=== PATIENT | female | born 1940 | race Caucasian/White ===

== ENCOUNTER 2021-12-14 07:53 | Outpatient (CLI) | payer MEDICARE, BC, SELFPAY ==
--- NOTE | 2021-12-14 08:00 | CRLHL7_ITS ---
For Patients: As a result of the Century Cures Act, medical imaging exams and procedure reports are released immediately into your electronic medical record. You may view this report before your referring provider. If you have questions, please contact your health care provider. HISTORY: 81-year-old female. Right knee pain. Status post right knee replacement in 2001 with revision in 2016. Left knee replacement in 2002. Right knee pain. TECHNIQUE: 36.1 millicuries of [id number] was injected intravenously. Three phase images of the knees were obtained. FINDINGS: The blood flow and blood pool images demonstrate mild hyperemia surrounding the right knee. There is slight hyperemia surrounding the left knee. The delayed images demonstrate bilateral knee replacements. There is abnormally increased uptake adjacent to the right knee prosthetic components. These findings are consistent with loosening, or less likely infection. There is lesser uptake adjacent to the left knee prosthetic components. These findings could also be due to loosening but should be correlated clinically. IMPRESSION: 1. There are findings consistent with loosening, or less likely infection of the right knee prosthesis. 2. There are also findings suspicious for loosening of the left knee prosthesis. If the patient is not clinically symptomatic in the left knee however, then these findings are of questionable significance. Dictated by Mars Collier MD @ 12/14/2021 12:09:23 PM (Electronically Signed)
== END 2021-12-14 07:54 | disposition home or self-care (01) ==
LOC: NM 07:54
PROVIDERS: PCP Family Medicine; Visit Provider Orthopaedic Surgery Sports Medicine
DX: M25.561 Pain in right knee (principal); T84.032A Mechanical loosening of internal right knee prosthetic joint, initial encounter; Z96.659 Presence of unspecified artificial knee joint
CPT/HCPCS: 78315; A9503

== ENCOUNTER 2022-06-28 17:31 | Emergency (ER) | payer MEDICARE, BC, SELFPAY ==
[2022-06-28] VITALS (20 sets, daily range): BP systolic 118–167; BP diastolic 57–91; PULSE 85–112; RESP 18; TEMP 37.3; O2SAT 94–98; BMI 38.6
--- NOTE | 2022-06-28 18:30 | ED_ITS ---
HPI - General Adult General Date Seen: 06/28/22 Chief complaint: Weakness Stated complaint: Weakness starting Saturday Time Seen by Provider: 06/28/22 18:04 Source: patient Mode of arrival: ambulatory Limitations: no limitations History of Present Illness HPI narrative: Patient is an 82-year-old woman here with her [id number] for evaluation of generalized weakness. She says for the past 4 days she has just felt generally not herself. She says that she feels kind of shaky and weak. She does not have any pain. She denies fevers, headache, sore throat, cough, shortness of breath, chest pain, abdominal pain, nausea, vomiting, diarrhea, black or bloody stools, urinary symptoms, body aches, focal weakness, rashes, or other specific complaints. She says her appetite been decreased, and her daughter notes that she probably has not been keeping up with fluid intake either. She has not had any lightheadedness or fainting, she is able to be ambulatory but says she just feels kind of shaky when she is up. Even lying down she does not feel quite right. She notes that about a week and half ago she was seen in clinic and was told that her ferritin level was elevated. She was not anemic at that time. She also notes that she does not sleep well in general, she falls asleep but wakes up a couple of hours later and is up for the rest of the night. For the past couple of days, her sleeping has been even worse than usual. She has no further complaints. Related Data Home Medications Medication Instructions Recorded Confirmed fluticasone propionate 50 1 spray intranasal BID 12/04/21 02/03/22 mcg/actuation nasal spray,suspension losartan 100 mg tablet 100 mg PO DAILY 12/04/21 02/03/22 acetaminophen 500 mg tablet 500 mg PO Q6H PRN 12/05/21 02/03/22 (Tylenol Extra Strength) amlodipine 10 mg tablet 10 mg PO QDAY 12/05/21 02/03/22 bupropion HCl 150 mg 24 hr tablet, mg PO 12/05/21 02/03/22 extended release ferrous gluconate 324 mg (38 mg 324 mg PO QDAY 12/05/21 02/03/22 iron) tablet meclizine 25 mg tablet 25 mg PO QDAY PRN 12/05/21 02/03/22 pregabalin 150 mg capsule 150 mg PO QDAY 12/05/21 02/03/22 ropinirole 2 mg tablet 2 mg PO BID 12/05/21 02/03/22 triamcinolone acetonide 0.1 % applic topical 12/05/21 02/03/22 topical cream Previous Rx's Medication Instructions Recorded prednisone 20 mg tablet 20 mg PO BID #10 tabs 02/03/22 Allergies Allergy/AdvReac Type Severity Reaction Status Date / Time atenolol Allergy Intermediate shortness Verified 12/05/21 09:54 of breath lisinopril Allergy Mild Cough Verified 12/05/21 09:54 morphine Allergy Mild nausea/vomi Verified 12/05/21 09:54 ting adhesive AdvReac Verified 12/05/21 09:54 iodine AdvReac Verified 12/05/21 09:54 Review of Systems Status of ROS: Reports: 10 or more systems reviewed and unremarkable except as noted in History and below [facility] Medical History Arthritis Asthma Contact dermatitis Fracture of rib Hypertension Neuropathy Sleep apnea Surgical History Avulsion of toenail H/O: hysterectomy (~1994) 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 In general, an alert, well-appearing patient. Head: Normocephalic, atraumatic. Eyes: Pupils are equal reactive. Extraocular movements are full. Conjunctivae are normal. ENT: Mucous membranes are moist. Throat is normal. Neck: Supple without lymphadenopathy. Heart: Regular rate and rhythm. No murmur or rub. Lungs: Clear bilaterally. No increased work of breathing, crackles or wheezes. Abdomen: Soft and nontender. No organomegaly. Extremities: Well perfused. No edema. No calf tenderness. Pulses intact. Neurologic: Patient is alert and oriented to person and place. Speech is fluent. Face is symmetric. Moves all extremities equally. Affect: Normal. Skin: Warm and dry. Well perfused. Const: Vital Signs, click to edit/add: Vital Signs - 24 hr 06/28/22 17:38 06/28/22 17:43 06/28/22 17:44 Temperature 99.1 F Pulse Rate 111 H 112 H Pulse Rate [Pulse Oximeter] 112 H Respiratory Rate 18 Blood Pressure 167/91 H Blood Pressure [Ri ght Upper Arm] 167/91 H Pulse Oximetry 97 97 [facility] 06/28/22 17:53 06/28/22 18:00 06/28/22 18:02 Temperature Pulse Rate 103 H 97 101 H Pulse Rate [Pulse Oximeter] Respiratory Rate Blood Pressure 147/76 H 124/64 Blood Pressure [Ri ght Upper Arm] Pulse Oximetry 98 96 97 [facility] 06/28/22 18:30 06/28/22 18:32 06/28/22 19:00 Temperature Pulse Rate 94 92 87 Pulse Rate [Pulse Oximeter] Respiratory Rate Blood Pressure 133/72 Blood Pressure [Ri ght Upper Arm] Pulse Oximetry 94 94 95 [facility] 06/28/22 19:02 06/28/22 19:03 06/28/22 19:30 Temperature Pulse Rate 90 90 85 Pulse Rate [Pulse Oximeter] Respiratory Rate Blood Pressure 124/57 L Blood Pressure [Ri ght Upper Arm] Pulse Oximetry 94 94 95 [facility] 06/28/22 19:32 06/28/22 20:00 06/28/22 20:02 Temperature Pulse Rate 89 93 92 Pulse Rate [Pulse Oximeter] Respiratory Rate Blood Pressure 122/76 138/78 Blood Pressure [Ri ght Upper Arm] Pulse Oximetry 95 98 98 [facility] 06/28/22 20:30 06/28/22 20:32 06/28/22 20:33 Temperature Pulse Rate 88 93 89 Pulse Rate [Pulse Oximeter] Respiratory Rate Blood Pressure 118/81 Blood Pressure [Ri ght Upper Arm] Pulse Oximetry 96 98 95 [facility] 06/28/22 21:00 06/28/22 21:01 Temperature Pulse Rate 85 87 Pulse Rate [Pulse Oximeter] Respiratory Rate Blood Pressure 129/64 Blood Pressure [Ri ght Upper Arm] Pulse Oximetry 95 96 Oxygen Delivery Me thod Course Course Hospital Course: Plan at this time is to check some labs, placed an IV and give some fluids. Labs are really very reassuring, white count is normal, hemoglobin is 15. Platelets are normal. Potassium was 3.3 I did give her 50 mEq here but I do not think that is contributing to her symptoms. Sodium was normal. BUN was 18 creatinine 0.8. Blood sugar was 96, lactate normal. I did check a ferritin level here which is significantly elevated at 433, total iron 54, transferrin is apparently a send out so that is pending. LFTs are entirely normal, CRP is normal. Lipase is 112 and TSH is normal. She had a L of normal saline, really did not feel the need to urinate the entire time she was here but was able to finally give a urine sample at the end of her stay. This showed 2+ ketones even after L of saline, positive nitrites, 2-5 red cells 25-50 white cells and many bacteria. She does not have significant urinary symptoms, but she is feeling poorly this week, has an abnormal UA, and I do think in this case it is reasonable to treat her and see if this improves how she feels. In terms of her elevated ferritin, it is unclear whether this is directly related to how she is feeling this week. We discussed the possible causes for the elevated ferritin, and at this time I do not know whether this is related to iron overload or not as the transferrin level is still pending. She does not have any signs of end- organ damage. Other inflammatory markers are normal. She is worried about a possible cancer diagnosis, and I have discussed with her that at this time I do not have any specific reason to suspect cancer, but also cannot really rule out other causes for the elevated ferritin such as cancer here in the emergency department. I have stressed that she will need outpatient follow-up to further evaluate for causes of the elevated ferritin. In the meantime, if she is feeling worse, develops new symptoms such as fever, chills, vomiting, chest pain, shortness of breath etcetera she should return to the emergency department. She did have a troponin here which was negative. An EKG showed a sinus rhythm, first-degree AV block, and absence of acute ST segment changes. She has Q-waves in V1 and V2. With symptoms ongoing now for 4 days my suspicion for cardiac etiology for her symptoms is low given the negative troponin. She is comfortable going home at this time. Would encourage her to continue with hydration, return at any time for worsening, stressed importance of primary care follow-up. Vital Signs Vital signs: Initial Vital Signs Temperature 99.1 F 06/28/22 17:38 Temperature Source Temporal Artery Scan 06/28/22 17:38 Pulse Rate 112 H 06/28/22 17:38 Pulse Rhythm 06/28/22 17:38 Pulse Strength 3+ Normal 06/28/22 17:38 Respiratory Rate 18 06/28/22 17:38 Blood Pressure 167/91 H 06/28/22 17:38 Blood Pressure Mean 116 06/28/22 17:38 Blood Pressure Position Semi-Fowlers 06/28/22 17:38 Pulse Oximetry 97 06/28/22 17:38 Oxygen Delivery Method 06/28/22 17:38 Vital Signs Temperature 99.1 F 06/28/22 17:38 Pulse Rate 112 H 06/28/22 17:38 Respiratory Rate 18 06/28/22 17:38 Blood Pressure 167/91 H 06/28/22 17:38 Pulse Oximetry 97 06/28/22 17:38 Oxygen Delivery Method 06/28/22 17:38 Temperature 99.1 F 06/28/22 17:38 Pulse Rate 87 06/28/22 21:01 Respiratory Rate 18 06/28/22 17:38 Blood Pressure 129/64 06/28/22 21:01 Pulse Oximetry 96 06/28/22 21:01 Oxygen Delivery Method 06/28/22 17:38 Medical Decision Making Lab Data Labs: Lab Results 06/28/22 06/28/22 06/28/22 Range/Units 18:20 18:36 18:36 WBC 6.95 (4.50-11.00) K/uL RBC 5.17 (4.00-5.20) m/uL Hgb 15.1 (12.0-16.0) gm/dL Hct 44.9 (33.0-51.0) % MCV 87 (80-100) fL MCH 29 (26-34) pg MCHC 34 (32-36) gm/dL RDW Coeff of [place] 13.4 (11.5-15.5) % Plt Count 217 (140-440) K/uL Neut % (Auto) 71.3 (42.0-72.0) % Lymph % (Auto) 16.3 L (20-44) % Richardson % (Auto) 9.1 (0.0-11.0) % Eos % (Auto) 2.9 (0.0-7.0) % Baso % (Auto) 0.3 (0.0-3.0) % Neut # (Auto) 4.96 (1.7-7.0) K/uL Lymph # (Auto) 1.10 (0.90-2.90) K/uL Richardson # (Auto) 0.60 (0.00-0.90) K/UL Eos # (Auto) 0.20 (0.00-0.50) K/uL Baso # (Auto) 0.02 (0.00-0.30) K/uL Sodium 141 (135-149) mmol/L Potassium 3.3 L (3.6-5.1) mmol/L Chloride 106 (96-114) mmol/L Carbon Dioxide 26 (20-32) mmol/L BUN 18 (7-30) mg/dL Creatinine 0.8 (0.5-1.5) mg/dL Estimated Creat Clear 34.90 Estimated GFR 74 ml/min Glucose 96 (60-115) mg/dL Lactate (0.5-1.9) mmol/L Calcium 9.6 (8.4-10.6) mg/dL Iron (37-170) ug/dL Ferritin (11.1-264.0) ng/mL Total Bilirubin 0.6 (0.1-1.5) mg/dL Direct Bilirubin 0.1 (0.0-0.5) mg/dL AST 32 (12-35) U/L ALT 32 (4-35) U/L Alkaline Phosphatase 90 (40-150) U/L Troponin I (0.01-0.04) ng/mL C-Reactive Protein < 0.5 L (0.5-1.0) mg/dL Total Protein 7.5 (6.0-8.3) g/dL Albumin 4.3 (3.3-5.0) g/dL Lipase 112 (23-300) U/L TSH (0.270-4.200) uIU/mL Urine Color Yellow (Yellow) Urine Appearance Cloudy A (Clear) Urine pH 5.5 (5.0-8.5) Ur Specific [place] 1.020 (1.000-1.030) Urine Protein Negative (Negative) Urine Glucose (UA) Negative (Negative) Urine Ketones 2+ A (Negative) Urine Blood Negative (Negative) Urine Nitrite Positive A (Negative) Urine Bilirubin Negative (Negative) Urine Urobilinogen 0.2 (0.2-1.0) Ur Leukocyte Esterase 1+ A (Negative) Urine RBC 2-5 A (0-2) Urine WBC 25-50 A (0-5) Urine WBC Clumps Few A (None) Ur Squamous Epith Cells Few (None-Few) Urine Bacteria Many A (None) SARS-CoV-2 (PCR) (Negative) 06/28/22 06/28/22 06/28/22 Range/Units 18:36 18:36 18:36 WBC (4.50-11.00) K/uL RBC (4.00-5.20) m/uL Hgb (12.0-16.0) gm/dL Hct (33.0-51.0) % MCV (80-100) fL MCH (26-34) pg MCHC (32-36) gm/dL RDW Coeff of [place] (11.5-15.5) % Plt Count (140-440) K/uL Neut % (Auto) (42.0-72.0) % Lymph % (Auto) (20-44) % Richardson % (Auto) (0.0-11.0) % Eos % (Auto) (0.0-7.0) % Baso % (Auto) (0.0-3.0) % Neut # (Auto) (1.7-7.0) K/uL Lymph # (Auto) (0.90-2.90) K/uL Richardson # (Auto) (0.00-0.90) K/UL Eos # (Auto) (0.00-0.50) K/uL Baso # (Auto) (0.00-0.30) K/uL Sodium (135-149) mmol/L Potassium (3.6-5.1) mmol/L Chloride (96-114) mmol/L Carbon Dioxide (20-32) mmol/L BUN (7-30) mg/dL Creatinine (0.5-1.5) mg/dL Estimated Creat Clear Estimated GFR ml/min Glucose (60-115) mg/dL Lactate 1.0 (0.5-1.9) mmol/L Calcium (8.4-10.6) mg/dL Iron (37-170) ug/dL Ferritin (11.1-264.0) ng/mL Total Bilirubin (0.1-1.5) mg/dL Direct Bilirubin (0.0-0.5) mg/dL AST (12-35) U/L ALT (4-35) U/L Alkaline Phosphatase (40-150) U/L Troponin I < 0.01 L (0.01-0.04) ng/mL C-Reactive Protein (0.5-1.0) mg/dL Total Protein (6.0-8.3) g/dL Albumin (3.3-5.0) g/dL Lipase (23-300) U/L TSH (0.270-4.200) uIU/mL Urine Color (Yellow) Urine Appearance (Clear) Urine pH (5.0-8.5) Ur Specific [place] (1.000-1.030) Urine Protein (Negative) Urine Glucose (UA) (Negative) Urine Ketones (Negative) Urine Blood (Negative) Urine Nitrite (Negative) Urine Bilirubin (Negative) Urine Urobilinogen (0.2-1.0) Ur Leukocyte Esterase (Negative) Urine RBC (0-2) Urine WBC (0-5) Urine WBC Clumps (None) Ur Squamous Epith Cells (None-Few) Urine Bacteria (None) SARS-CoV-2 (PCR) Negative SARS-CoV-2 (Negative) 06/28/22 06/28/22 Range/Units 18:36 18:36 WBC (4.50-11.00) K/uL RBC (4.00-5.20) m/uL Hgb (12.0-16.0) gm/dL Hct (33.0-51.0) % MCV (80-100) fL MCH (26-34) pg MCHC (32-36) gm/dL RDW Coeff of [place] (11.5-15.5) % Plt Count (140-440) K/uL Neut % (Auto) (42.0-72.0) % Lymph % (Auto) (20-44) % Richardson % (Auto) (0.0-11.0) % Eos % (Auto) (0.0-7.0) % Baso % (Auto) (0.0-3.0) % Neut # (Auto) (1.7-7.0) K/uL Lymph # (Auto) (0.90-2.90) K/uL Richardson # (Auto) (0.00-0.90) K/UL Eos # (Auto) (0.00-0.50) K/uL Baso # (Auto) (0.00-0.30) K/uL Sodium (135-149) mmol/L Potassium (3.6-5.1) mmol/L Chloride (96-114) mmol/L Carbon Dioxide (20-32) mmol/L BUN (7-30) mg/dL Creatinine (0.5-1.5) mg/dL Estimated Creat Clear Estimated GFR ml/min Glucose (60-115) mg/dL Lactate (0.5-1.9) mmol/L Calcium (8.4-10.6) mg/dL Iron 54 (37-170) ug/dL Ferritin 433.0 H (11.1-264.0) ng/mL Total Bilirubin (0.1-1.5) mg/dL Direct Bilirubin (0.0-0.5) mg/dL AST (12-35) U/L ALT (4-35) U/L Alkaline Phosphatase (40-150) U/L Troponin I (0.01-0.04) ng/mL C-Reactive Protein (0.5-1.0) mg/dL Total Protein (6.0-8.3) g/dL Albumin (3.3-5.0) g/dL Lipase (23-300) U/L TSH 0.696 (0.270-4.200) uIU/mL Urine Color (Yellow) Urine Appearance (Clear) Urine pH (5.0-8.5) Ur Specific [place] (1.000-1.030) Urine Protein (Negative) Urine Glucose (UA) (Negative) Urine Ketones (Negative) Urine Blood (Negative) Urine Nitrite (Negative) Urine Bilirubin (Negative) Urine Urobilinogen (0.2-1.0) Ur Leukocyte Esterase (Negative) Urine RBC (0-2) Urine WBC (0-5) Urine WBC Clumps (None) Ur Squamous Epith Cells (None-Few) Urine Bacteria (None) SARS-CoV-2 (PCR) (Negative) Discharge Plan Discharge Clinical Impression: UTI (urinary tract infection), Weakness Patient Disposition: Home, Self-Care Condition: Improved Instructions: Urinary Tract Infection in Older Adults (ED) Additional Instructions: Antibiotic as prescribed (you only need to take it for 5 days, not 7). Return for new symptoms such as fever, chills, vomiting, or other worsening. Primary care followup for persistent symptoms of weakness. Ferritin level 433 tonight, iron level 54. Transferrin pending. Make sure to follow-up on the elevated ferritin with your clinic. Prescriptions: No Action losartan 100 mg tablet 100 mg PO DAILY fluticasone propionate 50 mcg/actuation spray,suspension 1 spray intranasal BID Rx Instructions: administer into each nostril pregabalin 150 mg capsule 150 mg PO QDAY ferrous gluconate 324 mg (38 mg iron) tablet 324 mg PO QDAY amlodipine 10 mg tablet 10 mg PO QDAY ropinirole 2 mg tablet 2 mg PO BID bupropion HCl 150 mg tablet extended release 24 hr PO triamcinolone acetonide 0.1 % cream topical meclizine 25 mg tablet 25 mg PO QDAY PRN acetaminophen [Tylenol Extra Strength] 500 mg tablet 500 mg PO Q6H PRN prednisone 20 mg tablet 20 mg PO BID Qty: 10 0RF Follow Up/Referrals: Bety Macedo MD [Primary Care Provider] - Stand Alone Forms: [employer] Info Instructions
[2022-06-28] MEDS: 0.9 % SODIUM CHLORIDE 1000 ml 1,000 ML IV (18:40)
[2022-06-28 18:51] LABS: Basophils Absolute Auto 0.02 K/uL (0.00-0.30); Basophils Percent Auto 0.3 % (0.0-3.0); Eosinophils Percent Auto 2.9 % (0.0-7.0); Hematocrit 44.9 % (33.0-51.0); Hemoglobin* 15.1 gm/dL (12.0-16.0); Immature Granulocytes Abs Auto 0.01 K/uL (0.00-0.30); Immature Granulocytes Pct Auto 0.1 %; Lymphocytes Percent Auto 16.3 % (20-44); Mean Corpuscular HGB Conc 34 gm/dL (32-36); Mean Corpuscular Hemoglobin 29 pg (26-34); Mean Corpuscular Volume 87 fL (80-100); Monocytes Percent Auto 9.1 % (0.0-11.0); Neutrophils Absolute Auto 4.96 K/uL (1.7-7.0); Neutrophils Percent Auto 71.3 % (42.0-72.0); Platelet Count* 217 K/uL (140-440); RDW Coefficient of Variation % 13.4 % (11.5-15.5); Red Blood Count 5.17 m/uL (4.00-5.20); White Blood Count* 6.95 K/uL (4.50-11.00)
[2022-06-28 18:58] LABS: Slide Review Reflex No
[2022-06-28 19:08] LABS: Albumin* 4.3 g/dL (3.3-5.0); Chloride* 106 mmol/L (96-114); Sodium* 141 mmol/L (135-149)
[2022-06-28 19:09] LABS: Potassium* 3.3 mmol/L (3.6-5.1)
[2022-06-28 19:11] LABS: Creatinine* 0.8 mg/dL (0.5-1.5); Estimated Glomerular Filt Rate 74 ml/min
[2022-06-28 19:12] LABS: Alanine Aminotransferase* 32 U/L (4-35); Alkaline Phosphatase* 90 U/L (40-150); Aspartate Amino Transferase* 32 U/L (12-35); Bilirubin Direct* 0.1 mg/dL (0.0-0.5); Bilirubin Total* 0.6 mg/dL (0.1-1.5); Blood Urea Nitrogen* 18 mg/dL (7-30); Calcium* 9.6 mg/dL (8.4-10.6); Carbon Dioxide* 26 mmol/L (20-32); Glucose* 96 mg/dL (60-115); Lipase* 112 U/L (23-300); Total Protein* 7.5 g/dL (6.0-8.3)
[2022-06-28 19:15] LABS: C Reactive Protein* < 0.5 mg/dL (0.5-1.0)
[2022-06-28 19:24] LABS: Troponin I* < 0.01 ng/mL (0.01-0.04)
[2022-06-28 19:32] LABS: SARS PCR* Negative SARS-CoV-2 (Negative)
[2022-06-28] MEDS: POTASSIUM BICARB 25 MEQ EFFERVESCENT TAB 50 MEQ PO (19:34)
[2022-06-28 19:52] LABS: TSH With Reflex to FT4* 0.696 uIU/mL (0.270-4.200)
[2022-06-28 20:10] LABS: Iron* 54 ug/dL (37-170)
[2022-06-28 21:46] LABS: Appearance Urine Cloudy (Clear); Bilirubin Urine Negative (Negative); Blood Urine Negative (Negative); Color Urine Yellow (Yellow); Glucose Urine Negative (Negative); Ketones Urine 2+ (Negative); Leukocyte Esterase Urine 1+ (Negative); Nitrite Urine Positive (Negative); Protein Urine Negative (Negative); Urobilinogen Urine 0.2 (0.2-1.0); pH Urine 5.5 (5.0-8.5)
[2022-06-28 21:56] LABS: Bacteria Urine Many; Squamous Epithelial Cell Urine Few (None-Few); WBC Clumps Urine Few; WBC Urine 25-50 (0-5)
[2022-06-30 21:13] LABS: Transferrin 198 mg/dL (200-360)
== END 2022-06-28 22:18 | disposition home or self-care (01) ==
PROVIDERS: Emergency Provider Emergency Medicine; PCP Family Medicine
DX: N39.0 Urinary tract infection, site not specified (principal)
CPT/HCPCS: 36415; 80048; 80076; 81001; 82728; 83540; 83605; 83690; 84443; 84466; 84484; 85025; 86140; 87086; 87186; 87635; 93005; 99284; A9270; J7030

== ENCOUNTER 2023-01-20 16:12 | Emergency (ER) | payer MEDICARE, BC, SELFPAY ==
[2023-01-20] VITALS (17 sets, daily range): BP systolic 117–179; BP diastolic 62–89; PULSE 77–93; RESP 16–20; TEMP 36.2; O2SAT 90–97; BMI 36.9
--- NOTE | 2023-01-20 16:38 | ED.GENADULT ---
HPI - General Adult General Chief complaint: Dizziness/Vertigo Stated complaint: dizzy since noon Time Seen by Provider: 01/20/23 16:30 History of Present Illness HPI narrative: since noon pt has felt like room is spinning, slight nausea 82-year-old woman presenting to the emergency department complain of dizziness. She was in usual state of health other than feeling more tired today after waking this morning in getting some things done went to sleep, take a nap waking than around noon went to move and noted herself to be quite dizzy the room was spinning around her. This continues. Resolved at rest. No chest pain shortness of breath or sensation of palpitations. No recent fever. She does recall having some dizziness in the past for which who is apparently evaluated in this department but was not as bad as this. No visual disturbances otherwise. No headache. No trauma. Mildly nauseated. Denies a history of CVA or TIA. Had laid herself down around 7 hours ago now, waking between 4 and 5 hours ago. Has had hang onto things to ambulate, namely her walker. Related Data Home Medications Medication Instructions Recorded Confirmed fluticasone propionate 50 1 spray intranasal BID 12/04/21 02/03/22 mcg/actuation nasal spray,suspension losartan 100 mg tablet 100 mg PO DAILY 12/04/21 01/20/23 acetaminophen 500 mg tablet 500 mg PO Q6H PRN 12/05/21 02/03/22 (Tylenol Extra Strength) amlodipine 10 mg tablet 10 mg PO QDAY 12/05/21 01/20/23 bupropion HCl 150 mg 24 hr tablet, mg PO 12/05/21 02/03/22 extended release ferrous gluconate 324 mg (38 mg 324 mg PO QDAY 12/05/21 01/20/23 iron) tablet meclizine 25 mg tablet 25 mg PO QDAY PRN 12/05/21 02/03/22 pregabalin 150 mg capsule 150 mg PO QDAY 12/05/21 01/20/23 ropinirole 2 mg tablet 2 mg PO BID 12/05/21 01/20/23 triamcinolone acetonide 0.1 % applic topical 12/05/21 02/03/22 topical cream Previous Rx's Medication Instructions Recorded prednisone 20 mg tablet 20 mg PO BID #10 tabs 02/03/22 diazepam 5 mg tablet (Valium) 2.5 - 5 mg (0.5 - 1 x 5 mg) PO BID 01/20/23 PRN dizziness #5 tabs meclizine 25 mg tablet 25 mg PO TID #15 tabs 01/20/23 Allergies Allergy/AdvReac Type Severity Reaction Status Date / Time atenolol Allergy Intermediate shortness Verified 12/05/21 09:54 of breath lisinopril Allergy Mild Cough Verified 12/05/21 09:54 morphine Allergy Mild nausea/vomi Verified 12/05/21 09:54 ting adhesive AdvReac Verified 12/05/21 09:54 iodine AdvReac Verified 12/05/21 09:54 Review of Systems Status of ROS: Reports: 6 or more systems reviewed and unremarkable except as noted in History and below PFSH PFS Medical History Contact dermatitis ?L25.9 - Unspecified contact dermatitis, unspecified cause (ICD-10) Neuropathy ?G62.9 - Polyneuropathy, unspecified (ICD-10) Arthritis ?M19.90 - Unspecified osteoarthritis, unspecified site (ICD-10) Sleep apnea ?G47.30 - Sleep apnea, unspecified (ICD-10) Asthma ?J45.909 - Unspecified asthma, uncomplicated (ICD-10) Hypertension ?I10 - Essential (primary) hypertension (ICD-10) Fracture of rib ?S22.39XA - Fracture of one rib, unspecified side, initial encounter for closed fracture (ICD-10) Surgical History History of revision of total knee arthroplasty ?Z96.659 - Presence of unspecified artificial knee joint (ICD-10) H/O: hysterectomy (~1994) ?Z90.710 - Acquired absence of both cervix and uterus (ICD-10) History of total right knee replacement (~11/2001) ?Z96.651 - Presence of right artificial knee joint (ICD-10) History of total left knee replacement (~01/2003) ?Z96.652 - Presence of left artificial knee joint (ICD-10) Avulsion of toenail ?S91.209A - Unspecified open wound of unspecified toe(s) with damage to nail, initial encounter (ICD-10) Social History Smoking Status: Never smoker Do you use any of these nicotine containing products: None Second hand tobacco smoke exposure: No How often do you have a drink containing alcohol: never How often do you have six or more drinks on one occasion: Never AUDIT-C Alcohol total score: 0 Non-prescribed substance use: denies use service: No Exam Narrative: Exam Narrative: Pleasant. Speaking easily, fluidly. Cranial nerves 2-12 intact. Pupils are equal and briskly reactive to light and accommodation. Extraocular movements are full. She demonstrates nystagmus beating left. No facial swelling erythema or tenderness. Any movement of her head does causes dizziness as to sitting up. At rest subjectively resolves. Head looks to be atraumatic. Neck is supple. Nontender. Heart is distant occasional irregular beat but generally mildly elevated regular rhythm. Moving all extremities fluidly with good strength throughout. Well-perfused. I did reassess attempting to accomplish HINTS -- this really was just difficult to accomplish and inconclusive. Const: Vital Signs, click to edit/add: Vital Signs - 24 hr 01/20/23 16:16 01/20/23 17:35 01/20/23 17:36 Temperature 97.1 F L Pulse Rate 77 78 Pulse Rate [Pulse Oximeter] 92 Respiratory Rate 20 16 Blood Pressure 120/62 Blood Pressure [Ri ght Upper Arm] 156/82 H Pulse Oximetry 94 90 95 Oxygen Delivery Me thod Room Air Room Air Documenting provider has reviewed patient's vital signs: yes Course Vital Signs Vital signs: Initial Vital Signs Temperature 97.1 F L 01/20/23 16:16 Temperature Source Temporal Artery Scan 01/20/23 16:16 Pulse Rate 92 01/20/23 16:16 Respiratory Rate 20 01/20/23 16:16 Blood Pressure 156/82 H 01/20/23 16:16 Blood Pressure Mean 106 H 01/20/23 16:16 Blood Pressure Position Sitting 01/20/23 16:16 Pulse Oximetry 94 01/20/23 16:16 Oxygen Delivery Method Room Air 01/20/23 16:16 Vital Signs Temperature 97.1 F L 01/20/23 16:16 Pulse Rate 92 01/20/23 16:16 Respiratory Rate 20 01/20/23 16:16 Blood Pressure 156/82 H 01/20/23 16:16 Pulse Oximetry 94 01/20/23 16:16 Oxygen Delivery Method Room Air 01/20/23 16:16 Temperature 97.1 F L 01/20/23 16:16 Pulse Rate 81 01/20/23 20:31 Respiratory Rate 16 01/20/23 17:35 Blood Pressure 150/89 H 01/20/23 20:31 Pulse Oximetry 95 01/20/23 20:31 Oxygen Delivery Method Room Air 01/20/23 17:35 Medical Decision Making MDM Narrative Medical decision making narrative: With history of similar think this is more of a peripheral vertigo of issue a furthermore that improves at rest. Will test dose fluids and Valium and re-evaluate. Monitoring on monitoring tech. Vitals stable After extended period of time and reassessment does not appear to be improving. Or symptoms seem to have recurred somewhat. At this point will delve deeper into other possible etiology including TIA/CVA, endocrine, cerebrovascular, ischemic cardiovascular event. Also giving meclizine and repeat dosing diazepam. Labs are reassuring. CTA head and neck was reassuring with some mild atherosclerotic disease noted in the left internal carotid but no flow limiting lesions noted. No aneurysms. While imaging is not absolutely conclusive, on reassessment Ms. Guillen has finally improved. I am more confident on re-examination that symptoms seem to be more persistent she reproducible indicating left inner ear involvement perhaps. She notes she is feeling well enough that she feels she can depart to home See patient discharge plan Medical Records Medical records reviewed: Yes I reviewed the patient's medical records Lab Data Lab results reviewed: Yes I reviewed the patient's lab results Labs: Lab Results 01/20/23 01/20/23 Range/Units 18:42 18:55 WBC 6.77 (4.50-11.00) K/uL RBC 4.94 (4.00-5.20) m/uL Hgb 14.1 (12.0-16.0) gm/dL Hct 44.0 (33.0-51.0) % MCV 89 (80-100) fL MCH 29 (26-34) pg MCHC 32 (32-36) gm/dL RDW Coeff of [place] 14.3 (11.5-15.5) % Plt Count 202 (140-440) K/uL Neut % (Auto) 67.2 (42.0-72.0) % Lymph % (Auto) 22.3 (20-44) % [place] % (Auto) 7.4 (0.0-11.0) % Eos % (Auto) 2.8 (0.0-7.0) % Baso % (Auto) 0.3 (0.0-3.0) % Neut # (Auto) 4.55 (1.7-7.0) K/uL Lymph # (Auto) 1.51 (0.90-2.90) K/uL [place] # (Auto) 0.50 (0.00-0.90) K/UL Eos # (Auto) 0.19 (0.00-0.50) K/uL Baso # (Auto) 0.02 (0.00-0.30) K/uL Abs Immat Gran (auto) 0.00 (0.00-0.30) K/uL Imm/Tot Granulo (auto) 0.0 % Sodium 142 (135-149) mmol/L Potassium 3.9 (3.6-5.1) mmol/L Chloride 112 (96-114) mmol/L Carbon Dioxide 24 (20-32) mmol/L Anion Gap 6 L (7-15) mEq/L BUN 28 (7-30) mg/dL Creatinine 0.6 (0.5-1.5) mg/dL Estimated Creat Clear 34.90 Estimated GFR 90 ml/min Glucose 84 (60-115) mg/dL Calcium 9.4 (8.4-10.6) mg/dL Troponin I < 0.01 L (0.01-0.04) ng/mL C-Reactive Protein 1.2 H (0.5-1.0) mg/dL Urine Color Light yellow (Yellow) Urine Appearance Clear (Clear) Urine pH 6.0 (5.0-8.5) Ur Specific [place] 1.010 (1.000-1.030) Urine Protein Negative (Negative) Urine Glucose (UA) Negative (Negative) Urine Ketones Negative (Negative) Urine Blood Negative (Negative) Urine Nitrite Negative (Negative) Urine Bilirubin Negative (Negative) Urine Urobilinogen 0.2 (0.2-1.0) Ur Leukocyte Esterase Trace A (Negative) Urine RBC 0-2 (0-2) Urine WBC 0-2 (0-5) Ur Squamous Epith Cells None (None-Few) Urine Bacteria None (None) POC Troponin I 0.00 L (0.01-0.04) ng/ml Discharge Plan Discharge Clinical Impression: Dizziness, Peripheral positional vertigo Patient Disposition: Home w/ Parent or Adult Condition: Improved Additional Instructions: I think we have done a pretty extensive evaluation here today. Your scans thankfully look to be without evidence of ischemia. You seem to be improved. Important to stay well hydrated. Take care in transitions and keep your walker at hand. I would ask you to take the meclizine dosed regularly if it does not make you to tired, over the next 3 days. The Valium then is for dizziness that seems worse in between. This medicine in particular can make you tired. See handout for exercises that you can do to focus on the left side/ear at this point. I would follow up to discuss this case further with primary care. It may be that further imaging is warranted. We are giving you some pills from our pharmacy here because it might be hard to get medications tomorrow. Prescriptions: New meclizine 25 mg tablet 25 mg PO TID Qty: 15 0RF diazepam [Valium] 5 mg tablet 2.5 - 5 mg PO BID PRN (Reason: dizziness) Qty: 5 0RF No Action losartan 100 mg tablet 100 mg PO DAILY fluticasone propionate 50 mcg/actuation spray,suspension 1 spray intranasal BID Rx Instructions: administer into each nostril pregabalin 150 mg capsule 150 mg PO QDAY ferrous gluconate 324 mg (38 mg iron) tablet 324 mg PO QDAY amlodipine 10 mg tablet 10 mg PO QDAY ropinirole 2 mg tablet 2 mg PO BID bupropion HCl 150 mg tablet extended release 24 hr PO triamcinolone acetonide 0.1 % cream topical meclizine 25 mg tablet 25 mg PO QDAY PRN acetaminophen [Tylenol Extra Strength] 500 mg tablet 500 mg PO Q6H PRN prednisone 20 mg tablet 20 mg PO BID Qty: 10 0RF Follow Up/Referrals: Bety Macedo MD [Referring] - Stand Alone Forms: [facility] Info Instructions
[2023-01-20] MEDS: 0.9 % SODIUM CHLORIDE 1000 ml 1,000 ML 2000 ML IV (17:17)
[2023-01-20] MEDS: diazePAM 5 MG/ML inj IV (17:17)
--- NOTE | 2023-01-20 18:25 | CRLHL7_ITS ---
For Patients: As a result of the Century Cures Act, medical imaging exams and procedure reports are released immediately into your electronic medical record. You may view this report before your referring provider. If you have questions, please contact your health care provider. CLINICAL HISTORY: Dizziness. TECHNIQUE: CTA neck with contrast bolus tracking. 3D angiographic rendering using maximum intensity projection (MIP) and images permanently archived. COMPARISON: None available. FINDINGS: The great vessels are patent. The common carotid arteries are patent. The proximal ICAs are patent without signficant stenoses by NASCET criteria. The more distal cervical ICAs are patent. The origins of the vertebral arteries are patent. The cervical segments of the vertebral arteries are patent. IMPRESSION: Patent cervical arterial vasculature without hemodynamically significant luminal stenosis. Please note that all CT scans at this facility use dose modulation, iterative reconstruction, and/or weight-based dosing when appropriate to reduce radiation dose to as low as reasonably achievable. Dictated by Victorino Mckinley MD @ 01/20/2023 8:55:05 PM (Electronically Signed)
--- NOTE | 2023-01-20 18:25 | CRLHL7_ITS ---
For Patients: As a result of the Century Cures Act, medical imaging exams and procedure reports are released immediately into your electronic medical record. You may view this report before your referring provider. If you have questions, please contact your health care provider. CLINICAL HISTORY: Dizziness. TECHNIQUE: Standard helical CT image acquisition of the brain was performed. COMPARISON: None available. FINDINGS: There is no intracranial hemorrhage, extra-axial collection, mass effect, or midline shift. Mckenzie-white matter differentiation is preserved. The ventricles are normal in size and morphology for patient age. Mild patchy hypoattenuation in the white matter of both hemispheres likely reflects sequela chronic small vessel ischemia. Intracranial atherosclerotic calcification. The calvarium is unremarkable. The orbits are unremarkable. Mucous retention cyst in the left maxillary sinus. Small volume secretions layering in the right sphenoid sinus. The mastoid air cells are unremarkable. IMPRESSION: 1. No CT evidence of acute intracranial abnormality. 2. Findings most likely reflecting sequela of chronic small vessel ischemia. Please note that all CT scans at this facility use dose modulation, iterative reconstruction, and/or weight-based dosing when appropriate to reduce radiation dose to as low as reasonably achievable. Dictated by Victorino Mckinley MD @ 01/20/2023 8:52:30 PM (Electronically Signed)
--- NOTE | 2023-01-20 18:25 | CRLHL7_ITS ---
For Patients: As a result of the Century Cures Act, medical imaging exams and procedure reports are released immediately into your electronic medical record. You may view this report before your referring provider. If you have questions, please contact your health care provider. CLINICAL HISTORY: Dizziness. TECHNIQUE: CTA head with contrast bolus tracking. 3D angiographic rendering using maximum intensity projection (MIP) and images permanently archived. COMPARISON: None available. FINDINGS: The petrous, cavernous, and supraclinoid segments of the internal carotid arteries are patent. The anterior and middle cerebral arteries are patent. The anterior communicating artery is visualized and is within normal limits. The intracranial vertebral arteries, basilar trunk, and posterior cerebral arteries are patent. No intracranial proximal large vessel occlusion. Mild atherosclerotic stenosis of the clinoid segment of the left ICA. No evidence of cerebral aneurysm. No findings to suggest an arterial-venous shunting lesion. IMPRESSION: No intracranial proximal large vessel occlusion, flow-limiting luminal stenosis, or cerebral aneurysm. Please note that all CT scans at this facility use dose modulation, iterative reconstruction, and/or weight-based dosing when appropriate to reduce radiation dose to as low as reasonably achievable. Dictated by Victorino Mckinley MD @ 01/20/2023 8:58:26 PM (Electronically Signed)
[2023-01-20 18:48] LABS: Appearance Urine Clear (Clear); Bilirubin Urine Negative (Negative); Blood Urine Negative (Negative); Color Urine Light yellow (Yellow); Glucose Urine Negative (Negative); Ketones Urine Negative (Negative); Leukocyte Esterase Urine Trace (Negative); Nitrite Urine Negative (Negative); Protein Urine Negative (Negative); Urobilinogen Urine 0.2 (0.2-1.0)
[2023-01-20 18:58] LABS: RBC Urine 0-2 (0-2); WBC Urine 0-2 (0-5)
[2023-01-20 19:06] LABS: Basophils Absolute Auto 0.02 K/uL (0.00-0.30); Basophils Percent Auto 0.3 % (0.0-3.0); Eosinophils Absolute Auto 0.19 K/uL (0.00-0.50); Eosinophils Percent Auto 2.8 % (0.0-7.0); Hemoglobin* 14.1 gm/dL (12.0-16.0); Lymphocytes Absolute Auto 1.51 K/uL (0.90-2.90); Lymphocytes Percent Auto 22.3 % (20-44); Mean Corpuscular HGB Conc 32 gm/dL (32-36); Mean Corpuscular Hemoglobin 29 pg (26-34); Mean Corpuscular Volume 89 fL (80-100); Monocytes Percent Auto 7.4 % (0.0-11.0); Neutrophils Absolute Auto 4.55 K/uL (1.7-7.0); Neutrophils Percent Auto 67.2 % (42.0-72.0); Platelet Count* 202 K/uL (140-440); RDW Coefficient of Variation % 14.3 % (11.5-15.5); Red Blood Count 4.94 m/uL (4.00-5.20); White Blood Count* 6.77 K/uL (4.50-11.00)
[2023-01-20 19:11] LABS: Slide Review Reflex No
[2023-01-20] MEDS: MECLIZINE HCL 25 MG TABLET PO ×2 (19:17→21:39)
[2023-01-20 19:18] LABS: Chloride* 112 mmol/L (96-114); Potassium* 3.9 mmol/L (3.6-5.1); Sodium* 142 mmol/L (135-149)
[2023-01-20 19:21] LABS: Creatinine* 0.6 mg/dL (0.5-1.5); Estimated Glomerular Filt Rate 90 ml/min
[2023-01-20 19:22] LABS: Anion Gap 6 mEq/L (7-15); Blood Urea Nitrogen* 28 mg/dL (7-30); Calcium* 9.4 mg/dL (8.4-10.6); Carbon Dioxide* 24 mmol/L (20-32); Glucose* 84 mg/dL (60-115)
[2023-01-20 19:25] LABS: C Reactive Protein* 1.2 mg/dL (0.5-1.0)
[2023-01-20 19:36] LABS: Troponin I* < 0.01 ng/mL (0.01-0.04)
[2023-01-20] MEDS: diazePAM 5 MG TABLET PO (21:38)
== END 2023-01-20 21:50 | disposition home or self-care (01) ==
PROVIDERS: Emergency Provider Family Medicine; PCP Family Medicine
DX: H81.11 Benign paroxysmal vertigo, right ear (principal)
CPT/HCPCS: 36415; 70450; 70496; 70498; 80048; 81001; 84484; 85025; 86140; 96374; 99284; 99285; A9270; J3360; J7030; Q9967

== ENCOUNTER 2023-04-08 15:25 | Outpatient (CLI) | payer MEDICARE, BC, SELFPAY | END 2023-04-08 15:26 | disposition home or self-care (01) | LOC: AMB 04-09 10:31 | PROVIDERS: PCP Family Medicine; Visit Provider Emergency Medicine Emergency Medical Services | DX: R41.82 Altered mental status, unspecified (principal); R53.1 Weakness | CPT/HCPCS: A0998 ==

== ENCOUNTER 2023-04-08 16:06 | Emergency (ER) | payer MEDICARE, BC, SELFPAY ==
[2023-04-08 16:14] VITALS: BP 138/76; PULSE 97; RESP 18; TEMP 36.4; O2SAT 95; BMI 40.2
--- NOTE | 2023-04-08 17:24 | CRLHL7_ITS ---
For Patients: As a result of the Cures Act, medical imaging exams and procedure reports are released immediately into your electronic medical record. You may view this report before your referring provider. If you have questions, please contact your health care provider. INDICATION: Confusion. Mental status change TECHNIQUE: Noncontrast axial CT of the head is submitted. Compared to prior study from January 21, 2020. FINDINGS: The ventricles, sulci and gyri are of normal size, shape and contour for age. Midline structures are centrally located. No convincing evidence of suspicious intra- or extra-axial fluid collections. Stable mild patchy regions of decreased attenuation within the periventricular and subcortical white matter of both cerebral hemispheres. IMPRESSION: 1. No radiographic evidence of acute intracranial abnormalities. 2. Stable mild supratentorial white matter changes that are non-specific, but statistically most likely related to chronic small vessel ischemic disease. Dictated by Bruce Arreola MD @ 04/08/2023 6:14:26 PM Please note that all CT scans at this facility use dose modulation, iterative reconstruction, and/or weight-based dosing when appropriate to reduce radiation dose to as low as reasonably achievable. Dictated by: Bruce Arreola MD @ 04/08/2023 18:14:37 (Electronically Signed)
--- NOTE | 2023-04-08 17:25 | ED.GENADULT ---
HPI - General Adult General Chief complaint: Neuro Symptoms/Altered Deficit Stated complaint: Confusion Time Seen by Provider: 04/08/23 17:04 History of Present Illness HPI narrative: This 82-year-old female comes in with her family member and she reports an episode this morning where she had confusion. She was standing in her kitchen in trying to figure out how to use a recipe for cooking something. She states that this lasted about an hour and now has resolved. She did not have any unilateral weakness or altered sensation. There was no speech change. She does not complain of any pain or headache. She does have poor ability to sleep at night and uses a CPAP machine. She states that many time she does not sleep at all at night but then during the day if she sits down in a chair she may fall asleep very quickly. Her son states that he has seen her in this state and noted that there was significant sleep apnea when she was sleeping in the chair during the day. Related Data Home Medications Medication Instructions Recorded Confirmed fluticasone propionate 50 1 spray intranasal BID 12/04/21 02/03/22 mcg/actuation nasal spray,suspension losartan 100 mg tablet 100 mg PO DAILY 12/04/21 01/20/23 acetaminophen 500 mg tablet 500 mg PO Q6H PRN 12/05/21 02/03/22 (Tylenol Extra Strength) amlodipine 10 mg tablet 10 mg PO QDAY 12/05/21 01/20/23 bupropion HCl 150 mg 24 hr tablet, mg PO 12/05/21 02/03/22 extended release ferrous gluconate 324 mg (38 mg 324 mg PO QDAY 12/05/21 01/20/23 iron) tablet meclizine 25 mg tablet 25 mg PO QDAY PRN 12/05/21 02/03/22 pregabalin 150 mg capsule 150 mg PO QDAY 12/05/21 01/20/23 ropinirole 2 mg tablet 2 mg PO BID 12/05/21 01/20/23 triamcinolone acetonide 0.1 % applic topical 12/05/21 02/03/22 topical cream Previous Rx's Medication Instructions Recorded prednisone 20 mg tablet 20 mg PO BID #10 tabs 02/03/22 diazepam 5 mg tablet (Valium) 2.5 - 5 mg (0.5 - 1 x 5 mg) PO BID 09/03/23 PRN dizziness #5 tabs meclizine 25 mg tablet 25 mg PO TID #15 tabs 01/20/23 cephalexin 500 mg capsule 500 mg PO TID 7 days #21 caps 04/08/23 Allergies Allergy/AdvReac Type Severity Reaction Status Date / Time atenolol Allergy Intermediate shortness Verified 12/05/21 09:54 of breath lisinopril Allergy Mild Cough Verified 12/05/21 09:54 morphine Allergy Mild nausea/vomi Verified 12/05/21 09:54 ting adhesive AdvReac Verified 12/05/21 09:54 iodine AdvReac Verified 12/05/21 09:54 Review of Systems Status of ROS: Reports: 10 or more systems reviewed and unremarkable except as noted in History and below Narrative: Constitutional: No fevers, no weight gain or loss. Eyes: No discharge. No vision changes. HENT: No congestion, no sore throat, no ear pain. Cardiovascular: No chest pain, no palpitations. Respiratory: No shortness of breath, no wheezes, no cough. Gastrointestinal: No abdominal pain, no vomiting, no diarrhea. Genitourinary: No dysuria, no hematuria. Musculoskeletal: Normal range of motion. Skin: No rashes, no pruritis. Neurological: No dizziness, weakness, sensory change, speech change. Endo/Heme/Allergies: No bruising or bleeding. No polydipsia. Pysch: no suicidality, no anxiety. She had a episode of confusion this morning that has resolved. She reports insomnia and has sleep apnea. All other systems reviewed and are negative. [facility] Medical History Contact dermatitis ?L25.9 - Unspecified contact dermatitis, unspecified cause (ICD-10) Neuropathy ?G62.9 - Polyneuropathy, unspecified (ICD-10) Arthritis ?M19.90 - Unspecified osteoarthritis, unspecified site (ICD-10) Sleep apnea ?G47.30 - Sleep apnea, unspecified (ICD-10) Asthma ?J45.909 - Unspecified asthma, uncomplicated (ICD-10) Hypertension ?I10 - Essential (primary) hypertension (ICD-10) Fracture of rib ?S22.39XA - Fracture of one rib, unspecified side, initial encounter for closed fracture (ICD-10) Surgical History History of revision of total knee arthroplasty ?Z96.659 - Presence of unspecified artificial knee joint (ICD-10) H/O: hysterectomy (~1994) ?Z90.710 - Acquired absence of both cervix and uterus (ICD-10) History of total right knee replacement (~11/2001) ?Z96.651 - Presence of right artificial knee joint (ICD-10) History of total left knee replacement (~01/2003) ?Z96.652 - Presence of left artificial knee joint (ICD-10) Avulsion of toenail ?S91.209A - Unspecified open wound of unspecified toe(s) with damage to nail, initial encounter (ICD-10) Social History Smoking Status: Never smoker Do you use any of these nicotine containing products: None Second hand tobacco smoke exposure: No How often do you have a drink containing alcohol: never How often do you have six or more drinks on one occasion: Never AUDIT-C Alcohol total score: 0 Non-prescribed substance use: denies use service: No Exam Narrative: Exam Narrative: Constitutional: Well-developed, well-nourished, no acute distress. HEENT: Normocephalic, atraumatic. Neck: Normal range of motion. Nontender. Supple. Heart: Regular. No murmurs. Normal rate. Intact distal pulses. Lungs: Clear to auscultation. No chest discomfort. No wheezes, rhonchi, or rales. Abdomen: Normal bowel sounds. Nontender. No rebound tenderness. Genitalia: Deferred. Back: No midline tenderness. Normal range of motion. Extremities: Normal range of motion. No injury. Skin: Intact. No rash. Warm. No erythema or pallor. Neurologic: No altered sensation. No weakness. Alert and oriented. No facial asymmetry. Tongue is midline. [id number] is normal. No pronator drift. [employer] strength is equal bilaterally. She is able to raise each leg from the bed to my hand. Psychiatric: No suicidality. No anxiety or depression. No insomnia. Nursing notes and vitals signs are reviewed. Const: Vital Signs, click to edit/add: Vital Signs - 24 hr 04/08/23 16:14 Temperature 97.6 F Pulse Rate [Pulse Oximeter] 97 Respiratory Rate 18 Blood Pressure [Ri ght Upper Arm] 138/76 Pulse Oximetry 95 Oxygen Delivery Me thod Room Air Course Vital Signs Vital signs: Initial Vital Signs Temperature 97.6 F 04/08/23 16:14 Temperature Source Temporal Artery Scan 04/08/23 16:14 Pulse Rate 97 04/08/23 16:14 Respiratory Rate 18 04/08/23 16:14 Blood Pressure 138/76 04/08/23 16:14 Blood Pressure Mean 96 04/08/23 16:14 Pulse Oximetry 95 04/08/23 16:14 Oxygen Delivery Method Room Air 04/08/23 16:14 Vital Signs Temperature 97.6 F 04/08/23 16:14 Pulse Rate 97 04/08/23 16:14 Respiratory Rate 18 04/08/23 16:14 Blood Pressure 138/76 04/08/23 16:14 Pulse Oximetry 95 04/08/23 16:14 Oxygen Delivery Method Room Air 04/08/23 16:14 Temperature 97.6 F 04/08/23 16:14 Pulse Rate 97 04/08/23 16:14 Respiratory Rate 18 04/08/23 16:14 Blood Pressure 138/76 04/08/23 16:14 Pulse Oximetry 95 04/08/23 16:14 Oxygen Delivery Method Room Air 04/08/23 16:14 Medical Decision Making MDM Narrative Medical decision making narrative: This patient comes in reporting an episode of confusion earlier today but states that she feels rather normal at this time. She arrives with normal vital signs in her exam is reassuring. She does not show any neurologic deficits. CT imaging of her head by my review shows no acute findings. Lab results show normal findings also except her urinalysis does show evidence of urinary tract infection. This can explain episodes of delirium or confusion. The patient did receive a prescription for Keflex. Lab Data Labs: Lab Results 04/08/23 Range/Units 17:35 WBC 6.66 (4.50-11.00) K/uL RBC 5.08 (4.00-5.20) m/uL Hgb 14.8 (12.0-16.0) gm/dL Hct 45.5 (33.0-51.0) % MCV 90 (80-100) fL MCH 29 (26-34) pg MCHC 33 (32-36) gm/dL RDW Coeff of [place] 14.1 (11.5-15.5) % Plt Count 222 (140-440) K/uL Neut % (Auto) 66.3 (42.0-72.0) % Lymph % (Auto) 21.0 (20-44) % [place] % (Auto) 8.0 (0.0-11.0) % Eos % (Auto) 4.2 (0.0-7.0) % Baso % (Auto) 0.3 (0.0-3.0) % Neut # (Auto) 4.42 (1.7-7.0) K/uL Lymph # (Auto) 1.40 (0.90-2.90) K/uL [place] # (Auto) 0.50 (0.00-0.90) K/UL Eos # (Auto) 0.28 (0.00-0.50) K/uL Baso # (Auto) 0.02 (0.00-0.30) K/uL Abs Immat Gran (auto) 0.01 (0.00-0.30) K/uL Imm/Tot Granulo (auto) 0.2 % Sodium 143 (135-149) mmol/L Potassium 4.2 (3.6-5.1) mmol/L Chloride 106 (96-114) mmol/L Carbon Dioxide 28 (20-32) mmol/L Anion Gap 9 (7-15) mEq/L BUN 25 (7-30) mg/dL Creatinine 0.8 (0.5-1.5) mg/dL Estimated Creat Clear 34.90 Estimated GFR 74 ml/min Glucose 104 (60-115) mg/dL Calcium 9.8 (8.4-10.6) mg/dL Urine Color Yellow (Yellow) Urine Appearance Clear (Clear) Urine pH 5.5 (5.0-8.5) Ur Specific [place] 1.020 (1.000-1.030) Urine Protein Negative (Negative) Urine Glucose (UA) Negative (Negative) Urine Ketones Negative (Negative) Urine Blood Negative (Negative) Urine Nitrite Positive A (Negative) Urine Bilirubin Negative (Negative) Urine Urobilinogen 0.2 (0.2-1.0) Ur Leukocyte Esterase 3+ A (Negative) Urine RBC 10-25 A (0-2) Urine WBC 10-25 A (0-5) Urine WBC Clumps Few A (None) Ur Squamous Epith Cells Few (None-Few) Urine Bacteria Moderate A (None) Imaging Data CT scan - head: Radiologist's impression: 1. No radiographic evidence of acute intracranial abnormalities. 2. Stable mild supratentorial white matter changes that are non-specific, but statistically most likely related to chronic small vessel ischemic disease. Discharge Plan Discharge Clinical Impression: Urinary tract infection Patient Disposition: Home, Self-Care Condition: Unchanged Additional Instructions: Take medication as prescribed. Follow up with MD return if worsening. Prescriptions: New cephalexin 500 mg capsule 500 mg PO TID 7 Days Qty: 21 0RF No Action losartan 100 mg tablet 100 mg PO DAILY fluticasone propionate 50 mcg/actuation spray,suspension 1 spray intranasal BID Rx Instructions: administer into each nostril pregabalin 150 mg capsule 150 mg PO QDAY ferrous gluconate 324 mg (38 mg iron) tablet 324 mg PO QDAY amlodipine 10 mg tablet 10 mg PO QDAY ropinirole 2 mg tablet 2 mg PO BID bupropion HCl 150 mg tablet extended release 24 hr PO triamcinolone acetonide 0.1 % cream topical meclizine 25 mg tablet 25 mg PO QDAY PRN acetaminophen [Tylenol Extra Strength] 500 mg tablet 500 mg PO Q6H PRN prednisone 20 mg tablet 20 mg PO BID Qty: 10 0RF meclizine 25 mg tablet 25 mg PO TID Qty: 15 0RF diazepam [Valium] 5 mg tablet 2.5 - 5 mg PO BID PRN (Reason: dizziness) Qty: 5 0RF Follow Up/Referrals: Lakeshia Gee MD [Primary Care Provider] - Stand Alone Forms: [employer] Info Instructions
[2023-04-08 17:46] LABS: Hematocrit 45.5 % (33.0-51.0); Hemoglobin* 14.8 gm/dL (12.0-16.0); Mean Corpuscular HGB Conc 33 gm/dL (32-36); Mean Corpuscular Hemoglobin 29 pg (26-34); Mean Corpuscular Volume 90 fL (80-100); Neutrophils Percent Auto 66.3 % (42.0-72.0); Platelet Count* 222 K/uL (140-440); RDW Coefficient of Variation % 14.1 % (11.5-15.5); Red Blood Count 5.08 m/uL (4.00-5.20); White Blood Count* 6.66 K/uL (4.50-11.00)
[2023-04-08 17:47] LABS: Basophils Absolute Auto 0.02 K/uL (0.00-0.30); Basophils Percent Auto 0.3 % (0.0-3.0); Eosinophils Absolute Auto 0.28 K/uL (0.00-0.50); Eosinophils Percent Auto 4.2 % (0.0-7.0); Immature Granulocytes Abs Auto 0.01 K/uL (0.00-0.30); Immature Granulocytes Pct Auto 0.2 %; Neutrophils Absolute Auto 4.42 K/uL (1.7-7.0)
[2023-04-08 17:50] LABS: Appearance Urine Clear (Clear); Bilirubin Urine Negative (Negative); Blood Urine Negative (Negative); Color Urine Yellow (Yellow); Glucose Urine Negative (Negative); Ketones Urine Negative (Negative); Leukocyte Esterase Urine 3+ (Negative); Nitrite Urine Positive (Negative); Protein Urine Negative (Negative); Urobilinogen Urine 0.2 (0.2-1.0); pH Urine 5.5 (5.0-8.5)
[2023-04-08 17:51] LABS: Slide Review Reflex No
[2023-04-08 17:59] LABS: Bacteria Urine Moderate; Squamous Epithelial Cell Urine Few (None-Few); WBC Clumps Urine Few
[2023-04-08 18:09] LABS: Chloride* 106 mmol/L (96-114)
[2023-04-08 18:10] LABS: Potassium* 4.2 mmol/L (3.6-5.1); Sodium* 143 mmol/L (135-149)
[2023-04-08 18:12] LABS: Creatinine* 0.8 mg/dL (0.5-1.5); Estimated Glomerular Filt Rate 74 ml/min
[2023-04-08 18:13] LABS: Anion Gap 9 mEq/L (7-15); Blood Urea Nitrogen* 25 mg/dL (7-30); Calcium* 9.8 mg/dL (8.4-10.6); Carbon Dioxide* 28 mmol/L (20-32); Glucose* 104 mg/dL (60-115)
[2023-04-08 18:20] VITALS: PULSE 73; O2SAT 97
[2023-04-08 18:30] VITALS: PULSE 74; O2SAT 93
[2023-04-08 18:32] VITALS: BP 135/72; PULSE 76; O2SAT 92
[2023-04-08 18:33] VITALS: PULSE 73; O2SAT 92
[2023-04-08 18:44] LABS: Thyroid Stimulating Hormone* 0.421 uIU/mL (0.270-4.20)
== END 2023-04-08 18:44 | disposition home or self-care (01) ==
PROVIDERS: Emergency Provider Emergency Medicine Emergency Medical Services; PCP Family Medicine
DX: N39.0 Urinary tract infection, site not specified (principal)
CPT/HCPCS: 36415; 70450; 80048; 81001; 84443; 85025; 87086; 87186; 99284

== ENCOUNTER 2023-05-14 17:14 | Emergency (ER) | payer MEDICARE, BC, SELFPAY ==
[2023-05-14 17:23] VITALS: BP 131/71; PULSE 78; RESP 16; TEMP 35.7; O2SAT 97; BMI 37.2
[2023-05-14 18:00] LABS: Appearance Urine Clear (Clear); Bilirubin Urine Negative (Negative); Blood Urine Negative (Negative); Color Urine Yellow (Yellow); Glucose Urine Negative (Negative); Ketones Urine Negative (Negative); Leukocyte Esterase Urine Trace (Negative); Nitrite Urine Negative (Negative); Protein Urine Negative (Negative); Specific Gravity Urine <= 1.005 (1.000-1.030); Urobilinogen Urine 0.2 (0.2-1.0)
[2023-05-14 18:22] LABS: RBC Urine 0-2 (0-2); WBC Urine 0-2 (0-5)
[2023-05-14] MEDS: 0.9 % SODIUM CHLORIDE 1000 ml 1,000 ML IV (19:10)
[2023-05-14 19:15] LABS: Lactate Sepsis w/Reflex* 0.9 mmol/L (0.5-1.9)
[2023-05-14 19:20] LABS: Basophils Absolute Auto 0.03 K/uL (0.00-0.30); Basophils Percent Auto 0.4 % (0.0-3.0); Eosinophils Absolute Auto 0.32 K/uL (0.00-0.50); Eosinophils Percent Auto 4.7 % (0.0-7.0); Hematocrit 41.9 % (33.0-51.0); Hemoglobin* 13.9 gm/dL (12.0-16.0); Immature Granulocytes Abs Auto 0.02 K/uL (0.00-0.30); Immature Granulocytes Pct Auto 0.3 %; Lymphocytes Absolute Auto 1.41 K/uL (0.90-2.90); Lymphocytes Percent Auto 20.7 % (20-44); Mean Corpuscular HGB Conc 33 gm/dL (32-36); Mean Corpuscular Hemoglobin 29 pg (26-34); Mean Corpuscular Volume 88 fL (80-100); Monocytes Percent Auto 6.6 % (0.0-11.0); Neutrophils Absolute Auto 4.58 K/uL (1.7-7.0); Neutrophils Percent Auto 67.3 % (42.0-72.0); Platelet Count* 223 K/uL (140-440); RDW Coefficient of Variation % 13.9 % (11.5-15.5); Red Blood Count 4.75 m/uL (4.00-5.20); White Blood Count* 6.81 K/uL (4.50-11.00)
[2023-05-14 19:21] LABS: Troponin, Point-of-Care* 0.02 ng/ml (0.01-0.04)
[2023-05-14 19:36] LABS: Slide Review Reflex No
[2023-05-14 19:38] LABS: Albumin* 4.5 g/dL (3.3-5.0); Chloride* 105 mmol/L (96-114)
[2023-05-14 19:39] LABS: Potassium* 3.7 mmol/L (3.6-5.1); Sodium* 141 mmol/L (135-149)
[2023-05-14 19:41] LABS: Creatinine* 0.8 mg/dL (0.5-1.5); Estimated Glomerular Filt Rate 74 ml/min
[2023-05-14 19:42] LABS: Alanine Aminotransferase* 35 U/L (4-35); Alkaline Phosphatase* 97 U/L (40-150); Anion Gap 10 mEq/L (7-15); Aspartate Amino Transferase* 36 U/L (12-35); Bilirubin Total* 0.3 mg/dL (0.1-1.5); Blood Urea Nitrogen* 22 mg/dL (7-30); Calcium* 9.8 mg/dL (8.4-10.6); Carbon Dioxide* 26 mmol/L (20-32); Glucose* 89 mg/dL (60-115); Total Protein* 7.4 g/dL (6.0-8.3)
--- NOTE | 2023-05-14 19:42 | ED_ITS ---
HPI - General Adult General Date Seen: 05/14/23 Chief complaint: Urogenital Problems, Female Stated complaint: UTI for a month, dehydrated, meds not working Time Seen by Provider: 05/14/23 18:30 Source: patient and family Mode of arrival: ambulatory Limitations: no limitations History of Present Illness HPI narrative: Patient is an 82-year-old woman brought in by her 2 sons for evaluation of shakiness today. She has complained of nausea intermittently, she says she has not had much of an appetite. No vomiting. No abdominal pain. No fevers or chills. No diarrhea. They were concerned because she had had a urinary tract infection diagnosed in March, was seen recently at [facility] and told it was not cleared so she was treated with Bactrim which she just started today. She denie s urinary symptoms. Lives independently, no focal neurologic signs. Related Data Home Medications Medication Instructions Recorded Confirmed fluticasone propionate 50 1 spray intranasal BID PRN 12/04/21 05/14/23 mcg/actuation nasal spray,suspension losartan 100 mg tablet 100 mg PO DAILY 12/04/21 05/14/23 acetaminophen 500 mg tablet 500 mg PO Q6H PRN 12/05/21 05/14/23 (Tylenol Extra Strength) amlodipine 10 mg tablet 10 mg PO QDAY 12/05/21 05/14/23 bupropion HCl 150 mg 24 hr tablet, mg PO 12/05/21 02/03/22 extended release meclizine 25 mg tablet 25 mg PO QDAY PRN 12/05/21 05/14/23 pregabalin 150 mg capsule 150 mg PO QDAY 12/05/21 05/14/23 ropinirole 2 mg tablet 2 mg PO BID 12/05/21 05/14/23 triamcinolone acetonide 0.1 % applic topical PRN 12/05/21 02/03/22 topical cream sulfamethoxazole 800 1 tab PO BID 05/14/23 05/14/23 mg-trimethoprim 160 mg tablet Previous Rx's Medication Instructions Recorded prednisone 20 mg tablet 20 mg PO BID #10 tabs 02/03/22 diazepam 5 mg tablet (Valium) 2.5 - 5 mg (0.5 - 1 x 5 mg) PO BID 01/20/23 PRN dizziness #5 tabs meclizine 25 mg tablet 25 mg PO TID #15 tabs 01/20/23 Allergies Allergy/AdvReac Type Severity Reaction Status Date / Time atenolol Allergy Intermediate shortness Verified 05/14/23 17:35 of breath lisinopril Allergy Mild Cough Verified 05/14/23 17:35 morphine Allergy Mild nausea/vomi Verified 05/14/23 17:35 ting Review of Systems Status of ROS: Reports: 10 or more systems reviewed and unremarkable except as noted in History and below PFSH PFS Medical History Contact dermatitis ?L25.9 - Unspecified contact dermatitis, unspecified cause (ICD-10) Neuropathy ?G62.9 - Polyneuropathy, unspecified (ICD-10) Arthritis ?M19.90 - Unspecified osteoarthritis, unspecified site (ICD-10) Sleep apnea ?G47.30 - Sleep apnea, unspecified (ICD-10) Asthma ?J45.909 - Unspecified asthma, uncomplicated (ICD-10) Hypertension ?I10 - Essential (primary) hypertension (ICD-10) Fracture of rib ?S22.39XA - Fracture of one rib, unspecified side, initial encounter for closed fracture (ICD-10) Surgical History History of revision of total knee arthroplasty ?Z96.659 - Presence of unspecified artificial knee joint (ICD-10) H/O: hysterectomy (~1994) ?Z90.710 - Acquired absence of both cervix and uterus (ICD-10) History of total right knee replacement (~11/2001) ?Z96.651 - Presence of right artificial knee joint (ICD-10) History of total left knee replacement (~01/2003) ?Z96.652 - Presence of left artificial knee joint (ICD-10) Avulsion of toenail ?S91.209A - Unspecified open wound of unspecified toe(s) with damage to nail, initial encounter (ICD-10) Social History Smoking Status: Never smoker Do you use any of these nicotine containing products: None Second hand tobacco smoke exposure: No How often do you have a drink containing alcohol: never How often do you have six or more drinks on one occasion: Never AUDIT-C Alcohol total score: 0 Non-prescribed substance use: denies use service: No Exam Narrative: Exam Narrative: Vital signs as noted above. In general, an alert, well-appearing patient. Head: Normocephalic, atraumatic. Eyes: Pupils are equal reactive. Extraocular movements are full. Conjunctivae are normal. ENT: Mucous membranes are moist. Throat is normal. Neck: Supple without lymphadenopathy. Heart: Regular rate and rhythm. No murmur or rub. Lungs: Clear bilaterally. No increased work of breathing, crackles or wheezes. Abdomen: Soft and nontender. No organomegaly. Extremities: Well perfused. No edema. No calf tenderness. Pulses intact. Neurologic: Patient is alert and oriented to person and place. Speech is fluent. Face is symmetric. Moves all extremities equally. Affect: Normal. Skin: Warm and dry. Well perfused. Const: Vital Signs, click to edit/add: Vital Signs - 24 hr 05/14/23 17:23 Temperature 96.3 F L Pulse Rate [Pulse Oximeter] 78 Respiratory Rate 16 Blood Pressure [Ri ght Upper Arm] 131/71 Pulse Oximetry 97 Oxygen Delivery Me thod Room Air Documenting provider has reviewed patient's vital signs: yes Course Course ED Course: Urinalysis obtained today is normal, no nitrates, 0-2 red cells, 0-2 white cells. I did recommend that we do a little additional evaluation to make sure that there was not something else going on. Her lactate is normal at 0.9, other labs pending at this time. Diagnostic considerations include an infectious process, though I do not see evidence of urinary tract infection today, metabolic derangement, acute coronary syndrome, viral process such as COVID. Initial EKG showed somewhat elevated ST segment appearance in V2 only, ST depression in lead 2 only. Sinus rhythm, first-degree AV block. No significant change compared to an EKG from June aside from the appearance of V2. Her in itial troponin was 0.02 and she has had symptoms all day I think making it less likely that this is an acute coronary syndrome. I did repeat her EKG and this looks commensurate with her EKG from June, she has mm of ST elevation in V2 which she had at that time as well, no other ST changes in the anterior leads. Other labs are reassuring, white blood cell count of 6.8, normal diff. Hemoglobin is normal. Metabolic panel is entirely within normal limits, CRP is 0.8. LFTs unremarkable. She is eager to go home. At this time I do not see any evidence of sepsis or other acute process. I looked back through her records and I saw our last June with almost an identical presentation. We treated her for UTI at that point. Her UA in clinic last week apparently showed 14-25 white blood cells, had a lengthy conversation with her son's about urinalysis results and their possible meanings, but given that she is not feeling quite herself and did have an abnormal UA last week I would recommend continuing the Bactrim despite the normal UA today. If she is feeling worse, has new symptoms such as fevers, vomiting, chills, etcetera return to the emergency department. If not starting to feel improved over the next 24 hours, check in with primary care. Vital Signs Vital signs: Initial Vital Signs Temperature 96.3 F L 05/14/23 17:23 Temperature Source Temporal Artery Scan 05/14/23 17:23 Pulse Rate 78 05/14/23 17:23 Respiratory Rate 16 05/14/23 17:23 Blood Pressure 131/71 05/14/23 17:23 Blood Pressure Mean 91 05/14/23 17:23 Blood Pressure Position Sitting 05/14/23 17:23 Pulse Oximetry 97 05/14/23 17:23 Oxygen Delivery Method Room Air 05/14/23 17:23 Vital Signs Temperature 96.3 F L 05/14/23 17:23 Pulse Rate 78 05/14/23 17:23 Respiratory Rate 16 05/14/23 17:23 Blood Pressure 131/71 05/14/23 17:23 Pulse Oximetry 97 05/14/23 17:23 Oxygen Delivery Method Room Air 05/14/23 17:23 Temperature 96.3 F L 05/14/23 17:23 Pulse Rate 78 05/14/23 17:23 Respiratory Rate 16 05/14/23 17:23 Blood Pressure 131/71 05/14/23 17:23 Pulse Oximetry 97 05/14/23 17:23 Oxygen Delivery Method Room Air 05/14/23 17:23 Medications Administered Medications: Discontinued Medications Generic Name Dose Route Start Last Admin Trade Name Freq PRN Reason Stop Dose Admin Sodium Chloride 1,000 mls @ 1,000 mls/hr 05/14/23 18:45 05/14/23 20:10 0.9 % Sodium Chloride 1000 Ml IV 05/14/23 19:44 Infused .Q1H EVER Infusion Medical Decision Making Lab Data Labs: Lab Results 05/14/23 05/14/23 05/14/23 Range/Units 17:40 18:40 19:08 WBC 6.81 (4.50-11.00) K/uL RBC 4.75 (4.00-5.20) m/uL Hgb 13.9 (12.0-16.0) gm/dL Hct 41.9 (33.0-51.0) % MCV 88 (80-100) fL MCH 29 (26-34) pg MCHC 33 (32-36) gm/dL RDW Coeff of [place] 13.9 (11.5-15.5) % Plt Count 223 (140-440) K/uL Neut % (Auto) 67.3 (42.0-72.0) % Lymph % (Auto) 20.7 (20-44) % [place] % (Auto) 6.6 (0.0-11.0) % Eos % (Auto) 4.7 (0.0-7.0) % Baso % (Auto) 0.4 (0.0-3.0) % Neut # (Auto) 4.58 (1.7-7.0) K/uL Lymph # (Auto) 1.41 (0.90-2.90) K/uL [place] # (Auto) 0.40 (0.00-0.90) K/UL Eos # (Auto) 0.32 (0.00-0.50) K/uL Baso # (Auto) 0.03 (0.00-0.30) K/uL Abs Immat Gran (auto) 0.02 (0.00-0.30) K/uL Imm/Tot Granulo (auto) 0.3 % Sodium 141 (135-149) mmol/L Potassium 3.7 (3.6-5.1) mmol/L Chloride 105 (96-114) mmol/L Carbon Dioxide 26 (20-32) mmol/L Anion Gap 10 (7-15) mEq/L BUN 22 (7-30) mg/dL Creatinine 0.8 (0.5-1.5) mg/dL Estimated Creat Clear 36.50 Estimated GFR 74 ml/min Glucose 89 (60-115) mg/dL Lactate 0.9 (0.5-1.9) mmol/L Calcium 9.8 (8.4-10.6) mg/dL Total Bilirubin 0.3 (0.1-1.5) mg/dL Direct Bilirubin 0.0 (0.0-0.5) mg/dL AST 36 H (12-35) U/L ALT 35 (4-35) U/L Alkaline Phosphatase 97 (40-150) U/L C-Reactive Protein 0.8 (0.5-1.0) mg/dL Total Protein 7.4 (6.0-8.3) g/dL Albumin 4.5 (3.3-5.0) g/dL Urine Color Yellow (Yellow) Urine Appearance Clear (Clear) Urine pH 6.0 (5.0-8.5) Ur Specific [place] <= 1.005 (1.000-1.030) Urine Protein Negative (Negative) Urine Glucose (UA) Negative (Negative) Urine Ketones Negative (Negative) Urine Blood Negative (Negative) Urine Nitrite Negative (Negative) Urine Bilirubin Negative (Negative) Urine Urobilinogen 0.2 (0.2-1.0) Ur Leukocyte Esterase Trace A (Negative) Urine RBC 0-2 (0-2) Urine WBC 0-2 (0-5) Ur Squamous Epith Cells None (None-Few) Urine Bacteria None (None) SARS-CoV-2 (PCR) Negative SARS-CoV-2 (Negative) Influenza Type A (PCR) Negative PCR FLU A (Negative) Influenza Type B (PCR) Negative PCR FLU B (Negative) RSV (PCR) Negative PCR RSV (Negative) POC Troponin I 0.02 (0.01-0.04) ng/ml Discharge Plan Discharge Clinical Impression: Weakness Patient Disposition: Home, Self-Care Condition: Stable Instructions: Weakness (ED) Additional Instructions: I would recommend continuing on the Bactrim as prescribed. If you are not starting to feel better over the next 24 hours, check in with primary care. For worsening symptoms such as fevers, chills, vomiting, etcetera, return any time for re-evaluation in the ER. Prescriptions: No Action losartan 100 mg tablet 100 mg PO DAILY fluticasone propionate 50 mcg/actuation spray,suspension 1 spray intranasal BID PRN Rx Instructions: administer into each nostril pregabalin 150 mg capsule 150 mg PO QDAY amlodipine 10 mg tablet 10 mg PO QDAY ropinirole 2 mg tablet 2 mg PO BID bupropion HCl 150 mg tablet extended release 24 hr PO triamcinolone acetonide 0.1 % cream topical PRN meclizine 25 mg tablet 25 mg PO QDAY PRN acetaminophen [Tylenol Extra Strength] 500 mg tablet 500 mg PO Q6H PRN prednisone 20 mg tablet 20 mg PO BID Qty: 10 0RF meclizine 25 mg tablet 25 mg PO TID Qty: 15 0RF diazepam [Valium] 5 mg tablet 2.5 - 5 mg PO BID PRN (Reason: dizziness) Qty: 5 0RF sulfamethoxazole-trimethoprim 800-160 mg tablet 1 tab PO BID Follow Up/Referrals: Lakeshia Gee MD [Primary Care Provider] - Stand Alone Forms: [facility] Info Instructions
[2023-05-14 19:44] LABS: C Reactive Protein* 0.8 mg/dL (0.5-1.0)
[2023-05-14 19:57] LABS: PCR FLU A Negative PCR FLU A (Negative); PCR FLU B Negative PCR FLU B (Negative); PCR RSV Negative PCR RSV (Negative)
[2023-05-14 20:10] LABS: SARS PCR* Negative SARS-CoV-2 (Negative)
== END 2023-05-14 20:43 | disposition home or self-care (01) ==
PROVIDERS: Emergency Provider Emergency Medicine; PCP Family Medicine
DX: R53.1 Weakness (principal)
CPT/HCPCS: 36415; 80048; 80076; 81001; 83605; 84484; 85025; 86140; 87631; 96360; 99284; J7030

== ENCOUNTER 2023-06-12 13:00 | Outpatient (RCR) | payer MEDICARE, BC, SELFPAY ==
--- NOTE | 2023-06-03 14:20 | URNOTE ---
Pt has medicare/[employer]. Prior authorization is not required as services are based on medical necessity and follow medicare guidelines.
[2023-06-06 13:03] VITALS: BP 134/73; PULSE 75; RESP 18; TEMP 36.1; O2SAT 94
[2023-06-06] MEDS: FERRIC CARBOXYMALTOSE 750 MG in 0.9 % SODIUM CHLORIDE 250 ml 250 ML 1060 MG IVPB (13:40)
[2023-06-06] MEDS: 0.9 % SODIUM CHLORIDE 250 ml IV (16:42)
[2023-06-06] MEDS: SODIUM CHLORIDE 0.9 % (FLUSH) 10 ML SYRINGE IVF (16:42)
[2023-06-12 13:19] VITALS: BP 139/73; PULSE 81; RESP 18; TEMP 36.2; O2SAT 96
[2023-06-12] MEDS: 0.9 % SODIUM CHLORIDE 250 ml IV (13:28)
[2023-06-12] MEDS: FERRIC CARBOXYMALTOSE 750 MG in 0.9 % SODIUM CHLORIDE 250 ml 250 ML 1060 MG IVPB (13:28)
[2023-06-12 13:48] VITALS: BP 115/71; PULSE 69; RESP 18; TEMP 37; O2SAT 94
[2023-06-12 14:15] VITALS: BP 124/73; PULSE 74; RESP 18; O2SAT 94
== END 2023-12-03 23:59 | disposition home or self-care (01) ==
LOC: CCIC 13:00
PROVIDERS: PCP Family Medicine; Referring Provider Family Medicine; Visit Provider Physician Assistant
DX: G25.81 Restless legs syndrome (principal); R79.0 Abnormal level of blood mineral
CPT/HCPCS: 96365; J1439; J7050

== ENCOUNTER 2023-08-15 18:49 | Emergency (ER) | payer MEDICARE, BC, SELFPAY ==
[2023-08-15 18:56] VITALS: BP 164/75; PULSE 84; RESP 16; TEMP 35.7; O2SAT 96; BMI 42.5
--- NOTE | 2023-08-15 19:32 | ED_ITS ---
HPI - Skin/Abscess/Foreign Bdy General Chief complaint: Skin/Abscess/Foreign Body Stated complaint: rash Time Seen by Provider: 08/15/23 19:01 History of Present Illness HPI narrative: This 83-year-old female comes in reporting some erythema and discomfort in her left inguinal region which now extends into the upper anterior thigh and into her abdomen. She states that she is putting an antibiotic ointment on this without any relief. She states that it is pruritic also. She does not report any other new symptoms. Related Data Home Medications Medication Instructions Recorded Confirmed fluticasone propionate 50 1 spray intranasal BID PRN 12/04/21 06/12/23 mcg/actuation nasal spray,suspension losartan 100 mg tablet 100 mg PO DAILY 12/04/21 06/12/23 acetaminophen 500 mg tablet 500 mg PO Q6H PRN 12/05/21 06/12/23 (Tylenol Extra Strength) amlodipine 10 mg tablet 10 mg PO QDAY 12/05/21 06/12/23 bupropion HCl 150 mg 24 hr tablet, 150 mg PO 12/05/21 02/03/22 extended release meclizine 25 mg tablet 25 mg PO QDAY PRN 12/05/21 06/12/23 pregabalin 150 mg capsule 150 mg PO QDAY 12/05/21 06/12/23 ropinirole 2 mg tablet 2 mg PO BID 12/05/21 06/12/23 triamcinolone acetonide 0.1 % applic topical PRN 12/05/21 02/03/22 topical cream sulfamethoxazole 800 1 tab PO BID 05/14/23 06/12/23 mg-trimethoprim 160 mg tablet hydrochlorothiazide 25 mg tablet 25 mg PO DAILY 08/15/23 08/15/23 Previous Rx's Medication Instructions Recorded prednisone 20 mg tablet 20 mg PO BID #10 tabs 02/03/22 diazepam 5 mg tablet (Valium) 2.5 - 5 mg (0.5 - 1 x 5 mg) PO BID 01/20/23 PRN dizziness #5 tabs meclizine 25 mg tablet 25 mg PO TID #15 tabs 01/20/23 Allergies Allergy/AdvReac Type Severity Reaction Status Date / Time atenolol Allergy Intermediate shortness Verified 06/12/23 13:12 of breath lisinopril Allergy Mild Cough Verified 06/12/23 13:12 morphine Allergy Mild nausea/vomi Verified 06/12/23 13:12 ting Review of Systems Status of ROS: Reports: 10 or more systems reviewed and unremarkable except as noted in History and below Narrative: Constitutional: No fevers, no weight gain or loss. Eyes: No discharge. No vision changes. HENT: No congestion, no sore throat, no ear pain. Cardiovascular: No chest pain, no palpitations. Respiratory: No shortness of breath, no wheezes, no cough. Gastrointestinal: No abdominal pain, no vomiting, no diarrhea. Genitourinary: No dysuria, no hematuria. Musculoskeletal: Normal range of motion. Skin: Rash on the left inguinal region extending into the upper anterior left thigh and into the left abdomen. Neurological: No dizziness, weakness, sensory change, speech change. Endo/Heme/Allergies: No bruising or bleeding. No polydipsia. Pysch: no suicidality, no anxiety, no insomnia. All other systems reviewed and are negative. [facility] Medical History Contact dermatitis ?L25.9 - Unspecified contact dermatitis, unspecified cause (ICD-10) Neuropathy ?G62.9 - Polyneuropathy, unspecified (ICD-10) Arthritis ?M19.90 - Unspecified osteoarthritis, unspecified site (ICD-10) Sleep apnea ?G47.30 - Sleep apnea, unspecified (ICD-10) Asthma ?J45.909 - Unspecified asthma, uncomplicated (ICD-10) Hypertension ?I10 - Essential (primary) hypertension (ICD-10) Fracture of rib ?S22.39XA - Fracture of one rib, unspecified side, initial encounter for closed fracture (ICD-10) Surgical History History of revision of total knee arthroplasty ?Z96.659 - Presence of unspecified artificial knee joint (ICD-10) H/O: hysterectomy (~1994) ?Z90.710 - Acquired absence of both cervix and uterus (ICD-10) History of total right knee replacement (~11/2001) ?Z96.651 - Presence of right artificial knee joint (ICD-10) History of total left knee replacement (~01/2003) ?Z96.652 - Presence of left artificial knee joint (ICD-10) Avulsion of toenail ?S91.209A - Unspecified open wound of unspecified toe(s) with damage to nail, initial encounter (ICD-10) Social History Smoking Status: Never smoker Do you use any of these nicotine containing products: None Second hand tobacco smoke exposure: No How often do you have a drink containing alcohol: never How often do you have six or more drinks on one occasion: Never AUDIT-C Alcohol total score: 0 Non-prescribed substance use: denies use service: No Exam Narrative: Exam Narrative: Constitutional: Well-developed, well-nourished, no acute distress. HEENT: Normocephalic, atraumatic. Neck: Normal range of motion. Nontender. Supple. Heart: Intact distal pulses. Lungs: No chest discomfort. No wheezes, rhonchi, or rales. Abdomen: Nontender. Back: Normal range of motion. Extremities: Normal range of motion. No injury. Skin: Intact. Erythema with increased warmth typical of cellulitis in the left inguinal fold and extending into the abdomen and left upper thigh. Neurologic: No altered sensation. No weakness. Alert and oriented. Psychiatric: No suicidality. No anxiety or depression. No insomnia. Nursing notes and vitals signs are reviewed. Const: Vital Signs, click to edit/add: Vital Signs - 24 hr 08/15/23 18:56 Temperature 96.2 F L Pulse Rate [Pulse Oximeter] 84 Respiratory Rate 16 Blood Pressure [Ri ght Upper Arm] 164/75 H Pulse Oximetry 96 Oxygen Delivery Me thod Room Air Course Vital Signs Vital signs: Initial Vital Signs Temperature 96.2 F L 08/15/23 18:56 Temperature Source Temporal Artery Scan 08/15/23 18:56 Pulse Rate 84 08/15/23 18:56 Respiratory Rate 16 08/15/23 18:56 Blood Pressure 164/75 H 08/15/23 18:56 Blood Pressure Mean 104 08/15/23 18:56 Blood Pressure Position Sitting 08/15/23 18:56 Pulse Oximetry 96 08/15/23 18:56 Oxygen Delivery Method Room Air 08/15/23 18:56 Vital Signs Temperature 96.2 F L 08/15/23 18:56 Pulse Rate 84 08/15/23 18:56 Respiratory Rate 16 08/15/23 18:56 Blood Pressure 164/75 H 08/15/23 18:56 Pulse Oximetry 96 08/15/23 18:56 Oxygen Delivery Method Room Air 08/15/23 18:56 Temperature 96.2 F L 08/15/23 18:56 Pulse Rate 84 08/15/23 18:56 Respiratory Rate 16 08/15/23 18:56 Blood Pressure 164/75 H 08/15/23 18:56 Pulse Oximetry 96 08/15/23 18:56 Oxygen Delivery Method Room Air 08/15/23 18:56 MDM - Skin/Abscess/Foreign Bdy MDM Narrative Medical decision making narrative: This patient has symptoms suspicious for a cellulitis. I did provide a prescription for Keflex. The patient does have a steroid cream that can be used for itch if needed. She is not showing any sign of abscess or other complication. She has normal vital signs. Discharge Plan Discharge Clinical Impression: Cellulitis Patient Disposition: Home, Self-Care Condition: Unchanged Additional Instructions: Take medication as prescribed. Follow up with MD or return if not improving or worsening symptoms happen. Prescriptions: No Action losartan 100 mg tablet 100 mg PO DAILY fluticasone propionate 50 mcg/actuation spray,suspension 1 spray intranasal BID PRN Rx Instructions: administer into each nostril pregabalin 150 mg capsule 150 mg PO QDAY amlodipine 10 mg tablet 10 mg PO QDAY ropinirole 2 mg tablet 2 mg PO BID bupropion HCl 150 mg tablet extended release 24 hr 150 mg PO triamcinolone acetonide 0.1 % cream topical PRN meclizine 25 mg tablet 25 mg PO QDAY PRN acetaminophen [Tylenol Extra Strength] 500 mg tablet 500 mg PO Q6H PRN prednisone 20 mg tablet 20 mg PO BID Qty: 10 0RF meclizine 25 mg tablet 25 mg PO TID Qty: 15 0RF diazepam [Valium] 5 mg tablet 2.5 - 5 mg PO BID PRN (Reason: dizziness) Qty: 5 0RF hydrochlorothiazide 25 mg tablet 25 mg PO DAILY sulfamethoxazole-trimethoprim 800-160 mg tablet 1 tab PO BID Follow Up/Referrals: Lakeshia Gee MD [Primary Care Provider] - Stand Alone Forms: [facility] Info Instructions
== END 2023-08-15 19:45 | disposition home or self-care (01) ==
LOC: ED 19:42
PROVIDERS: Emergency Provider Emergency Medicine Emergency Medical Services; PCP Family Medicine
DX: L03.319 Cellulitis of trunk, unspecified (principal); L03.311 Cellulitis of abdominal wall; L03.116 Cellulitis of left lower limb
CPT/HCPCS: 99283; 99284

== ENCOUNTER 2023-09-17 16:52 | Outpatient (CLI) | payer MEDICARE, BC, SELFPAY ==
--- OUTSIDE RECORDS SUMMARY | 2023-09-18 06:25 | XMS_ITS | Encounter Summary ---
Author Name Unknown Organization [facility] Address [address] [place] [address] Care Team Providers Care Ict Systems Test Engineer Name Role Phone Unavailable Primary Care Provider Unavailabl e Reason for Visit * Reason Comments Peripheral Neuropathy * Outpatient (Routine) - Closed Specialty Diagnoses / Procedures Referred By Ethan albright Referred To Contact Neurology Diagnoses Neuropathy Peripheral Lakeshia Gee M.D. [facility] [place] [address] [facility] Region Referral ID Status Reason Start Date Expiration Date V isits Requested Visits Authorized [id number] Closed Specialty Services Required 03/18/2023 03/17/2024 1 1 Encounter Details Date Type Department Care Team (Latest Contact Info) Description 08/28/2023 11:00 AM CDT Comprehensive Visit Department of Neurology in [place], [place] [address] [address] Ramírez Dia M.D. [address] [address] Neuropathy Peripheral Social History Tobacco Use Types Packs/Day Years Used Date Smoking Tobacco: Never Smokeless Tobacco: Never Tobacco Cessation:Counseling Given: Not Answered Nutrition Answer Date Recorded Nutrition: EVOO Fat Source Unknown 02/21 Nutrition: Servings of Fruits/Vegetables per Day Not on file 02/21/2023 Dental Answer Date Recorded Dental: Regular Dentist Unknown 02/22/20 Sex and Gender Information Value Date Recorded Sex Assigned at Not on file Gender Identity Not on file Sexual Orientation Not on file documented as of this encounter Last Filed Vital Signs Vital Sign Reading Time Taken Comments Blood Pressure 119/72 08/28/2023 11:03 AM CDT Pulse 67 08/28/2023 11:03 AM CDT Temperature - - Respiratory Rate - - Oxygen Saturation - - Inhaled Oxygen Concentration - - Weight 100 kg (220 lb 7.4 oz) 08/28/2023 11:03 A M CDT Height - - Body Mass Index - - documented in this encounter Patient Instructions * Attachments The following attachments cannot be sent through Care Everywhere. * [facility] [employer] [facility] Directives (Yi) documented in this encounter Consult Notes * Ramírez Dia M.D. - 08/28/2023 11:00 AM CDT SUBJECTIVE CHIEF COMPLAINT / REASON FOR VISIT Dorys Guillen is a 83 y.o. female who presents for evaluation of Peripheral Neuropathy. Referring provider Lakeshia Gee M.D. HISTORY OF PRESENT ILLNESS Ms. Guillen is an 83-year-old female referred to [facility] for evaluation ofperipheral neuropathy. She notes that for several years now she has had symptoms of initially burning paresthesias in her feet, now replaced largely by numbness. This past summer she had to stop driving as she had difficulty feeling the pedals beneath her right foot and could not manipulate them accurately. She does use a walker which she has used for a year and a half or so. She describes largely numbness of the feet and balance issues with intermittent neuropathic pain that is largely markedly improved compared to prior. Per my review of the outside records that I have available, she did have some sort of quantitative sensory testing of the lower leg but has not had a formal EMG or other testing of neuropathy. Outside serology studies revealed normal B12, electrolytes, and thyroid levels. No monoclonal protein study appears to have been completed. In terms of family, she does note a brother as well as parents who had neuropathy. REVIEW OF SYSTEMS: REVIEW OF SYSTEMS OBJECTIVE PHYSICAL EXAM General: Female in her 80s, alert, attentive, no acute distress Vitals: BP 119/72, HR 67 Neuro: Alert and oriented. Cranial nerves activates symmetrically. Extraocular movements are intact. She has antigravity strength in the upper extremities with intact [id number] testing without dysmetria. In the lower extremities she has some pain limited activation of the bilateral hip flexors but with preserved strength. Distally she has preserved strength. There is a length- dependent loss of sensation to pinprick, vibration, temperature in the distal lower extremities normalizing by the mid to proximal ruff. Reflexes are absent in the lower extremities toes are mute. Reflexes are preserved and normal in the upper extremities. Casual gait with a walker reveals a mildly broad-basedgait. For details of the neurologic examination, please see the neurologic examination form. ASSESSMENT / PLAN #1 Neuropathy Peripheral Discussed my thoughts with Ms. Guillen. 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 I discussed that there is some additional blood work we could obtain to look for monoclonal protein or other metabolic abnormality but, given her outside testing as well if this was all normal, then I suspect she would have either idiopathic or perhaps a hereditary neuropathy. Discussed that we do not have any medications that prevent progression or would improve her numbness. I did discuss that in terms of neuropathic symptoms her pregabalin is generally fairly effective and would encourage her to continue this for those symptoms. She could also try a topical regimen such as lidocaine 4% base pain cream to the feet at night if her symptoms of neuropathic pain bother more so at night. Pending the results of blood work, additional testing may be needed. Otherwise, we would hold on additional testing at that time. Advance Care Planning Educational materials provided documented in this encounter Plan of Treatment Not on file documented as of this encounter Results * Quantitative M-protein Study (08/28/2023 11:56 AM CDT) Pathologist [facility] Immunoglobulin A (IgA), S 137 61 - 356 mg/dL 08/29/2023 7:36 AM CDT [facility] Immunoglobulin M (IgM), S 49 37 - 286 mg/dL 08/29/2023 7:37 AM CDT [facility] Immunoglobulin G (IgG), S 914 767 - 1590 mg/dL 08/29/2023 7:36 AM CDT [facility] Therapeutic Antibody Administered? Unspecified 08/29/2023 6:40 AM CDT [facility] Flag, M-protein Isotype Negative Negative 08/29/2023 2:58 PM CDT [facility] QMPTS Interpretation No monoclonal protein detected. 08/29/2023 2:58 PM CDT [facility] Comment: ----ADDITIONAL INFORMATION---- The submitted sample was assayed by five separate immunopurifications for IgG, IgA, IgM, kappa and lambda. ??The result reflects the findings of either no monoclonal protein detected or those monoclonal immunoglobulins that were detected. This test was developed and its performance characteristics determined by [facility] in a manner consistent with CLIA requirements. This test has not been cleared or approved by the U.S. Food and Drug Administration. Blood (Blood, Venous) 08/28/2023 11:56 AM CDT 08/29/2023 6:19 AM CDT Narrative [facility] - 08/29/2023 2:58 PM CDT Specimen Information: Specimen ID: [id number] Specimen Type: Blood Specimen Collection Start Date: 08/28/2023 11:56 AM Specimen Received Date: 08/29/2023 ??6:19 AM Specimen ID: [id number] Specimen Type: Blood Specimen Collection Start Date: 08/28/2023 11:56 AM Specimen Received Date: 08/29/2023 ??6:40 AM Ramírez iDa M.D. LAB BLOOD ADD-ON [facility] [address] [place] [address] [facility] [address] [place] [address] [facility] [place] [address] documented in this encounter Visit Diagnoses Diagnosis Neuropathy Peripheral Neuropathy Peripheral documented in this encounter
--- OUTSIDE RECORDS SUMMARY | 2023-09-18 06:25 | XMS_ITS | Clinical Summary ---
Author Name Unknown Organization [facility] Address [place], [place] [address] Care Team Providers Care Bench Grinder Name Role Phone Margarito Isidro MD Unavailable GerardLakeshia vincent MD Primary Care Provider Allergies Active Allergy Reactions Criticality Noted Date Comments Atenolol Shortness Of Breath 12/30/2006 Lisinopril Cough 12/30/2006 Morphine Nausea And Vomiting 10/06/2012 Medications Medication Sig Dispensed Refills Start Date End Date Status meclizine (ANTIVERT) 25 mg tabletIndications:D izziness Take 1 tablet by mouth 3 times daily if needed. 30 tablet 3 7 Active acetaminophen (TYLENOL EXTRA STRGTH) 500 mg tabletIndications:R estless legs syndrome (RLS) Take 2 tablets by mouth every 8 hours. Max acetaminophen dose: 4000mg in 24 hrs. 0 9 Active nystatin (MYCOSTATIN) ointmentIndications :Intertrigo Apply topically to affected area(s) 2 times daily. 15 g 1 1 Active magnesium 250 mg tab Take 1 Tablet (250 mg) by mouth once daily. 0 1 Active cholecalciferol (VITAMIN D3) 1,000 unit capsule Take 1 Capsule (1,000 units) by mouth once daily. 0 1 Active zinc 50 mg tablet Take 1 Tablet (50 mg) by mouth once daily. 0 1 Active ascorbic acid, vitamin C, (Vitamin C) 500 mg tablet Take 1 Tablet (500 mg) by mouth once daily. 0 1 Active medication order composer Apply topically to affected area(s). Vet Liniment Gel and Outback pain relief roll on 0 2 Active rOPINIRole (REQUIP) 2 mg tabletIndications:R estless legs syndrome (RLS) Take 2 mg orally at supper time and 1 hour before bedtime 180 Tablet 3 3 Active pregabalin (LYRICA) 150 mg capsuleIndications: Peripheral sensory-motor axonal polyneuropathy Take 1 Capsule (150 mg) by mouth two times daily. 180 Capsule 3 3 Active CPAPIndications:Obs tructive sleep apnea CPAP machine for home use at pressure: 4-15 cm/H2O , Water chamber x 1 q 6 mo, chin strap x 1 q 6 mo, nasal interface mask x 1 q 3 mo, with nasal cushion x 2 q mo, Standard pap tubing x 1 q 3 mo, headgear x 1 q 6 mo, non disposable filter 1 q 6 mo, disposable filter x 2 q mo Length of Need: 99 months, Frequency of use: Daily 1 Each 11 3 Active amLODIPine (NORVASC) 10 mg tabletIndications:E ssential hypertension Take 1 Tablet (10 mg) by mouth once daily. 90 Tablet 3 4 Active buPROPion (WELLBUTRIN XL) 150 mg Extended-Release tabletIndications:D epression, recurrent (HC) Take 1 Tablet (150 mg) by mouth once daily. 90 Tablet 4 Active losartan (COZAAR) 100 mg tabletIndications:E ssential hypertension Take 1 Tablet (100 mg) by mouth once daily. 90 Tablet 3 4 Active hydroCHLOROthiazide (HCTZ) 25 mg tabletIndications:E ssential hypertension,Edema of both legs Take 1 Tablet (25 mg) by mouth once daily. 90 Tablet 3 4 Active cephalexin (KEFLEX) 500 mg capsule 4 Active triamcinolone (ARISTOCORT; KENALOG) 0.1 % creamIndications:In tertrigo,Itching Apply topically to affected area(s) three times daily. Use for only up to 2 weeks. 45 g 4 Active triamcinolone (ARISTOCORT; KENALOG) 0.1 % creamIndications:In tertrigo,Itching Apply topically to affected area(s) 3 times daily. 80 g 1 08/23/19 24 Discontinu ed(Reorder (E-cancel not sent)) diazePAM (VALIUM) 5 mg tablet Take by mouth two times daily. 3 08/23/19 24 Discontinu ed(*Patien t states no longer taking) oxyCODONE (ROXICODONE) 5 mg immediate release tabletIndications:R estless legs syndrome (RLS) Take 1 Tablet (5 mg) by mouth at bedtime. 30 Tablet 4 08/23/19 24 Discontinu ed(*Med complete/R egimen complete/L evel of care change) Active Problems Problem Noted Date Diagnosed Date Depression, recurrent 07/19/2021 RHETT 03/10/2007 AHI/RDI:34, supine 98 nasal 01/27 Morbid obesity with BMI of 40.0-44.9, adult 07/18 Weakness generalized 03/21/2017 Skin lesion of face 03/21/2017 Hiatal hernia with gastroeso phageal reflux disease without esophagitis 09/23/2015 Status post total right knee replacement 016 History of artificial joint 07/12/2015 Depression 04/07/2015 Vaginal prolapse 06/23/2014 Peripheral neuropathy 04/01/2014 Overview: Neurology consult 05/2013 Dr Navarro Started Gabapentin Benign neoplasm of colon 03/04/2009 Overview: Colonoscopy 02/2009 polyp repeat in 5 years Colonoscopy 04/2014 normal repeat in 5 years Allergic rhinitis, cause unspecified 06/03/2008 HYPERTENSION 12/30/2006 Restless legs syndrome (RLS) 12/30/2006 Mild intermittent asthma without complication healthcare Maintenance 12/30/2006 Overview: Colonoscopy 1999 - recommended follow up in 5 years Resolved Problems Problem Noted Date Diagnosed Date Resolved Date Anticoagulation monitoring, special range (2.0 - 2.5) 07/26/2015 08/01/2015 SLEEP APNEA 03/10/2007 AHI- 34 98-supine 05/08/2007 01/27/2021 Unspecified sleep apnea 02/10/200704/20 Encounters Date Type Department Care Team Description 09/17/2023 Nurse Triage [facility] [address] [facility] [place] [address] Lakeshia Gee MD ACC Order Request (urine test) 09/09/[address] [place] [address] Lakeshia Gee MD Referral for acupuncture 08/23/2023 10:30 AM CDT Office Visit [facility] [place] [facility] [place] [address] Lakeshia Gee MD ER Follow up (Cystitis 08/15/23 ) 08/23/[address] [address] Ramírez Simons MD Questions (Coolief post knee replacement? ) 08/23/2023 Travel 08/15/2023 Nurse T[address] [place] [address] Lakeshia Gee MD Rash 07/08/2023 2:15 PM CANDLE MAKING SUPERVISOR Office Visit [address] [place] [address] Lakeshia Gee MD Blood Pressure (Bp at home has been ok) 07/08/2023 2:00 PM CANDLE MAKING SUPERVISOR Orders Only [address] [place] [address] Lab, [place] [facility] 07/08/2023 Travel 07/03/2023 10:30 AM CANDLE MAKING SUPERVISOR Office Visit [address] [address] Margarito Isidro MD Sleep Follow-up 07/03/2023 Orders Only [facility] Scanner 1 scan: (1-Ord) ICODE CONNECT, COMPLIANCE REPORT, 07/03/2023 07/03/2023 Travel 07/01/[address] [place] [address] Lakeshia Gee MD Lab 06/24/2023 12:10 PM CANDLE MAKING SUPERVISOR Office Visit [facility] [address] [place] [address] Lakeshia Gee MD Medicare ANNUAL (subsequent) Visit (83 yr/Brought in home BP readings/Right foot is very swollen and kept her awake due to it feeling so tight like the skin was going to pop open./Urine is darker again, memory seems foggy and she seems off balance. This happened last time she had an urinary tract infection) 06/24/2023 Travel from Last 3 Months Immunizations Name Administration Dates Next Due Amb Influenza, Inact (High-d ose) (Flu Clinic Only) 02/23/2014 COVID-19 vaccine ([employer] [facility] 30mcg/0.3mL) RICHELLE VELAZQUEZ 09/26/2021,08/18/2020,07/28/2020 Influenza RIV4 (Age 18+ Year s) PRESERV FREE 02/20/2019 Influenza, High-dose Inactivated 017,02/08/2016,02/01/2015,2013 Influenza, High-dose Quadriv alent Inactivated 03/09/2023,02/19/2021,01/28/2020 Influenza, IIV3 (Age 6-35 mos) 02/05/2011,2009 Influenza, IIV3 (Age >=3 years) 02/12/20 12,02/05/2011,01/31/2010,2003 Influenza, Inactivated AIIV4 (Age 65+ Years) Preserv Free 01/29/2022,01/28/2020 Influenza, Inactivated IIV3 (Age 65+ Years) Preserv Free 02/10/2018 Pneumococcal Poly,23-Valent (Pneumovax) 01/27/2009 Pneumococcal conj 13-Valent (Prevnar 13) 04/01/2014 Td (Age >=7 Years) 01/27/2009,05/20/1999 Td, Preservative Free (age > = 7 Years) 01/27/2009 Tdap 04/04/2015 Zoster (Shingrix-RZV, recombinant) 06/30/2018, Zoster (Zostavax-ZVL, live) 06/16/2010 Family History Medical History Relation Name Comments Heart Disease Father Diabetes Mother Heart Disease Mother Cancer-breast No Family History Cancer-ovarian No Family History Relation Name Status Comments Father Mother Social History Tobacco Use Types Packs/Day Years Used Date Smoking Tobacco: Never Smokeless Tobacco: Never Tobacco Cessation:Counseling Given: Yes Comments:exposure to passive smoke Alcohol Use Standard Drinks/Week Comments Yes 0 (1 standard drink = 0.6 oz pure alcohol) very seldomly - 2 drinks a year PHQ-2 Answer Date Recorded PHQ-2 TOTAL SCORE 0 06/24/2023 Social Connections Answer Date Recorded Frequency of Communication with Friends and Fami ly 0 08/23/2023 Financial Resource Strain Answer Date R ecorded Difficulty of Paying Living Expenses 3 08/23/2023 Difficulty of Paying Living Expenses Not on file 08/23/2023 Food Insecurity Answer Date Recorded Worried About Running Out of Food in the Last Ye ar 1 08/23/2023 Transportation Needs Answer Date Record ed Lack of Transportation (Medical) 1 08/23/2023 Housing Stability Answer Date Recorded Unable to Pay for Housing in the Last Year 1 08/23/2023 Sex and Gender Information Value Date Recorded Sex Assigned at Not on file Gender Identity Not on file Sexual Orientation Not on file Obstetrics History Para Term AB IAB SAB Ectopic Multiple Livin g Live Births 5 1 1 1 1 1 Date Outcome GA Total Labor Labor/2nd/3rd Weight Sex Delivery Anes PTL Amairani A1 A5 Name Cl in Term Bettina ng Last Filed Vital Signs Vital Sign Reading Time Taken Comments Blood Pressure 127/72 08/23/2023 10:29 AM CDT Pulse 80 08/23/2023 10:29 AM CDT Temperature 36.6 ??C (97.8 ??F) 01/29/2022 8:15 AM CD T Respiratory Rate 18 06/29/2019 10:23 AM CANDLE MAKING SUPERVISOR Oxygen Saturation 95% 08/23/2023 10:29 AM CDT Inhaled Oxygen Concentration - - Weight 101.6 kg (224 lb) 07/03/2023 10:33 AM CANDLE MAKING SUPERVISOR Height 156.5 cm (5' 1.61) 07/03/2023 10:[address] Body Mass Index 41.49 07/03/2023 10:33 AM CANDLE MAKING SUPERVISOR Plan of Treatment Upcoming Encounters Date Type Department Care Team (Late st Contact Info) Description 09/23/2023 1:00 PM CDT Procedure Only [facility] [address] [place] [address] Nicolle Norton L Ac [address] [facility] [place] [address] 10/01/2023 1:00 PM CDT Procedure Only [facility] [address] [place] [address] Nicolle Norton L Ac [address] [facility] [address] 10/07/2023 2:00 PM CDT Procedure Only [facility] [address] [place] [address] Nicolle Norton L Ac [address] [facility] [address] 10/08/2023 11:00 AM CDT Office Visit [facility] [address] [place] [address] Margarito Isidro MD [address] [place] [address] 10/24/2023 10:20 AM CDT Office Visit [facility] [place] [address] Ramírez Simons MD [address] [place] [address] Health Maintenance Due Date Last Done Comments Influenza for age 65+ 01/19/2024 03/09/2023 , 01/29/2022, 02/19/2021, Additional history exists Depression screening for age 12+ 06/24/2024 06/24/2023, 06/14/2022, 08/24/2020, Additional history exists Medicare Wellness for age 65+ 06/24/2024, 06/14/2022, 08/22/2020, Additional history exists BMI (ht and wt on same day) for age 18+ 07/03/2024 07/03/2023, 06/24/2023, 06/14/2022, Additional history exists Tetanus booster 04/04/2025 04/04/2015, 01/18, 01/27/2009, Additional history exists Pneumococcal series for age 65+ Completed 4, 01/27/2009 Tdap Completed 04/04/2015 DEXA/DXA scan for age 65+ Completed 2014, 02/03/2009, 01/02/2007 Zoster (shingles) series for age 50+ Completed 06/30/2018, 03/27/2018, 06/16/2010 COVID-19 vaccine series Completed 03/09/20, 02/21/2022, 09/26/2021, Additional history exists Medical Devices Implanted Type Area Respiratory Care Program Director Device Identifier Shelf Expiration Date Model / Serial / Lot Mesh Pelvic 24x3cm Restorelle Y Contour - [id number] Implanted:Qty: 1 on 06/22/2014 by Gail Richmond MD at [facility] N/A: Urinary Bladder [employer] PS DEPT. 02/19/2017 [id number] / [id number] / [id number] Procedures Procedure Name Priority Date/Time Associated Diagnosis Comments BASIC METABOLIC PANEL Routine 07/08/2023 1:48 PM CANDLE MAKING SUPERVISOR HYPERTENSION SCAN-DIAGNOSTIC REPORT 07/03/2023 12:00 AM CANDLE MAKING SUPERVISOR VITAMIN B12 Routine 06/24/2023 1:20 PM CANDLE MAKING SUPERVISOR Memory loss TSH WITH REFLEX Routine 06/24/2023 1:20 PM CANDLE MAKING SUPERVISOR Memory loss BASIC METABOLIC PANEL Routine 06/24/2023 1:20 PM CANDLE MAKING SUPERVISOR Essential hypertension URINALYSIS MICROSCOPIC Routine 06/24/2023 12:19 PM CANDLE MAKING SUPERVISOR Recurrent UTI (urinary tract infection) URINE CULTURE Routine 06/24/2023 12:19 PM CANDLE MAKING SUPERVISOR Recurrent UTI (urinary tract infection) UA W/ SEDIMENT EXAM REFLEXED PER CRITERIA Routine 06/24/2023 12:19 PM CANDLE MAKING SUPERVISOR Recurrent UTI (urinary tract infection) XR DXA BONE DENSITY 2 SITES AXIAL Routine 04/05/2015 10:59 AM CANDLE MAKING SUPERVISOR Asymptomatic menopausal state from Last 3 Months or Most Recently Relevant to Health Maintenance Results * (ABNORMAL) BASIC METABOLIC PANEL (07/08/2023 1:48 PM CANDLE MAKING SUPERVISOR) Only the most recent of2 resultswithin the time period is included. SODIUM 143 136 - 145 mmol/L 07/08/2023 9:35 PM [facility] POTASSIUM 4.7 3.5 - 5.1 mmol/L 07/08/2023 9:35 PM [facility] CHLORIDE 106 98 - 107 mmol/L 07/08/2023 9:35 PM [facility] CO2,TOTAL 31(H) 22 - 29 mmol/L 07/08/2023 9:35 PM [facility] ANION GAP 6 5 - 18 07/08/2023 9:35 PM [facility] GLUCOSE 89 70 - 99 mg/dL 07/08/2023 9:35 PM [facility] CALCIUM 10.2 8.8 - 10.2 mg/dL 07/08/2023 9:35 PM [facility] BUN 18 8 - 23 mg/dL 07/08/2023 9:35 PM [facility] CREATININE 0.77 0.50 - 0.90 mg/dL 07/08/2023 9:35 PM [facility] BUN/CREAT RATIO 23(H) 10 - 20 9:35 PM [facility] eGFR 77(L) >90 mL/min/1.7 3m2 07/08/2023 9:35 PM [facility] Comment:As of 2021, eG FR is calculated by the CKD-EPI creatinine equation without race adjustment. ??eGFR can be influenced by muscle mass, exercise, and diet. ??The reported eGFR is an estimation only and is only applicable if the renal function is stable. Blood BLOOD SPECIMEN / Unknown Venipuncture / Unknown 07/08/2023 1:48 PM CANDLE MAKING SUPERVISOR 07/08/2023 1:49 PM CANDLE MAKING SUPERVISOR Lakeshia Gee MD CHEMISTRY Performing Organization Address City/[facility]/ZIP Co de Phone Number [facility] [address] [place] [address], * SCAN-DIAGNOSTIC REPORT (07/03/2023 12:00 AM CANDLE MAKING SUPERVISOR) Scanner OTHER * TSH WITH REFLEX (06/24/2023 1:20 PM CANDLE MAKING SUPERVISOR) TSH 1.42 0.27 - 4.20 uIU/mL 06/25/2023 12:16 AM CANDLE MAKING SUPERVISOR [facility] Blood BLOOD SPECIMEN / Unknown Venipuncture / Unknown 06/24/2023 1:20 PM CANDLE MAKING SUPERVISOR 06/24/2023 1:20 PM CANDLE MAKING SUPERVISOR Narrative [facility] - 06/25/2023 12:16 AM CANDLE MAKING SUPERVISOR In Adults, TSH values between 5.00 and 10.00 uIU/ml do not necessarily indicate the presence of Hypothyroidism. Correlation with clinical findings such as presence of goiter and/or Thyroperoxidase (TPO) Antibody may be helpful. For more information please refer to PAM 2004; 291: 228-238. Lakeshia Gee MD CHEMISTRY Performing Organization Address [facility]/ZIP Co de Phone Number [facility] [address] [place] [address], * VITAMIN B12 (06/24/2023 1:20 PM CANDLE MAKING SUPERVISOR) VITAMIN B12 572 232 - 1,245 pg/mL 06/25/2023 12:16 AM CANDLE MAKING SUPERVISOR [facility] Blood BLOOD SPECIMEN / Unknown Venipuncture / Unknown 06/24/2023 1:20 PM CANDLE MAKING SUPERVISOR 06/24/2023 1:20 PM CANDLE MAKING SUPERVISOR Narrative [facility] - 06/25/2023 12:16 AM CANDLE MAKING SUPERVISOR Biotin supplements may cause clinically significant interference for this test assay. ??If interference is suspected, it is strongly recommended that biotin is discontinued for at least one week prior to retesting. Lakeshia Gee MD CHEMISTRY [facility] [address] [place] [address], * (ABNORMAL) URINALYSIS MICROSCOPIC (06/24/2023 12:19 PM CANDLE MAKING SUPERVISOR) RBC 0-2 0-2, None Seen /HPF 06/24/2023 1:00 PM CANDLE MAKING SUPERVISOR [facility] WBC 51-100(A) 0-2, 3-5, None Seen /HPF 06/24/2023 1:00 PM CANDLE MAKING SUPERVISOR [facility] BACTERIA Moderate(A) None Seen, Rare, Few Bacteria/ HPF 06/24/2023 1:00 PM CANDLE MAKING SUPERVISOR [facility] EPITHELIAL CELLS Few None Seen, Few Epi/HPF 06/24/2023 1:00 PM CANDLE MAKING SUPERVISOR [facility] Mucus Present 06/24/2023 1:00 PM CANDLE MAKING SUPERVISOR [facility] Urine URINE SPECIMEN / Unknown Non-Blood / Unknown 06/24/2023 12:19 PM CANDLE MAKING SUPERVISOR 06/24/2023 12:39 PM CANDLE MAKING SUPERVISOR Lakeshia Gee MD URINE [facility] [address] [place] [address], [place] [phone] * URINE CULTURE (06/24/2023 12:19 PM CANDLE MAKING SUPERVISOR) CULTURE <10,000 CFU/mL multiple organisms 06/25/2023 7:12 PM CANDLE MAKING SUPERVISOR [facility] Urine URINE SPECIMEN / Unknown Non-Blood / Unknown 06/24/2023 12:19 PM CANDLE MAKING SUPERVISOR 06/24/2023 12:39 PM CANDLE MAKING SUPERVISOR Lakeshia Gee MD MICROBIOLOGY [facility] [address] [place] [address], [place] * (ABNORMAL) UA W/ SEDIMENT EXAM REFLEXED PER CRITERIA (06/24/2023 12:19 PM CANDLE MAKING SUPERVISOR) COLOR Yellow Yellow Color 06/24/2023 12:57 PM CANDLE MAKING SUPERVISOR [facility] CLARITY Clear Clear Clarity 06/24/2023 12:57 PM CANDLE MAKING SUPERVISOR [facility] SPECIFIC GRAVITY,URINE 1.025 1.010, 1.015, 1.020, 1.025 06/24/2023 12:57 PM CANDLE MAKING SUPERVISOR [facility] PH,URINE 6.0 6.0, 7.0, 8.0, 5.5, 6.5, 7.5, 8.5 06/24/2023 12:57 PM CANDLE MAKING SUPERVISOR [facility] UROBILINOGEN, QUALITATIVE Normal Normal EU/dl 06/24/2023 12:57 PM CANDLE MAKING SUPERVISOR [facility] PROTEIN, URINE Negative Negative mg/dL 06/24/2023 12:57 PM CANDLE MAKING SUPERVISOR [facility] GLUCOSE, URINE Negative Negative mg/dL 06/24/2023 12:57 PM CANDLE MAKING SUPERVISOR [facility] KETONES,URINE Negative Negative mg/dL 06/24/2023 12:57 PM CANDLE MAKING SUPERVISOR [facility] BILIRUBIN,URI NE Negative Negative 06/24/2023 12:57 PM CANDLE MAKING SUPERVISOR [facility] OCCULT BLOOD,URINE Negative Negative 06/24/2023 12:57 PM CANDLE MAKING SUPERVISOR [facility] NITRITE Negative Negative 06/24/2023 12:57 PM CANDLE MAKING SUPERVISOR [facility] LEUKOCYTE ESTERASE Large(A) Negative 06/24/2023 12:57 PM CANDLE MAKING SUPERVISOR [facility] Urine URINE SPECIMEN / Unknown Non-Blood / Unknown 06/24/2023 12:19 PM CANDLE MAKING SUPERVISOR 06/24/2023 12:39 PM CANDLE MAKING SUPERVISOR Lakeshia Gee MD URINE [facility] [address] [place] [address], * XR DEXA BONE DENSITY 2 SITES [33563.1] (04/05/2015 10:59 AM CANDLE MAKING SUPERVISOR) Anatomical Region Laterality Modality Spine, HIPS, HIPL, HIPR Other Narrative 04/08/2015 7:26 AM CANDLE MAKING SUPERVISOR Please see scanned document for results of this study. Bety Macedo MD DEXA from Last 3 Months or Most Recently Relevant to Health Maintenance Advance Directives Documents on File Type Date Recorded Patient Project Facilitator Expl anation Healthcare Directive 07/03/2012 8:05 AM HE ALTH CARE DIRECTIVE, [employer], 06/17/12 * Full Code (Latest Code Status on File) Date Activated Date Inactivated Comments 06/22/2014 1:35 PM 06/24/2014 2:09 PM * Full Code Date Activated Date Inactivated Comments 06/22/2014 12:46 AM 06/22/2014 1:35 PM Care Teams Bench Grinder Relationship Specialty Start Date End Date Lakeshia Gee MD [address] [place] [address] PCP - General Family Practice 09/19/22 Margarito Isidro MD Sleep Medicine 04/30/12
--- OUTSIDE RECORDS SUMMARY | 2023-09-18 06:25 | XMS_ITS | Encounter Summary ---
Author Name Unknown Organization [facility] Address [address] [place] [address] Care Team Providers Care Bolt Cutter Name Role Phone Unavailable Primary Care Provider Unavailabl e Encounter Details Date Type Department Care Team (Latest Contact Info) Description 08/28/2023 11:36 AM CDT - 08/28/2023 11:59 PM CDT Hospital Encounter Department of Laboratory Medicine in [place], [place] [address] [phone] Ramírez Dia M.D. [address] [phone] Neuropathy Peripheral Discharge Disposition: Home or Self Care Social History Tobacco Use Types Packs/Day Years Used Date Smoking Tobacco: Never Smokeless Tobacco: Never Nutrition Answer Date Recorded Nutrition: EVOO Fat Source Unknown 02/21 Nutrition: Servings of Fruits/Vegetables per Day Not on file 02/21/2023 Dental Answer Date Recorded Dental: Regular Dentist Unknown 02/22/20 23 Sex and Gender Information Value Date Recorded Sex Assigned at Not on file Gender Identity Not on file Sexual Orientation Not on file documented as of this encounter Medications at Time of Discharge Medication Sig Dispensed Refills Start Date End Date acetaminophen (TYLENOL) 500 mg tablet Take 1,000 mg by mouth every 8 (eight) hours as needed for pain. 09/01/2018 amLODIPine (NORVASC) 10 mg tablet Take 1 tablet by mouth daily. 06/24/2023 ascorbic acid, vitamin C, (VITAMIN C) 500 mg tablet Take 1 tablet by mouth daily. 01/27/2021 buPROPion XL (WELLBUTRIN XL) 150 mg 24 hr tablet Take 1 tablet by mouth daily. 06/24/2023 cholecalciferol (VITAMIN D3) 25 mcg (1,000 Unit) capsule Take 1 capsule by mouth daily. 01/27/2021 ferrous gluconate (FERGON) 324 mg (38 mg iron) tablet Take 324 mg by mouth daily with breakfast. losartan (COZAAR) 100 mg tablet Take 1 tablet by mouth daily. 06/24/2023 magnesium 250 mg tablet Take 1 tablet by mouth daily. 01/27/2021 meclizine (ANTIVERT) 25 mg tablet Take 25 mg by mouth 3 (three) times a day as needed for dizziness. 07/24/2016 pregabalin (LYRICA) 150 mg capsule Take 150 mg by mouth 2 (two) times a day. 03/15/2023 rOPINIRole (REQUIP) 2 mg tablet Take 2 mg by mouth 2 (two) times a day. 03/15/2023 triamcinolone (KENALOG) 0.1 % cream Apply 1 Application topically daily as needed (psoriasis). 08/23/2023 documented as of this encounter Plan of Treatment Not on file documented as of this encounter Procedures Procedure Name Priority Date/Time Associated Diagnosis Comments QUANTITATIVE M-PROTEIN STUDY, S Routine 08/28/2023 11:56 AM CDT Neuropathy Peripheral documented in this encounter Results * Quantitative M-protein Study (08/28/2023 11:56 AM CDT) Immunoglobulin A (IgA), S 137 61 - [...] monoclonal protein detected. 08/29/2023 2:58 PM CDT [facility] Comment: ----ADDITIONAL INFORMATION---- The submitted sample was assayed by five separate immunopurifications for IgG, IgA, IgM, kappa and lambda. ??The result reflects the findings of either no monoclonal protein detected or those monoclonal immunoglobulins that were detected. This test was developed and its performance characteristics determined by [facility] in a manner consistent with CLIA requirements. This test has not been cleared or approved by the U.S. Food and Drug Administration. Blood (Blood, Venous) 08/28/2023 11:56 AM CDT 08/29/2023 6:19 AM CDT [facility] - 08/29/2023 2:58 PM CDT Specimen Information: Specimen ID: [id number] Specimen Type: Blood Specimen Collection Start Date: 08/28/2023 11:56 AM Specimen Received Date: 08/29/2023 ??6:19 AM Specimen ID: [id number] Specimen Type: Blood Specimen Collection Start Date: 08/28/2023 11:56 AM Specimen Received Date: 08/29/2023 ??6:40 AM Ramírez Dia M.D. LAB BLOOD ADD-ON [facility] [address] [place] [address] [facility] [address] [place] [address] [facility] [address] [place] [address] [place] [address] documented in this encounter Visit Diagnoses Diagnosis Neuropathy Peripheral documented in this encounter
--- OUTSIDE RECORDS SUMMARY | 2023-09-18 06:25 | XMS_ITS | Encounter Summary ---
Author Name Unknown Organization [facility] Address [address] [place] [address] Care Team Providers Care Labor Relations Or Personnel Negotiator Name Role Phone Unavailable Primary Care Provider Unavailabl e Encounter Details Date Type Department Care Team (Late st Contact Info) Description 08/30/2023 Clinical Communication Department of Neurology in [place], [place] [address] [phone] Ramírez Dia M.D. [address] [phone] Social History Tobacco Use Types Packs/Day Years [...] on file documented as of this encounter Plan of Treatment Not on file documented as of this encounter Visit Diagnoses Not on filedocumented in this encounter
--- OUTSIDE RECORDS SUMMARY | 2023-09-18 06:25 | XMS_ITS | Clinical Summary ---
Author Name Unknown Organization [facility] Address [address] [place] [address] Care Team Providers Care Casing Operator Name Role Phone Unavailable Primary Care Provider Unavailabl e Source Comments Patient records contain information from all sites at [facility]. For routine questions regarding patient records, call [phone] during business hours, M-F 8:00 AM - 5:00 PM Central Time. Record requests for emergency care only can be directed to [phone] at any time.[facility] Allergies Active Allergy Reactions Criticality Noted Date Comments Atenolol Shortness of breath (Reselect Reaction) 12/30/2006 Lisinopril Cough 12/30/2006 Morphine Nausea And Vomiting 10/06/2012 Medications Medication Sig Dispensed Refills Start Date End Date Status losartan (COZAAR) 100 mg tablet Take 1 tablet by mouth daily. 06/24/2023 Active amLODIPine (NORVASC) 10 mg tablet Take 1 tablet by mouth daily. 06/24/2023 Active buPROPion XL (WELLBUTRIN XL) 150 mg 24 hr tablet Take 1 tablet by mouth daily. 06/24/2023 Active rOPINIRole (REQUIP) 2 mg tablet Take 2 mg by mouth 2 (two) times a day. 03/15/2023 Active pregabalin (LYRICA) 150 mg capsule Take 150 mg by mouth 2 (two) times a day. 03/15/2023 Active acetaminophen (TYLENOL) 500 mg tablet Take 1,000 mg by mouth every 8 (eight) hours as needed for pain. 09/01/2018 Active triamcinolone (KENALOG) 0.1 % cream Apply 1 Application topically daily as needed (psoriasis). 08/23/2023 Active meclizine (ANTIVERT) 25 mg tablet Take 25 mg by mouth 3 (three) times a day as needed for dizziness. 07/24/2016 Active ascorbic acid, vitamin C, (VITAMIN C) 500 mg tablet Take 1 tablet by mouth daily. 01/27/2021 Active cholecalciferol (VITAMIN D3) 25 mcg (1,000 Unit) capsule Take 1 capsule by mouth daily. 01/27/2021 Active magnesium 250 mg tablet Take 1 tablet by mouth daily. 01/27/2021 Active ferrous gluconate (FERGON) 324 mg (38 mg iron) tablet Take 324 mg by mouth daily with breakfast. Active Encounters Date Type Department Care Team Description 08/30/2023 Clinical Communication Department of Neurology in [address] [phone] Ramírez Dia M.D. 08/28/2023 11:36 AM CDT - 08/28/2023 11:59 PM CDT Hospital Encounter Department of Laboratory Medicine in [address] [phone] Ramírez Dia M.D. Neuropathy Peripheral Discharge Disposition: Home or Self Care 08/28/2023 11:00 AM CDT Comprehensive Visit Department of Neurology in [address] [phone] Ramírez Dia M.D. Neuropathy Peripheral from Last 3 Months Social History Tobacco Use Types Packs/Day Years [...] on file Sexual Orientation Not on file Last Filed Vital Signs Vital Sign Reading Time Taken Comments Blood Pressure 119/72 08/28/2023 11:03 AM CDT Pulse 67 08/28/2023 11:03 AM CDT Temperature - - Respiratory Rate - - Oxygen Saturation - - Inhaled Oxygen Concentration - - Weight 100 kg (220 lb 7.4 oz) 08/28/2023 11:03 A M CDT Height - - Body Mass Index - - Plan of Treatment Health Maintenance Due Date Last Done Comments Depression Screening (Annual PHQ-2) 05/20/2023 Fall Risk Screen (Annual) 05/20/2023 COVID-19 Vaccine (2022-2 4 season) 2023 03/09/2023, 02/21/2022, 09/26/2021, Additional history exists Creatinine Level (Kidney Fun ction Test) 07/08/2024 07/08/2023, 06/24/2023, 06/14/2022, Additional history exists Potassium Level 07/08/2024 07/08/2023, 02/0 09/2023, 06/14/2022, Additional history exists Sodium Level 07/08/2024 07/08/2023, 02/0 09/2023, 06/14/2022, Additional history exists DTaP,Tdap,and Td Vaccines (2 - Td or Tdap) 04/04/2025 04/04/2015, 01/27/2009 Pneumococcal vaccine (65+ years) Completed 04/01/20 14, 01/27/2009 Zoster Vaccines Completed 06/30/2018, 12/2017, 06/16/2010 Influenza Vaccine Completed 03/09/2023, , 02/19/2021, Additional history exists Procedures Procedure Name Priority Date/Time Associated Diagnosis Comments QUANTITATIVE M-PROTEIN STUDY, S Routine 08/28/2023 11:56 AM CDT Neuropathy Peripheral EXTI BASIC METABOLIC PANEL, S/P Routine 07/08/2023 1:48 PM DIRECTOR OF RESIDENCE LIFE from Last 3 Months or Most Recently Relevant to Health Maintenance Results * Quantitative M-protein Study (08/28/2023 11:56 [...] developed and its performance characteristics determined by [facility] in a manner consistent with CLIA requirements. This test has not been cleared or approved by the U.S. Food and Drug Administration. Blood (Blood, Venous) 08/28/2023 11:56 AM CDT 08/29/2023 6:19 AM CDT Narrative [facility] - 08/29/2023 2:58 PM CDT Specimen Information: Specimen ID: [id number] Specimen Type: Blood Specimen Collection Start Date: 08/28/2023 11:56 AM Specimen Received Date: 08/29/2023 ??6:19 AM Specimen ID: [id number] Specimen Type: Blood Specimen Collection Start Date: 08/28/2023 11:56 AM Specimen Received Date: 08/29/2023 ??6:40 AM Ramírez Dia M.D. LAB BLOOD ADD-ON [facility] [address] [place] [address] [facility] [address] [place] [address] [facility] [address] [place] [address] [place] [id number] from Last 3 Months
--- OUTSIDE RECORDS SUMMARY | 2023-09-18 06:25 | XMS_ITS ---
Author Name Unknown Organization [facility] Address [address] [place] [address] Care Team Providers Care Internal Medicine Hospitalist Name Role Phone Unavailable Unavailable Unavailable Surgery Details Not on file Complications Check Surgery Details section. Procedure Estimated Blood Loss Check Surgery Details section. Procedure Findings Check Surgery Details section. Procedure Specimens Taken Check Surgery Details section.
== END 2023-09-17 16:53 | disposition home or self-care (01) ==
LOC: NFLDREF 09-18 06:23
PROVIDERS: PCP Family Medicine; Referring Provider Family Medicine; Visit Provider Nurse Practitioner Family
DX: N30.00 Acute cystitis without hematuria (principal)
CPT/HCPCS: 87086

== ENCOUNTER 2023-10-23 15:55 | Emergency (ER) | payer MEDICARE, BC, SELFPAY ==
[2023-10-23 16:07] VITALS: BP 125/58; PULSE 81; RESP 18; TEMP 36.3; O2SAT 92; BMI 42.1
--- NOTE | 2023-10-23 16:43 | ED_ITS ---
HPI - General Adult General Date Seen: 10/23/23 Chief complaint: Unspecified Complaint, Adult Stated complaint: dizzy, unbalanced Time Seen by Provider: 10/23/23 16:41 History of Present Illness HPI narrative: 83-year-old female presents to ER with symptoms that began at about 2:00 p.m. while she was watching TV. She feels like she is having weakness in both of her legs and feels dizzy. She took THC gummies at about noon for the 1st time. Past medical history includes asthma, hypertension, sleep apnea, obesity, polyneuropathy, history of rib fractures. Surgical history includes hysterectomy, right total knee replacement with revision, left total knee r eplacement,. She has chronic dropped beat of causes some numbness in in pain in both of her feet. She also has some chronic stiffness in her right leg that makes it tough for her to walk. She normally uses a walker to assist with ambulation. Because of her chronic pain she took it THC gummy. She took a ?good vibez? brand [place] gummy that contained 25 mg of delta 8 THC at about noon today. Prior to that she was in her usual state of health. She does have difficulty with ambulation and some chronic pain and stiffness in her joints and knees. At about 2:00 p.m. she tried to get out of her chair and she found that her feet were extremely heavy, on both feet and she was dizzy and unsteady. She feels dizzy and woozy. She has had occasional bouts of dizziness in the past but nothing this severe. No other symptoms. No headache. No blurry vision. No double vision. No chest pain. No palpitations. No fever. No known falls. Related Data Home Medications ?Medication ?Instructions ?Recorded ?Confirmed fluticasone propionate 50 1 spray intranasal BID PRN 12/04/21 09/17/23 mcg/actuation nasal spray,suspension losartan 100 mg tablet 100 mg PO DAILY 12/04/21 09/17/23 acetaminophen 500 mg tablet 500 mg PO Q6H PRN 12/05/21 09/17/23 (Tylenol Extra Strength) amlodipine 10 mg tablet 10 mg PO QDAY 12/05/21 09/17/23 bupropion HCl 150 mg 24 hr tablet, 150 mg PO 12/05/21 09/17/23 extended release meclizine 25 mg tablet 25 mg PO QDAY PRN 12/05/21 09/17/23 pregabalin 150 mg capsule 150 mg PO QDAY 12/05/21 09/17/23 ropinirole 2 mg tablet 2 mg PO BID 12/05/21 09/17/23 triamcinolone acetonide 0.1 % applic topical PRN 12/05/21 09/17/23 topical cream hydrochlorothiazide 25 mg tablet 25 mg PO DAILY 08/15/23 09/17/23 oxycodone 5 mg tablet mg PO DAILY 10/23/23 Previous Rx's ?Medication ?Instructions ?Recorded diazepam 5 mg tablet (Valium) 2.5 - 5 mg (0.5 - 1 x 5 mg) PO BID 01/20/23 PRN dizziness #5 tabs meclizine 25 mg tablet 25 mg PO TID #15 tabs 01/20/23 Allergies Allergy/AdvReac Type Severity Reaction Status Date / Time atenolol Allergy Intermediate shortness Verified 10/23/23 18:35 of breath lisinopril Allergy Mild Cough Verified 10/23/23 18:35 morphine Allergy Mild nausea/vomi Verified 10/23/23 18:35 ting PFSH [facility] Medical History Contact dermatitis ?L25.9 - Unspecified contact dermatitis, unspecified cause (ICD-10) Neuropathy ?G62.9 - Polyneuropathy, unspecified (ICD-10) Arthritis ?M19.90 - Unspecified osteoarthritis, unspecified site (ICD-10) Sleep apnea ?G47.30 - Sleep apnea, unspecified (ICD-10) Asthma ?J45.909 - Unspecified asthma, uncomplicated (ICD-10) Hypertension ?I10 - Essential (primary) hypertension (ICD-10) Fracture of rib ?S22.39XA - Fracture of one rib, unspecified side, initial encounter for closed fracture (ICD-10) Surgical History History of revision of total knee arthroplasty ?Z96.659 - Presence of unspecified artificial knee joint (ICD-10) H/O: hysterectomy (~1994) ?Z90.710 - Acquired absence of both cervix and uterus (ICD-10) History of total right knee replacement (~11/2001) ?Z96.651 - Presence of right artificial knee joint (ICD-10) History of total left knee replacement (~01/2003) ?Z96.652 - Presence of left artificial knee joint (ICD-10) Avulsion of toenail ?S91.209A - Unspecified open wound of unspecified toe(s) with damage to nail, initial encounter (ICD-10) Social History Smoking Status: Never smoker Do you use any of these nicotine containing products: None Second hand tobacco smoke exposure: No How often do you have a drink containing alcohol: never How often do you have six or more drinks on one occasion: Never AUDIT-C Alcohol total score: 0 Non-prescribed substance use: denies use service: No Exam Narrative: Exam Narrative: Primary Survey: A- patent. Speaking clearly. Phonation normal. No stridor. B- breathing easily. Lung sounds clear and equal. Oxygen saturation normal on room air C- no active bleeding. Blood pressure stable. Symmetric pulses and cap refill in 4 extremities. D- alert and oriented x3. GCS 15. No focal deficits. Constitutional: Appears well-developed and well-nourished. Alert. Conversant. Non toxic. HENT: Head: Atraumatic. Nose: Nose normal. Mouth/Throat: Oral mucosa is clear and moist. no trismus. Pharynx normal. Tonsils symmetric. No tonsillar enlargement, erythema, or exudate. Eyes: Conjunctivae normal. EOM normal. no nystagmus. Pupils equal, round, and reactive to light. No scleral icterus. Neck: Normal range of motion. Neck supple. No tracheal deviation present. Cardiovascular: Normal rate, regular rhythm. No gallop. No friction rub. No murmur heard. Symmetric radial artery pulses Pulmonary/Chest: Effort normal. No stridor. No respiratory distress. No wheezes. No rales. No rhonchi . No tenderness. Abdominal: Soft. Bowel sounds normal. No distension. No mass. No tenderness. No rebound. No guarding. Musculoskeletal: RUE: Normal range of motion. No tenderness. No deformity LUE: Normal range of motion. No tenderness. No deformity RLE: Normal range of motion. No edema. No tenderness. No deformity LLE: Normal range of motion. No edema. No tenderness. No deformity Lymph: No cervical adenopathy. Mental status normal. Attention normal. Alert and oriented x3. GCS 15. Memory normal. Speech fluent. Cognition normal. Cranial Nerves intact II-XII except I did not formally test gag or visual acuity. EOMI. Palate elevates symmetrically and tongue protrudes in the midline. Strength: 5/5 trapezius on the right and left 5/5 deltoid on the right and left 5/5 biceps on the right and left 5/5 triceps on the right and left 5/5 merchandise coordinator on the right and left 5/5 thumb opposition on the right and le ft 5/5 finger abduction on the right and le ft 4+/5 hip flexors on the right, 5/5 on th e left. Patient says she chronically has stiffness in her right leg which makes it harder for her to lift off the b ed. 4+/5 quad on the right, 4+/5 on the left . Patient reports that she has chronically stiff knees due to knee replacements. 4+/5 tibialis anterior bilateral. 5/5 EHL (L5) on the right and left 5/5 gastrocnemius (S1) on the right and left 4+/5 hamstring on the right, 5/5 on the left. Sensation intact to light touch in both upper extremities (C4-T1) Sensation intact to light touch in Both thighs and medial and lateral calves. She has symmetric paresthesias affecting both of her feet including the L4, L5, S1 dermatomes and sole of the feet. Finger to nose and coordination normal. Gait not assessed due to patient dizziness Patient feels dizziness is worse when sitting forward. Skin: Skin is warm and dry. No rash noted. No pallor. Normal capillary refill. Psychiatric: Normal mood. Normal affect. Const: Vital Signs, click to edit/add: Vital Signs - 24 hr 10/23/23 16:07 Temperature 97.3 F L Pulse Rate [Pulse Oximeter] 81 Respiratory Rate 18 Blood Pressure [Ri ght Upper Arm] 125/58 L Pulse Oximetry 92 Oxygen Delivery Me thod Room Air Course Course ED Course: Patient was evaluated in ER room 2. History and physical obtained. Initial impression is that symptoms are most likely related to toxicity from the delta 8 gummy that she took. However she does seem slightly weaker in the right leg than the left (which may reflect chronic stiffness in that right leg). Cannot completely rule out stroke. Therefore will do workup to look for alternative life threats causing her symptoms. At the same time, I suspect symptoms are probably caused by the gummy, and therefore I am optimistic that symptoms will likely resolve over the next couple of hours. Head CT ordered and consult placed for Stroke Neurology at [facility]. Discussed with [facility], by phone. They agree that 25 mg of delta a THC would be a high dose especially for a first-time user who is 83 years old and could be expected to cause symptoms including drowsiness (or sometimes agitation) significant dizziness, ataxia, headache, weakness. The typical onset is 2-4 hours and peak would be similar. They would anticipate she will should metabolize over the next couple of hours and as long as symptoms are improving she would be safe to discharge at that point. She does not necessarily have to be hospitalized until she is completely normal. Subsequently received a phone call back from Stroke Neurology, Dr. Castillo. He suggests that we should do the workup with CT CTA, to look for alternative explanations for her symptoms. Recheck-back from CT. Her IV in her low left antecubital fossa infiltrated after getting CT angio. They believe was probably saline, noncontrast that infiltrated. IV was removed. Patient is not having any pain. Repeat skin exam shows no sign of any necrosis or blanching. Patient feeling better after returning from CT. Recheck-CT and lab results back. Patient continued to feel better. She is ambulatory. Vital Signs Vital signs: Initial Vital Signs Temperature 97.3 F L 10/23/23 16:07 Temperature Source Temporal Artery Scan 10/23/23 16:07 Pulse Rate 81 10/23/23 16:07 Respiratory Rate 18 10/23/23 16:07 Blood Pressure 125/58 L 10/23/23 16:07 Blood Pressure Mean 80 10/23/23 16:07 Blood Pressure Position Supine 10/23/23 16:07 Pulse Oximetry 92 10/23/23 16:07 Oxygen Delivery Method Room Air 10/23/23 16:07 Vital Signs Temperature 97.3 F L 10/23/23 16:07 Pulse Rate 81 10/23/23 16:07 Respiratory Rate 18 10/23/23 16:07 Blood Pressure 125/58 L 10/23/23 16:07 Pulse Oximetry 92 10/23/23 16:07 Oxygen Delivery Method Room Air 10/23/23 16:07 Temperature 97.3 F L 10/23/23 16:07 Pulse Rate 81 10/23/23 16:07 Respiratory Rate 18 10/23/23 16:07 Blood Pressure 125/58 L 10/23/23 16:07 Pulse Oximetry 92 10/23/23 16:07 Oxygen Delivery Method Room Air 10/23/23 16:07 Medications Administered Medications: Discontinued Medications Generic Name Dose Route Start Last Admin Trade Name Shayy PRN Reason Stop Dose Admin Sodium Chloride 1,000 mls @ 1,000 mls/hr 10/23/23 17:15 10/23/23 18:48 0.9 % Sodium Chloride 1000 Ml IV 10/23/23 18:14 Not Given .Q1H EVER Medical Decision Making MDM Narrative Medical decision making narrative: This is a very pleasant 83-year-old female presenting to the ER today with onset of dizziness, weakness (generalized but worse in the right leg than on the left leg) and unsteadiness this afternoon. She did take age delta a THC gummy at around noon today (in attempt to treat her chronic neuropathy and joint pain which has otherwise been untreatable). However she took 25 mg delta 8 THC gummy which may be an excessive dose. When she presented symptoms were largely attributable to THC overdose. However there seemed to be some asymmetry in her lower extremity weakness (right more than left) which lead to consideration for stroke. Less likely would be lumbar radiculopathy. No sign of any infections in her legs. We did do stroke workup and CT scan and CT angio are negative. EKG shows sinus rhythm. Laboratory workup reassuring. BUN mildly elevated. Suspect possibly prerenal. She received part of a L of saline before her IV infiltrated. We observed the patient here in the ER and she had steady improvement in her symptoms. She became ambulatory and was feeling much better. She was also more alert and less drowsy. At this point, with improvement over. Of observation, I strongly suspect that her symptoms were driven by the delta 8 THC gummy that she took today. She is now ambulatory and steady with her walker and back to baseline. At this point with reasonable clinical confidence I think she is safe for discharge home. Advised to avoid THC gummies at least until she follows up with her doctor to discuss about options for managing her op with the in pain. In terms of the IV infiltration, I believe she had subcutaneous infiltration of saline. No other vasoactive substance. At this point low risk for skin necrosis or damage. She is not having any pain. Lab Data Labs: Lab Results 10/23/23 10/23/23 Range/Units 17:25 17:33 WBC 5.88 (4.50-11.00) K/uL RBC 4.25 (4.00-5.20) m/uL Hgb 12.9 (12.0-16.0) gm/dL Hct 39.1 (33.0-51.0) % MCV 92 (80-100) fL MCH 30 (26-34) pg MCHC 33 (32-36) gm/dL RDW Coeff of [place] 13.7 (11.5-15.5) % Plt Count 198 (140-440) K/uL Neut % (Auto) 59.3 (42.0-72.0) % Lymph % (Auto) 24.8 (20-44) % [place] % (Auto) 9.2 (0.0-11.0) % Eos % (Auto) 6.0 (0.0-7.0) % Baso % (Auto) 0.5 (0.0-3.0) % Neut # (Auto) 3.49 (1.7-7.0) K/uL Lymph # (Auto) 1.46 (0.90-2.90) K/uL [place] # (Auto) 0.50 (0.00-0.90) K/UL Eos # (Auto) 0.35 (0.00-0.50) K/uL Baso # (Auto) 0.03 (0.00-0.30) K/uL Abs Immat Gran (auto) 0.01 (0.00-0.30) K/uL Imm/Tot Granulo (auto) 0.2 % INR 1.01 (0.91-1.10) Sodium 142 (135-149) mmol/L Potassium 3.7 (3.6-5.1) mmol/L Chloride 107 (96-114) mmol/L Carbon Dioxide 29 (20-32) mmol/L Anion Gap 6 L (7-15) mEq/L BUN 36 H (7-30) mg/dL Creatinine 0.8 (0.5-1.5) mg/dL Estimated Creat Clear 34.30 Estimated GFR 74 ml/min Glucose 123 H (60-115) mg/dL Calcium 9.4 (8.4-10.6) mg/dL Troponin I < 0.01 L (0.01-0.04) ng/mL POC Creatinine 0.9 (0.6-1.3) mg/dl Imaging Data CT scan - head: Attestation: I have reviewed the pertinent imaging results. Radiologist's impression: IMPRESSION: 1. No CT evidence of acute intracranial abnormality. 2. Senescent changes including generalized parenchymal volume loss and findings likely reflecting sequela of chronic small vessel ischemia. CTA Head and neck: Attestation: I have reviewed the pertinent imaging results. Radiologist's impression: Preliminary Report: Prelim: CTA head: 1. No intracranial large vessel occlusion or critical stenosis. CTA neck: 1. No hemodynamically significant stenosis in the neck. Dictated by Selena Vazquez MD @ 10/23/2023 7:25:53 PM Discharge Plan Discharge Clinical Impression: Dizziness Patient Disposition: Home, Self-Care Condition: Stable Instructions: Dizziness (ED) Additional Instructions: Please come back to the ER right away if you have any worsening or changing symptoms or any other concerns. Continue on your regular medications. Please follow-up with her doctor about the pain in your joints in your neuropathy. You can ask your doctor about options for treating the symptoms. Avoid THC gummies until after you talk to your doctor. If you are going to use THC gummies, be sure you get them from a reputable supplier with a low-dose in each gummy Prescriptions: No Action losartan 100 mg tablet 100 mg PO DAILY fluticasone propionate 50 mcg/actuation spray,suspension 1 spray intranasal BID PRN Rx Instructions: administer into each nostril pregabalin 150 mg capsule 150 mg PO QDAY amlodipine 10 mg tablet 10 mg PO QDAY ropinirole 2 mg tablet 2 mg PO BID bupropion HCl 150 mg tablet extended release 24 hr 150 mg PO triamcinolone acetonide 0.1 % cream topical PRN meclizine 25 mg tablet 25 mg PO QDAY PRN acetaminophen [Tylenol Extra Strength] 500 mg tablet 500 mg PO Q6H PRN meclizine 25 mg tablet 25 mg PO TID Qty: 15 0RF diazepam [Valium] 5 mg tablet 2.5 - 5 mg PO BID PRN (Reason: dizziness) Qty: 5 0RF hydrochlorothiazide 25 mg tablet 25 mg PO DAILY oxycodone 5 mg tablet PO DAILY Follow Up/Referrals: Lakeshia Gee MD [Primary Care Provider] - Stand Alone Forms: [employer] Info Instructions
--- NOTE | 2023-10-23 17:02 | CRLHL7_ITS ---
For Patients: As a result of the Century Cures Act, medical imaging exams and procedure reports are released immediately into your electronic medical record. You may view this report before your referring provider. If you have questions, please contact your health care provider. DATE: 10/23/2023 CLINICAL HISTORY: Patient with dizziness. TECHNIQUE: Standard helical CT image acquisition through the intracranial circulation following intravenous administration of contrast material with bolus tracking. 2D and 3D MIP images for post-processing were performed and interpreted on an independent workstation and 3D images were permanently archived. COMPARISON: CT same day. FINDINGS: There is no cerebral aneurysm or large vessel occlusion. The right internal carotid artery is normal. The right middle cerebral artery and its branches are normal. The right anterior cerebral artery and its branches are normal. The left internal carotid artery is normal. The left middle cerebral artery and its branches are normal. The left anterior cerebral artery and its branches are normal. The anterior communicating artery is well visualized and appears normal. The right vertebral artery and PICA are normal. The left vertebral artery and PICA are normal. The vertebral arteries are codominant. The basilar artery is patent and appears normal. The right posterior cerebral artery is normal. The left posterior cerebral artery is normal. IMPRESSION: Patent proximal intracranial vasculature without intracranial aneurysms. Please note that all CT scans at this facility use dose modulation, iterative reconstruction, and/or weight-based dosing when appropriate to reduce radiation dose to as low as reasonably achievable. Dictated by Kiarra Kaminski MD @ 10/24/2023 11:24:12 AM (Electronically Signed)
--- NOTE | 2023-10-23 17:02 | CRLHL7_ITS ---
For Patients: As a result of the Century Cures Act, medical imaging exams and procedure reports are released immediately into your electronic medical record. You may view this report before your referring provider. If you have questions, please contact your health care provider. CLINICAL HISTORY: Dizziness. TECHNIQUE: Standard helical CT image acquisition through the head was performed. COMPARISON: None available. FINDINGS: No CT evidence of acute intracranial hemorrhage, extra-axial collection, mass effect or midline shift. Mckenzie-white matter differentiation is preserved. Mild patchy hypoattenuation in the white matter of both hemispheres likely reflects sequela of chronic small vessel ischemia. Mild generalized parenchymal volume loss. No acute hydrocephalus. The calvarium is unremarkable. The orbits are unremarkable. Mucous retention cyst in the left maxillary sinus. Small volume secretions in the right sphenoid sinus. The mastoid air cells are well aerated. IMPRESSION: 1. No CT evidence of acute intracranial abnormality. 2. Senescent changes including generalized parenchymal volume loss and findings likely reflecting sequela of chronic small vessel ischemia. Please note that all CT scans at this facility use dose modulation, iterative reconstruction, and/or weight-based dosing when appropriate to reduce radiation dose to as low as reasonably achievable. Dictated by Victorino Mckinley MD @ 10/23/2023 6:50:21 PM (Electronically Signed)
--- NOTE | 2023-10-23 17:03 | CRLHL7_ITS ---
For Patients: As a result of the Century Cures Act, medical imaging exams and procedure reports are released immediately into your electronic medical record. You may view this report before your referring provider. If you have questions, please contact your health care provider. DATE: 10/23/2023 CLINICAL HISTORY: Patient with dizziness. TECHNIQUE: Standard helical CT image acquisition of the neck up to the skull base after bolus intravenous contrast enhancement. 2D and 3D MIP images for post-processing were performed and interpreted on an independent workstation and 3D images were permanently archived. COMPARISON: CT same day. FINDINGS: The origins of the great vessels from the aortic arch are patent. The origin of the right vertebral artery is patent. The origin of the left vertebral artery is patent. The common carotid arteries are patent. There is no stenosis at the origin of the right internal carotid artery. There is plaque without stenosis at the origin of the left internal carotid artery. The rest of the cervical segments of the internal carotid arteries are patent up to the skull base. The vertebral arteries are codominant. The cervical segments of the vertebral arteries are patent up to the skull base. The visualized lung apices are unremarkable. The thyroid gland is unremarkable. The soft tissues of the neck are unremarkable. There are degenerative changes in the cervical spine. IMPRESSION: Patent cervical vasculature. Please note that all CT scans at this facility use dose modulation, iterative reconstruction, and/or weight-based dosing when appropriate to reduce radiation dose to as low as reasonably achievable. Dictated by Kiarra Kaminski MD @ 10/24/2023 11:21:24 AM (Electronically Signed)
[2023-10-23 17:36] LABS: Creatinine, Point-of-Care* 0.9 mg/dl (0.6-1.3)
[2023-10-23 17:45] LABS: Basophils Absolute Auto 0.03 K/uL (0.00-0.30); Basophils Percent Auto 0.5 % (0.0-3.0); Eosinophils Absolute Auto 0.35 K/uL (0.00-0.50); Hematocrit 39.1 % (33.0-51.0); Hemoglobin* 12.9 gm/dL (12.0-16.0); Immature Granulocytes Abs Auto 0.01 K/uL (0.00-0.30); Immature Granulocytes Pct Auto 0.2 %; Lymphocytes Absolute Auto 1.46 K/uL (0.90-2.90); Lymphocytes Percent Auto 24.8 % (20-44); Mean Corpuscular HGB Conc 33 gm/dL (32-36); Mean Corpuscular Hemoglobin 30 pg (26-34); Mean Corpuscular Volume 92 fL (80-100); Monocytes Percent Auto 9.2 % (0.0-11.0); Neutrophils Absolute Auto 3.49 K/uL (1.7-7.0); Neutrophils Percent Auto 59.3 % (42.0-72.0); Platelet Count* 198 K/uL (140-440); RDW Coefficient of Variation % 13.7 % (11.5-15.5); Red Blood Count 4.25 m/uL (4.00-5.20); White Blood Count* 5.88 K/uL (4.50-11.00)
--- OUTSIDE RECORDS SUMMARY | 2023-10-23 17:45 | XMS_ITS | Referral Summary ---
Author Organization [facility] Address [address] [place] [address] Care Team Providers Care Senior Underwriter Name Role Phone Unavailable Primary Care Provider Unavailabl e Source Comments Patient records contain information from all sites at [facility]. For routine questions regarding patient records, call [phone] during business hours, M-F 8:00 AM - 5:00 PM Central Time. Record requests for emergency care only can be directed to [phone] at any time.[facility] Encounters Date Type Department Care Team Description 08/30/2023 Clinical Communication Department of Neurology in [address] [address] Ramírez Dia M.D. 08/28/2023 11:36 AM CDT - 08/28/2023 11:59 PM CDT Hospital Encounter Department of Laboratory Medicine in [address] [address] Ramírez Dia M.D. Neuropathy Peripheral Discharge Disposition: Home or Self Care 08/28/2023 11:00 AM CDT Comprehensive Visit Department of Neurology in [address] [address] Ramírez Dia M.D. Neuropathy Peripheral from Last 3 Months Allergies Active Allergy Reactions Criticality Noted Date [...] mg by mouth daily with breakfast. Active Social History Tobacco Use Types Packs/Day Years [...] Mass Index - - Plan of Treatment Not on file Procedures Procedure Name Priority Date/Time Associated Diagnosis Comments QUANTITATIVE M-PROTEIN STUDY, S Routine 08/28/2023 11:56 AM CDT Neuropathy Peripheral EXTI BASIC METABOLIC PANEL, S/P Routine 07/08/2023 1:48 PM CASINO CAGE CASHIER from Last 3 Months or Most Recently [...] developed and its performance characteristics determined by [facility] in a manner consistent with CLIA requirements. This test has not been cleared or approved by the U.S. Food and Drug Administration. Blood (Blood, Venous) 08/28/2023 11:56 AM CDT 08/29/2023 6:19 AM CDT Narrative [facility] - 08/29/2023 2:58 PM CDT Specimen Information: Specimen ID: [id number] Specimen Type: Blood Specimen Collection Start Date: 08/28/2023 11:56 AM Specimen Received Date: 08/29/2023 ??6:19 AM Specimen ID: [id number] Specimen Type: Blood Specimen Collection Start Date: 08/28/2023 11:56 AM Specimen Received Date: 08/29/2023 ??6:40 AM Ramírez Dia M.D. LAB BLOOD ADD-ON [facility] [address] [place] [address] [facility] [address] [place] [address] [facility] [address] [place] [address] [place] [address] from Last 3 Months or Most Recently Relevant to Health Maintenance
--- OUTSIDE RECORDS SUMMARY | 2023-10-23 17:45 | XMS_ITS | Clinical Summary ---
Author Organization [employer] [facility] Address [place], [place] [address] Care Team Providers Care Cold Molding Press Operator Name Role Phone Margarito Isidro MD Unavailable GerardLakeshia vincent MD Primary Care Provider Allergies Active Allergy Reactions Criticality Noted Date Comments Atenolol Shortness Of Breath 12/30/2006 Lisinopril Cough 12/30/2006 Morphine Nausea And Vomiting 10/06/2012 Medications Medication Sig Dispensed Refills Start Date End Date Status acetaminophen (TYLENOL EXTRA STRGTH) 500 mg tabletIndications:R [...] months, Frequency of use: Daily 1 Each 3 Active amLODIPine (NORVASC) 10 mg tabletIndications:E [...] to 2 weeks. 45 g 4 Active Ferrous Gluconate 324 mg (38 mg iron) tablet Take 324 mg by mouth. Active oxyCODONE (ROXICODONE) 5 mg immediate release tabletIndications:R estless leg syndrome Take 1 Tablet (5 mg) by mouth at bedtime. 30 Tablet 4 Active meclizine (ANTIVERT) 25 mg tabletIndications:D izziness Take 1 Tablet (25 mg) by mouth 3 times daily if needed for Vertigo. 10 Tablet 4 Active meclizine (ANTIVERT) 25 mg tabletIndications:D izziness Take 1 tablet by mouth 3 times daily if needed. 30 tablet 3 7 10/08/19 24 Discontinu ed(Reorder (E-cancel not sent)) Active Problems Problem Noted Date Diagnosed Date [...] Encounters Date Type Department Care Team Description 10/23/2023 10:00 AM CDT Procedure Only [facility] [address] Nicolle Norton L Ac Acupuncture 10/22/2023 Travel 10/18/[address] [facility] [address] Margarito Isidro MD Prior Authorization (oxyCODONE (ROXICODONE) 5 mg immediate release tablet APPROVED (07/19/23-10/16/24)) 10/17/[address] [facility] [place] [address] Margarito Isidro MD OTHER 10/16/2023 10:00 AM CDT Procedure Only [facility] [place] [address] Nicolle Norton L Ac Acupuncture 10/16/2023 Travel 10/14/[address] [facility] [place] [address] Margarito Isidro MD Questions 10/08/2023 11:00 AM CDT Office Visit [facility] [place] [address] Margarito Isidro MD Sleep Follow-up 10/08/2023 Orders Only [facility] Scanner 1 scan: (1-Ord) [employer] [facility], COMPLIANCE REPORT, 10/08/2023 10/07/2023 2:00 PM CDT Procedure Only [facility] [place] [facility] [place] [address] Nicolle Norton L Ac Acupuncture 10/07/2023 Travel 10/04/2023 Travel 10/01/2023 1:00 PM CDT Procedure Only [facility] [place] [facility] [place] [address] Nicolle Norton L Ac Acupuncture 10/01/2023 Travel 09/23/2023 1:00 PM CDT Procedure Only [facility] [place] [facility] [place] [address] Nicolle Norton L Ac Acupuncture (Initial treatment, order is a... 09/23/2023 Travel 09/17/[address] [facility] [address] [place] [address] Lakeshia Gee MD ACC Order Request (urine test) 09/09/[address] [address] Lakeshia Gee MD Referral for acupuncture 08/23/2023 10:30 AM CDT Office Visit [facility] [address] [place] [address] Lakeshia Gee MD ER Follow up (Cystitis 08/15/23 ) 08/23/[address] [facility] [address] [place] [address] Ramírez Simons MD Questions (Coolief post knee replacement? ) 08/23/2023 Travel 08/15/[address] [facility] [address] [place] [address] Lakeshia Gee MD Rash from Last 3 Months Immunizations Name Administration Dates Next Due Amb Influenza, Inact (High-d ose) (Flu Clinic Only) 02/23/2014 COVID-19 vaccine (Rebls NTREach 30mcg/0.3mL) RICHELLE VELAZQUEZ 09/26/2021,08/18/2020,07/28/2020 Influenza RIV4 (Age [...] Sign Reading Time Taken Comments Blood Pressure 118/71 10/08/2023 10:55 AM CDT Pulse 70 10/08/2023 10:55 AM CDT Temperature 36.6 ??C (97.8 ??F) 01/29/2022 8:15 AM CD T Respiratory Rate 18 06/29/2019 10:23 AM SUPERVISOR LOADING Oxygen Saturation 97% 10/08/2023 10:55 AM CDT Inhaled Oxygen Concentration - - Weight 104.3 kg (230 lb) 10/08/2023 10:55 AM CDT Height 156.5 cm (5' 1.61) 07/03/2023 10:[address] Body Mass Index 42.6 07/03/2023 10:33 AM SUPERVISOR LOADING Plan of Treatment Upcoming Encounters Date Type Department Care Team (Late st Contact Info) Description 10/25/2023 10:20 AM CDT Office Visit [facility] [address] [place] [address] Ramírez Simons MD [address] [place] [address] 11/01/2023 10:30 AM CDT Procedure Only [facility] [address] [place] [address] Nicolle Norton L Ac [address] [place] [address] 11/08/2023 10:00 AM CDT Procedure Only [facility] [address] [place] [address] Nicolle Norton L Ac [address] [place] [address] 01/15/2024 11:30 AM CDT Office Visit [facility] [address] [place] [address] Margarito Isidro MD [address] [place] [address] Health Maintenance Due Date Last Done Comments [...] 06/30/2018, 03/27/2018, 06/16/2010 COVID-19 vaccine series Completed 03/09/20 23, 02/21/2022, 09/26/2021, Additional history exists Medical Devices Implanted Type Area Boiler Operators Supervisor Device Identifier Shelf Expiration Date Model / Serial / Lot Mesh Pelvic 24x3cm Restorelle Y Contour - [id number] Implanted:Qty: 1 on 06/22/2014 by Gail Richmond MD at [facility] N/A: Urinary Bladder [employer] Vidcaster 02/19/2017 [id number] / [id number] / [id number] Procedures Procedure Name Priority Date/Time Associated Diagnosis Comments ACUPUNCTURE PLAN OF CARE Routine 10/23/2023 9:49 AM CDT Peripheral polyneuropathy Chronic bilateral low back pain without sciatica Spinal stenosis, unspecified spinal region Other chronic pain ACUPUNCTURE PLAN OF CARE Routine 10/16/2023 9:48 AM CDT Peripheral polyneuropathy Chronic bilateral low back pain without sciatica Spinal stenosis, unspecified spinal region Other chronic pain SCAN-DIAGNOSTIC REPORT 10/08/2023 12:00 AM CDT ACUPUNCTURE PLAN OF CARE Routine 10/07/2023 1:47 PM CDT Peripheral polyneuropathy Chronic bilateral low back pain without sciatica Spinal stenosis, unspecified spinal region Other chronic pain ACUPUNCTURE PLAN OF CARE Routine 10/01/2023 12:44 PM CDT Peripheral polyneuropathy Chronic bilateral low back pain without sciatica Spinal stenosis, unspecified spinal region Other chronic pain XR DXA BONE DENSITY 2 SITES AXIAL Routine 04/05/2015 10:59 AM SUPERVISOR LOADING Asymptomatic menopausal state from Last 3 Months or Most Recently Relevant to Health Maintenance Results * SCAN-DIAGNOSTIC REPORT (10/08/2023 12:00 AM CDT) Scanner OTHER * XR DEXA BONE DENSITY 2 SITES [22713.1] (04/05/2015 10:59 AM SUPERVISOR LOADING) Anatomical Region Laterality Modality Spine, HIPS, HIPL, HIPR Other Narrative 04/08/2015 7:26 AM SUPERVISOR LOADING Please see scanned document for results of this study. Bety Macedo MD DEXA from Last 3 Months or Most Recently Relevant to Health Maintenance Advance Directives Documents on File Type Date Recorded Patient Student Officer Expl anation Healthcare Directive 07/03/2012 8:05 AM HE ALTH CARE DIRECTIVE, [employer], 06/17/12 * Full Code (Latest Code Status on File) Date Activated Date Inactivated Comments 06/22/2014 1:35 PM 06/24/2014 2:09 PM * Full Code Date Activated Date Inactivated Comments 06/22/2014 12:46 AM 06/22/2014 1:35 PM Care Teams Cold Molding Press Operator Relationship Specialty Start Date End Date Lakeshia Gee MD [address] [place] [address] PCP - General Family Practice 09/19/22 Margarito Isidro MD Sleep Medicine 04/30/12
--- OUTSIDE RECORDS SUMMARY | 2023-10-23 17:45 | XMS_ITS ---
Author Organization [facility] Address [address] [place] [address] Care Team Providers Care Service Center Appraiser Name Role Phone Unavailable Unavailable Unavailable Surgery Details Not on file Complications Check Surgery Details section. Procedure Estimated Blood Loss Check Surgery Details section. Procedure Findings Check Surgery Details section. Procedure Specimens Taken Check Surgery Details section.
--- OUTSIDE RECORDS SUMMARY | 2023-10-23 17:45 | XMS_ITS | Encounter Summary ---
Author Organization [facility] Address [address] [place] [address] Care Team Providers Care Senior Sales Operations Analyst Name Role Phone Unavailable Primary Care Provider Unavailabl e Encounter Details Date Type Department Care Team (Latest Contact Info) Description 08/28/2023 11:36 AM CDT - 08/28/2023 11:59 PM CDT Hospital Encounter Department of Laboratory Medicine in [place], [place] [address] [phone] Ramírez Dia M.D. [address] [phone] Neuropathy Peripheral Discharge Disposition: Home or Self [...] developed and its performance characteristics determined by [facility] in a manner consistent with CLIA requirements. This test has not been cleared or approved by the U.S. Food and Drug Administration. Blood (Blood, Venous) 08/28/2023 11:56 AM CDT 08/29/2023 6:19 AM CDT [facility] - 08/29/2023 2:58 PM CDT Specimen Information: Specimen ID: [id number] Specimen Type: Blood Specimen Collection Start Date: 08/28/2023 11:56 AM Specimen Received Date: 08/29/2023 ??6:19 AM Specimen ID: [id number] Specimen Type: Blood Specimen Collection Start Date: 08/28/2023 11:56 AM Specimen Received Date: 08/29/2023 ??6:40 AM Ramírez Dia M.D. LAB BLOOD ADD-ON [facility] [address] [place] [address] [facility] [address] [place] [address] [facility] [address] [place] [address] [place] [address] documented in this encounter Visit Diagnoses Diagnosis Neuropathy Peripheral documented in this encounter
--- OUTSIDE RECORDS SUMMARY | 2023-10-23 17:45 | XMS_ITS | Encounter Summary ---
Author Organization [facility] Address [address] [place] [address] Care Team Providers Care Inspector Multifocal Lens Name Role Phone Unavailable Primary Care Provider Unavailabl e Encounter Details Date Type Department Care Team (Late st Contact Info) Description 08/30/2023 Clinical Communication Department of Neurology in [place], [place] [address] [phone] Ramírez Dia M.D. [address] [phone] Social History Tobacco Use Types [...]
--- OUTSIDE RECORDS SUMMARY | 2023-10-23 17:45 | XMS_ITS | Encounter Summary ---
Author Organization [facility] Address [address] [place] [address] Care Team Providers Care Stunt Person Name Role Phone Unavailable Primary Care Provider Unavailabl e Reason for Visit * Reason Comments Peripheral Neuropathy * Outpatient (Routine) - Closed Specialty Diagnoses / Procedures Referred By Ethan albright Referred To Contact Neurology Diagnoses Neuropathy Peripheral Lakeshia Gee M.D. [facility] [place] [phone] [facility] Region Referral ID Status Reason Start Date Expiration Date V isits Requested Visits Authorized [id number] Closed Specialty Services Required 03/18/2023 03/17/2024 1 1 Encounter Details Date Type Department Care Team (Latest Contact Info) Description 08/28/2023 11:00 AM CDT Comprehensive Visit Department of Neurology in [place], [place] [address] [phone] Ramírez Dia M.D. [address] [phone] Neuropathy Peripheral Social History Tobacco [...] Care Everywhere. * Advance Health Care Directives (Lao) documented in this encounter Consult Notes * Ramírez Dia M.D. - 08/28/2023 11:00 AM CDT SUBJECTIVE CHIEF COMPLAINT / REASON FOR VISIT Dorys Guillen is a 83 y.o. female who presents for evaluation of Peripheral Neuropathy. Referring provider Lakeshia Gee M.D. HISTORY OF PRESENT ILLNESS Ms. Guillen is an 83-year-old female referred to [facility] Neurology for evaluation ofperipheral neuropathy. She notes [...] strength in the upper extremities with intact liuqap-kwwj-oayibt testing without dysmetria. In the lower extremities [...] M-protein Study (08/28/2023 11:56 AM CDT) Pathologist [facility] Immunoglobulin A (IgA), S 137 61 - [...] monoclonal protein detected. 08/29/2023 2:58 PM CDT [facility] Comment: ----ADDITIONAL INFORMATION---- The submitted sample was assayed by five separate immunopurifications for IgG, IgA, IgM, kappa and lambda. ??The result reflects the findings of either no monoclonal protein detected or those monoclonal immunoglobulins that were detected. This test was developed and its performance characteristics determined by [facility] in a manner consistent with CLIA requirements. This test has not been cleared or approved by the U.S. Food and Drug Administration. Blood (Blood, Venous) 08/28/2023 11:56 AM CDT 08/29/2023 6:19 AM CDT [facility] - 08/29/2023 2:58 PM CDT Specimen Information: Specimen ID: [id number] Specimen Type: Blood Specimen Collection Start Date: 08/28/2023 11:56 AM Specimen Received Date: 08/29/2023 ??6:19 AM Specimen ID: [id number] Specimen Type: Blood Specimen Collection Start Date: 08/28/2023 11:56 AM Specimen Received Date: 08/29/2023 ??6:40 AM Ramírez Dia M.D. LAB BLOOD ADD-ON [facility] [address] [place] [address] [facility] [address] [place] [address] [place] [facility] [place] [address] documented in this encounter Visit Diagnoses Diagnosis Neuropathy Peripheral Neuropathy Peripheral documented in this encounter
--- OUTSIDE RECORDS SUMMARY | 2023-10-23 17:45 | XMS_ITS | Clinical Summary ---
Author Organization [facility] Address [address] [place] [address] Care Team Providers Care Automation Tester Name Role Phone Unavailable Primary Care Provider Unavailabl e Source Comments Patient records contain information from all sites at [facility]. For routine questions regarding patient records, call [phone] during business hours, M-F 8:00 AM - 5:00 PM Central Time. Record requests for emergency care only can be directed to [phone] at any time.[facility] Allergies Active Allergy Reactions Criticality Noted [...] 08/30/2023 Clinical Communication Department of Neurology in [address] [phone] Ramírez Dia M.D. 08/28/2023 11:36 AM CDT - 08/28/2023 11:59 PM CDT Hospital Encounter Department of Laboratory Medicine in [address] [phone] Ramírez Dia M.D. Neuropathy Peripheral Discharge Disposition: Home or Self Care 08/28/2023 11:00 AM CDT Comprehensive Visit Department of Neurology in [address] [phone] Ramírez Dia M.D. Neuropathy Peripheral from Last [...] Additional history exists Potassium Level 07/08/2024 07/08/2023, /0 09/2023, 06/14/2022, Additional history exists Sodium Level [...] METABOLIC PANEL, S/P Routine 07/08/2023 1:48 PM DIAGRAMMER AND SEAMER from Last 3 Months or Most Recently [...] its performance characteristics determined by [facility] in a manner consistent with CLIA requirements. This test has not been cleared or approved by the U.S. Food and Drug Administration. Blood (Blood, Venous) 08/28/2023 11:56 AM CDT 08/29/2023 6:19 AM CDT Narrative [facility] - 08/29/2023 2:58 PM CDT Specimen Information: Specimen ID: [id number] Specimen Type: Blood Specimen Collection Start Date: 08/28/2023 11:56 AM Specimen Received Date: 08/29/2023 ??6:19 AM Specimen ID: [id number] Specimen Type: Blood Specimen Collection Start Date: 08/28/2023 11:56 AM Specimen Received Date: 08/29/2023 ??6:40 AM Ramírez Dia M.D. LAB BLOOD ADD-ON [facility] [address] [place] [address] [facility] [address] [place] [address] [facility] [address] [place] [address] [place] [address] from Last 3 Months or Most Recently Relevant to Health Maintenance
[2023-10-23 17:48] LABS: Slide Review Reflex No
[2023-10-23 17:55] LABS: Chloride* 107 mmol/L (96-114); Sodium* 142 mmol/L (135-149)
[2023-10-23 17:56] LABS: Potassium* 3.7 mmol/L (3.6-5.1)
[2023-10-23 17:58] LABS: Anion Gap 6 mEq/L (7-15); Blood Urea Nitrogen* 36 mg/dL (7-30); Carbon Dioxide* 29 mmol/L (20-32); Creatinine* 0.8 mg/dL (0.5-1.5); Estimated Glomerular Filt Rate 74 ml/min; INR 1.01 (0.91-1.10); Prothrombin Time 13.9 Seconds
[2023-10-23 17:59] LABS: Calcium* 9.4 mg/dL (8.4-10.6); Glucose* 123 mg/dL (60-115)
[2023-10-23 18:12] LABS: Troponin I* < 0.01 ng/mL (0.01-0.04)
== END 2023-10-23 20:08 | disposition home or self-care (01) ==
PROVIDERS: Emergency Provider Emergency Medicine; PCP Family Medicine
DX: R42 Dizziness and giddiness (principal)
CPT/HCPCS: 36415; 70450; 70496; 70498; 80048; 82565; 84484; 85025; 85610; 93005; 99283; 99284; 99285; Q9967

== ENCOUNTER 2023-11-19 10:14 | Outpatient (CLI) | payer MEDICARE, BC, SELFPAY ==
--- OUTSIDE RECORDS SUMMARY | 2023-11-19 10:16 | XMS_ITS | Encounter Summary ---
Author Organization [facility] Address [address] [place] [address] Care Team Providers Care Mobile Battery Technician Name Role Phone Unavailable Primary Care Provider Unavailabl e Encounter Details Date Type Department Care Team (Late st Contact Info) Description 08/30/2023 Clinical Communication Department of Neurology in [place], [place] [address] [phone] Ramírez Dia M.D. [address] [phone] Social History Tobacco Use Types [...]
--- OUTSIDE RECORDS SUMMARY | 2023-11-19 10:16 | XMS_ITS | Clinical Summary ---
Author Organization [facility] Address [address] [place] [address] Care Team Providers Care Living Manager Name Role Phone Unavailable Primary Care Provider Unavailabl e Source Comments Patient records contain information from all sites at [facility]. For routine questions regarding patient records, call [phone] during business hours, M-F 8:00 AM - 5:00 PM Central Time. Record requests for emergency care only can be directed to [phone] at any time.[facility] Allergies Active Allergy Reactions Criticality Noted Date [...] 08/30/2023 Clinical Communication Department of Neurology in [address] [phone] Ramírez Dia M.D. 08/28/2023 11:36 AM CDT - 08/28/2023 11:59 PM CDT Hospital Encounter Department of Laboratory Medicine in [address] [phone] Ramírez Dia M.D. Neuropathy Peripheral Discharge Disposition: Home or Self Care 08/28/2023 11:00 AM CDT Comprehensive Visit Department of Neurology in [address] [phone] Ramírez Dia M.D. Neuropathy Peripheral from Last [...] 2023 03/09/2023, 02/21/2022, 09/26/2021, Additional history exists Influenza Vaccine (#1) 2024 3, 01/29/2022, 02/19/2021, Additional history exists Creatinine Level (Kidney Fun ction Test) 07/08/2024 07/08/2023, 06/24/2023, 06/14/2022, Additional history exists Potassium Level 07/08/2024 07/08/2023, 02/0 09/2023, 06/14/2022, Additional history exists Sodium Level 07/08/2024 07/08/2023, 02/0 09/2023, 06/14/2022, Additional history exists DTaP,Tdap,and Td Vaccines (2 - Td or Tdap) 04/04/2025 04/04/2015, 01/27/2009 Pneumococcal vaccine (65+ years) Completed 04/01/20 14, 01/27/2009 Zoster Vaccines Completed 06/30/2018, 12/2017, 06/16/2010 Procedures Procedure Name Priority Date/Time Associated Diagnosis Comments QUANTITATIVE M-PROTEIN STUDY, S Routine 08/28/2023 11:56 AM CDT Neuropathy Peripheral EXTI BASIC METABOLIC PANEL, S/P Routine 07/08/2023 1:48 PM ACCESS DIRECTOR from Last 3 Months or Most Recently [...] developed and its performance characteristics determined by [facility] in a manner consistent with CLIA requirements. This test has not been cleared or approved by the U.S. Food and Drug Administration. Blood (Blood, Venous) 08/28/2023 11:56 AM CDT 08/29/2023 6:19 AM CDT Narrative [facility] - 08/29/2023 2:58 PM CDT Specimen Information: Specimen ID: [id number] Specimen Type: Blood Specimen Collection Start Date: 08/28/2023 11:56 AM Specimen Received Date: 08/29/2023 ??6:19 AM Specimen ID: [id number] Specimen Type: Blood Specimen Collection Start Date: 08/28/2023 11:56 AM Specimen Received Date: 08/29/2023 ??6:40 AM Ramírez Dia M.D. LAB BLOOD ADD-ON [facility] [address] [place] [address] [facility] [address] [place] [address] [facility] [address] [place] [address] [place] [address] from Last 3 Months or Most Recently Relevant to Health Maintenance [address] [place] [phone]
--- OUTSIDE RECORDS SUMMARY | 2023-11-19 10:16 | XMS_ITS | Encounter Summary ---
Author Organization [facility] Address [address] [place] [address] Care Team Providers Care Woodwork Teacher Name Role Phone Unavailable Primary Care Provider Unavailabl e Encounter Details Date Type Department Care Team (Latest Contact Info) Description 08/28/2023 11:36 AM CDT - 08/28/2023 11:59 PM CDT Hospital Encounter Department of Laboratory Medicine in [place], [place] [address] [phone] Ramírez Dia M.D. [address] [phone] Neuropathy Peripheral Discharge Disposition: Home or Self [...] developed and its performance characteristics determined by [facility] in a manner consistent with CLIA requirements. This test has not been cleared or approved by the U.S. Food and Drug Administration. Blood (Blood, Venous) 08/28/2023 11:56 AM CDT 08/29/2023 6:19 AM CDT [facility] - 08/29/2023 2:58 PM CDT Specimen Information: Specimen ID: [id number] Specimen Type: Blood Specimen Collection Start Date: 08/28/2023 11:56 AM Specimen Received Date: 08/29/2023 ??6:19 AM Specimen ID: [id number] Specimen Type: Blood Specimen Collection Start Date: 08/28/2023 11:56 AM Specimen Received Date: 08/29/2023 ??6:40 AM Ramírez Dia M.D. LAB BLOOD ADD-ON [facility] [address] [place] [address] [facility] [address] [place] [address] [facility] [address] [place] [address] [place] [address] documented in this encounter Visit Diagnoses Diagnosis Neuropathy Peripheral documented in this encounter
--- OUTSIDE RECORDS SUMMARY | 2023-11-19 10:16 | XMS_ITS | Clinical Summary ---
Author Organization [facility] Address [place], [place] [address] Care Team Providers Care Wire Mesh Filter Fabricator Name Role Phone Margarito Isidro MD Unavailable GerardLakeshia vincent MD Primary Care Provider Allergies Active Allergy Reactions Criticality Noted Date Comments Atenolol Shortness Of Breath 12/30/2006 Lisinopril Cough 12/30/2006 Morphine Nausea And Vomiting 10/06/2012 Medications Medication Sig Dispensed Refills Start Date End Date Status acetaminophen (TYLENOL EXTRA STRGTH) 500 mg tabletIndications: Restless legs syndrome (RLS) Take 2 tablets by mouth every 8 hours. Max acetaminophen dose: 4000mg in 24 hrs. 0 09/02/19 19 Active nystatin (MYCOSTATIN) ointmentIndication s:Intertrigo Apply topically to affected area(s) 2 times daily. 15 g 1 01/17/20 21 Active magnesium 250 mg tab Take 1 Tablet (250 mg) by mouth once daily. 0 01/28/20 21 Active cholecalciferol (VITAMIN D3) 1,000 unit capsule Take 1 Capsule (1,000 units) by mouth once daily. 0 01/28/20 21 Active zinc 50 mg tablet Take 1 Tablet (50 mg) by mouth once daily. 0 01/28/20 21 Active ascorbic acid, vitamin C, (Vitamin C) 500 mg tablet Take 1 Tablet (500 mg) by mouth once daily. 0 01/28/20 21 Active medication order composer Apply topically to affected area(s). Vet Liniment Gel and Outback pain relief roll on 0 08/01/19 22 Active rOPINIRole (REQUIP) 2 mg tabletIndications: Restless legs syndrome (RLS) Take 2 mg orally at supper time and 1 hour before bedtime 180 Tablet 3 03/15/20 23 Active pregabalin (LYRICA) 150 mg capsuleIndications :Peripheral sensory-motor axonal polyneuropathy Take 1 Capsule (150 mg) by mouth two times daily. 180 Capsule 3 03/15/20 23 Active CPAPIndications:Ob structive sleep apnea CPAP machine for home use [...] months, Frequency of use: Daily 1 Each 03/15/20 23 Active amLODIPine (NORVASC) 10 mg tabletIndications: Essential hypertension Take 1 Tablet (10 mg) by mouth once daily. 90 Tablet 3 06/24/19 24 Active losartan (COZAAR) 100 mg tabletIndications: Essential hypertension Take 1 Tablet (100 mg) by mouth once daily. 90 Tablet 3 06/24/19 24 Active hydroCHLOROthiazid e (HCTZ) 25 mg tabletIndications: Essential hypertension,Edema of both legs Take 1 Tablet (25 mg) by mouth once daily. 90 Tablet 3 07/08/19 24 Active Ferrous Gluconate 324 mg (38 mg iron) tablet Take 324 mg by mouth. Active oxyCODONE (ROXICODONE) 5 mg immediate release tabletIndications: Restless leg syndrome Take 1 Tablet (5 mg) by mouth at bedtime. 30 Tablet 10/08/19 24 Active meclizine (ANTIVERT) 25 mg tabletIndications: Dizziness Take 1 Tablet (25 mg) by mouth 3 times daily if needed for Vertigo. 10 Tablet 10/08/19 24 Active buPROPion (WELLBUTRIN XL) 150 mg Extended-Release tabletIndications: Depression, recurrent (HC) Take 1 Tablet (150 mg) by mouth once daily. 90 Tablet 1 10/27/19 24 Active LORazepam (ATIVAN) 0.5 mg tabIndications:Lum bar radiculopathy Take 1 Tablet (0.5 mg) by mouth one time for 1 dose. 1 Tablet 10/28/19 24 Active buPROPion (WELLBUTRIN XL) 150 mg Extended-Release tabletIndications: Depression, recurrent (HC) Take 1 Tablet (150 mg) by mouth once daily. 90 Tablet 06/24/19 24 024 Discontinued cephalexin (KEFLEX) 500 mg capsule 08/15/19 24 024 Discontinued(*M ed complete/Regime n complete/Level of care change) triamcinolone (ARISTOCORT; KENALOG) 0.1 % creamIndications:I ntertrigo,Itching Apply topically to affected area(s) three times daily. Use for only up to 2 weeks. 45 g 08/23/19 24 024 Discontinued(*M ed complete/Regime n complete/Level of care change) predniSONE (DELTASONE) 10 mg tabletIndications: Lumbar radiculopathy,DDD (degenerative disc disease), lumbar Take 2 Tablets (20 mg) by mouth two times daily with meals for 3 days, THEN 1 Tablet (10 mg) three times daily with meals for 3 days, THEN 2 Tablets (20 mg) once daily with a meal for 3 days, THEN 1 Tablet (10 mg) once daily with a meal for 3 days. 30 Tablet 10/25/19 24 024 Active Problems Problem Noted Date Diagnosed Date [...] without complication healthcare Maintenance 12/30/2006 Overview: Colonoscopy 2000 - recommended follow up in 5 years Resolved Problems Problem Noted Date Diagnosed Date Resolved Date Anticoagulation monitoring, special range (2.0 - 2.5) 07/26/2015 08/01/2015 SLEEP APNEA 03/10/2007 AHI- 34 98-supine 05/08/2007 01/27/2021 Unspecified sleep apnea 02/10/200704/20 Encounters Date Type Department Care Team Description 11/16/2023 Travel 11/08/2023 10:00 AM CDT Procedure Only [facility] [address] [place] [address] Nicolle Norton L Ac Acupuncture 11/08/2023 Travel 11/07/2023 Telephone [facility] [place] [address] Ramírez Simons MD Results (MRI Results.) 11/06/2023 Telephone [facility] [address] [place] [address] Ramírez Simons MD Questions (MRI) 11/05/2023 Orders Only [facility] [place] [facility] [place] [address] Ramírez Simons MD 1 scan: (1-Ord) [facility], MRI LUMBAR SPINE WITHOUT IV CONTRAST, 10/30/2023 11/01/2023 10:30 AM CDT Procedure Only [facility] [address] [place] [address] Nicolle Norton L Ac Acupuncture 11/01/2023 Travel 10/28/2023 Telephone [facility] [place] [facility] [place] [address] Ramírez Simons MD message 10/25/2023 10:20 AM CDT Office Visit [facility] [address] [place] [address] Ramírez Simons MD Musculoskeletal Problem (Consult Left back pain. thinks it is sciatic nerve because the pain runs all the way down her left side from back to her leg ) 10/25/2023 Refill [facility] [address] [place] [address] Lakeshia Gee MD Refill Request (Bupropion) 10/25/2023 Travel 10/23/2023 10:00 AM CDT Procedure Only [facility] [place] [facility] [place] [address] Nicolle Norton L Ac Acupuncture 10/23/2023 Orders Only [facility] Scanner 1 scan: (1-Ord) [place], CT ANGIO NECK, 10/23/2023 10/23/2023 Orders Only [facility] Scanner 1 scan: (1-Ord) [place], STANDARD HELICAL CT IMAGE ACQUISTION THROUGH THE HEAD, 10/23/2023 10/22/2023 Travel 10/18/2023 Telephone [facility] [address] [facility] [place] [address] Margarito Isidro MD Prior Authorization (oxyCODONE (ROXICODONE) 5 mg immediate release tablet APPROVED (07/19/23-10/16/24)) 10/17/2023 Telephone [facility] [address] [facility] [place] [address] Margarito Isidro MD OTHER 10/16/2023 10:00 AM CDT Procedure [place] [address] [place] [address] Nicolle Norton L Ac Acupuncture 10/16/2023 Travel 10/14/[address] [place] [address] Margarito Isidro MD Questions 10/08/2023 11:00 AM CDT Office Visit [facility] [address] [facility] [place] [address] Margarito Isidro MD Sleep Follow-up 10/08/2023 Orders Only [facility] Scanner 1 scan: (1-Ord) [employer], COMPLIANCE REPORT, 10/08/2023 10/07/2023 2:00 PM CDT Procedure Only [facility] [address] [place] [address] Nicolle Norton L Ac Acupuncture 10/07/2023 Travel 10/04/2023 Travel 10/01/2023 1:00 PM CDT Procedure Only [address] [address] Nicolle Norton L Ac Acupuncture 10/01/2023 Travel 09/23/2023 1:00 PM CDT Procedure Only [address] [address] Nicolle Norton L Ac Acupuncture (Initial treatment, order is a... 09/23/2023 Travel 09/17/2023 Nurse Triage [address] [address] Lakeshia Gee MD ACC Order Request (urine test) 09/09/[address] [address] Lakeshia Gee MD Referral for acupuncture 08/23/2023 10:30 AM CDT Office Visit [address] [address] Lakeshia Gee MD ER Follow up (Cystitis 08/15/23 ) 08/23/[address] [address] Ramírez Simons MD Questions (Coolief post knee replacement? ) 08/23/2023 Travel from Last 3 Months Immunizations Name Administration Dates Next Due Amb Influenza, Inact (High-d ose) (Flu Clinic Only) 02/23/2014 COVID-19 vaccine ([employer] NTPolicard 30mcg/0.3mL) RICHELLE VELAZQUEZ 09/26/2021,08/18/2020,07/28/2020 Influenza RIV4 (Age [...] Never Smokeless Tobacco: Never Tobacco Cessation:Counseling Given: No Comments:exposure to passive smoke Alcohol Use Standard Drinks/Week Comments Not Currently 0 (1 standard drink = 0.6 oz [...] Outcome GA Total Labor Labor/2nd/3rd Weight Sex Type Anes PTL Amairani A1 A5 Name Clin Term Living Last Filed Vital Signs Vital Sign Reading Time Taken Comments Blood Pressure 116/69 10/25/2023 10:18 AM CDT Pulse 65 10/25/2023 10:18 AM CDT Temperature 36.9 ??C (98.4 ??F) 10/25/2023 1 0:18 AM CDT Respiratory Rate 18 06/29/2019 10:2 3 AM MEDIA PLANNER Oxygen Saturation 95% 10/25/2023 10: 18 AM CDT Inhaled Oxygen Concentration - - Weight 100.6 kg (221 lb 12.8 oz) 2023 10:18 AM CDT Height 156.5 cm (5' 1.61) 07/03/2023 1 0:33 AM MEDIA PLANNER Body Mass Index 41.08 07/03/2023 10:33 AM MEDIA PLANNER Plan of Treatment Upcoming Encounters Date Type Department Care Team (Late st Contact Info) Description 11/19/2023 11:00 AM CDT Office Visit [facility] [address] [place] [address] Ramírez Simons MD [address] [place] [address] Arrived 01/15/2024 11:30 AM CDT Office Visit [facility] [address] [place] [address] Margarito Isidro MD [address] [place] [address] Health Maintenance Due Date Last Done Comments COVID-19 vaccine series ( season) 2023 03/09/2023, 02/21/2022, 09/26/2021, Additional history exists Influenza for age 65+ 01/19/2024 03/09/2023 , [...] for age 50+ Completed 06/30/2018, 03/27/2018, 06/16/2010 Medical Devices Implanted Type Area Amusement Or Recreation Card Checker Device Identifier Shelf Expiration Date Model / Serial / Lot Mesh Pelvic 24x3cm Restorelle Y Contour - [id number] Implanted:Qty: 1 on 06/22/2014 by Gail Richmond MD at [facility] N/A: Urinary Bladder [employer] 02/19/2017 [id number] / [id number] / [id number] Procedures Procedure Name Priority Date/Time Associated Diagnosis Comments AMB EPIDURAL STEROID INJECTION Routine 11/19/2023 8:11 AM CDT Lumbar radiculopathy DDD (degenerative disc disease), lumbar ACUPUNCTURE PLAN OF CARE Routine 11/08/2023 3:25 PM CDT Peripheral polyneuropathy Chronic bilateral low back pain without sciatica Spinal stenosis, unspecified spinal region Other chronic pain ACUPUNCTURE PLAN OF CARE Routine 11/01/2023 10:43 AM CDT Peripheral polyneuropathy Chronic bilateral low back pain without sciatica Spinal stenosis, unspecified spinal region Other chronic pain MR SPINE LUMBAR WO Routine 10/30/2023 12 :00 AM CDT Lumbar radiculopathy DDD (degenerative disc disease), lumbar SCAN CORRESP-IMAGING 10/23/2023 6:53 PM CDT ACUPUNCTURE PLAN OF CARE Routine 10/23/2023 9:49 AM CDT Peripheral polyneuropathy Chronic bilateral low back pain without sciatica Spinal stenosis, unspecified spinal region Other chronic pain SCAN-CT INTERPRETATION 12:00 AM CDT ACUPUNCTURE PLAN OF CARE Routine 10/16/2023 9:48 AM CDT Peripheral polyneuropathy Chronic bilateral low back pain without sciatica Spinal stenosis, unspecified spinal region Other chronic pain SCAN-DIAGNOSTIC REPORT 12:00 AM CDT ACUPUNCTURE PLAN OF CARE [...] 2 SITES AXIAL Routine 04/05/2015 10:59 AM MEDIA PLANNER Asymptomatic menopausal state from Last 3 Months or Most Recently Relevant to Health Maintenance Results * MR SPINE LUMBAR WO (10/30/2023 12:00 AM CDT) Anatomical Region Laterality Modality Spine, LUMBAR SPINE Magnetic Res onance Ramírez Simons MD MR * SCAN CORRESP-IMAGING (10/23/2023 6:53 PM CDT) Anatomical Region Laterality Modality Other Scanner OTHER * SCAN-CT INTERPRETATION (10/23/2023 12:00 AM CDT) Anatomical Region Laterality Modality Other Scanner OTHER * SCAN-DIAGNOSTIC REPORT (10/08/2023 12:00 AM CDT) Scanner OTHER * XR DEXA BONE DENSITY 2 SITES [77550.1] (04/05/2015 10:59 AM MEDIA PLANNER) Anatomical Region Laterality Modality Spine, HIPS, HIPL, HIPR Other Narrative 04/08/2015 7:26 AM MEDIA PLANNER Please see scanned document for results of this study. Bety Macedo MD DEXA from Last 3 Months or Most Recently Relevant to Health Maintenance Advance Directives Documents on File Type Date Recorded Patient Wireless Internet Installer Expl anation Healthcare Directive 07/03/2012 8:05 AM HE ALTH CARE DIRECTIVE, [employer], 06/17/12 * Full Code (Latest Code Status on File) Date Activated Date Inactivated Comments 06/22/2014 1:35 PM 06/24/2014 2:09 PM * Full Code Date Activated Date Inactivated Comments 06/22/2014 12:46 AM 06/22/2014 1:35 PM Care Teams Wire Mesh Filter Fabricator Relationship Specialty Start Date End Date Lakeshia Gee MD [address] [place] [address] PCP - General Family Practice 09/19/22 Margarito Isidro MD [phone] (work) Sleep Medicine 04/30/12
--- OUTSIDE RECORDS SUMMARY | 2023-11-19 10:16 | XMS_ITS ---
Author Organization [facility] Address [address] [place] [address] Care Team Providers Care Supervisor Publications Production Name Role Phone Unavailable Unavailable Unavailable Surgery Details Not on file Complications Check Surgery Details section. Procedure Estimated Blood Loss Check Surgery Details section. Procedure Findings Check Surgery Details section. Procedure Specimens Taken Check Surgery Details section.
--- OUTSIDE RECORDS SUMMARY | 2023-11-19 10:16 | XMS_ITS | Encounter Summary ---
Author Organization [facility] Address [address] [place] [address] Care Team Providers Care Baker Pie Name Role Phone Unavailable Primary Care Provider Unavailabl e Reason for Visit * Reason Comments Peripheral Neuropathy * Outpatient (Routine) - Closed Specialty Diagnoses / Procedures Referred By Ethan albright Referred To Contact Neurology Diagnoses Neuropathy Peripheral Lakeshia Gee M.D. [facility] [address] [place] [address] [facility] Region Referral ID Status Reason Start Date Expiration Date V isits Requested Visits Authorized [id number] Closed Specialty Services Required 03/18/2023 03/17/2024 1 1 Encounter Details Date Type Department Care Team (Latest Contact Info) Description 08/28/2023 11:00 AM CDT Comprehensive Visit Department of Neurology in [place], [place] [address] [address] Ramírez Dia M.D. [address] [address] Neuropathy Peripheral Social History Tobacco [...] Care Everywhere. * Advance Health Care Directives (Divehi) documented in this encounter Consult Notes * Ramírez Dia M.D. - 08/28/2023 11:00 AM CDT SUBJECTIVE CHIEF COMPLAINT / REASON FOR VISIT Dorys Guillen is a 83 y.o. female who presents for evaluation of Peripheral Neuropathy. Referring provider Lakeshia Gee M.D. HISTORY OF PRESENT ILLNESS Ms. Guillen is an 83-year-old female referred to [facility] Neurology for evaluation ofperipheral neuropathy. [...] strength in the upper extremities with intact nbrvly-ipzk-xotzwf testing without dysmetria. In the lower extremities [...] M-protein Study (08/28/2023 11:56 AM CDT) Pathologist [facility] Immunoglobulin A (IgA), S 137 61 [...] monoclonal protein detected. 08/29/2023 2:58 PM CDT [facility] Comment: ----ADDITIONAL INFORMATION---- The submitted sample was assayed by five separate immunopurifications for IgG, IgA, IgM, kappa and lambda. ??The result reflects the findings of either no monoclonal protein detected or those monoclonal immunoglobulins that were detected. This test was developed and its performance characteristics determined by [facility] in a manner consistent with CLIA requirements. This test has not been cleared or approved by the U.S. Food and Drug Administration. Blood (Blood, Venous) 08/28/2023 11:56 AM CDT 08/29/2023 6:19 AM CDT [facility] - 08/29/2023 2:58 PM CDT Specimen Information: Specimen ID: [id number] Specimen Type: Blood Specimen Collection Start Date: 08/28/2023 11:56 AM Specimen Received Date: 08/29/2023 ??6:19 AM Specimen ID: [id number] Specimen Type: Blood Specimen Collection Start Date: 08/28/2023 11:56 AM Specimen Received Date: 08/29/2023 ??6:40 AM Ramírez Dia M.D. LAB BLOOD ADD-ON [facility] [address] [place] [address] [facility] [address] [place] [address] [facility] [place] [address] documented in this encounter Visit Diagnoses Diagnosis Neuropathy Peripheral Neuropathy Peripheral documented in this encounter
--- OUTSIDE RECORDS SUMMARY | 2023-11-19 10:16 | XMS_ITS | Referral Summary ---
Author Organization [facility] Address [address] [place] [address] Care Team Providers Care Alto Singer Name Role Phone Unavailable Primary Care Provider Unavailabl e Source Comments Patient records contain information from all sites at [facility]. For routine questions regarding patient records, call [phone] during business hours, M-F 8:00 AM - 5:00 PM Central Time. Record requests for emergency care only can be directed to [phone] at any time.[facility] Encounters Date Type Department Care Team Description 08/30/2023 Clinical Communication Department of Neurology in [address] [address] Ramírez Dia M.D. 08/28/2023 11:36 AM CDT - 08/28/2023 11:59 PM CDT Hospital Encounter Department of Laboratory Medicine in [address] [address] Ramírez Dia M.D. Neuropathy Peripheral Discharge Disposition: Home or Self Care 08/28/2023 11:00 AM CDT Comprehensive Visit Department of Neurology in [address] [address] Ramírez Dia M.D. Neuropathy Peripheral from Last [...] METABOLIC PANEL, S/P Routine 07/08/2023 1:48 PM CALL CENTER MANAGER from Last 3 Months or Most Recently [...] its performance characteristics determined by [facility] in a manner consistent with CLIA requirements. This test has not been cleared or approved by the U.S. Food and Drug Administration. Blood (Blood, Venous) 08/28/2023 11:56 AM CDT 08/29/2023 6:19 AM CDT Narrative [facility] - 08/29/2023 2:58 PM CDT Specimen Information: Specimen ID: [id number] Specimen Type: Blood Specimen Collection Start Date: 08/28/2023 11:56 AM Specimen Received Date: 08/29/2023 ??6:19 AM Specimen ID: [id number] Specimen Type: Blood Specimen Collection Start Date: 08/28/2023 11:56 AM Specimen Received Date: 08/29/2023 ??6:40 AM Ramírez Dia M.D. LAB BLOOD ADD-ON [facility] [address] [place] [id number] [facility] [address] [place] [id number] [facility] [address] [place] [address] [place] [id number] from Last 3 Months or Most Recently Relevant to Health Maintenance
== END 2023-11-19 10:15 | disposition home or self-care (01) ==
PROVIDERS: PCP Family Medicine; Visit Provider Family Medicine
DX: M54.16 Radiculopathy, lumbar region (principal); M51.36 Other intervertebral disc degeneration, lumbar region
CPT/HCPCS: 62323; Q9966

== ENCOUNTER 2023-12-05 23:16 | Emergency (ER) | payer MEDICARE, BC, SELFPAY ==
[2023-12-05 23:54] VITALS: BP 147/74; PULSE 76; RESP 16; O2SAT 96; BMI 38.1
--- NOTE | 2023-12-06 00:18 | ED.GENADULT ---
HPI - General Adult General Date Seen: 12/06/23 Chief complaint: Extremity Pain/Injury, Lower Stated complaint: Lower back, leg pain Time Seen by Provider: 12/05/23 23:56 History of Present Illness HPI narrative: This is a pleasant 83-year-old female presenting to the ER today with her family for evaluation of left leg pain. She has a past medical history of hypertension, sleep apnea, restless leg syndrome (on Lyrica and oxycodone to suppress her restless legs) elevated BMI, asthma, history of rib fractures. She has been having pain radiating down the lateral side of her left leg and down to the lateral side of her left lower leg for the past several months. She reports that she had an MRI a few weeks ago ([place] that showed a bulging disc. She was put on a short tapering dose of steroids and felt like she got a bit better after that. However pain got worse again later. She was referred to Dr. Love here in [place] and had an epidural steroid injection a week or 2 ago. She has been having ongoing pain since then it is worse tonight. She took 10 mg of oxycodone (normally takes 5 mg every night before bed) but was not successful in relieving her pain. She is not clear why her pain got worse tonight. No new activity or excessive use. No fall or injury. No fever. No bruising to her hip her leg. No swelling. No pain in her back or flank. No abdominal pain. Electronic record through the chart shows that she had a L4-5 epidural steroid injection with betamethasone and lidocaine on 11/18. Related Data Home Medications ?Medication ?Instructions ?Recorded ?Confirmed fluticasone propionate 50 1 spray intranasal BID PRN 12/04/21 09/17/23 mcg/actuation nasal spray,suspension losartan 100 mg tablet 100 mg PO DAILY 12/04/21 09/17/23 acetaminophen 500 mg tablet 500 mg PO Q6H PRN 12/05/21 09/17/23 (Tylenol Extra Strength) amlodipine 10 mg tablet 10 mg PO QDAY 12/05/21 09/17/23 bupropion HCl 150 mg 24 hr tablet, 150 mg PO 12/05/21 09/17/23 extended release meclizine 25 mg tablet 25 mg PO QDAY PRN 12/05/21 09/17/23 pregabalin 150 mg capsule 150 mg PO QDAY 12/05/21 09/17/23 ropinirole 2 mg tablet 2 mg PO BID 12/05/21 09/17/23 triamcinolone acetonide 0.1 % applic topical PRN 12/05/21 09/17/23 topical cream hydrochlorothiazide 25 mg tablet 25 mg PO DAILY 08/15/23 09/17/23 oxycodone 5 mg tablet mg PO DAILY 10/23/23 Previous Rx's ?Medication ?Instructions ?Recorded diazepam 5 mg tablet (Valium) 2.5 - 5 mg (0.5 - 1 x 5 mg) PO BID 01/20/23 PRN dizziness #5 tabs meclizine 25 mg tablet 25 mg PO TID #15 tabs 01/20/23 methylprednisolone 4 mg tablets in See Rx Instructions PO .COMPLEX 12/06/23 a dose pack (Medrol (Pako)) #21 ea Allergies Allergy/AdvReac Type Severity Reaction Status Date / Time atenolol Allergy Intermediate shortness Verified 11/19/23 11:14 of breath lisinopril Allergy Mild Cough Verified 11/19/23 11:14 morphine Allergy Mild nausea/vomi Verified 11/19/23 11:14 ting [facility] Medical History Contact dermatitis ?L25.9 - Unspecified contact dermatitis, unspecified cause (ICD-10) Neuropathy ?G62.9 - Polyneuropathy, unspecified (ICD-10) Arthritis ?M19.90 - Unspecified osteoarthritis, unspecified site (ICD-10) Sleep apnea ?G47.30 - Sleep apnea, unspecified (ICD-10) Asthma ?J45.909 - Unspecified asthma, uncomplicated (ICD-10) Hypertension ?I10 - Essential (primary) hypertension (ICD-10) Fracture of rib ?S22.39XA - Fracture of one rib, unspecified side, initial encounter for closed fracture (ICD-10) Surgical History History of revision of total knee arthroplasty ?Z96.659 - Presence of unspecified artificial knee joint (ICD-10) H/O: hysterectomy (~1994) ?Z90.710 - Acquired absence of both cervix and uterus (ICD-10) History of total right knee replacement (~11/2001) ?Z96.651 - Presence of right artificial knee joint (ICD-10) History of total left knee replacement (~01/2003) ?Z96.652 - Presence of left artificial knee joint (ICD-10) Avulsion of toenail ?S91.209A - Unspecified open wound of unspecified toe(s) with damage to nail, initial encounter (ICD-10) Social History Smoking Status: Never smoker Do you use any of these nicotine containing products: None Second hand tobacco smoke exposure: No How often do you have a drink containing alcohol: never How often do you have six or more drinks on one occasion: Never AUDIT-C Alcohol total score: 0 Non-prescribed substance use: denies use service: No Exam Narrative: Exam Narrative: Constitutional: Appears well-developed and well-nourished. Alert. Conversant. Non toxic. HENT: Head: Atraumatic. Nose: Nose normal. Mouth/Throat: Oral mucosa is clear and moist. no trismus. Eyes: Conjunctivae normal. EOM normal. Pupils equal, round, and reactive to light. No scleral icterus. Neck: Normal range of motion. Neck supple. No tracheal deviation present. Cardiovascular: Normal rate, regular rhythm. No gallop. No friction rub. No murmur heard. Symmetric DP artery pulses. Both feet are pink, warm, well perfused. Pulmonary/Chest: Effort normal. No stridor. No respiratory distress. No wheezes. No rales. No rhonchi . Musculoskeletal: RUE: Normal range of motion. No tenderness. No deformity LUE: Normal range of motion. No tenderness. No deformity RLE: Normal range of motion. No edema. No tenderness. No deformity LLE: Normal range of motion. No edema. No tenderness. No deformity Normal inspection of her low back. No bruising. No rash. No shingles. No erythema. Neurological: Alert and oriented to person, place, and time. Normal strength. CN II-VII intact. No sensory deficit. GCS eye subscore is 4. GCS verbal subscore is 5. GCS motor subscore is 6. Normal coordination Sensory: Normal light touch sensation bilaterally on the anteromedial thigh (L3), medial malleolus (L4), dorsal first web space (L5), lateral malleolus (S1). Strength: 5/5 strength hip flexors (L3) on the right and left 5/5 strength in the quadriceps (L4) on the right and left 5/5 strength in the tibialis anterior 5/5 strength in the EHL (L5) on the right and left 5/5 strength in the gastrocnemius (S1) on the right and left 5/5 strength in the hamstring on the right and left DTRs: Symmetric but very minimal reflexes bilaterally in the patellas. She has had previous bilateral knee replacements. Negative straight leg raise bilaterally. Skin: Skin is warm and dry. No rash noted. No pallor. Normal capillary refill. Psychiatric: Normal mood. Normal affect. Const: Vital Signs, click to edit/add: Vital Signs - 24 hr 12/05/23 23:54 12/06/23 01:00 Pulse Rate [Pulse Oximeter] 76 Respiratory Rate 16 16 Blood Pressure [Ri ght Upper Arm] 147/74 H Pulse Oximetry 96 96 Oxygen Delivery Me thod Room Air Room Air Course Vital Signs Vital signs: Initial Vital Signs Pulse Rate 76 12/05/23 23:54 Respiratory Rate 16 12/05/23 23:54 Blood Pressure 147/74 H 12/05/23 23:54 Blood Pressure Mean 98 12/05/23 23:54 Blood Pressure Position Sitting 12/05/23 23:54 Pulse Oximetry 96 12/05/23 23:54 Oxygen Delivery Method Room Air 12/05/23 23:54 Vital Signs Pulse Rate 76 12/05/23 23:54 Respiratory Rate 16 12/05/23 23:54 Blood Pressure 147/74 H 12/05/23 23:54 Pulse Oximetry 96 12/05/23 23:54 Oxygen Delivery Method Room Air 12/05/23 23:54 Pulse Rate 76 12/05/23 23:54 Respiratory Rate 16 12/06/23 01:00 Blood Pressure 147/74 H 12/05/23 23:54 Pulse Oximetry 96 12/06/23 01:00 Oxygen Delivery Method Room Air 12/06/23 01:00 Medications Administered Medications: Discontinued Medications Generic Name Dose Route Start Last Admin Trade Name Freq PRN Reason Stop Dose Admin Dexamethasone 10 mg 12/06/23 00:14 12/06/23 00:25 Dexamethasone 4 Mg Tablet PO 12/06/23 00:15 10 mg ONCE ONE Administration Hydromorphone HCl 1 mg 12/06/23 00:14 12/06/23 00:27 Hydromorphone 0.5 Mg/0.5 Ml Inj IM 12/06/23 00:15 1 mg ONCE ONE Administration Medical Decision Making MDM Narrative Medical decision making narrative: Pleasant 83-year-old female presents to the ER tonight with her family for evaluation of pain involving her left leg. She describes a area of pain radiating down the lateral aspect of her left leg starting in the hip in radiating all the way down almost all the way to her lateral malleolus (but not involving the ankle or foot). Is been present like this for a couple of months but has been getting worse lately. She had an MRI of her low back a few weeks ago that a apparently showed a L4-5 bulging disc with impingement on the left L4 nerve root. She has already had an epidural steroid injection done by Dr. Gr here in [place] but is not gotten any better. Tonight pain is worse. She normally takes oxycodone 5 mg at bedtime (prescribed by her sleep doctor to help her manage her restless legs syndrome). That was not helpful in managing her leg pain tonight so she took 10 mg would still not helpful, prompting her ER visit. Although her pain is worse tonight, she is not having any numbness or weakness in the leg. No bowel or bladder disturbance. No other new neurologic deficits to raise concern for neurosurgical emergencies such as epidural abscess, epidural hematoma, cauda equina syndrome. At this point any think she needs to be transferred to another facility with overnight MR imaging for emergent imaging. She has no recent falls or other risk for hip or pelvic fracture. No sign of infection in the leg. No evidence for swelling or DVT. She has brisk distal cap refill and strong pulses and no evidence for any acute limb ischemia. Presentation here is suggestive for probably worsening L4 left radiculopathy. Her description of pain correlates anatomically with the apparent lesion found on her MRI. She was treated with Dilaudid for pain here in the ER. Will put her on a Medrol Dosepak. She will follow-up with Dr. Swenson or primary doctor tomorrow for re-evaluation. With pain that is not responding to conservative measures, she may need referral to spine surgery. Discussed precautions for return to the ER. She has adequate supplies of oxycodone to manage pain at home. We hope that starting on the steroids tonight might help her pain getbetter tomorrow so that her oxycodone will be more effective. Discharge Plan Discharge Clinical Impression: Left lumbar radiculopathy Patient Disposition: Home, Self-Care Condition: Stable Instructions: Lumbar Radiculopathy (ED) Additional Instructions: As we discussed, please come back to the ER right away if you have worsening or uncontrolled pain, new numbness or weakness down your leg, disturbance of your bladder or bowel function, or if you have any problems. Please follow-up with your regular doctor or with Dr. Simons to recheck tomorrow. Prescriptions: New methylprednisolone [Medrol (Pako)] 4 mg tablets,dose pack See Rx Instructions .ROUTE .COMPLEX Qty: 21 0RF Rx Instructions: orally per package directions No Action losartan 100 mg tablet 100 mg PO DAILY fluticasone propionate 50 mcg/actuation spray,suspension 1 spray intranasal BID PRN Rx Instructions: administer into each nostril pregabalin 150 mg capsule 150 mg PO QDAY amlodipine 10 mg tablet 10 mg PO QDAY ropinirole 2 mg tablet 2 mg PO BID bupropion HCl 150 mg tablet extended release 24 hr 150 mg PO triamcinolone acetonide 0.1 % cream topical PRN meclizine 25 mg tablet 25 mg PO QDAY PRN acetaminophen [Tylenol Extra Strength] 500 mg tablet 500 mg PO Q6H PRN meclizine 25 mg tablet 25 mg PO TID Qty: 15 0RF diazepam [Valium] 5 mg tablet 2.5 - 5 mg PO BID PRN (Reason: dizziness) Qty: 5 0RF hydrochlorothiazide 25 mg tablet 25 mg PO DAILY oxycodone 5 mg tablet PO DAILY Follow Up/Referrals: Lakeshia Gee MD [Primary Care Provider] - Stand Alone Forms: [employer] Info Instructions
--- OUTSIDE RECORDS SUMMARY | 2023-12-06 00:21 | XMS_ITS | Encounter Summary ---
Author Organization [facility] Address [address] [place] [address] Care Team Providers Care Receivable Clerk Name Role Phone Unavailable Primary Care Provider Unavailabl e Reason for Visit * Reason Comments Peripheral Neuropathy * Outpatient (Routine) - Closed Specialty Diagnoses / Procedures Referred By Ethan albright Referred To Contact Neurology Diagnoses Neuropathy Peripheral Lakeshia Gee M.D. [facility] [place] [address] [facility] Region Referral ID Status Reason Start Date Expiration Date V isits Requested Visits Authorized [id number] Closed Specialty Services Required 03/18/2023 03/17/2024 1 1 Encounter Details Date Type Department Care Team (Latest Contact Info) Description 08/28/2023 11:00 AM CDT Comprehensive Visit Department of Neurology in [place], [place] [address] [phone] Ramírez Dia M.D. [address] [phone] Neuropathy Peripheral Social History Tobacco [...] Care Everywhere. * [employer] Directives ([place]incent[place]) documented in this encounter Consult Notes * Ramírez Dia M.D. - 08/28/2023 11:00 AM CDT SUBJECTIVE CHIEF COMPLAINT / REASON FOR VISIT Dorys Guillen is a 83 y.o. female who presents for evaluation of Peripheral Neuropathy. Referring provider Lakeshia Gee M.D. HISTORY OF PRESENT ILLNESS Ms. Guillen is an 83-year-old female referred to [facility] Neurology for evaluation ofperipheral neuropathy. She notes [...] strength in the upper extremities with intact hnsniv-rlsd-extzpt testing without dysmetria. In the lower extremities [...] M-protein Study (08/28/2023 11:56 AM CDT) Pathologist [facility] Immunoglobulin A (IgA), S 137 61 - [...] monoclonal protein detected. 08/29/2023 2:58 PM CDT [facility] Comment: ----ADDITIONAL INFORMATION---- The submitted sample was assayed by five separate immunopurifications for IgG, IgA, IgM, kappa and lambda. ??The result reflects the findings of either no monoclonal protein detected or those monoclonal immunoglobulins that were detected. This test was developed and its performance characteristics determined by [facility] in a manner consistent with CLIA requirements. This test has not been cleared or approved by the U.S. Food and Drug Administration. Blood (Blood, Venous) 08/28/2023 11:56 AM CDT 08/29/2023 6:19 AM CDT Narrative [facility] - 08/29/2023 2:58 PM CDT Specimen Information: Specimen ID: [id number] Specimen Type: Blood Specimen Collection Start Date: 08/28/2023 11:56 AM Specimen Received Date: 08/29/2023 ??6:19 AM Specimen ID: [id number] Specimen Type: Blood Specimen Collection Start Date: 08/28/2023 11:56 AM Specimen Received Date: 08/29/2023 ??6:40 AM Ramírez Dia M.D. LAB BLOOD ADD-ON [facility] [address] [place] [address] [facility] [address] [place] [address] [place] [id number] [facility] [address] documented in this encounter Visit Diagnoses Diagnosis Neuropathy Peripheral Neuropathy Peripheral documented in this encounter
--- OUTSIDE RECORDS SUMMARY | 2023-12-06 00:21 | XMS_ITS | Encounter Summary ---
Author Organization [facility] Address [address] [place] [address] Care Team Providers Care Electronic Imager Name Role Phone Unavailable Primary Care Provider Unavailabl e Encounter Details Date Type Department Care Team (Late st Contact Info) Description 08/30/2023 Clinical Communication Department of Neurology in [place], [place] [address] [address] Ramírez Dia M.D. [address] [address] Social History Tobacco Use Types [...]
--- OUTSIDE RECORDS SUMMARY | 2023-12-06 00:21 | XMS_ITS | Referral Summary ---
Author Organization [facility] Address [address] [place] [address] Care Team Providers Care Tile Burner Name Role Phone Unavailable Primary Care Provider Unavailabl e Source Comments Patient records contain information from all sites at [facility]. For routine questions regarding patient records, call [phone] during business hours, M-F 8:00 AM - 5:00 PM Central Time. Record requests for emergency care only can be directed to [phone] at any time.[facility] Allergies Active Allergy Reactions Criticality Noted [...] Procedure Name Priority Date/Time Associated Diagnosis Comments EXTI BASIC METABOLIC PANEL, S/P Routine 07/08/2023 1:48 PM RADIO OPERATOR from Last 3 Months or Most Recently Relevant to Health Maintenance
--- OUTSIDE RECORDS SUMMARY | 2023-12-06 00:21 | XMS_ITS ---
Author Organization [facility] Address [address] [place] [address] Care Team Providers Care Buttonhole Tacker Name Role Phone Unavailable Unavailable Unavailable Surgery Details Not on file Complications Check Surgery Details section. Procedure Estimated Blood Loss Check Surgery Details section. Procedure Findings Check Surgery Details section. Procedure Specimens Taken Check Surgery Details section.
--- OUTSIDE RECORDS SUMMARY | 2023-12-06 00:21 | XMS_ITS | Clinical Summary ---
Author Organization [facility] Address [address] [place] [address] Care Team Providers Care Cue Selector Name Role Phone Unavailable Primary Care Provider Unavailabl e Source Comments Patient records contain information from all sites at [facility]. For routine questions regarding patient records, call [phone] during business hours, M-F 8:00 AM - 5:00 PM Central Time. Record requests for emergency care only can be directed to [phone] at any time.[facility] Allergies Active Allergy Reactions Criticality Noted [...] Additional history exists Influenza Vaccine (#1) 2024 , 01/29/2022, 02/19/2021, Additional history exists Creatinine Level (Kidney Fun ction Test) 07/08/2024 07/08/2023, 06/24/2023, 06/14/2022, Additional history exists Potassium Level 07/08/2024 07/08/2023, 09/2023, 06/14/2022, Additional history exists Sodium Level 07/08/2024 07/08/2023, 09/2023, 06/14/2022, Additional history exists DTaP,Tdap,and Td Vaccines (2 - Td or Tdap) 04/04/2025 04/04/2015, 01/27/2009 Pneumococcal vaccine (65+ years) Completed 04/01/20 14, 01/27/2009 Zoster Vaccines Completed 06/30/2018, 12/2017, 06/16/2010 Procedures Procedure Name Priority Date/Time Associated Diagnosis Comments EXTI BASIC METABOLIC PANEL, S/P Routine 07/08/2023 1:48 PM CAFETERIA SERVER from Last 3 Months or Most Recently Relevant to Health Maintenance
--- OUTSIDE RECORDS SUMMARY | 2023-12-06 00:21 | XMS_ITS | Encounter Summary ---
Author Organization [facility] Address [address] [place] [address] Care Team Providers Care Olive Grader Name Role Phone Unavailable Primary Care Provider Unavailabl e Encounter Details Date Type Department Care Team (Latest Contact Info) Description 08/28/2023 11:36 AM CDT - 08/28/2023 11:59 PM CDT Hospital Encounter Department of Laboratory Medicine in [place], [place] [address] [phone] Ramírez Dia M.D. [address] [phone] Neuropathy Peripheral Discharge Disposition: Home or Self [...] and its performance characteristics determined by [facility] in a manner consistent with CLIA requirements. This test has not been cleared or approved by the U.S. Food and Drug Administration. Blood (Blood, Venous) 08/28/2023 11:56 AM CDT 08/29/2023 6:19 AM CDT [facility] - 08/29/2023 2:58 PM CDT Specimen Information: Specimen ID: [id number] Specimen Type: Blood Specimen Collection Start Date: 08/28/2023 11:56 AM Specimen Received Date: 08/29/2023 ??6:19 AM Specimen ID: [id number] Specimen Type: Blood Specimen Collection Start Date: 08/28/2023 11:56 AM Specimen Received Date: 08/29/2023 ??6:40 AM Ramírez Dia M.D. LAB BLOOD ADD-ON [facility] [address] [place] [address] [facility] [address] [place] [address] [facility] [address] [place] [address] [place] [address] documented in this encounter Visit Diagnoses Diagnosis Neuropathy Peripheral documented in this encounter
--- OUTSIDE RECORDS SUMMARY | 2023-12-06 00:22 | XMS_ITS | Clinical Summary ---
Author Organization [facility] Address [place], [place] [address] Care Team Providers Care Interface Developer Name Role Phone Margarito Isidro MD Unavailable GerardLakeshai vincent MD Primary Care Provider Allergies Active [...] relief roll on 0 08/01/19 22 Active pregabalin (LYRICA) 150 mg capsuleIndications :Peripheral [...] Frequency of use: Daily 1 Each 11 03/15/20 23 Active amLODIPine (NORVASC) 10 mg tabletIndications: Essential hypertension Take 1 Tablet (10 mg) by mouth once daily. 90 Tablet 3 06/24/19 24 Active losartan (COZAAR) 100 mg tabletIndications: Essential hypertension Take 1 Tablet (100 mg) by mouth once daily. 90 Tablet 3 06/24/19 24 Active Ferrous Gluconate 324 mg (38 mg iron) tablet Take 324 mg by mouth. Active meclizine (ANTIVERT) 25 mg tabletIndications: Dizziness [...] 1 dose. 1 Tablet 10/28/19 24 Active oxyCODONE (ROXICODONE) 5 mg immediate release tabletIndications: Restless leg syndrome Take 1 Tablet (5 mg) by mouth at bedtime. 30 Tablet 11/26/19 24 Active hydroCHLOROthiazid e 25 mg tabletIndications: Essential hypertension,Edema of both legs TAKE 1 TABLET(25 MG) BY MOUTH EVERY DAY 90 Tablet 1 12/04/19 24 Active rOPINIRole (REQUIP) 2 mg tabletIndications: Restless legs syndrome (RLS) Take 2 mg orally at supper time and 1 hour before bedtime 180 Tablet 12/05/19 24 Active rOPINIRole (REQUIP) 2 mg tabletIndications: Restless legs syndrome (RLS) Take 2 mg orally at supper time and 1 hour before bedtime 180 Tablet 3 03/15/20 23 024 Discontinued(*A vailability/For mulary change/Cost of medication) hydroCHLOROthiazid e (HCTZ) 25 mg tabletIndications: Essential hypertension,Edema of both legs Take 1 Tablet (25 mg) by mouth once daily. 90 Tablet 3 07/08/19 24 024 Discontinued cephalexin (KEFLEX) 500 mg capsule 08/15/19 24 024 Discontinued(*M ed complete/Regime n complete/Level of care change) triamcinolone (ARISTOCORT; KENALOG) 0.1 % creamIndications:I ntertrigo,Itching Apply topically to affected area(s) three times daily. Use for only up to 2 weeks. 45 g 08/23/19 24 024 Discontinued(*M ed complete/Regime n complete/Level of care change) oxyCODONE (ROXICODONE) 5 mg immediate release tabletIndications: Restless leg syndrome Take 1 Tablet (5 mg) by mouth at bedtime. 30 Tablet 10/08/19 24 024 Discontinued(Re order (E-cancel not sent)) predniSONE (DELTASONE) 10 mg tabletIndications: Lumbar radiculopathy,DDD [...] Encounters Date Type Department Care Team Description 12/05/2023 Refill [facility] [address] [place] [address] Margarito Isidro MD Refill Request (pregabalin (LYRICA) 150 mg capsule/) 12/04/2023 Telephone [facility] [address] [place] [address] Ramírez Simons MD Follow Up (Injection) 12/03/2023 Refill [facility] [address] [place] [address] Margarito Isidro MD Refill Request (Pregabalin, Ropinirole) 12/02/2023 Refill [facility] [address] [place] [address] Lkaeshia Gee MD Refill Request (Hydrochlorothiazide) 11/25/2023 Refill [facility] [address] [place] [address] Margarito Isidro MD Refill Request (oxyCODONE (ROXICODONE) 5 mg immediate release tablet/) 11/19/2023 11:00 AM CDT Office Visit [facility] at [facility] [address] [place] [address] Ramírez Simons MD Procedure (L4-5 ILESI) 11/19/2023 Orders Only [facility] Scanner 1 scan: (1-Ord) [facility], L4-5 INTERLAMINAR EPIDURAL STEROID INJECTION UNDER FLUOROSCOPIC GUIDANCE, 11/19/2023 11/16/2023 Travel 11/08/2023 10:00 AM CDT Procedure Only [address] [address] Nicolle Norton L Ac Acupuncture 11/08/2023 Travel 11/07/[address] [address] Ramírez Simons MD Results (MRI Results.) 11/06/[address] [address] Ramírez Simons MD Questions (MRI) 11/05/2023 Orders Only [address] [address] Ramírez Simons MD 1 scan: (1-Ord) [facility], MRI LUMBAR SPINE WITHOUT IV CONTRAST, 10/30/2023 11/01/2023 10:30 AM CDT Procedure Only [address] [address] Nicolle Norton L Ac Acupuncture 11/01/2023 Travel 10/28/[address] [address] Ramírez Simons MD message 10/25/2023 10:20 AM CDT Office Visit [address] [address] Ramírez Simons MD Musculoskeletal Problem (Consult Left back pain. thinks it is sciatic nerve because the pain runs all the way down her left side from back to her leg ) 10/25/2023 Refill [facility] [address] [place] [address] Lakeshia Gee MD Refill Request (Bupropion) 10/25/2023 Travel 10/23/2023 10:00 AM CDT Procedure Only [facility] [address] [facility] [place] [address] Nicolle Norton L Ac Acupuncture 10/23/2023 Orders Only [facility] Scanner 1 scan: (1-Ord) [place], CT ANGIO NECK, 10/23/2023 10/23/2023 Orders Only [facility] Scanner 1 scan: (1-Ord) [place], STANDARD HELICAL CT IMAGE ACQUISTION THROUGH THE HEAD, 10/23/2023 10/22/2023 Travel 10/18/2023 Telephone [facility] [address] [facility] [place] [address] Margarito Isidro MD Prior Authorization (oxyCODONE (ROXICODONE) 5 mg immediate release tablet APPROVED (07/19/23-10/16/24)) 10/17/2023 Telephone [facility] [facility] [place] [address] Margarito Isidro MD OTHER 10/16/2023 10:00 AM CDT Procedure Only [facility] [address] [facility] [place] [address] Nicolle Norton L Ac Acupuncture 10/16/2023 Travel 10/14/2023 Telephone [facility] [place] [address] Margarito Isidro MD Questions 10/08/2023 11:00 AM CDT Office Visit [facility] [address] [facility] [place] [address] Margarito Isidro MD Sleep Follow-up 10/08/2023 Orders Only [facility] Scanner 1 scan: (1-Ord) [employer], COMPLIANCE REPORT, 10/08/2023 10/07/2023 2:00 PM CDT Procedure Only [facility] [address] [place] [address] Nicolle Norton L Ac Acupuncture 10/07/2023 Travel 10/04/2023 Travel 10/01/2023 1:00 PM CDT Procedure Only [facility] [address] [place] [address] Nicolle Norton L Ac Acupuncture 10/01/2023 Travel 09/23/2023 1:00 PM CDT Procedure Only [facility] [address] [place] [address] Nicolle Norton L Ac Acupuncture (Initial treatment, order is a... 09/23/2023 Travel 09/17/2023 Nurse Triage [facility] [address] [place] [address] Lakeshia Gee MD ACC Order Request (urine test) 09/09/[address] [address] Lakeshia Gee MD Referral for acupuncture from Last 3 Months Immunizations Name Administration Dates Next Due Amb Influenza, Inact (High-d ose) (Flu Clinic Only) 02/23/2014 COVID-19 vaccine ([employer] 30mcg/0.3mL) RICHELLE VELAZQUEZ 09/26/2021,08/18/2020,07/28/2020 Influenza RIV4 (Age [...] Respiratory Rate 18 06/29/2019 10:2 3 AM HEEL SEAT FITTER Oxygen Saturation 95% 10/25/2023 10: 18 AM CDT Inhaled Oxygen Concentration - - Weight 100.6 kg (221 lb 12.8 oz) 2023 10:18 AM CDT Height 156.5 cm (5' 1.61) 07/03/2023 1 0:33 AM HEEL SEAT FITTER Body Mass Index 41.08 07/03/2023 10:33 AM HEEL SEAT FITTER Plan of Treatment Upcoming Encounters Date Type Department Care Team (Late st Contact Info) Description 01/15/2024 11:30 AM CDT Office Visit [facility] [address] [place] [address] Margarito Isidro MD [address] [place] [address] Health Maintenance Due Date Last Done Comments [...] 03/27/2018, 06/16/2010 Medical Devices Implanted Type Area Script Reader Device Identifier Shelf Expiration Date Model / Serial / Lot Mesh Pelvic 24x3cm Restorelle Y Contour - [id number] Implanted:Qty: 1 on 06/22/2014 by Gail Richmond MD at [facility] N/A: Urinary Bladder [employer] 02/19/2017 [id number] / [id number] / [id number] Procedures Procedure Name Priority Date/Time Associated Diagnosis Comments AMB EPIDURAL STEROID INJECTION Routine 11/19/2023 8:11 AM CDT Lumbar radiculopathy DDD (degenerative disc disease), lumbar SCAN-OPERATIVE/PROCEDU RE REPORT 11/19/2023 12:00 AM CDT ACUPUNCTURE PLAN OF CARE Routine 11/08/2023 3:25 [...] 2 SITES AXIAL Routine 04/05/2015 10:59 AM HEEL SEAT FITTER Asymptomatic menopausal state from Last 3 Months or Most Recently Relevant to Health Maintenance Results * SCAN-OPERATIVE/PROCEDURE REPORT (11/19/2023 12:00 AM CDT) Scanner OTHER * MR SPINE LUMBAR WO (10/30/2023 12:00 [...] * XR DEXA BONE DENSITY 2 SITES [50836.1] (04/05/2015 10:59 AM HEEL SEAT FITTER) Anatomical Region Laterality Modality Spine, HIPS, HIPL, HIPR Other Narrative 04/08/2015 7:26 AM HEEL SEAT FITTER Please see scanned document for results of this study. 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
[2023-12-06] MEDS: dexAMETHasone 4 MG TABLET 10 MG PO (00:25)
[2023-12-06] MEDS: HYDROmorphone 0.5 mg/0.5 ml inj 1 MG IM (00:27)
[2023-12-06 01:00] VITALS: RESP 16; O2SAT 96
== END 2023-12-06 01:25 | disposition home or self-care (01) ==
PROVIDERS: Emergency Provider Emergency Medicine; PCP Family Medicine
DX: Z53.21 Procedure and treatment not carried out due to patient leaving prior to being seen by health care provider (principal)
CPT/HCPCS: 99282; A9270; J1170

== ENCOUNTER 2023-12-06 19:16 | Emergency (ER) | payer MEDICARE, BC, SELFPAY ==
[2023-12-06 19:34] VITALS: BP 175/74; PULSE 84; RESP 18; TEMP 36.9; O2SAT 96; BMI 39.3
--- NOTE | 2023-12-06 19:44 | ED_ITS ---
HPI - General Adult General Chief complaint: Unspecified Complaint, Adult Stated complaint: Needs refill of medication - Pregabalin Time Seen by Provider: 12/06/23 19:39 History of Present Illness HPI narrative: This 83-year-old female comes in stating that she did not get her prescription refilled for Lyrica. She takes 150 mg twice a day. She states that she was in yesterday and this was to be prescribed and it did not happen and additionally she reports that her primary physician has apparently prescribed this medicine but it never materialized at the pharmacy. She does not report any new other new symptoms and this visit is exclusively to get a refill of her prescription. Related Data Home Medications ?Medication ?Instructions ?Recorded ?Confirmed fluticasone propionate 50 1 spray intranasal BID PRN 12/04/21 12/06/23 mcg/actuation nasal spray,suspension losartan 100 mg tablet 100 mg PO DAILY 12/04/21 12/06/23 acetaminophen 500 mg tablet 500 mg PO Q6H PRN 12/05/21 12/06/23 (Tylenol Extra Strength) amlodipine 10 mg tablet 10 mg PO QDAY 12/05/21 12/06/23 bupropion HCl 150 mg 24 hr tablet, 150 mg PO DAILY 12/05/21 12/06/23 extended release pregabalin 150 mg capsule 150 mg PO Q12H 12/05/21 12/06/23 ropinirole 2 mg tablet 2 mg PO BID 12/05/21 12/06/23 hydrochlorothiazide 25 mg tablet 25 mg PO DAILY 08/15/23 12/06/23 oxycodone 5 mg tablet 5 mg PO DAILY 10/23/23 12/06/23 Previous Rx's ?Medication ?Instructions ?Recorded pregabalin 150 mg capsule 150 mg PO BID #180 caps 12/06/23 Allergies Allergy/AdvReac Type Severity Reaction Status Date / Time atenolol Allergy Intermediate shortness Verified 12/06/23 19:36 of breath lisinopril Allergy Mild Cough Verified 12/06/23 19:36 morphine Allergy Mild nausea/vomi Verified 12/06/23 19:36 ting Review of Systems Status of ROS: Reports: 10 or more systems reviewed and unremarkable except as noted in History and below Narrative: Constitutional: No fevers, no weight gain or loss. Eyes: No discharge. No vision changes. HENT: No congestion, no sore throat, no ear pain. Cardiovascular: No chest pain, no palpitations. Respiratory: No shortness of breath, no wheezes, no cough. Gastrointestinal: No abdominal pain, no vomiting, no diarrhea. Genitourinary: No dysuria, no hematuria. Musculoskeletal: Normal range of motion. Skin: No rashes, no pruritis. Neurological: No dizziness, weakness, sensory change, speech change. Endo/Heme/Allergies: No bruising or bleeding. No polydipsia. Pysch: no suicidality, no anxiety, no insomnia. All other systems reviewed and are negative. [facility] Medical History Contact dermatitis ?L25.9 - Unspecified contact dermatitis, unspecified cause (ICD-10) Neuropathy ?G62.9 - Polyneuropathy, unspecified (ICD-10) Arthritis ?M19.90 - Unspecified osteoarthritis, unspecified site (ICD-10) Sleep apnea ?G47.30 - Sleep apnea, unspecified (ICD-10) Asthma ?J45.909 - Unspecified asthma, uncomplicated (ICD-10) Hypertension ?I10 - Essential (primary) hypertension (ICD-10) Fracture of rib ?S22.39XA - Fracture of one rib, unspecified side, initial encounter for closed fracture (ICD-10) Surgical History History of revision of total knee arthroplasty ?Z96.659 - Presence of unspecified artificial knee joint (ICD-10) H/O: hysterectomy (~1994) ?Z90.710 - Acquired absence of both cervix and uterus (ICD-10) History of total right knee replacement (~11/2001) ?Z96.651 - Presence of right artificial knee joint (ICD-10) History of total left knee replacement (~01/2003) ?Z96.652 - Presence of left artificial knee joint (ICD-10) Avulsion of toenail ?S91.209A - Unspecified open wound of unspecified toe(s) with damage to nail, initial encounter (ICD-10) Social History Smoking Status: Never smoker Do you use any of these nicotine containing products: None Second hand tobacco smoke exposure: No How often do you have a drink containing alcohol: never How often do you have six or more drinks on one occasion: Never AUDIT-C Alcohol total score: 0 Non-prescribed substance use: denies use service: No Exam Narrative: Exam Narrative: Constitutional: Well-developed, well-nourished, no acute distress. HEENT: Normocephalic, atraumatic. Neck: Normal range of motion. Nontender. Supple. Heart: Intact distal pulses. Lungs: No chest discomfort. No wheezes, rhonchi, or rales. Abdomen: Nontender. Back: Normal range of motion. Extremities: Normal range of motion. No injury. Skin: Intact. No rash. Warm. No erythema or pallor. Neurologic: No altered sensation. No weakness. Alert and oriented. Psychiatric: No suicidality. No anxiety or depression. No insomnia. Nursing notes and vitals signs are reviewed. Const: Vital Signs, click to edit/add: Vital Signs - 24 hr 12/06/23 19:34 Temperature 98.5 F Pulse Rate [Right Pulse Oximeter] 84 Respiratory Rate 18 Blood Pressure [Ri ght Upper Arm] 175/74 H Pulse Oximetry 96 Oxygen Delivery Me thod Room Air Course Vital Signs Vital signs: Initial Vital Signs Temperature 98.5 F 12/06/23 19:34 Temperature Source Temporal Artery Scan 12/06/23 19:34 Pulse Rate 84 12/06/23 19:34 Respiratory Rate 18 12/06/23 19:34 Blood Pressure 175/74 H 12/06/23 19:34 Blood Pressure Mean 107 H 12/06/23 19:34 Blood Pressure Position Sitting 12/06/23 19:34 Pulse Oximetry 96 12/06/23 19:34 Oxygen Delivery Method Room Air 12/06/23 19:34 Vital Signs Temperature 98.5 F 12/06/23 19:34 Pulse Rate 84 12/06/23 19:34 Respiratory Rate 18 12/06/23 19:34 Blood Pressure 175/74 H 12/06/23 19:34 Pulse Oximetry 96 12/06/23 19:34 Oxygen Delivery Method Room Air 12/06/23 19:34 Temperature 98.5 F 12/06/23 19:34 Pulse Rate 84 12/06/23 19:34 Respiratory Rate 18 12/06/23 19:34 Blood Pressure 175/74 H 07/19/24 19:34 Pulse Oximetry 96 12/06/23 19:34 Oxygen Delivery Method Room Air 12/06/23 19:34 Medical Decision Making MDM Narrative Medical decision making narrative: This patient received a tablet of Lyrica 150 mg here and a prescription for the same to be taken twice a day. This prescription was sent to her preferred pharmacy. Discharge Plan Discharge Clinical Impression: Medication refill Patient Disposition: Home, Self-Care Condition: Stable Additional Instructions: Take medications as prescribed. Follow up with MD return if worsening. Prescriptions: New pregabalin 150 mg capsule 150 mg PO BID Qty: 180 0RF No Action losartan 100 mg tablet 100 mg PO DAILY fluticasone propionate 50 mcg/actuation spray,suspension 1 spray intranasal BID PRN Rx Instructions: administer into each nostril pregabalin 150 mg capsule 150 mg PO Q12H amlodipine 10 mg tablet 10 mg PO QDAY ropinirole 2 mg tablet 2 mg PO BID bupropion HCl 150 mg tablet extended release 24 hr 150 mg PO DAILY acetaminophen [Tylenol Extra Strength] 500 mg tablet 500 mg PO Q6H PRN hydrochlorothiazide 25 mg tablet 25 mg PO DAILY oxycodone 5 mg tablet 5 mg PO DAILY Follow Up/Referrals: Lakeshia Gee MD [Primary Care Provider] - Stand Alone Forms: [employer] Info Instructions
--- OUTSIDE RECORDS SUMMARY | 2023-12-06 19:49 | XMS_ITS | Referral Summary ---
Author Organization [facility] Address [address] [place] [address] Care Team Providers Care Call Center Director Name Role Phone Unavailable Primary Care Provider Unavailabl e Source Comments Patient records contain information from all sites at [facility]. For routine questions regarding patient records, call [phone] during business hours, M-F 8:00 AM - 5:00 PM Central Time. Record requests for emergency care only can be directed to [phone] at any time.[facility] Allergies Active Allergy Reactions Criticality [...] METABOLIC PANEL, S/P Routine 07/08/2023 1:48 PM PRODUCT AMBASSADOR from Last 3 Months or Most Recently Relevant to Health Maintenance
--- OUTSIDE RECORDS SUMMARY | 2023-12-06 19:49 | XMS_ITS | Clinical Summary ---
Author Organization [facility] Address [address] [place] [address] Care Team Providers Care Metal Roaster Name Role Phone Unavailable Primary Care Provider Unavailabl e Source Comments Patient records contain information from all sites at [facility]. For routine questions regarding patient records, call [phone] during business hours, M-F 8:00 AM - 5:00 PM Central Time. Record requests for emergency care only can be directed to [phone] at any time.[facility] Allergies Active Allergy Reactions Criticality Noted [...] METABOLIC PANEL, S/P Routine 07/08/2023 1:48 PM IRRIGATION SUPERVISOR from Last 3 Months or Most Recently Relevant to Health Maintenance
--- OUTSIDE RECORDS SUMMARY | 2023-12-06 19:50 | XMS_ITS | Encounter Summary ---
Author Organization [facility] Address [address] [place] [address] Care Team Providers Care Flour Broker Name Role Phone Unavailable Primary Care Provider Unavailabl e Encounter Details Date Type Department Care Team (Latest Contact Info) Description 08/28/2023 11:36 AM CDT - 08/28/2023 11:59 PM CDT Hospital Encounter Department of Laboratory Medicine in [place], [place] [address] [phone] Ramírez Dia M.D. [address] [phone] Neuropathy Peripheral Discharge Disposition: Home or Self [...] developed and its performance characteristics determined by [facility] in a manner consistent with CLIA requirements. This test has not been cleared or approved by the U.S. Food and Drug Administration. Blood (Blood, Venous) 08/28/2023 11:56 AM CDT 08/29/2023 6:19 AM CDT [facility] - 08/29/2023 2:58 PM CDT Specimen Information: Specimen ID: [id number] Specimen Type: Blood Specimen Collection Start Date: 08/28/2023 11:56 AM Specimen Received Date: 08/29/2023 ??6:19 AM Specimen ID: [id number] Specimen Type: Blood Specimen Collection Start Date: 08/28/2023 11:56 AM Specimen Received Date: 08/29/2023 ??6:40 AM Ramírez Dia M.D. LAB BLOOD ADD-ON [facility] [address] [place] [address] [facility] [address] [place] [address] [facility] [address] [place] [address] documented in this encounter Visit Diagnoses Diagnosis Neuropathy Peripheral documented in this encounter
--- OUTSIDE RECORDS SUMMARY | 2023-12-06 19:50 | XMS_ITS | Encounter Summary ---
Author Organization [facility] Address [address] [place] [address] Care Team Providers Care Adult Daycare Coordinator Name Role Phone Unavailable Primary Care Provider Unavailabl e Reason for Visit * Reason Comments Peripheral Neuropathy * Outpatient (Routine) - Closed Specialty Diagnoses / Procedures Referred By Ethan albright Referred To Contact Neurology Diagnoses Neuropathy Peripheral Lakeshia Gee M.D. [facility] [place] [address] [facility] Region Referral ID Status Reason Start Date Expiration Date V isits Requested Visits Authorized [id number] Closed Specialty Services Required 03/18/2023 03/17/2024 1 1 Encounter Details Date Type Department Care Team (Latest Contact Info) Description 08/28/2023 11:00 AM CDT Comprehensive Visit Department of Neurology in [place], [place] [address] [phone] Ramírez Dia M.D. [address] [phone] Neuropathy Peripheral Social History Tobacco [...] Care Everywhere. * [employer] Care Directives (Singaporean) documented in this encounter Consult Notes * Ramírez Dia M.D. - 08/28/2023 11:00 AM CDT SUBJECTIVE CHIEF COMPLAINT / REASON FOR VISIT Dorys Guillen is a 83 y.o. female who presents for evaluation of Peripheral Neuropathy. Referring provider Lakeshia Gee M.D. HISTORY OF PRESENT ILLNESS Ms. Guillen is an 83-year-old female referred to [facility] Neurology for evaluation ofperipheral neuropathy. She notes [...] strength in the upper extremities with intact [id number] testing without dysmetria. In the lower extremities [...] M-protein Study (08/28/2023 11:56 AM CDT) Pathologist [facility] Immunoglobulin A (IgA), S 137 61 - [...] monoclonal protein detected. 08/29/2023 2:[address] [facility] Comment: ----ADDITIONAL INFORMATION---- The submitted sample was assayed by five separate immunopurifications for IgG, IgA, IgM, kappa and lambda. ??The result reflects the findings of either no monoclonal protein detected or those monoclonal immunoglobulins that were detected. This test was developed and its performance characteristics determined by [facility] in a manner consistent with CLIA requirements. This test has not been cleared or approved by the U.S. Food and Drug Administration. Blood (Blood, Venous) 08/28/2023 11:56 AM CDT 08/29/2023 6:19 AM CDT Narrative [facility] - 08/29/2023 2:58 PM CDT Specimen Information: Specimen ID: [id number] Specimen Type: Blood Specimen Collection Start Date: 08/28/2023 11:56 AM Specimen Received Date: 08/29/2023 ??6:19 AM Specimen ID: [id number] Specimen Type: Blood Specimen Collection Start Date: 08/28/2023 11:56 AM Specimen Received Date: 08/29/2023 ??6:40 AM Ramírez Dia M.D. LAB BLOOD ADD-ON [facility] [address] [place] [address] [facility] [address] [place] [address] [place] [address] [facility] [place] [address] documented in this encounter Visit Diagnoses Diagnosis Neuropathy Peripheral Neuropathy Peripheral documented in this encounter
--- OUTSIDE RECORDS SUMMARY | 2023-12-06 19:50 | XMS_ITS ---
Author Organization [facility] Address [address] [place] [address] Care Team Providers Care Insurance Policy Clerk Name Role Phone Unavailable Unavailable Unavailable Surgery Details Not on file Complications Check Surgery Details section. Procedure Estimated Blood Loss Check Surgery Details section. Procedure Findings Check Surgery Details section. Procedure Specimens Taken Check Surgery Details section.
--- OUTSIDE RECORDS SUMMARY | 2023-12-06 19:50 | XMS_ITS | Encounter Summary ---
Author Organization [facility] Address [address] [place] [address] Care Team Providers Care Block Paver Name Role Phone Unavailable Primary Care Provider Unavailabl e Encounter Details Date Type Department Care Team (Late st Contact Info) Description 08/30/2023 Clinical Communication Department of Neurology in [place], [place] [address] [phone] Ramírez Dia M.D. [address] [phone] Social History Tobacco Use Types [...]
--- OUTSIDE RECORDS SUMMARY | 2023-12-06 19:50 | XMS_ITS | Clinical Summary ---
Author Organization [employer] [facility] Address [place], [place] [address] Care Team Providers Care Sewing Machine Bobbin Winder Name Role Phone Margarito Isidro MD Unavailable [...] before bedtime 180 Tablet 12/05/19 24 Active predniSONE (DELTASONE) 10 mg tabletIndications: Lumbar radiculopathy Take 2 Tablets (20 mg) by mouth two times daily with meals for 3 days, THEN 1 Tablet (10 mg) three times daily with meals for 3 days, THEN 2 Tablets (20 mg) once daily with a meal for 3 days, THEN 1 Tablet (10 mg) once daily with a meal for 3 days. 30 Tablet 12/06/19 24 024 Active rOPINIRole (REQUIP) 2 mg tabletIndications: Restless [...] Encounters Date Type Department Care Team Description 12/06/[address] [facility] [address] [place] [address] Lakeshia Gee MD Refill Request 12/05/[address] [facility] [address] [place] [address] Margarito Isidro MD Refill Request (pregabalin (LYRICA) 150 mg capsule/) 12/04/[address] [facility] [address] [place] [address] Ramírez Simons MD Follow Up (Injection) 12/03/[address] [facility] [address] [place] [address] Margarito Isidro MD Refill Request (Pregabalin, Ropinirole) 12/02/[address] [facility] [address] [place] [address] Lakeshia Gee MD Refill Request (Hydrochlorothiazide) 11/25/[address] [facility] [address] [place] [address] Margarito Isidro MD Refill Request (oxyCODONE (ROXICODONE) 5 mg immediate release tablet/) 11/19/2023 11:00 AM CDT Office Visit [facility] at [facility] [address] [place] [address] Ramírez Simons MD Procedure (L4-5 ILESI) 11/19/2023 Orders Only [facility] Scanner 1 scan: (1-Ord) [facility], L4-5 INTERLAMINAR EPIDURAL STEROID INJECTION UNDER FLUOROSCOPIC GUIDANCE, 11/19/2023 11/16/2023 Travel 11/08/2023 10:00 AM CDT Procedure Only [facility] [address] [place] [address] Nicolle Norton L Ac Acupuncture 11/08/2023 Travel 11/07/[address] [facility] [address] [place] [address] Ramírez Simons MD Results (MRI Results.) 11/06/[address] [facility] [address] [place] [address] Ramírez Simons MD Questions (MRI) 11/05/[address] [facility] [address] [place] [address] Ramírez Simons MD 1 scan: (1-Ord) [facility], MRI LUMBAR SPINE WITHOUT IV CONTRAST, 10/30/2023 11/01/2023 10:30 AM CDT Procedure Only [facility] [address] [facility] [place] [address] Nicolle Norton L Ac Acupuncture 11/01/2023 Travel 10/28/[address] [facility] [address] [facility] [place] [address] Ramírez Simons MD message 10/25/2023 10:20 AM CDT Office Visit [facility] [address] [facility] [address] Ramírez Simons MD Musculoskeletal Problem (Consult Left back pain. thinks it is sciatic nerve because the pain runs all the way down her left side from back to her leg ) 10/25/[address] [facility] [address] [place] [address] Lakeshia Gee MD Refill Request (Bupropion) 10/25/2023 Travel 10/23/2023 10:00 AM CDT Procedure Only [facility] [address] [place] [address] Nicolle Norton L Ac Acupuncture 10/23/2023 Orders Only [facility] Scanner 1 scan: (1-Ord) [place], CT ANGIO NECK, 10/23/2023 10/23/2023 Orders Only [facility] Scanner 1 scan: (1-Ord) [place], STANDARD HELICAL CT IMAGE ACQUISTION THROUGH THE HEAD, 10/23/2023 10/22/2023 Travel 10/18/[address] [facility] [address] [place] [address] Margarito Isidro MD Prior Authorization (oxyCODONE (ROXICODONE) 5 mg immediate release tablet APPROVED (07/19/23-10/16/24)) 10/17/[address] [facility] [address] [facility] [place] [address] Margarito Isidro MD OTHER 10/16/2023 10:00 AM CDT Procedure [place] [address] [place] [address] Nicolle Norton L Ac Acupuncture 10/16/2023 Travel 10/14/[address] [facility] [place] [address] Margarito Isidro MD Questions 10/08/2023 11:00 AM CDT Office Visit [facility] [facility] [place] [address] Margarito Isidro MD Sleep Follow-up 10/08/2023 Orders Only [facility] Scanner 1 scan: (1-Ord) [employer], COMPLIANCE REPORT, 10/08/2023 10/07/2023 2:00 PM CDT Procedure Only [facility] [place] [address] Nicolle Norton L Ac Acupuncture 10/07/2023 Travel 10/04/2023 Travel 10/01/2023 1:00 PM CDT Procedure [place] [address] [place] [address] Nicolle Norton L Ac Acupuncture 10/01/2023 Travel 09/23/2023 1:00 PM CDT Procedure [place] [address] [place] [address] Nicolle Norton L Ac Acupuncture (Initial treatment, order is a... 09/23/2023 Travel 09/17/2023 Nurse Triage [address] [place] [address] Lakeshia Gee MD ACC Order Request (urine test) 09/09/[address] [place] [address] Lakeshia Gee MD Referral for acupuncture from Last 3 Months Immunizations Name Administration Dates Next Due Amb Influenza, Inact (High-d ose) (Flu Clinic Only) 02/23/2014 COVID-19 vaccine (Sonico 30mcg/0.3mL) PF, MDV 09/26/2021,08/18/2020,07/28/2020 Influenza RIV4 (Age 18+ Year s) [...] Respiratory Rate 18 06/29/2019 10:2 3 AM SHIFTMAN Oxygen Saturation 95% 10/25/2023 10: 18 AM CDT Inhaled Oxygen Concentration - - Weight 100.6 kg (221 lb 12.8 oz) 2023 10:18 AM CDT Height 156.5 cm (5' 1.61) 07/03/2023 1 0:33 AM SHIFTMAN Body Mass Index 41.08 07/03/2023 10:33 AM SHIFTMAN Plan of Treatment Upcoming Encounters Date Type Department Care Team (Late st Contact Info) Description 01/15/2024 11:30 AM CDT Office Visit [facility] [address] [place] [address] Margarito Isidro MD [address] [place] [address] Health Maintenance Due Date Last Done Comments [...] 03/27/2018, 06/16/2010 Medical Devices Implanted Type Area School Age Lead Teacher Device Identifier Shelf Expiration Date Model / Serial / Lot Mesh Pelvic 24x3cm Restorelle Y Contour - [id number] Implanted:Qty: 1 on 06/22/2014 by Gail Richmond MD at [facility] N/A: Urinary Bladder [employer] 02/19/2017 [id number] / [id number] / [id number] Procedures Procedure Name Priority Date/Time Associated Diagnosis [...] 2 SITES AXIAL Routine 04/05/2015 10:59 AM SHIFTMAN Asymptomatic menopausal state from Last 3 Months [...] * XR DEXA BONE DENSITY 2 SITES [88889.1] (04/05/2015 10:59 AM SHIFTMAN) Anatomical Region Laterality Modality Spine, HIPS, HIPL, HIPR Other Narrative 04/08/2015 7:26 AM SHIFTMAN Please see scanned document for results of this study. Bety Macedo MD DEXA from Last 3 Months or Most Recently Relevant to Health Maintenance Advance Directives Documents on File Type Date Recorded Patient Night Court Magistrate Expl anation Healthcare Directive 07/03/2012 8:05 AM HE ALTH CARE DIRECTIVE, [employer], 06/17/12 * Full Code (Latest Code Status on File) Date Activated Date Inactivated Comments 06/22/2014 1:35 PM 06/24/2014 2:09 PM * Full Code Date Activated Date Inactivated Comments 06/22/2014 12:46 AM 06/22/2014 1:35 PM Care Teams Sewing Machine Bobbin Winder Relationship Specialty Start Date End Date Lakeshia Gee MD [address] [place] [address] PCP - General Family Practice 09/19/22 Margarito Isidro MD [phone] (work) Sleep Medicine 04/30/12
[2023-12-06 20:00] VITALS: BP 154/74; PULSE 80; RESP 18; TEMP 36.9; O2SAT 96
[2023-12-06] MEDS: PREGABALIN 75 MG CAPSULE 150 MG PO (20:10)
== END 2023-12-06 20:10 | disposition home or self-care (01) ==
LOC: ED 19:47
PROVIDERS: Emergency Provider Emergency Medicine Emergency Medical Services; PCP Family Medicine
DX: M54.16 Radiculopathy, lumbar region (principal); Z76.0 Encounter for issue of repeat prescription
CPT/HCPCS: 99282; 99284; A9270; J1170

== ENCOUNTER 2023-12-31 07:57 | Outpatient (CLI) | payer MEDICARE, BC, SELFPAY ==
--- OUTSIDE RECORDS SUMMARY | 2023-12-31 07:59 | XMS_ITS | Encounter Summary ---
Author Organization [facility] Address [address] [place] [address] Care Team Providers Care Supervisor Pipeline Name Role Phone Unavailable Primary Care Provider Unavailabl e Encounter Details Date Type Department Care Team (Late st Contact Info) Description 08/30/2023 Clinical Communication Department of Neurology in [place], [place] [address] [address] Ramírez Dia M.D. [address] [address] Social History Tobacco Use Types [...]
--- OUTSIDE RECORDS SUMMARY | 2023-12-31 07:59 | XMS_ITS | Clinical Summary ---
Author Organization [employer] [facility] Address [place], [place] [address] Care Team Providers Care Manager Business Continuity Name Role Phone Margarito Isidro MD Unavailable [...] relief roll on 0 08/01/19 22 Active CPAPIndications:Ob structive sleep apnea CPAP machine [...] before bedtime 180 Tablet 12/05/19 24 Active pregabalin (LYRICA) 150 mg capsuleIndications :Peripheral sensory-motor axonal polyneuropathy Take 1 Capsule (150 mg) by mouth two times daily. 180 Capsule 12/08/19 24 Active rOPINIRole (REQUIP) 2 mg tabletIndications: Restless legs syndrome (RLS) Take 2 mg orally at supper time and 1 hour before bedtime 180 Tablet 3 03/15/20 23 024 Discontinued(*A vailability/For mulary change/Cost of medication) pregabalin (LYRICA) 150 mg capsuleIndications :Peripheral sensory-motor axonal polyneuropathy Take 1 Capsule (150 mg) by mouth two times daily. 180 Capsule 3 03/15/20 23 024 Discontinued(Re order (E-cancel not sent)) hydroCHLOROthiazid e (HCTZ) 25 mg tabletIndications: Essential hypertension,Edema of both legs Take 1 Tablet (25 mg) by mouth once daily. 90 Tablet 3 07/08/19 24 024 Discontinued predniSONE (DELTASONE) 10 mg tabletIndications: Lumbar radiculopathy [...] days. 30 Tablet 12/06/19 24 024 Active Problems Problem Noted Date [...] Encounters Date Type Department Care Team Description 12/25/[address] [address] Ramírez Simons MD Questions (/) 12/17/[address] [address] Ramírez Simons MD Call (Call patient about sciatic nerve problem) 12/06/2023 Nurse Triage [facility] [address] [place] [address] Lakeshia Gee MD Refill Request 12/05/2023 Refill [facility] [address] [place] [address] Margarito Isidro MD Refill Request (pregabalin (LYRICA) 150 mg capsule/) 12/04/2023 Telephone [facility] [address] [place] [address] Ramírez Simons MD Follow Up (Injection) 12/03/[address] [address] Margarito Isidro MD Refill Request (Pregabalin, Ropinirole) 12/02/2023 Refill [facility] [address] [place] [address] Lakeshia Gee MD Refill Request (Hydrochlorothiazide) 11/25/2023 Refill [facility] [address] [facility] [place] [address] Margarito Isidro MD Refill Request (oxyCODONE (ROXICODONE) 5 mg immediate release tablet/) 11/19/2023 11:00 AM CDT Office Visit [facility] at [facility] [address] [place] [address] Ramírez Simons MD Procedure (L4-5 ILESI) 11/19/2023 Orders Only [facility] Scanner 1 scan: (1-Ord) [facility], L4-5 INTERLAMINAR EPIDURAL STEROID INJECTION UNDER FLUOROSCOPIC GUIDANCE, 11/19/2023 11/16/2023 Travel 11/08/2023 10:00 AM CDT Procedure Only [facility] [address] [facility] [place] [address] Nicolle Norton L Ac Acupuncture 11/08/2023 Travel 11/07/2023 Telephone [facility] [address] [facility] [place] [address] Ramírez Simons MD Results (MRI Results.) 11/06/2023 Telephone [facility] [address] Ramírez Simons MD Questions (MRI) 11/05/2023 Orders Only [facility] [address] Ramírez Simons MD 1 scan: (1-Ord) [facility], MRI LUMBAR SPINE WITHOUT IV CONTRAST, 10/30/2023 11/01/2023 10:30 AM CDT Procedure Only [facility] [address] Nicolle Norton L Ac Acupuncture 11/01/2023 Travel 10/28/2023 Telephone [facility] [address] [facility] [place] [address] Ramírez Simons MD message 10/25/2023 10:20 AM CDT Office Visit [facility] [address] [place] [address] Ramírez Simons MD Musculoskeletal Problem (Consult Left back pain. thinks it is sciatic nerve because the pain runs all the way down her left side from back to her leg ) 10/25/2023 Refill [facility] [address] [place] [address] Lakeshia Gee MD Refill Request (Bupropion) 10/25/2023 Travel 10/23/2023 10:00 AM CDT Procedure Only [facility] [address] [place] [address] Nicolle Norton L Ac Acupuncture 10/23/2023 Orders Only [facility] Scanner 1 scan: (1-Ord) [place], CT ANGIO NECK, 10/23/2023 10/23/2023 Orders Only [facility] Scanner 1 scan: (1-Ord) [place], STANDARD HELICAL CT IMAGE ACQUISTION THROUGH THE HEAD, 10/23/2023 10/22/2023 Travel 10/18/2023 Telephone [facility] [address] [place] [address] Margarito Isidro MD Prior Authorization (oxyCODONE (ROXICODONE) 5 mg immediate release tablet APPROVED (07/19/23-10/16/24)) 10/17/2023 Telephone [facility] [place] [facility] [place] [address] Margarito Isidro MD OTHER 10/16/2023 10:00 AM CDT Procedure Only [facility] [address] [place] [address] Nicolle Norton L Ac Acupuncture 10/16/2023 Travel 10/14/2023 Telephone [facility] [place] [address] Margarito Isidro MD Questions 10/08/2023 11:00 AM CDT Office Visit [facility] [place] [facility] [place] [address] Margarito Isidro MD Sleep Follow-up 10/08/2023 Orders Only [facility] Scanner 1 scan: (1-Ord) [employer], COMPLIANCE REPORT, 10/08/2023 10/07/2023 2:00 PM CDT Procedure Only [facility] [address] [facility] [address] Nicolle Norton, L Ac Acupuncture 10/07/2023 Travel 10/04/2023 Travel 10/01/2023 1:00 PM CDT Procedure Only [facility] [address] [place] [address] Nicolle Norton Mary, L Ac Acupuncture 10/01/2023 Travel from Last 3 Months Immunizations Name Administration Dates Next Due Amb Influenza, Inact (High-d ose) (Flu Clinic Only) 02/23/2014 COVID-19 vaccine ([employer] NTScripped 30mcg/0.3mL) PF, MDV 09/26/2021,08/18/2020,07/28/2020 Influenza RIV4 (Age [...] Respiratory Rate 18 06/29/2019 10:2 3 AM SENIOR LEAD PROJECT MANAGER Oxygen Saturation 95% 10/25/2023 10: 18 AM CDT Inhaled Oxygen Concentration - - Weight 100.6 kg (221 lb 12.8 oz) 2023 10:18 AM CDT Height 156.5 cm (5' 1.61) 07/03/2023 1 0:33 AM SENIOR LEAD PROJECT MANAGER Body Mass Index 41.08 07/03/2023 10:33 AM SENIOR LEAD PROJECT MANAGER Plan of Treatment Upcoming Encounters Date Type Department Care Team (Late st Contact Info) Description 12/31/2023 8:40 AM CDT Office Visit [facility] at [facility] [address] [place] [address] Ramírez Simons MD [address] [place] [address] Arrived 01/15/2024 11:30 AM CDT Office Visit [facility] [address] [place] [address] Margarito Isidro MD [address] [place] [address] Health Maintenance Due Date Last Done Comments [...] 03/27/2018, 06/16/2010 Medical Devices Implanted Type Area Metal Casting Trades Worker Device Identifier Shelf Expiration Date Model / Serial / Lot Mesh Pelvic 24x3cm Restorelle Y Contour - [id number] Implanted:Qty: 1 on 06/22/2014 by Gail Richmond MD at [facility] N/A: Urinary Bladder [employer] 02/19/2017 [id number] / [id number] / [id number] Procedures Procedure Name Priority Date/Time Associated Diagnosis Comments AMB EPIDURAL STEROID INJECTION Routine 12/31/2023 7:57 AM CDT Spinal stenosis of lumbar region with neurogenic claudication Lumbar radiculopathy DDD (degenerative disc disease), lumbar AMB EPIDURAL STEROID INJECTION Routine 11/19/2023 8:11 [...] 2 SITES AXIAL Routine 04/05/2015 10:59 AM SENIOR LEAD PROJECT MANAGER Asymptomatic menopausal state from Last 3 Months [...] * XR DEXA BONE DENSITY 2 SITES [48773.1] (04/05/2015 10:59 AM SENIOR LEAD PROJECT MANAGER) Anatomical Region Laterality Modality Spine, HIPS, HIPL, HIPR Other Narrative 04/08/2015 7:26 AM SENIOR LEAD PROJECT MANAGER Please see scanned document for results of this study. Bety Macedo MD DEXA from Last 3 Months or Most Recently Relevant to Health Maintenance Advance Directives Documents on File Type Date Recorded Patient Custom Protection Officer Expl anation Healthcare Directive 07/03/2012 8:05 AM HE ALTH CARE DIRECTIVE, [employer], 06/17/12 * Full Code (Latest Code Status on File) Date Activated Date Inactivated Comments 06/22/2014 1:35 PM 06/24/2014 2:09 PM * Full Code Date Activated Date Inactivated Comments 06/22/2014 12:46 AM 06/22/2014 1:35 PM Care Teams Manager Business Continuity Relationship Specialty Start Date End Date Lakeshia Gee MD [address] [place] [address] PCP - General Family Practice 09/19/22 Margarito Isidro MD Sleep Medicine 04/30/12
--- OUTSIDE RECORDS SUMMARY | 2023-12-31 07:59 | XMS_ITS | Referral Summary ---
Author Organization [facility] Address [address] [place] [address] Care Team Providers Care Attorney General Name Role Phone Unavailable Primary Care Provider Unavailabl e Source Comments Patient records contain information from all sites at [facility]. For routine questions regarding patient records, call [phone] during business hours, M-F 8:00 AM - 5:00 PM Central Time. Record requests for emergency care only can be directed to [phone] at any time.[facility] Allergies Active Allergy Reactions Criticality Noted Date [...]
--- OUTSIDE RECORDS SUMMARY | 2023-12-31 07:59 | XMS_ITS ---
Author Organization [facility] Address [address] [place] [address] Care Team Providers Care Syruper Name Role Phone Unavailable Unavailable Unavailable Surgery Details Not on file Complications Check Surgery Details section. Procedure Estimated Blood Loss Check Surgery Details section. Procedure Findings Check Surgery Details section. Procedure Specimens Taken Check Surgery Details section.
--- OUTSIDE RECORDS SUMMARY | 2023-12-31 07:59 | XMS_ITS | Clinical Summary ---
Author Organization [facility] Address [address] [place] [address] Care Team Providers Care Application Design Engineer Name Role Phone Unavailable Primary Care Provider Unavailabl e Source Comments Patient records contain information from all sites at [facility]. For routine questions regarding patient records, call [phone] during business hours, M-F 8:00 AM - 5:00 PM Central Time. Record requests for emergency care only can be directed to [phone] at any time.[facility] Allergies Active Allergy Reactions Criticality Noted Date [...]
== END 2023-12-31 07:58 | disposition home or self-care (01) ==
LOC: INJ CL 07:57
PROVIDERS: PCP Family Medicine; Visit Provider Family Medicine
DX: M54.16 Radiculopathy, lumbar region (principal); M51.26 Other intervertebral disc displacement, lumbar region; M51.36 Other intervertebral disc degeneration, lumbar region
CPT/HCPCS: 64483; 64484; J1100; Q9966

== ENCOUNTER 2024-05-08 13:00 | Outpatient (RCR) | payer MEDICARE, BC, SELFPAY ==
--- OUTSIDE RECORDS SUMMARY | 2024-04-29 10:39 | XMS_ITS ---
Author Organization [facility] Address [address] [place] [address] Care Team Providers Care Secretary Of Police Name Role Phone Unavailable Unavailable Unavailable Surgery Details Not on file Complications Check Surgery Details section. Procedure Estimated Blood Loss Check Surgery Details section. Procedure Findings Check Surgery Details section. Procedure Specimens Taken Check Surgery Details section.
--- OUTSIDE RECORDS SUMMARY | 2024-04-29 10:39 | XMS_ITS | Referral Summary ---
Author Organization [facility] Address [address] [place] [address] Care Team Providers Care Tour Manager Name Role Phone Unavailable Primary Care Provider Unavailabl e Source Comments Patient records contain information from all sites at [facility]. For routine questions regarding patient records, call [phone] during business hours, M-F 8:00 AM - 5:00 PM Central Time. Record requests for emergency care only can be directed to [phone] at any time.[facility] Allergies Active Allergy Reactions Criticality Noted Date Comments Atenolol Shortness of breath (Reselect Reaction) 12/30/2006 Lisinopril Cough 12/30/2006 Morphine Nausea And Vomiting 10/06/2012 Medications losartan (COZAAR) 100 mg tablet Take 1 tablet by mouth daily. 4 Active amLODIPine (NORVASC) 10 mg tablet Take 1 tablet by mouth daily. 4 Active buPROPion XL (WELLBUTRIN XL) 150 mg 24 hr tablet Take 1 tablet by mouth daily. 4 Active rOPINIRole (REQUIP) 2 mg tablet Take 2 mg by mouth 2 (two) times a day. 3 Active pregabalin (LYRICA) 150 mg capsule Take 150 mg by mouth 2 (two) times a day. 3 Active acetaminophen (TYLENOL) 500 mg tablet Take 1,000 mg by mouth every 8 (eight) hours as needed for pain. 9 Active triamcinolone (KENALOG) 0.1 % cream Apply 1 Application topically daily as needed (psoriasis). 4 Active meclizine (ANTIVERT) 25 mg tablet Take 25 mg by mouth 3 (three) times a day as needed for dizziness. 7 Active ascorbic acid, vitamin C, (VITAMIN C) 500 mg tablet Take 1 tablet by mouth daily. 1 Active cholecalciferol (VITAMIN D3) 25 mcg (1,000 Unit) capsule Take 1 capsule by mouth daily. 1 Active magnesium 250 mg tablet Take 1 tablet by mouth daily. 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
--- OUTSIDE RECORDS SUMMARY | 2024-04-29 10:39 | XMS_ITS | Encounter Summary ---
Author Organization [facility] Address [address] [place] [address] Care Team Providers Care Buffing And Sueding Machine Operator Name Role Phone Unavailable Primary Care Provider Unavailabl e Encounter Details Date Type Department Care Team (Late st Contact Info) Description 08/30/2023 Clinical Communication Department of Neurology in [place], [place] [address] [address] Ramírez Dia M.D. [address] [address] Social History Tobacco Use Types [...] on file Legal Sex Female 10:09 PM WINDOW TINTER Gender Identity Not on file Sexual Orientation Not on file documented as of this encounter Plan of Treatment Not on file documented as of this encounter Visit Diagnoses Not on filedocumented in this encounter
--- OUTSIDE RECORDS SUMMARY | 2024-04-29 10:39 | XMS_ITS | Clinical Summary ---
Author Organization [facility] Address [address] [place] [address] Care Team Providers Care Auto Specialty Services Manager Name Role Phone Unavailable Primary Care Provider Unavailabl e Source Comments Patient records contain information from all sites at [facility]. For routine questions regarding patient records, call [phone] during business hours, M-F 8:00 AM - 5:00 PM Central Time. 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 Gender Identity Not on file Sexual Orientation [...] Health Maintenance Due Date Last Done Comments RSV vaccine - (32-36 weeks) or 60+ years (1 - 1-dose 75+ series) 2016 Depression Screening (Annual PHQ-2) 05/20/2023 Fall Risk Screen (Annual) 05/20/2023 COVID-19 Vaccine ( season) 2024 03/09/2023, 02/21/2022, 09/26/2021, Additional history exists Influenza Vaccine (#1) 2024 3, 01/29/2022, 02/19/2021, Additional history exists Creatinine Level (Kidney Function Test) 07/08/2024 07/08/2023, 06/24/2023, 06/14/2022, Additional history exists Potassium Level 07/08/2024 07/08/2023, 02/0 09/2023, 06/14/2022, Additional history exists Sodium Level 07/08/2024 07/08/2023, 020 09/2023, 06/14/2022, Additional history exists DTaP,Tdap,and Td Vaccines (2 - Td or Tdap) 04/04/2025 04/04/2015, 01/27/2009 Pneumococcal vaccine (65+ years) Completed 04/01/2014, 01/27/2009 Zoster Vaccines Completed 06/30/2018, 12/2017, 06/16/2010 IPV Vaccines Aged Out No longer eligi ble based on patient's age to complete this topic Insurance [place] [address] MEDICARE
--- OUTSIDE RECORDS SUMMARY | 2024-04-29 10:40 | XMS_ITS | Encounter Summary ---
Author Organization [facility] Address [address] [place] [address] Care Team Providers Care Transmission Repairer Name Role Phone Unavailable Primary Care Provider Unavailabl e Reason for Visit * Reason Onset Date Comments Appt Request 02/21/2023 Encounter Details Date Type Department Care Team (Late st Contact Info) Description 02/21/2023 Clinical Communication Department of Neurology in [place], [place] [address] [place] [phone] Alexandrea Barros D.O. 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 - 03/08/2023 4:12 PM CDT Spoke with patient, who states that she did have EMG testing done in [place] and would be able tobring a copy of those results with her to her appointment. * Telephone Encounter - Bety Ford, L.P.N. - 03/08/2023 4:03 PM CDT Trying to contact Lisseth sarah [facility] in [place] as we never received a referral for this patient. Her number is [phone]. Patient can see Dr Dia in [place] for peripheral neuropathy pending referral triage approval, but patient may benefit from EMG testing prior to consult if this has not already been done. documented in this encounter Plan of Treatment Not on file documented as of this encounter Visit Diagnoses Not on filedocumented in this encounter
--- OUTSIDE RECORDS SUMMARY | 2024-04-29 10:41 | XMS_ITS | Clinical Summary ---
Author Organization [facility] Address [place], [place] [address] Care Team Providers Care Annealer Helper Name Role Phone Margarito Isidro MD Unavailable GerardLakeshia vincent MD Primary Care Provider [facility] Unavailable [phone] Allergies Active Allergy Reactions Criticality Noted Date Comments Atenolol Shortness Of Breath 12/30/2006 Iodine *Unknown 12/05/2021 Lisinopril Cough 12/30/2006 Morphine Nausea And Vomiting 10/06/2012 Medications acetaminophen (TYLENOL EXTRA STRGTH) 500 mg tabletIndications :Restless legs syndrome (RLS) Take 2 tablets by mouth every 8 hours. Max acetaminophen dose: 4000mg in 24 hrs. 0 09/02/19 19 Active nystatin (MYCOSTATIN) ointmentIndicatio ns:Intertrigo Apply topically to affected area(s) 2 times [...] relief roll on 0 08/01/19 22 Active losartan (COZAAR) 100 mg tabletIndications :Essential hypertension Take 1 Tablet (100 mg) by mouth once daily. 90 Tablet 3 06/24/19 24 Active Ferrous Gluconate 324 mg (38 mg iron) tablet Take 324 mg by mouth. Active meclizine (ANTIVERT) 25 mg tabletIndications :Dizziness Take 1 Tablet (25 mg) by mouth 3 times daily if needed for Vertigo. 10 Tablet 10/08/19 24 Active buPROPion (WELLBUTRIN XL) 150 mg Extended-Release tabletIndications :Depression, recurrent (HC) Take 1 Tablet (150 mg) by mouth once daily. 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 99 months. 1 Each 01/15/20 24 Active amLODIPine (NORVASC) 5 mg tabletIndications :Essential hypertension Take 1 Tablet (5 mg) by mouth once daily. 90 Tablet 3 02/12/20 24 Active rOPINIRole (REQUIP) 2 mg tabletIndications :Restless legs syndrome (RLS) Take 2 mg orally at supper time and 1 hour before bedtime 180 Tablet 04/11/20 24 Active pregabalin (LYRICA) 150 mg capsuleIndication s:Peripheral sensory-motor axonal polyneuropathy Take 1 Capsule (150 mg) by mouth three times daily. 90 Capsule 2 04/11/20 24 Active oxyCODONE 10 mg tabletIndications :Restless legs syndrome (RLS) Patient is to take 1 pill by mouth at supper time and then again before bed 60 Tablet 04/27/20 24 Active CPAPIndications:O SA (obstructive sleep apnea) CPAP (E0601) machine for home use at pressure: 4-15cmw, Choice of mask (A7030 or A7034) w/full face cushion (A7031) x1/mo, nasal cushion (A7032) x2/mo, or nasal pillows (A7033) x 2/mo; Length of Need: 99 months; Frequency of use: Daily 1 Each 11 04/27/20 24 Active CPAPIndications:O bstructive sleep apnea CPAP machine for home use [...] of use: Daily 1 Each 03/15/20 23 024 Discontin ued(*Med complete/ Regimen complete/ Level of care change) rOPINIRole (REQUIP) 2 mg tabletIndications :Restless legs syndrome (RLS) Take 2 mg orally at supper time and 1 hour before bedtime 180 Tablet 12/05/19 24 024 Discontin ued(Reord er (E-cancel not sent)) pregabalin (LYRICA) 150 mg capsuleIndication s:Peripheral sensory-motor axonal polyneuropathy Take 1 Capsule (150 mg) by mouth three times daily. 90 Capsule 2 01/15/20 24 024 Discontin ued(Reord er (E-cancel not sent)) oxyCODONE 10 mg tabletIndications :Restless legs syndrome (RLS) Patient is to take 1 pill by mouth at supper time and then again before bed 60 Tablet 03/18/20 24 024 Discontin ued(Reord er (E-cancel not sent)) Active Problems Problem Noted Date Diagnosed Date Lymphedema 03/17/2024 Depression, recurrent 07/19/2021 RHETT 03/10/2007 AHI/RDI:34, supine 98 nasal 01/27 Morbid obesity with BMI of 40.0-44.9, adult 07/18 Weakness generalized 03/21/2017 Skin lesion of face 03/21/2017 Hiatal hernia with gastroeso phageal reflux disease without esophagitis 09/23/2015 Status post total right knee replacement 016 History of artificial joint 07/12/2015 Depression 04/07/2015 Vaginal prolapse 06/23/2014 Peripheral neuropathy 04/01/2014 Overview (04/12/2021): Neurology consult 05/2013 Dr Navarro Started Gabapentin Benign neoplasm of colon 03/04/2009 Overview (05/05/2014): Colonoscopy 02/2009 polyp repeat in 5 years Colonoscopy 04/2014 normal repeat in 5 years Allergic rhinitis, cause unspecified 06/03/2008 HYPERTENSION 12/30/2006 Restless legs syndrome (RLS) 12/30/2006 Mild intermittent asthma without complication healthcare Maintenance 12/30/2006 Overview (12/30/2006): Colonoscopy 2000 - recommended follow up in 5 years Resolved Problems Problem Noted Date Diagnosed Date Resolved Date Anticoagulation monitoring, special range (2.0 - 2.5) 07/26/2015 08/01/2015 SLEEP APNEA 03/10/2007 AHI- 34 98-supine 05/08/2007 01/27/2021 Unspecified sleep apnea 02/10/200704/20 Encounters Date Type Department Care Team Description 04/27/2024 10:30 AM JUNIOR ADMINISTRATIVE ASSISTANT Office Visit [facility] [address] [place] [address] Margarito Isidro MD Sleep Follow-up 04/27/2024 Travel 04/25/2024 Orders Only [facility] Scanner 1 scan: (1-Ord) [facility], COMPLIANCE REPORT, 04/25/2024 04/22/2024 10:15 AM JUNIOR ADMINISTRATIVE ASSISTANT Home Care Visit [facility] [address] [place] [address] Shashi Shabazz, PT PT - NOT TAKEN UNDER HOME CARE - HOME VISIT 04/22/2024 Travel 04/10/2024 Telephone [facility] [address] [place] [address] Lakeshia Gee MD TCU Orders 04/10/2024 Refill [facility] [address] [place] [address] Margarito Isidro MD Refill Request (Ropinirole, Pregabalin) 04/07/[address] [address] Lakeshia Gee MD fax (From [facility]) 03/18/[address] [address] Margarito Isidro MD Refill Request (g) 03/17/[address] [address] Lakeshia Gee MD Outside Order (lymphedema orders) 02/28/2024 2:00 PM CDT Office Visit [address] [address] Valeriano Xie, AuD Hearing Problem 02/27/2024 Travel 02/19/[address] [address] Margarito Isidro MD Refill Request (oxyCODONE 10 mg tablet) 02/18/2024 11:00 AM CDT Nurse/Clinic Staff Only [address] [address] Infusion Therapy (Feraheme 2/2) 02/18/2024 Travel 02/12/2024 8:50 AM CDT Office Visit [address] [address] Lakeshia Gee MD Blood Pressure (BP's has not been as low.); Leg Swelling (Right ankle); Medication Management (Would like to talk about a supplement she wants to take and see if it is safe to take with her meds) 02/11/2024 10:00 AM CDT Nurse/Clinic Staff Only [address] [address] Infusion Therapy (Feraheme #1/) 02/11/2024 Travel 02/07/[address] [address] Ramírez Simons MD Questions (Services ) 02/04/2024 3:40 PM CDT Office Visit [facility] [address] [facility] [place] [address] Maxi Moore MD Dizziness; Fatigue 02/04/2024 2:00 PM CDT Nurse/Clinic Staff Only [facility] [address] [place] [address] Infusion Therapy (Unable to give feraheme today BP low 96/53) 02/04/2024 Telephone [facility] [address] [place] [address] Maxi Moore MD Results 02/04/2024 Travel 02/03/2024 Telephone [facility] [address] [place] [address] Margarito Isidro MD Orders (Iron Infusion Orders) 02/01/2024 Travel from Last 3 Months Immunizations Name Administration Dates Next Due Amb Influenza, Inact (High-d ose) (Flu Clinic Only) 02/23/2014 COVID-19 vaccine (WinWeb 30mcg/0.3mL) RICHELLE VELAZQUEZ 09/26/2021,08/18/2020,07/28/2020 Influenza RIV4 (Age [...] 0 06/24/2023 Social Connections Answer Date Recorded Do you often feel lonely or isolated from those around you? 0 08/23/2023 Financial Resource Strain Answer Date R ecorded Difficulty of Paying Living Expenses 3 08/23/2023 Difficulty of Paying Living Expenses Not on file 08/23/2023 Food Insecurity Answer Date Recorded Do you worry your food will run out before you are able to buy more? 1 08/23/2023 Transportation Needs Answer Date Record ed Does lack of transportation keep you from medica l appointments? 1 08/23/2023 Does lack of transportation keep you from work, meetings or getting things that you need? 1 08/23/2023 Housing Stability Answer Date Recorded What is your housing situation today? 1 08/23/2023 Comments No Sex and Gender Information Value Date Recorded Sex Assigned at Not on file Legal Sex Female 6:13 AM JUNIOR ADMINISTRATIVE ASSISTANT Gender Identity Not on file Sexual Orientation Not on file Obstetrics History Para Term AB IAB SAB Ectopic Multiple Livin g Live Births 5 1 1 1 1 1 Date Outcome GA Total Labor Labor/2nd/3rd Weight Sex Type Anes PTL Amairani A1 A5 Name Clin Term Living Last Filed Vital Signs Vital Sign Reading Time Taken Comments Blood Pressure 136/76 04/27/2024 10:15 AM JUNIOR ADMINISTRATIVE ASSISTANT Pulse 80 04/27/2024 10:15 AM JUNIOR ADMINISTRATIVE ASSISTANT Temperature 36.9 C (98.4 F) 10/25/2023 10:18 AM CDT Respiratory Rate 18 06/29/2019 10:2 3 AM JUNIOR ADMINISTRATIVE ASSISTANT Oxygen Saturation 94% 04/27/2024 10: 15 AM JUNIOR ADMINISTRATIVE ASSISTANT Inhaled Oxygen Concentration - - Weight 100.6 kg (221 lb 12.8 oz) 2023 10:18 AM CDT Height 156.5 cm (5' 1.61) 04/27/2024 1 0:15 AM JUNIOR ADMINISTRATIVE ASSISTANT Body Mass Index 41.08 07/03/2023 10:33 AM JUNIOR ADMINISTRATIVE ASSISTANT Plan of Treatment Upcoming Encounters Date Type Department Care Team (Late st Contact Info) Description 05/25/2024 10:20 AM JUNIOR ADMINISTRATIVE ASSISTANT Office Visit [facility] [address] [place] [address] Lakeshia Gee MD [address] [place] [address] 06/29/2024 11:00 AM JUNIOR ADMINISTRATIVE ASSISTANT Office Visit [facility] [address] [place] [address] Ramírez Simons MD [address] [place] [address] 09/07/2024 11:00 AM CDT Office Visit [facility] [address] [place] [address] Margarito Isidro MD [address] [place] [address] Health Maintenance Due Date Last Done Comments RSV vaccine for adults or (1 - 1-dose 75+ series) 2016 COVID-19 vaccine series ( season) 2024 03/09/2023, 02/21/2022, 09/26/2021, Additional [...] 03/27/2018, 06/16/2010 Medical Devices Implanted Type Area Landscape Manager Device Identifier Shelf Expiration Date Model / Serial / Lot Mesh Pelvic 24x3cm Restorelle Y Contour - [id number] Implanted:Qty: 1 on 06/22/2014 by Gail Richmond MD at [facility] N/A: Urinary Bladder [employer] 02/19/2017 [id number] / [id number] / [id number] Procedures Procedure Name Priority Date/Time Associated Diagnosis Comments SCAN-DIAGNOSTIC REPORT 04/25/2024 12:00 AM JUNIOR ADMINISTRATIVE ASSISTANT CBC WITH AUTO DIFFERENTIAL Routine 02/04/2024 3:41 PM CDT COMP METABOLIC PANEL Routine 02/04/2024 3:41 PM CDT Dizziness Weakness URINE CULTURE Routine 02/04/2024 3:36 PM CDT Weakness URINALYSIS MICROSCOPIC Routine 02/04/2024 3:30 PM CDT Weakness URINALYSIS MACROSCOPIC - [facility] ONLY POC DIP ([facility]) Routine 02/04/2024 3:22 PM CDT Weakness XR DXA BONE DENSITY 2 SITES AXIAL Routine 04/05/2015 10:59 AM JUNIOR ADMINISTRATIVE ASSISTANT Asymptomatic menopausal state from Last 3 Months or Most Recently Relevant to Health Maintenance Results * SCAN-DIAGNOSTIC REPORT (04/25/2024 12:00 AM JUNIOR ADMINISTRATIVE ASSISTANT) us Scanner OTHER Final Result * CBC WITH AUTO DIFFERENTIAL (02/04/2024 3:41 PM CDT) WHITE BLOOD CELL COUNT 7.4 3.8 - 10.8 Thousand/u L [facility] RED BLOOD CELL COUNT 4.27 3.80 - 5.10 Million/uL [facility] HEMOGLOBIN 13.0 11.7 - 15.5 g/dL [facility] HEMATOCRIT 39.7 35.0 - 45.0 % [facility] MCV 93.0 80.0 - 100.0 fL [facility] MCH 30.4 27.0 - 33.0 pg [facility] MCHC 32.7 32.0 - 36.0 g/dL [facility] RDW 13.1 11.0 - 15.0 % [facility] PLATELET COUNT 248 140 - 400 Thousand/u L [facility] MPV 10.2 7.5 - 12.5 fL [facility] ABSOLUTE NEUTROPHILS 4,351 1,500 - 7,800 cells/uL [facility] ABSOLUTE LYMPHOCYTES 1,754 850 - 3,900 cells/uL [facility] ABSOLUTE MONOCYTES 784 200 - 950 cells/uL [facility] ABSOLUTE EOSINOPHILS 459 15 - 500 cells/uL [facility] ABSOLUTE BASOPHILS 52 0 - 200 cells/uL [facility] NEUTROPHILS 58.8 % [facility] LYMPHOCYTES 23.7 % [facility] MONOCYTES 10.6 % [facility] EOSINOPHILS 6.2 % [facility] BASOPHILS 0.7 % [facility] 02/04/2024 3:41 PM CDT 02/04/2024 3:46 PM CDT us Maxi Moroe MD HEMATOLOGY Final Resu lt [facility] [address] [place] [address], [place] [phone] [facility] [address] [place] [address] * (ABNORMAL) COMP METABOLIC PANEL (02/04/2024 3:41 PM CDT) GLUCOSE 95 65 - 99 mg/dL [facility] Comment: Fasting reference interval UREA NITROGEN (BUN) 34(H) 7 - 25 mg/dL [facility] CREATININE 1.12(H) 0.60 - 0.95 mg/dL [facility] EGFR 49(L) > OR = 60 mL/min/1.7 3m2 [facility] BUN/CREATININE RATIO 30(H) 6 - 22 (calc) [facility] SODIUM 137 135 - 146 mmol/L [facility] POTASSIUM 3.8 3.5 - 5.3 mmol/L [facility] CHLORIDE 102 98 - 110 mmol/L [facility] CARBON DIOXIDE 29 20 - 32 mmol/L [facility] CALCIUM 9.4 8.6 - 10.4 mg/dL [facility] PROTEIN, TOTAL 6.1 6.1 - 8.1 g/dL [facility] ALBUMIN 4.0 3.6 - 5.1 g/dL [facility] GLOBULIN 2.1 1.9 - 3.7 g/dL (calc) [facility] ALBUMIN/GLOBULIN RATIO 1.9 1.0 - 2.5 (calc) [facility] BILIRUBIN, TOTAL 0.4 0.2 - 1.2 mg/dL [facility] ALKALINE PHOSPHATASE 67 37 - 153 U/L [facility] AST 17 10 - 35 U/L [facility] ALT 12 6 - 29 U/L [facility] Blood BLOOD SPECIMEN / Unknown 02/04/2024 3:41 PM CDT 02/04/2024 3:46 PM CDT Maxi Moore MD CHEMISTRY Final Resu lt Performing Organization Address [facility] Co de Phone Number [facility] [address] [place] [address], [facility] [address] [place] [address] * URINE CULTURE (02/04/2024 3:36 PM CDT) CULTURE, URINE, ROUTINE SEE NOTE [facility] Comment: CULTURE, URINE, ROUTINE Micro Number: [id number] Test Status: Final Specimen Source: Urine Specimen Quality: Adequate Result: Mixed genital peter isolated. These superficial bacteria are not indicative of a urinary tract infection. No further organism identification is warranted on this specimen. If clinically indicated, recollect clean-catch, mid-stream urine and transfer immediately to Urine Culture Transport Tube. Urine URINE SPECIMEN / Unknown 02/04/2024 3:36 PM CDT 02/04/2024 3:37 PM CDT Maxi Moore MD MICROBIOLOGY Final Resu lt Performing Organization Address City/[facility] Co de Phone Number [facility] [address] [place] [address], [facility] [address] [place] [address] * (ABNORMAL) URINALYSIS MICROSCOPIC (02/04/2024 3:30 PM CDT) WBC UA 20-40(A) < OR = 5 /HPF [facility] RBC UA 0-2 < OR = 2 /HPF [facility] SQUAMOUS EPITHELIAL CELLS UA 6-10(A) < OR = 5 /HPF [facility] BACTERIA UA NONE SEEN NONE SEEN /HPF [facility] CALCIUM OXALATE CRYSTALS FEW NONE OR FEW /HPF [facility] HYALINE CAST 6-10(A) NONE SEEN /LPF [facility] NOTE UA [facility] Comment: This urine was analyzed for the presence of WBC, RBC, bacteria, casts, and other formed elements. Only those elements seen were reported. Urine URINE SPECIMEN / Unknown 02/04/2024 3:30 PM CDT 02/04/2024 3:35 PM CDT Maxi Moore MD URINE Final Resu lt Performing Organization Address City/[facility]/ZIP Co de Phone Number [employer] [facility] [address] [place] [address], [facility] [address] [place] [address] * (ABNORMAL) POCT Urinalysis Dipstick Only (02/04/2024 3:22 PM CDT) PH 5.0 5.0 - 8.0 [facility] SPECIFIC GRAVITY 1.020 1.001 - 1.035 [facility] GLUCOSE NEGATIVE NEGATIVE [facility] BILIRUBIN NEGATIVE NEGATIVE [facility] KETONES NEGATIVE NEGATIVE [facility] OCCULT BLOOD NEGATIVE NEGATIVE [facility] PROTEIN NEGATIVE NEGATIVE [facility] NITRITE NEGATIVE NEGATIVE [facility] LEUKOCYTE ESTERASE 2+(A) NEGATIVE [facility] Urine URINE SPECIMEN / Unknown 02/04/2024 3:22 PM CDT 02/04/2024 3:22 PM CDT us Maxi Moore MD URINE Final Resu lt [facility] [address] [address], [facility] [address] [place] [address] * XR DEXA BONE DENSITY 2 SITES [85685.1] (04/05/2015 10:59 AM JUNIOR ADMINISTRATIVE ASSISTANT) Anatomical Region Laterality Modality Spine, HIPS, HIPL, HIPR Other Narrative 04/08/2015 7:26 AM JUNIOR ADMINISTRATIVE ASSISTANT Please see scanned document for results of this study. us Bety Macedo MD DEXA Final Result from Last 3 Months or Most Recently Relevant to Health Maintenance Insurance MEDICARE PART B HB ONLY MEDICARE PART A HB ONLY [employer] BLUE MR PB ONLY MEDICARE PPS [place] BLUE HB ONLY Advance Directives Documents on File Type Date Recorded Patient Business Education Instructor Expl anation Healthcare Directive 07/03/2012 8:05 AM HE ALTH CARE DIRECTIVE, [employer], 06/17/12 * Full Code (Latest Code Status on File) Date Activated Date Inactivated Comments 06/22/2014 1:35 PM 06/24/2014 2:09 PM * Full Code Date Activated Date Inactivated Comments 06/22/2014 12:46 AM 06/22/2014 1:35 PM Care Teams Annealer Helper Relationship Specialty Start Date End Date [place] [address] [place] [address] [address] PCP - General Family Practice 09/19/22 Margarito Isidro MD Sleep Medicine 04/30/12 [address] [place] [address] 04/15/24
== END 2024-07-23 10:40 | disposition home or self-care (01) ==
PROVIDERS: PCP Family Medicine; Visit Provider Family Medicine
DX: M54.16 Radiculopathy, lumbar region (principal); M48.062 Spinal stenosis, lumbar region with neurogenic claudication; R60.0 Localized edema; Z51.89 Encounter for other specified aftercare
CPT/HCPCS: 97110; 97140; 97162; 97166; 97530; 97535; X5282

== ENCOUNTER 2024-06-30 10:28 | Outpatient (CLI) | payer MEDICARE, BC, SELFPAY | END 2024-06-30 10:29 | disposition home or self-care (01) | PROVIDERS: PCP Family Medicine; Visit Provider Family Medicine | DX: M54.16 Radiculopathy, lumbar region (principal); M51.369 Other intervertebral disc degeneration, lumbar region without mention of lumbar back pain or lower extremity pain | CPT/HCPCS: 64483; 64484; J1100; Q9966 ==

== ENCOUNTER 2024-07-25 19:12 | Emergency (ER) | payer MEDICARE, BC, SELFPAY ==
--- OUTSIDE RECORDS SUMMARY | 2024-07-25 19:14 | XMS_ITS | Clinical Summary ---
Author Organization [facility] Address [address] [place] [address] Care Team Providers Care Supervisor Real Estate Office Name Role Phone Unavailable Primary Care Provider Unavailabl e Source Comments Patient records contain information from all sites at [facility]. For routine questions regarding patient records, call [phone] during business hours, M-F 8:00 AM - 5:00 PM Central Time. Record requests for emergency care only can be directed to [phone] at any time.[facility] Allergies Active Allergy Reactions Criticality Noted [...] on file Legal Sex Female 10:09 PM HAND BENDER Gender Identity Not on file Sexual Orientation [...] Health Maintenance Due Date Last Done Comments Hepatitis B Screening 1940 RSV vaccine - (32-36 weeks) or 60+ years (1 - 1-dose 75+ series) 2016 COVID-19 Vaccine ( season) 2024 03/09/2023, 02/21/2022, 09/26/2021, Additional history exists Influenza Vaccine (#1) 2024 3, 01/29/2022, 02/19/2021, Additional history exists Depression Screening (Annual PHQ-2) 05/20/2024 Fall Risk Screen (Annual) 05/20/2024 Creatinine Level (Kidney Function Test) 07/08/2024 07/08/2023, 06/24/2023, 06/14/2022, Additional history exists Potassium Level 07/08/2024 07/08/2023, 0 09/2023, 06/14/2022, Additional history exists Sodium Level 07/08/2024 07/08/2023, 0 09/2023, 06/14/2022, Additional history exists DTaP,Tdap,and Td Vaccines (2 - Td or Tdap) 04/04/2025 04/04/2015, 01/27/2009 Pneumococcal vaccine (50+ years) Completed 04/01/2014, 01/27/2009 Zoster Vaccines Completed 06/30/2018, 12/2017, 06/16/2010 IPV Vaccines Aged Out No longer eligi ble based on patient's age to complete this topic Insurance [facility] MEDICARE
--- OUTSIDE RECORDS SUMMARY | 2024-07-25 19:15 | XMS_ITS | Clinical Summary ---
Author Organization [facility] Address [address] [place] [id number] Care Team Providers Care News Internship Name Role Phone Margarito Isidro MD Unavailable GerardLakeshia vincent MD Primary [facility] Provider [facility] Un[facility] Allergies Active Allergy Reactions Criticality Noted Date Comments Atenolol Shortness Of Breath 12/30/2006 Iodine *Unknown 12/05/2021 Lisinopril Cough 12/30/2006 Morphine Nausea And Vomiting 10/06/2012 Medications acetaminophen (TYLENOL EXTRA STRGTH) 500 mg tabletIndications :Restless legs syndrome (RLS) Take 2 tablets by mouth every 8 hours. Max acetaminophen dose: 4000mg in 24 hrs. 0 019 Active nystatin (MYCOSTATIN) ointmentIndicatio ns:Intertrigo Apply topically to affected area(s) 2 times daily. 15 g 1 021 Active magnesium 250 mg tab Take 1 Tablet (250 mg) by mouth once daily. 0 021 Active cholecalciferol (VITAMIN D3) 1,000 unit capsule Take 1 Capsule (1,000 units) by mouth once daily. 0 021 Active zinc 50 mg tablet Take 1 Tablet (50 mg) by mouth once daily. 0 021 Active ascorbic acid, vitamin C, (Vitamin C) 500 mg tablet Take 1 Tablet (500 mg) by mouth once daily. 0 021 Active medication order composer Apply topically to affected area(s). Vet Liniment Gel and Outback pain relief roll on 0 022 Active Ferrous Gluconate 324 mg (38 mg iron) tablet Take 324 mg by mouth. Active meclizine (ANTIVERT) 25 mg tabletIndications :Dizziness Take 1 Tablet (25 mg) by mouth 3 times daily if needed for Vertigo. 10 Tablet 024 Active buPROPion (WELLBUTRIN XL) 150 mg Extended-Release tabletIndications :Depression, recurrent Take 1 Tablet (150 mg) by mouth once daily. 90 Tablet 1 024 Active amLODIPine (NORVASC) 5 mg tabletIndications :Essential hypertension Take 1 Tablet (5 mg) by mouth once daily. 90 Tablet 3 024 Active pregabalin (LYRICA) 150 mg capsuleIndication s:Peripheral sensory-motor axonal polyneuropathy Take 1 Capsule (150 mg) by mouth three times daily. 90 Capsule 2 024 Active CPAPIndications:O SA (obstructive sleep apnea) CPAP (E0601) machine for home use at pressure: 4-15cmw, Choice of mask (A7030 or A7034) w/full face cushion (A7031) x1/mo, nasal cushion (A7032) x2/mo, or nasal pillows (A7033) x 2/mo; Length of Need: 99 months; Frequency of use: Daily 1 Each 024 Active hydroCHLOROthiazi de 25 mg tabletIndications :Essential hypertension,Rex a of both legs Take 1 Tablet (25 mg) by mouth once daily. 90 Tablet 1 025 Active triamcinolone (ARISTOCORT; KENALOG) 0.1 % creamIndications: Stasis dermatitis of both legs Apply topically to affected area(s) two times daily. Use for up to 2 weeks at a time. 80 g 025 Active oxyCODONE 10 mg tabletIndications :Restless legs syndrome (RLS) Patient is to take 1 pill by mouth at supper time and then again before bed 60 Tablet 025 Active rOPINIRole (REQUIP) 2 mg tabletIndications :Restless legs syndrome (RLS) Take 2 mg orally at supper time and 1 hour before bedtime 180 Tablet 025 Active losartan (COZAAR) 100 mg tabletIndications :Essential hypertension TAKE ONE TABLET BY MOUTH ONE TIME DAILY 90 Tablet 1 025 Active losartan (COZAAR) 100 mg tabletIndications :Essential hypertension Take 1 Tablet (100 mg) by mouth once daily. 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 99 months. 1 Each 024 2024 Discontinued(* Med complete/Regim en complete/Level of care change) rOPINIRole (REQUIP) 2 mg tabletIndications :Restless legs syndrome (RLS) Take 2 mg orally at supper time and 1 hour before bedtime 180 Tablet 024 2024 Discontinued(R eorder (E-cancel not sent)) oxyCODONE 10 mg tabletIndications :Restless legs syndrome (RLS) Patient is to take 1 pill by mouth at supper time and then again before bed 60 Tablet 025 2024 Discontinued(R eorder (E-cancel not sent)) cephalexin 500 mg capsuleIndication s:Cellulitis of skin Take 1 Capsule (500 mg) by mouth four times daily for 7 days. 500 mg 4 times daily for 7 days 28 Capsule 025 2024 Discontinued(* Med complete/Regim en complete/Level of care change) Active Problems Problem Noted Date Diagnosed Date Stage 3a chronic kidney disease 07/15/2024 Lymphedema 03/17/2024 Major depression, recurrent 07/19/2021 RHETT 03/10/2007 AHI/RDI:34, supine 98 nasal 01/27 Morbid obesity with BMI of 40.0-44.9, adult 07/18 Weakness generalized 03/21/2017 Skin lesion of face 03/21/2017 Hiatal hernia with gastroeso phageal reflux disease without esophagitis 09/23/2015 Status post total right knee replacement 016 History of artificial joint 07/12/2015 Vaginal prolapse 06/23/2014 Peripheral neuropathy 04/01/2014 Overview [...] special range (2.0 - 2.5) 07/26/2015 08/01/2015 Depression 04/07/2015 07/24/2024 SLEEP APNEA 03/10/2007 AHI- 34 98-supine 05/08/2007 01/27/2021 Unspecified sleep apnea 02/10/200704/20 Encounters Date Type Department Care Team Description 07/20/2024 Refill [facility] [address] [place] [address] Lakeshia Gee MD Refill Request (Losartan) 07/16/2024 Refill [facility] [address] [place] [address] Lakeshia Gee MD Refill Request (Amlodipine) 07/15/2024 2:00 PM RESEARCH EXECUTIVE Ancillary Procedure [facility] [address] [place] [address] 07/15/2024 1:45 PM RESEARCH EXECUTIVE Ancillary Procedure [facility] [address] [place] [address] 07/15/2024 1:10 PM RESEARCH EXECUTIVE Office Visit [facility] [address] [place] [address] Lakeshia Gee MD Follow Up (Cellulitis, finished antibiotic today and it has not changed.) 07/14/2024 Travel 07/14/2024 Telephone [facility] [address] [place] [address] Margarito Isidro MD Questions (Restless legs) 07/08/2024 10:45 AM RESEARCH EXECUTIVE Office Visit [facility] [address] [place] [address] Libertad Merrill MD Foot Problem (R foot pain/swelling- no injury) 07/08/2024 Travel 07/06/2024 Telephone [facility] [address] [place] [address] Lakeshia Gee MD Referral (ORTHO) 07/06/[address] [address] Margarito Isidro MD Refill Request (Ropinirole) 07/03/[address] [address] Lakeshia Gee MD Referral; RETURN CALL 06/30/2024 11:00 AM RESEARCH EXECUTIVE Office Visit [facility] at [address] [phone] Ramírez Simons MD Procedure (Left L3-4 and L4-5 TFESI) 06/26/2024 Travel 06/26/[address] [address] Margarito Isidro MD Refill Request (can oxyCODONE 10 mg tablet 60 Tablet get renewed) 06/15/[address] [address] Ramírez Simons MD other (requesting a call back ) 05/25/2024 10:20 AM RESEARCH EXECUTIVE Office Visit [address] [address] Lakeshia Gee MD Foot Problem (Swelling and pain in right foot and ankle mainly down the instep on her foot. Rash just above the ankle.); Medication Management (HTCZ has requested many times through the pharmacy an it not refilled. Discuss weight loss medications (injectables).); Immunization/Inject ion 05/25/2024 Refill [facility] [address] [place] [address] Margarito Isidro MD Refill Request; OXYCODONE 05/25/2024 Refill [facility] [address] [place] [address] Margarito Isidro MD Refill Request (Oxycodone HCL oral tablet 10mg) 05/25/2024 Travel 05/20/2024 Travel 04/27/2024 10:30 AM RESEARCH EXECUTIVE Office Visit [facility] [address] [place] [address] Margarito Isidro MD Sleep Follow-up 04/27/2024 Travel from Last 3 Months Immunizations Immunization Administration Dates Next Due Amb Influenza, Inact (High-d ose) (Flu Clinic Only) 02/23/2014 COVID-19 vaccine (LSN Mobile 30mcg/0.3mL) PF, MDV 09/26/2021,08/18/2020,07/28/2020 Influenza RIV4 (Age 18+ Year s) PRESERV FREE 02/20/2019 Influenza, High-dose Inactivated 017,02/08/2016,02/01/2015,2013 Influenza, High-dose Quadriv alent Inactivated 03/09/2023,02/19/2021,01/28/2020 Influenza, IIV3 (Age 6-35 mos) 02/05/2011,2009 Influenza, IIV3 (Age >=3 years) 02/12/20 12,02/05/2011,01/31/2010,2003 Influenza, Inactivated AIIV4 (Age 65+ Years) Preserv Free 01/29/2022,01/28/2020 Influenza, Inactivated IIV3 (Age 65+ Years) Preserv Free 05/25/2024,02/10/2018 Pneumococcal Poly,23-Valent (Pneumovax) 01/27/2009 Pneumococcal conj 13-Valent [...] is your housing situation today? 1 08/23/2023 Utilities Answer Date Recorded Do you have trouble paying f or utilities (for example, heat, electricity, water, phone)? 1 08/23/2023 Comments No Sex and Gender Information Value Date Recorded Sex Assigned at Not on file Legal Sex Female 6:13 AM RESEARCH EXECUTIVE Gender Identity Not on file Sexual Orientation Not on file Obstetrics History Para Term AB IAB SAB Ectopic Multiple Livin g Live Births 5 1 1 1 1 1 Date Outcome GA Total Labor Labor/2nd/3rd Weight Sex Type Anes PTL Amairani A1 A5 Name Clin Term Living Last Filed Vital Signs Vital Sign Reading Time Taken Comments Blood Pressure 121/62 07/15/2024 12:59 PM RESEARCH EXECUTIVE Pulse 90 07/15/2024 12:59 PM RESEARCH EXECUTIVE Temperature 36.9 C (98.4 F) 10/25/2023 10:18 AM CDT Respiratory Rate 18 06/29/2019 10:2 3 AM RESEARCH EXECUTIVE Oxygen Saturation 95% 07/15/2024 12: 59 PM RESEARCH EXECUTIVE Inhaled Oxygen Concentration - - Weight 100.6 kg (221 lb 12.8 oz) 2023 10:18 AM CDT Height 156.5 cm (5' 1.61) 04/27/2024 1 0:15 AM RESEARCH EXECUTIVE Body Mass Index 41.08 07/03/2023 10:33 AM RESEARCH EXECUTIVE Plan of Treatment Upcoming Encounters Date Type Department Care Team (Late st Contact Info) Description 07/29/2024 2:45 PM CDT Office Visit [facility] [address] [place] [address] Julio César Hills DPM [address] [place] [address] 09/07/2024 11:00 AM CDT Office Visit [facility] [address] [place] [address] Margarito Isidro MD [address] [place] [address] Health Maintenance Due Date Last Done Comments RSV vaccine for adults or (1 - 1-dose 75+ series) 2016 COVID-19 vaccine series ( season) 2024 03/09/2023, 02/21/2022, 09/26/2021, Additional history exists Depression screening for age 12+ 06/24/2024 06/24/2023, 06/14/2022, 08/24/2020, Additional history exists Medicare Wellness for age 65+ 06/24/2024, 06/14/2022, 08/22/2020, Additional history exists BMI (ht and wt on same day) for age 18+ 07/03/2024 07/03/2023, 06/24/2023, 06/14/2022, Additional history exists Tetanus booster 04/04/2025 04/04/2015, 01/18, 01/27/2009, Additional history exists Pneumococcal series for age 50+ Completed 4, 01/27/2009 Tdap Completed 04/04/2015 DEXA/DXA scan for age 65+ Completed 2014, 02/03/2009, 01/02/2007 Zoster (shingles) series for age 50+ Completed 06/30/2018, 03/27/2018, 06/16/2010 ([place]) Influenza for age 65+ Completed 05/25, 03/09/2023, 01/29/2022, Additional history exists Medical Devices Implanted Type Area Car Wrecker Device Identifier Shelf Expiration Date Model / Serial / Lot Mesh Pelvic 24x3cm Restorelle Y Contour - [id number] Implanted:Qty: 1 on 06/22/2014 by Gail Richmond MD at [facility] N/A: Urinary Bladder [employer] Hedgeable 02/19/2017 [id number]# / [id number] / [id number] Procedures Procedure Name Priority Date/Time Associated Diagnosis Comments XR FOOT 3 VIEWS RIGHT Routine 07/15/2024 1:55 PM RESEARCH EXECUTIVE Foot pain, right XR ANKLE 3 VIEWS RIGHT Routine 07/15/2024 1:55 PM RESEARCH EXECUTIVE Chronic pain of right ankle AMB EPIDURAL STEROID INJECTION Routine 06/30/2024 8:05 AM RESEARCH EXECUTIVE Lumbar radiculopathy Spinal stenosis of lumbar region with neurogenic claudication [place] NJX AA&/STRD TFRML EPI LUMBAR/SACRAL 1 LEVEL Routine 06/30/2024 12:00 AM RESEARCH EXECUTIVE Lumbar radiculopathy Spinal stenosis of lumbar region with neurogenic claudication XR DXA BONE DENSITY 2 SITES AXIAL Routine 04/05/2015 10:59 AM RESEARCH EXECUTIVE Asymptomatic menopausal state from Last 3 Months or Most Recently Relevant to Health Maintenance Results * XR FOOT 3 VIEWS RIGHT (07/15/2024 1:55 PM RESEARCH EXECUTIVE) Anatomical Region Laterality Modality FEET, FOOT R Computed Radiogr aphy 07/16/2024 10:5 6 AM RESEARCH EXECUTIVE Narrative 07/16/2024 10:56 AM RESEARCH EXECUTIVE For Patients: As a result of the Cures Act, medical imaging exams and procedure reports are released immediately into your electronic medical record. You may view this report before your referring provider. If you have questions, please contact your health care provider. Indication: Right foot pain. Technique: Right foot 3 views Comparison: None Findings: Multifocal narrowing and spurring at the tarsometatarsal joints with reactive subchondral cystic change. Plantar and posterior calcaneal spurs. Multiple hammertoes. Chronic changes involving the 4th metatarsal diaphysis. No acute fracture. 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 Dictated by Shashi Hobbs MD @ 07/16/2024 10:56:28 AM (Electronically Signed) Procedure Note Shashi Hobbs MD - 07/16/2024 For Patients: As a result of the Cures Act, medical imagingexams and procedure reports are released immediately into your electronicmedical record. You may view this report before your referring provider.If you have questions, please contact your health care provider. Indication: Right foot pain. Technique: Right foot 3 views Comparison: None Findings: Multifocal narrowing and spurring at the tarsometatarsal joints withreactive subchondral cystic change. Plantar and posterior calcaneal spurs.Multiple hammertoes. Chronic changes involving the 4th metatarsaldiaphysis. No acute fracture. 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 Dictated by Shashi Hobbs MD @ 07/16/2024 10:56:28 AM (Electronically Signed) us Lakeshia Gee MD GENERAL IMAGING Final R esult * XR ANKLE 3 VIEWS RIGHT (07/15/2024 1:55 PM RESEARCH EXECUTIVE) Anatomical Region Laterality Modality ANKLES, ANKLE R Computed Radiogr aphy 07/16/2024 10:5 5 AM RESEARCH EXECUTIVE Narrative 07/16/2024 10:55 AM RESEARCH EXECUTIVE For Patients: As a result of the Cures Act, medical imaging exams and procedure reports are released immediately into your electronic medical record. You may view this report before your referring provider. If you have questions, please contact your health care provider. Indication: Chronic pain of right ankle Technique: Right ankle 3 views Comparison: None Findings: Lateral angulation of the talar dome with widening at the lateral mortise measuring 8 millimeters. Narrowing at the medial tibiotalar joint. Chronic hypertrophic change at the tip of the lateral malleolus with extensive inferior osteophyte formation. Multiple chronic ossicles at the medial ankle. Soft tissue swelling and joint effusion. Midfoot degenerative joint disease, multifocal. Calcaneal spurs. Impression: Multifocal midfoot and hindfoot degenerative joint disease with prominent hypertrophic changes, soft tissue swelling, joint effusion and abnormal alignment of the talus with widening of the lateral mortise. Dictated by Shashi Hobbs MD @ 07/16/2024 10:55:05 AM (Electronically Signed) Procedure Note Shashi Hobbs MD - 07/16/2024 For Patients: As a result of the Cures Act, medical imagingexams and procedure reports are released immediately into your electronicmedical record. You may view this report before your referring provider.If you have questions, please contact your health care provider. Indication: Chronic pain of right ankle Technique: Right ankle 3 views Comparison: None Findings: Lateral angulation of the talar dome with widening at the lateral mortisemeasuring 8 millimeters. Narrowing at the medial tibiotalar joint. Chronichypertrophic change at the tip of the lateral malleolus with extensiveinferior osteophyte formation. Multiple chronic ossicles at the medialankle. Soft tissue swelling and joint effusion. Midfoot degenerative jointdisease, multifocal. Calcaneal spurs. Impression: Multifocal midfoot and hindfoot degenerative joint disease with prominenthypertrophic changes, soft tissue swelling, joint effusion and abnormalalignment of the talus with widening of the lateral mortise. Dictated by Shashi Hobbs MD @ 07/16/2024 10:55:05 AM (Electronically Signed) us Lakeshia Gee MD GENERAL IMAGING Final R esult * [place] NJX AA&/STRD TFRML EPI LUMBAR/SACRAL 1 LEVEL (06/30/2024 12:00 AM RESEARCH EXECUTIVE) us Ramírez Simons MD PB - NERVOUS SYSTEM SERVIC ES Final Result * XR DEXA BONE DENSITY 2 SITES [[id number]] (04/05/2015 10:59 AM RESEARCH EXECUTIVE) Anatomical Region Laterality Modality Spine, HIPS, HIPL, HIPR Other Narrative 04/08/2015 7:26 AM RESEARCH EXECUTIVE Please see scanned document for results of this study. 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
[2024-07-25 19:50] VITALS: BP 133/75; PULSE 93; RESP 18; TEMP 37.2; O2SAT 96; BMI 38.6
--- NOTE | 2024-07-25 20:04 | ED_ITS ---
HPI - General Adult General Chief complaint: Skin/Abscess/Foreign Body Stated complaint: Right leg/groin rash Time Seen by Provider: 07/25/24 19:51 Source: patient Mode of arrival: ambulatory Limitations: no limitations History of Present Illness HPI narrative: 84-year-old female presents today with a rash under the pannus on the right side that she noticed this evening. She stated that she noticed area was tender and moist. She denies any systemic symptoms. Denies noticing abnormalities in the area prior to today. Related Data Home Medications ?Medication ?Instructions ?Recorded ?Confirmed fluticasone propionate 50 1 spray intranasal BID PRN 12/04/21 01/24/24 mcg/actuation nasal spray,suspension losartan 100 mg tablet 100 mg PO DAILY 12/04/21 01/24/24 acetaminophen 500 mg tablet 500 mg PO Q6H PRN 12/05/21 01/24/24 (Tylenol Extra Strength) amlodipine 10 mg tablet 10 mg PO QDAY 12/05/21 01/24/24 bupropion HCl 150 mg 24 hr tablet, 150 mg PO DAILY 12/05/21 01/24/24 extended release pregabalin 150 mg capsule 150 mg PO Q12H 12/05/21 01/24/24 ropinirole 2 mg tablet 2 mg PO BID 12/05/21 01/24/24 hydrochlorothiazide 25 mg tablet 25 mg PO DAILY 08/15/23 01/24/24 oxycodone 5 mg tablet 5 mg PO DAILY 10/23/23 01/24/24 Previous Rx's ?Medication ?Instructions ?Recorded pregabalin 150 mg capsule 150 mg PO BID #180 caps 12/06/23 furosemide 20 mg tablet 20 mg PO QAM #3 tabs 01/24/24 nystatin 100,000 unit/gram topical 1 applic topical TID #30 grams 07/25/24 powder Allergies Allergy/AdvReac Type Severity Reaction Status Date / Time atenolol Allergy Intermediate shortness Verified 06/30/24 10:55 of breath lisinopril Allergy Mild Cough Verified 06/30/24 10:55 morphine Allergy Mild nausea/vomi Verified 06/30/24 10:55 ting Review of Systems Status of ROS: Reports: 6 or more systems reviewed and unremarkable except as noted in History and below [facility] Medical History Contact dermatitis ?L25.9 - Unspecified contact dermatitis, unspecified cause (ICD-10) Neuropathy ?G62.9 - Polyneuropathy, unspecified (ICD-10) Arthritis ?M19.90 - Unspecified osteoarthritis, unspecified site (ICD-10) Sleep apnea ?G47.30 - Sleep apnea, unspecified (ICD-10) Asthma ?J45.909 - Unspecified asthma, uncomplicated (ICD-10) Hypertension ?I10 - Essential (primary) hypertension (ICD-10) Fracture of rib ?S22.39XA - Fracture of one rib, unspecified side, initial encounter for closed fracture (ICD-10) Surgical History History of revision of total knee arthroplasty ?Z96.659 - Presence of unspecified artificial knee joint (ICD-10) H/O: hysterectomy (~1994) ?Z90.710 - Acquired absence of both cervix and uterus (ICD-10) History of total right knee replacement (~11/2001) ?Z96.651 - Presence of right artificial knee joint (ICD-10) History of total left knee replacement (~01/2003) ?Z96.652 - Presence of left artificial knee joint (ICD-10) Avulsion of toenail ?S91.209A - Unspecified open wound of unspecified toe(s) with damage to nail, initial encounter (ICD-10) Social History Smoking Status: Never smoker Do you use any of these nicotine containing products: None Second hand tobacco smoke exposure: No How often do you have a drink containing alcohol: never How often do you have six or more drinks on one occasion: Never AUDIT-C Alcohol total score: 0 Non-prescribed substance use: denies use service: No Exam Narrative: Exam Narrative: Well-nourished well-developed patient in no acute distress. Alert and oriented. Answers questions appropriately. Mood and affect are appropriate. Thoughts are goal oriented and rational. No tangential or magical thinking noted. Patient speaks in full sentences without needing to catch her breath. HEENT: Normocephalic atraumatic. Conjunctivae are moist without any icterus noted. Moist mucous membranes. Abdomen: Soft and nontender nondistended with normal bowel sounds. Skin: Well perfused. Under the pannus on the right side patient has an erythematous moist rash consistent with a cutaneous fungal infection. At his are elevated. Skin is macerated. Const: Vital Signs, click to edit/add: Vital Signs - 24 hr 07/25/24 19:50 Temperature 98.9 F Pulse Rate [Pulse Oximeter] 93 Respiratory Rate 18 Blood Pressure [Ri ght Upper Arm] 133/75 Pulse Oximetry 96 Oxygen Delivery Me thod Room Air Course Course ED Course: Area was cleaned nystatin powder was applied. Vital Signs Vital signs: Initial Vital Signs Temperature 98.9 F 07/25/24 19:50 Temperature Source Temporal Artery Scan 07/25/24 19:50 Pulse Rate 93 07/25/24 19:50 Respiratory Rate 18 07/25/24 19:50 Blood Pressure 133/75 07/25/24 19:50 Blood Pressure Mean 94 07/25/24 19:50 Blood Pressure Position Sitting 07/25/24 19:50 Pulse Oximetry 96 07/25/24 19:50 Oxygen Delivery Method Room Air 07/25/24 19:50 Vital Signs Temperature 98.9 F 07/25/24 19:50 Pulse Rate 93 07/25/24 19:50 Respiratory Rate 18 07/25/24 19:50 Blood Pressure 133/75 07/25/24 19:50 Pulse Oximetry 96 07/25/24 19:50 Oxygen Delivery Method Room Air 07/25/24 19:50 Temperature 98.9 F 07/25/24 19:50 Pulse Rate 93 07/25/24 19:50 Respiratory Rate 18 07/25/24 19:50 Blood Pressure 133/75 07/25/24 19:50 Pulse Oximetry 96 07/25/24 19:50 Oxygen Delivery Method Room Air 07/25/24 19:50 Medications Administered Medications: Discontinued Medications Generic Name Dose Route Start Last Admin Trade Name Freq PRN Reason Stop Dose Admin Nystatin 1 applic 07/25/24 20:04 07/25/24 20:22 Nystatin Powder TOPICAL 07/25/24 20:05 1 applic ONCE ONE Administration Medical Decision Making MDM Narrative Medical decision making narrative: 84-year-old female with an intertriginous fungal infection. Will treat with Nystatin powder. Discussed hygiene. Discharge Plan Discharge Clinical Impression: Fungal infection of skin Patient Disposition: Home, Self-Care Condition: Stable Instructions: Skin Yeast Infection (ED) Additional Instructions: Keep skin clean and dry. Okay to wash with soapy water once daily then pat dry. Gently pat dry frequently throughout the day with a clean washcloth. Use nystatin powder 3 times per day until rash disappears. Follow-up with your primary care provider in 3-4 days to make sure it is healing appropriately. Prescriptions: New nystatin 100,000 unit/gram powder 1 applic topical TID Qty: 30 0RF No Action losartan 100 mg tablet 100 mg PO DAILY fluticasone propionate 50 mcg/actuation spray,suspension 1 spray intranasal BID PRN Rx Instructions: administer into each nostril pregabalin 150 mg capsule 150 mg PO Q12H amlodipine 10 mg tablet 10 mg PO QDAY ropinirole 2 mg tablet 2 mg PO BID bupropion HCl 150 mg tablet extended release 24 hr 150 mg PO DAILY acetaminophen [Tylenol Extra Strength] 500 mg tablet 500 mg PO Q6H PRN furosemide 20 mg tablet 20 mg PO QAM Qty: 3 0RF hydrochlorothiazide 25 mg tablet 25 mg PO DAILY oxycodone 5 mg tablet 5 mg PO DAILY pregabalin 150 mg capsule 150 mg PO BID Qty: 180 0RF Follow Up/Referrals: Lakeshia Gee MD [Primary Care Provider] - Stand Alone Forms: [employer] Info Instructions
[2024-07-25] MEDS: NYSTATIN POWDER 1 APPLIC TOPICAL (20:22)
--- OUTSIDE RECORDS SUMMARY | 2024-07-25 20:38 | XMS_ITS | Clinical Summary ---
Author Organization [facility] Address [address] [place] [address] Care Team Providers Care Detasseling Crew Supervisor Name Role Phone Unavailable Primary Care Provider Unavailabl e Source Comments Patient records contain information from all sites at [facility]. For routine questions regarding patient records, call [phone] during business hours, M-F 8:00 AM - 5:00 PM Central Time. 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
--- OUTSIDE RECORDS SUMMARY | 2024-07-25 20:39 | XMS_ITS | Clinical Summary ---
Author Organization [facility] Address [address] , [address] [place] [address] Phone Care Team Providers Care State Farm Agent Name Role Phone [facility] Unavailable Unava ilable Conditions or Problems Problem Name Problem Code Onset Date Status Entry Date Provider Comment Standard Description Annotate Polyneuropathy [id number] (SNOMED CT) 08/31 Active 08/31 Tony Stringer MD Polyneuropathy Medications Medication Instructions Start Date Stop Date Generic Name NDC Provider GABAPENTIN 600 MG TABS gabapentin [id number] Tony Stringer MD PREGABALIN 150 MG CAPS 150 mg by mouth twice a day 4 pregabalin [id number] Tony Stringer MD BUPROPION HCL ER (XL) 150 MG [id number] bupropion hcl [id number] Tony Stringer MD FERROUS GLUCONATE 324 (38 Fe) MG TABS ferrous gluconate 01491399680 Tony Stringer MD FUROSEMIDE 20 MG TABS furosemide [id number] Tony Stringer MD ROPINIROLE HCL 2 MG TABS ropinirole [id number] Tony Stringer MD LOSARTAN POTASSIUM 100 MG TABS losartan 04237760252 Tony Stringer MD AMLODIPINE BESYLATE 10 MG TABS amlodipine 93838631532 Tony Stringer MD GABAPENTIN 600 MG TABS gabapentin 27729036757 Tony Stringer MD Medications Administered No information available. Allergies, Adverse Reactions, Alerts Allergy Name Reaction Description Start Date Severity Statu s Provider MORPHINE Moderate Active Tony Stringer MD LISINOPRIL Moderate Active Tony Stringer MD ATENOLOL Severe Active Tony Stringer MD Results Date Name Value Unit Range Flag Description Lab Report: 10/13/20 - 07/19/21 ABSOLUTE MON 0.6 10*3/uL Monocyte s [#/volume] in Blood GLOBULIN SER 3.0 Globulin , Serum EGFR NOT AFA >60 mL/min/1. 73m2 Glomerular filtratio n rate/1.73 sq M.predicted among non-blacks [Volume Rate/Area] in Serum, Plasma or Blood by Creatinine-based formula (MDRD) ABS EOS 0.3 {Cells}/u L Eosinophils [#/volume] in Blood CA 10.0 mg/dL Calcium [Mass /volume] in Serum or Plasma ABSOLUTE BAS 0.0 10*3/uL Basophil s [#/volume] in Blood ABS LYMPHOCY 1.7 10*3/uL Absolute Lymphocytes ABS NEUTROPH 4.3 10*3/uL Neutroph ils [#/volume] in Blood GFR >60 mL/min Glomerular fi ltration rate/1.73 sq M.predicted among non-blacks [Volume Rate/Area] in Serum, Plasma or Blood by Creatinine-based formula (MDRD) NON-HDL CHOL 133 mg/dL choleste rol, non-HDL, total % BASO AUTO 0.4 % basophils as percent of blood leukocytes, automated count % EOS AUTO 4.8 % Eosinophil s/100 leukocytes in Blood by Automated count CHOL/HDL 3.71 cholesterol/ HDL ratio, serum CO2 TOTAL 27 mmol/L carbon diox hillary, serum, total GLUCOSE SER 103 mg/dL Glucose [ Mass/volume] in Serum or Plasma TRIGLYC TOT 160 mg/dL Triglycer hillary [Mass/volume] in Serum or Plasma - mg/dL BILI INDIREC 0.2 mg/dL bilirubi n, serum, indirect MPV 9.3 fL Platelet mean volume [Entitic volume] in Blood by Stacie CRP 0.57 mg/dL C reactive pr otein [Mass/volume] in Serum or Plasma BUN/CREAT 22 Urea nitrogen/Creatinine [Mass Ratio] in Serum or Plasma IRON SATUR % 28 % Iron sat uration [Mass Fraction] in Serum or Plasma MONOCYTE % 8.6 % Monocytes/ 100 leukocytes in Blood by Automated count TIBC 266 ug/dL Iron binding capacity [Mass/volume] in Serum or Plasma MCH 29.5 pg MCH [Entitic mass] by Automated count RDW 15.1 % Erythrocyte distribution width [Ratio] by Automated count MCHC 32.8 % MCHC [Mass/vo lume] by Automated count PMN % 61.9 % Neutrophils/1 00 leukocytes in Blood by Automated count MCV 90 fL MCV [Entitic volume] by Automated count ANION GAP 7 Anion gap 4 in Serum or Plasma SODIUM 142 mmol/L Sodium [Moles /volume] in Serum or Plasma IRON 74 ug/dL Iron [Mass/vo lume] in Serum or Plasma A/G RATIO 1.3 Albumin/Alice bulin [Mass Ratio] in Serum or Plasma WBC 6.9 10*3/mm3 Leukocytes [ #/volume] in Blood by Automated count RBC 4.81 10*6/mm3 Erythrocytes [#/volume] in Blood by Automated count PLATELETS 233 10*3/mm3 Platelets [#/volume] in Blood by Automated count HGB 14.2 g/dL Hemoglobin [Mass/volume] in Blood HCT 43.3 % Hematocrit [V olume Fraction] of Blood by Automated count BILI TOTAL 0.4 mg/dL Bilirubin. total [Mass/volume] in Serum or Plasma SGPT (ALT) 22 U/L Alanine aminotransferase [Enzymatic activity/volume] in Serum or Plasma SGOT (AST) 24 U/L Aspartate aminotransferase [Enzymatic activity/volume] in Serum or Plasma PROTEIN, TOT 7.0 g/dL Protein [Mass/volume] in Serum or Plasma POTASSIUM 4.3 mmol/L Potassium [Moles/volume] in Serum or Plasma LDL 101 mg/dL Cholesterol i n LDL [Mass/volume] in Serum or Plasma - mg/dL HGBA1C 5.5 % Hemoglobin A1c/Hemoglobin, total in Blood - % HDL 49 mg/dL Cholesterol i n HDL [Mass/volume] in Serum or Plasma - mg/dL FERRITIN 499.3 ng/mL Ferritin [Mass/volume] in Serum or Plasma BILI DIRECT 0.2 mg/dL Bilirubin .direct [Mass/volume] in Serum or Plasma CREATININE 0.81 mg/dL Creatinine [Mass/volume] in Serum or Plasma CHOLESTEROL 182 mg/dL Cholester ol [Mass/volume] in Serum or Plasma - mg/dL CHLORIDE 108 mmol/L Chloride [Moles/volume] in Serum or Plasma BUN 18 mg/dL Urea nitrogen [Mass/volume] in Serum or Plasma ALK PHOS 82 U/L Alkaline sebastian sphatase [Enzymatic activity/volume] in Blood ALBUMIN 4.0 g/dL Albumin [Mass /volume] in Serum or Plasma Office Visit: Office Visit N europathy Bilateral legs and feet. 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 Internal Other: Verbal Autho rization/Emergency Contact - OBS VERBAL_EMER DONE Verbal au thorization and emergency contact Internal Other: Authorizatio n - OBS [email or web address] Yes Authoriza tion: Release of Information - Authorize [facility] - Payment and Healthcare Operations ROIAUTHOTHER Yes Authoriz ation: Release of Information - Authorize Others/Insurance - Payment and Healthcare Operations HIECONSENT Yes Consent To Release information to the Health Information Exchange (HIE) [email or web address] Yes Authorizat ion: Authorization for [facility] to leave messages, voicemail, send text messages, send emails AUTHRELHCARE Yes Authoriz ation: Release/Retrieval of Information to/from Healthcare Facilities, Pharmacy Benefit Payers and Providers AUTHPRIVPRAC Yes Authoriz ation: Notice of privacy practices AUTHBENEFIT Yes Authoriza tion: Assignment of Benefits and Payment Agreement Plan of Care Type Date Detail Pending order Follow up ELISSA in clinic Pending order Follow up ELISSA in clinic Procedures Code Procedure Name Date Entry Date [facility]-[id number] Documentation of current medicatio ns Vital Signs Date Name Value Unit Description BMI (Body Mass Index) 43.03 kg/m2 Bod y Mass Index (Ratio) Height 62.6 [in_us] height E&M Weight Measured 108.64 kg weight in kilograms E&M Weight Measured 239 [lb_av] weight E& M Body Temperature 36.72 [degF] temperat ure E&M BP Diastolic 73 mm[Hg] blood pressu re, diastolic BP Systolic 129 mm[Hg] blood pressur e, systolic Heart Rate 95 /min pulse rate Immunizations No information available. Advance Directives No information available.
--- OUTSIDE RECORDS SUMMARY | 2024-07-25 20:39 | XMS_ITS | Clinical Summary ---
Author Organization [employer] [facility] Address [address] [place] [address] Care Team Providers Care Grain Shipper Name Role Phone Margarito Isidro MD Unavailable GeradrLakeshia vincent MD Primary Care Provider [facility] Unavailable Allergies Active Allergy Reactions Criticality Noted [...] Type Department Care Team Description 07/20/2024 Refill [facility] [address] [place] [address] Lakeshia Gee MD Refill Request (Losartan) 07/16/2024 Refill [facility] [address] [place] [address] Lakeshia Gee MD Refill Request (Amlodipine) 07/15/2024 2:00 PM MACHINE LONG GOODS HELPER Ancillary Procedure [facility] [address] [place] [address] 07/15/2024 1:45 PM MACHINE LONG GOODS HELPER Ancillary Procedure [facility] [address] [place] [address] 07/15/2024 1:10 PM MACHINE LONG GOODS HELPER Office Visit [facility] [address] [place] [address] Lakeshia Gee MD Follow Up (Cellulitis, finished antibiotic today and it has not changed.) 07/14/2024 Travel 07/14/2024 Telephone [facility] [address] [place] [address] Margarito Isidro MD Questions (Restless legs) 07/08/2024 10:45 AM MACHINE LONG GOODS HELPER Office Visit [facility] [address] [place] [address] Libertad Merrill MD Foot Problem (R foot pain/swelling- no injury) 07/08/2024 Travel 07/06/2024 Telephone [facility] [address] [place] [address] Lakeshia Gee MD Referral (ORTHO) 07/06/[address] [address] Margarito Isidro MD Refill Request (Ropinirole) 07/03/[address] [address] Lakeshia Gee MD Referral; RETURN CALL 06/30/2024 11:00 AM MACHINE LONG GOODS HELPER Office Visit [facility] at [address] [id number] Ramírez Simons MD Procedure (Left L3-4 and L4-5 TFESI) 06/26/2024 Travel 06/26/[address] [address] Margarito Isidro MD Refill Request (can oxyCODONE 10 mg tablet 60 Tablet get renewed) 06/15/[address] [address] Ramírez Simons MD other (requesting a call back ) 05/25/2024 10:20 AM MACHINE LONG GOODS HELPER Office Visit [address] [address] Lakeshia Gee MD Foot Problem (Swelling and pain in right foot and ankle mainly down the instep on her foot. Rash just above the ankle.); Medication Management (HTCZ has requested many times through the pharmacy an it not refilled. Discuss weight loss medications (injectables).); Immunization/Inject ion 05/25/2024 Refill [facility] [address] [place] [address] Margarito Isidro MD Refill Request; OXYCODONE 05/25/2024 Refill [facility] [address] [place] [address] Margarito Isidro MD Refill Request (Oxycodone HCL oral tablet 10mg) 05/25/2024 Travel 05/20/2024 Travel 04/27/2024 10:30 AM MACHINE LONG GOODS HELPER Office Visit [facility] [address] [place] [address] Margarito Isidro MD Sleep Follow-up 04/27/2024 Travel from Last 3 Months Immunizations Immunization Administration Dates Next Due Amb Influenza, Inact (High-d ose) (Flu Clinic Only) 02/23/2014 COVID-19 vaccine (Gingerd 30mcg/0.3mL) PF, MDV 09/26/2021,08/18/2020,07/28/2020 Influenza RIV4 (Age [...] on file Legal Sex Female 6:13 AM MACHINE LONG GOODS HELPER Gender Identity Not on file Sexual Orientation Not on file Obstetrics History Para Term AB IAB SAB Ectopic Multiple Livin g Live Births 5 1 1 1 1 1 Date Outcome GA Total Labor Labor/2nd/3rd Weight Sex Type Anes PTL Amairani A1 A5 Name Clin Term Living Last Filed Vital Signs Vital Sign Reading Time Taken Comments Blood Pressure 121/62 07/15/2024 12:59 PM MACHINE LONG GOODS HELPER Pulse 90 07/15/2024 12:59 PM MACHINE LONG GOODS HELPER Temperature 36.9 C (98.4 F) 10/25/2023 10:18 AM CDT Respiratory Rate 18 06/29/2019 10:2 3 AM MACHINE LONG GOODS HELPER Oxygen Saturation 95% 07/15/2024 12: 59 PM MACHINE LONG GOODS HELPER Inhaled Oxygen Concentration - - Weight 100.6 kg (221 lb 12.8 oz) 2023 10:18 AM CDT Height 156.5 cm (5' 1.61) 04/27/2024 1 0:15 AM MACHINE LONG GOODS HELPER Body Mass Index 41.08 07/03/2023 10:33 AM MACHINE LONG GOODS HELPER Plan of Treatment Upcoming Encounters Date Type Department Care Team (Late st Contact Info) Description 07/29/2024 2:45 PM CDT Office Visit [facility] [address] [place] [address] Julio César Hills DPM [address] [place] [address] 09/07/2024 11:00 AM CDT Office Visit [facility] [address] [place] [address] Margarito Isidro MD [address] [place] [address] Health Maintenance Due Date Last Done Comments [...] history exists Medical Devices Implanted Type Area Risk Investigator Device Identifier Shelf Expiration Date Model / Serial / Lot Mesh Pelvic 24x3cm Restorelle Y Contour - [id number] Implanted:Qty: 1 on 06/22/2014 by Gail Richmond MD at [facility] N/A: Urinary Bladder [employer] 02/19/2017 [id number] / [id number] / [id number] Procedures Procedure Name Priority Date/Time Associated Diagnosis Comments XR FOOT 3 VIEWS RIGHT Routine 07/15/2024 1:55 PM MACHINE [employer] GOODS HELPER Foot pain, right XR ANKLE 3 VIEWS RIGHT Routine 07/15/2024 1:55 PM MACHINE [employer] HELPER Chronic pain of right ankle AMB EPIDURAL STEROID INJECTION Routine 06/30/2024 8:05 AM MACHINE [employer] GOODS HELPER Lumbar radiculopathy Spinal stenosis of lumbar region with neurogenic claudication DE NJX AA&/STRD TFRML EPI LUMBAR/SACRAL 1 LEVEL Routine 06/30/2024 12:00 AM MACHINE [employer] HELPER Lumbar radiculopathy Spinal stenosis of lumbar region with neurogenic claudication XR DXA BONE DENSITY 2 SITES AXIAL Routine 04/05/2015 10:59 AM MACHINE LONG GOODS HELPER Asymptomatic menopausal state from Last 3 Months or Most Recently Relevant to Health Maintenance Results * XR FOOT 3 VIEWS RIGHT (07/15/2024 1:55 PM MACHINE LONG GOODS HELPER) Anatomical Region Laterality Modality FEET, FOOT R Computed Radiogr aphy 07/16/2024 10:5 6 AM MACHINE LONG GOODS HELPER Narrative 07/16/2024 10:56 AM MACHINE LONG GOODS HELPER For Patients: As a result of the [...] ANKLE 3 VIEWS RIGHT (07/15/2024 1:55 PM MACHINE LONG GOODS HELPER) Anatomical Region Laterality Modality ANKLES, ANKLE R Computed Radiogr aphy 07/16/2024 10:5 5 AM MACHINE LONG GOODS HELPER Narrative 07/16/2024 10:55 AM MACHINE LONG GOODS HELPER For Patients: As a result of the [...] MD GENERAL IMAGING Final R esult * DE NJX AA&/STRD TFRML EPI LUMBAR/SACRAL 1 LEVEL (06/30/2024 12:00 AM MACHINE LONG GOODS HELPER) us Ramírez Simons MD PB - NERVOUS SYSTEM SERVIC ES Final Result * XR DEXA BONE DENSITY 2 SITES [12441.1] (04/05/2015 10:59 AM MACHINE LONG GOODS HELPER) Anatomical Region Laterality Modality Spine, HIPS, HIPL, HIPR Other Narrative 04/08/2015 7:26 AM MACHINE LONG GOODS HELPER Please see scanned document for results of this study. 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
== END 2024-07-25 20:41 | disposition home or self-care (01) ==
PROVIDERS: Emergency Provider Family Medicine; PCP Family Medicine
DX: B36.8 Other specified superficial mycoses (principal)
CPT/HCPCS: 99283; 99284

== ENCOUNTER 2024-09-28 17:46 | Emergency (ER) | payer MEDICARE, BC, SELFPAY ==
--- OUTSIDE RECORDS SUMMARY | 2024-09-28 17:49 | XMS_ITS | Clinical Summary ---
Author Organization [facility] Address [address] [place] [id number] Care Team Providers Care Lawn Specialist Name Role Phone Margarito Isidro MD Unavailable GerardLakeshia vincent MD [facility] Allergies Active Allergy Reactions Criticality Noted [...] relief roll on 0 08/01/19 22 Active Ferrous Gluconate 324 mg (38 mg iron) tablet Take 324 mg by mouth. Active meclizine (ANTIVERT) 25 mg tabletIndications :Dizziness Take 1 Tablet (25 mg) by mouth 3 times daily if needed for Vertigo. 10 Tablet 10/08/19 24 Active CPAPIndications:O SA (obstructive sleep apnea) CPAP (E0601) machine for home use at pressure: 4-15cmw, Choice of mask (A7030 or A7034) w/full face cushion (A7031) x1/mo, nasal cushion (A7032) x2/mo, or nasal pillows (A7033) x 2/mo; Length of Need: 99 months; Frequency of use: Daily 1 Each 11 04/27/20 24 Active hydroCHLOROthiazi de 25 mg tabletIndications :Essential hypertension,Rex a of both legs Take 1 Tablet (25 mg) by mouth once daily. 90 Tablet 1 05/25/19 25 Active rOPINIRole (REQUIP) 2 mg tabletIndications :Restless legs syndrome (RLS) Take 2 mg orally at supper time and 1 hour before bedtime 180 Tablet 07/29/19 25 Active amLODIPine (NORVASC) 5 mg tabletIndications :Essential hypertension Take 1 Tablet (5 mg) by mouth once daily. 90 Tablet 1 07/29/19 25 Active buPROPion (WELLBUTRIN XL) 150 mg Extended-Release tabletIndications :Depression, recurrent Take 1 Tablet (150 mg) by mouth once daily. 90 Tablet 07/29/19 25 Active losartan (COZAAR) 100 mg tabletIndications :Essential hypertension Take 1 Tablet (100 mg) by mouth once daily. 90 Tablet 1 07/29/19 25 Active triamcinolone (ARISTOCORT; KENALOG) 0.1 % creamIndications: Stasis dermatitis of both legs Apply topically to affected area(s) two times daily. Use for up to 2 weeks at a time. 80 g 07/29/19 25 Active pregabalin 150 mg capsuleIndication s:Peripheral sensory-motor axonal polyneuropathy Take 1 Capsule (150 mg) by mouth three times daily. 90 Capsule 2 08/15/19 25 Active oxyCODONE 10 mg tabletIndications :Restless legs syndrome (RLS) Patient is to take 1 pill by mouth at supper time and then again before bed 60 Tablet 09/08/19 25 Active nystatin powder powderIndications :Yeast infection of the skin Apply 1 Strip topically to affected area(s) three times daily. 60 g 3 09/15/19 25 Active oxyCODONE 10 mg tabletIndications :Restless legs syndrome (RLS) Patient is to take 1 pill by mouth at supper time and then again before bed 60 Tablet 08/15/19 25 025 Discontin ued(Reord er (E-cancel not sent)) Active [...] complication healthcare Maintenance 12/30/2006 Overview (12/30/2006): Colonoscopy 1999 - recommended follow up in 5 years Resolved Problems Problem Noted Date Diagnosed Date Resolved Date Anticoagulation monitoring, special range (2.0 - 2.5) 07/26/2015 08/01/2015 Depression 04/07/2015 07/24/2024 SLEEP APNEA 03/10/2007 AHI- 34 98-supine 05/08/2007 01/27/2021 Unspecified sleep apnea 02/10/200704/20 Encounters Date Type Department Care Team Description 09/14/2024 Telephone [facility] [address] [place] [address] Lakeshia Gee MD Questions (Nystatin powder) 09/07/2024 11:00 AM CDT Office Visit [facility] [address] [place] [address] Margarito Isidro MD Sleep Follow-up 09/07/2024 Telephone [facility] [address] [place] [address] Ramírez Simons MD Injection (Medication) 09/07/2024 Travel 08/29/2024 Orders Only [facility] Scanner 1 scan: (1-Ord) LOCATED WITHIN [facility], COMPLIANCE REPORT, 08/29/2024 08/19/2024 2:45 PM CDT Office Visit [facility] [address] [place] [address] Julio César Hills DPM Follow Up (Right foot/ankle) 08/19/2024 Travel 08/16/2024 Travel 08/13/2024 Telephone [facility] [address] [place] [address] Margarito Isidro MD Pharmacist Medication Management (pregabalin (LYRICA) 150 mg capsule and oxyCODONE 10 mg tablet) 08/06/2024 Telephone [facility] [address] [place] [address] Julio César Hills DPM Appointment Request (RIGHT FOOT INJECTION PAIN) 07/29/2024 2:45 PM CDT Office Visit [facility] [address] [place] [address] Julio César Hills DPM Consult (Right foot pain) 07/28/[address] [address] Margarito Isidro MD Questions (Patient is unsure if provider will reorder oxyCODONE 10 mg tablet /) 07/28/2024 Telephone [facility] [address] [place] [address] Lakeshia Gee MD Med Change Request 07/28/2024 Travel 07/27/2024 Refill [facility] [address] [place] [address] Margarito Isidro MD Refill Request (rOPINIRole (REQUIP) 2 mg tablet, oxyCODONE 10 mg tablet & pregabalin (LYRICA) 150 mg capsule ) 07/27/2024 Telephone [facility] [address] [place] [address] Lakeshia Gee MD Error-please disregard 07/27/2024 Telephone [facility] [address] [place] [address] Lakeshia Gee MD Error-please disregard 07/27/2024 Refill [facility] [address] [place] [address] Lakeshia Gee MD Refill Request (Amlodipine, triamcinolone, bupropion, losartan ) 07/27/2024 Refill [facility] [address] [place] [address] Margarito Isidro MD Refill Request (Oxycodone HCL Oral tablet 10 mg ) 07/26/2024 Refill [facility] [address] [place] [address] Lakeshia Gee MD Refill Request (Bupropion) 07/20/2024 Refill [facility] [address] [place] [address] Lakeshia Gee MD Refill Request (Losartan) 07/16/2024 Refill [facility] [address] [place] [address] Lakeshia Gee MD Refill Request (Amlodipine) 07/15/2024 2:00 PM VERIFICATION REP Ancillary Procedure [address] [address] 07/15/2024 1:45 PM VERIFICATION REP Ancillary Procedure [address] [address] 07/15/2024 1:10 PM VERIFICATION REP Office Visit [address] [address] Lakeshia Gee MD Follow Up (Cellulitis, finished antibiotic today and it has not changed.) 07/14/2024 Travel 07/14/[address] [address] Margarito Isidro MD Questions (Restless legs) 07/08/2024 10:45 AM VERIFICATION REP Office Visit [address] [address] Libertad Merrill MD Foot Problem (R foot pain/swelling- no injury) 07/08/2024 Travel 07/06/[address] [address] Lakeshia Gee MD Referral (ORTHO) 07/06/[address] [address] Margarito Isidro MD Refill Request (Ropinirole) 07/03/[address] [address] Lakeshia Gee MD Referral; RETURN CALL from Last 3 Months Immunizations Immunization Administration Dates Next Due Amb Influenza, Inact (High-d ose) (Flu Clinic Only) 02/23/2014 COVID-19 vaccine ([employer] 30mcg/0.3mL) RICHELLE VELAZQUEZ 09/26/2021,08/18/2020,07/28/2020 Influenza RIV4 (Age [...] on file Legal Sex Female 6:13 AM VERIFICATION REP Gender Identity Not on file Sexual Orientation Not on file Obstetrics History Para Term AB IAB SAB Ectopic Multiple Livin g Live Births 5 1 1 1 1 1 Date Outcome GA Total Labor Labor/2nd/3rd Weight Sex Type Anes PTL Amairani A1 A5 Name Clin Term Living Last Filed Vital Signs Vital Sign Reading Time Taken Comments Blood Pressure 154/80 09/07/2024 10:58 AM CDT Pulse 89 09/07/2024 10:58 AM CDT Temperature 36.7 C (98 F) 08/19/2024 2:46 PM CDT Respiratory Rate 18 06/29/2019 10:2 3 AM VERIFICATION REP Oxygen Saturation 95% 09/07/2024 10: 58 AM CDT Inhaled Oxygen Concentration - - Weight 100.6 kg (221 lb 12.8 oz) 2023 10:18 AM CDT Height 156.5 cm (5' 1.61) 09/07/2024 1 0:58 AM CDT Body Mass Index 41.08 07/03/2023 10:33 AM VERIFICATION REP Plan of Treatment Upcoming Encounters Date Type Department Care Team (Late st Contact Info) Description 12/21/2024 11:30 AM CDT Office Visit [facility] [address] [place] [address] Margarito Isidro MD [address] [place] [address] Health Maintenance Due Date Last Done Comments [...] for age 50+ Completed 06/30/2018, 03/27/2018, 06/16/2010 Influenza Vaccine Completed 05/25/2024, , 01/28/2020, Additional history exists Medical Devices Implanted Type Area Auto Porter Device Identifier Shelf Expiration Date Model / Serial / Lot Mesh Pelvic 24x3cm Restorelle Y Contour - [id number] Implanted:Qty: 1 on 06/22/2014 by Gail Richmond MD at [facility] N/A: Urinary Bladder [employer] 02/19/2017 [id number] / [id number] / [id number] Procedures Procedure Name Priority Date/Time Associated Diagnosis Comments SCAN-DIAGNOSTIC REPORT 08/29/2024 12:00 AM CDT XR FOOT 3 VIEWS RIGHT Routine 07/15/2024 1:55 PM VERIFICATION REP Foot pain, right XR ANKLE 3 VIEWS RIGHT Routine 07/15/2024 1:55 PM VERIFICATION REP Chronic pain of right ankle XR DXA BONE DENSITY 2 SITES AXIAL Routine 04/05/2015 10:59 AM VERIFICATION REP Asymptomatic menopausal state from Last 3 Months or Most Recently Relevant to Health Maintenance Results * SCAN-DIAGNOSTIC REPORT (08/29/2024 12:00 AM CDT) us Scanner OTHER Final Result * XR FOOT 3 VIEWS RIGHT (07/15/2024 1:55 PM VERIFICATION REP) Anatomical Region Laterality Modality FEET, FOOT R Computed Radiogr aphy 07/16/2024 10:5 6 AM VERIFICATION REP Narrative 07/16/2024 10:56 AM VERIFICATION REP For Patients: As a result of the [...] ANKLE 3 VIEWS RIGHT (07/15/2024 1:55 PM VERIFICATION REP) Anatomical Region Laterality Modality ANKLES, ANKLE R Computed Radiogr aphy 07/16/2024 10:5 5 AM VERIFICATION REP Narrative 07/16/2024 10:55 AM VERIFICATION REP For Patients: As a result of the [...] For Patients: As a result of the s Act, medical imagingexams and procedure reports are [...] GENERAL IMAGING Final R esult * XR DEXA BONE DENSITY 2 SITES [63576.1] (04/05/2015 10:59 AM VERIFICATION REP) Anatomical Region Laterality Modality Spine, HIPS, HIPL, HIPR Other Narrative 04/08/2015 7:26 AM VERIFICATION REP Please see scanned document for results of this study. 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
--- OUTSIDE RECORDS SUMMARY | 2024-09-28 17:49 | XMS_ITS | Clinical Summary ---
Author Organization [facility] Address [address] , [address] [place] [address] Phone Care Team Providers Care Motion Picture Equipment Machinist Name Role Phone [facility] Unavailable Unava ilable Conditions or Problems Problem Name Problem Code Onset Date Status Entry Date Provider Comment Standard Description Annotate Polyneuropathy 45897683 (SNOMED CT) 08/31 Active 08/31 Tony Stringer MD Polyneuropathy Medications Medication Instructions Start Date Stop Date Generic Name NDC Provider GABAPENTIN 600 MG TABS gabapentin [id number] Tony Stringer MD PREGABALIN 150 MG CAPS 150 mg by mouth twice a day 4 pregabalin 50305307181 Tony Stringer MD BUPROPION HCL ER (XL) 150 MG [id number] bupropion hcl 26021564255 Tony Stringer MD FERROUS GLUCONATE 324 (38 Fe) MG TABS ferrous gluconate 92402927311 Tony Stringer MD FUROSEMIDE 20 MG TABS furosemide 10864062921 Tony Stringer MD ROPINIROLE HCL 2 MG TABS ropinirole 02838121070 Tony Stringer MD [place] POTASSIUM 100 MG TABS losartan 88200643812 Tony Stringer MD AMLODIPINE BESYLATE 10 MG TABS amlodipine 15408274575 Tony Stringer MD GABAPENTIN 600 MG TABS gabapentin 21997073161 Tony Stringer MD Medications Administered No information [...] medications (procedure) SMOK STATUS never smoker 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 Internal Other: Verbal Autho rization/Emergency [...] Procedures Code Procedure Name Date Entry Date [facility]-[id number] Documentation of current medicatio ns Vital Signs Date Name Value Unit Description BMI (Body Mass Index) 43.03 kg/m2 Bod y Mass Index (Ratio) Height 62.6 [in_us] height E&M Weight Measured 108.64 kg weight in kilograms E&M Weight Measured 239 [lb_av] weight E& M Weight Measured 239 [lb_av] weight E& M Body Temperature 36.72 [degF] temperat ure E&M BP Diastolic 73 mm[Hg] blood pressu re, diastolic BP Systolic 129 mm[Hg] blood pressur e, systolic Heart Rate 95 /min pulse rate Immunizations No information available. Advance Directives No information available.
--- OUTSIDE RECORDS SUMMARY | 2024-09-28 17:49 | XMS_ITS | Clinical Summary ---
Author Organization [facility] Address [address] [place] [address] Care Team Providers Care Donor Floor Technician Name Role Phone Unavailable Primary Care Provider Unavailabl e Source Comments Patient records contain information from all sites at [facility]. For routine questions regarding patient records, call [phone] during business hours, M-F 8:00 AM - 5:00 PM Central Time. 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
[2024-09-28 17:56] VITALS: BP 168/77; PULSE 95; RESP 20; TEMP 36.6; O2SAT 96; BMI 39.6
--- NOTE | 2024-09-28 18:10 | ED_ITS ---
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 Dorys states that she has undergone injections in her ankle in the past as recently as 1 month ago. The unfortunately at that time it did not help her discomfort. She continues to have pain and within the past couple of days noticed increasing size of her ankle. The swelling has now crept up onto her lower leg. She notes that she has been having chills but no fever. She does have an area of redness on her right foot and she initially attributed this to sitting out in the sun but she does not have the redness on her left foot. No vomiting. Denies any shortness of breath or history of DVT. She tried to get an appointment with Dr. Shira lane podiatry and he was not in today. She then tried to get an appointment with her [facility] primary care provider and was unsuccessful. No known trauma or injury. Related Data Home Medications ?Medication ?Instructions ?Recorded ?Confirmed fluticasone propionate 50 1 spray intranasal BID PRN 12/04/21 01/24/24 mcg/actuation nasal spray,suspension losartan 100 mg tablet 100 mg PO DAILY 12/04/21 09/28/24 acetaminophen 500 mg tablet 500 mg PO Q6H PRN 12/05/21 01/24/24 (Tylenol Extra Strength) amlodipine 10 mg tablet 10 mg PO QDAY 12/05/21 01/24/24 bupropion HCl 150 mg 24 hr tablet, 150 mg PO DAILY 12/05/21 09/28/24 extended release pregabalin 150 mg capsule 150 mg PO Q12H 12/05/21 09/28/24 ropinirole 2 mg tablet 2 mg PO BID 12/05/21 09/28/24 hydrochlorothiazide 25 mg tablet 25 mg PO DAILY 08/15/23 09/28/24 oxycodone 5 mg tablet 5 mg PO DAILY 10/23/23 01/24/24 amlodipine 5 mg tablet 5 mg PO 09/28/24 oxycodone 10 mg tablet mg PO 09/28/24 triamcinolone acetonide 0.1 % applic topical BID 09/28/24 topical cream Previous Rx's ?Medication ?Instructions ?Recorded pregabalin 150 mg capsule 150 mg PO BID #180 caps 12/06/23 furosemide 20 mg tablet 20 mg PO QAM #3 tabs 01/24/24 nystatin 100,000 unit/gram topical 1 applic topical TID #30 grams 07/25/24 powder Allergies Allergy/AdvReac Type Severity Reaction Status Date / Time atenolol Allergy Intermediate shortness Verified 06/30/24 10:55 of breath lisinopril Allergy Mild Cough Verified 06/30/24 10:55 morphine Allergy Mild nausea/vomi Verified 06/30/24 10:55 ting Review of Systems Status of ROS: Reports: 6 or more systems reviewed and unremarkable except as noted in History and below [facility] Medical History Contact dermatitis ?L25.9 - Unspecified contact dermatitis, unspecified cause (ICD-10) Neuropathy ?G62.9 - Polyneuropathy, unspecified (ICD-10) Arthritis ?M19.90 - Unspecified osteoarthritis, unspecified site (ICD-10) Sleep apnea ?G47.30 - Sleep apnea, unspecified (ICD-10) Asthma ?J45.909 - Unspecified asthma, uncomplicated (ICD-10) Hypertension ?I10 - Essential (primary) hypertension (ICD-10) Fracture of rib ?S22.39XA - Fracture of one rib, unspecified side, initial encounter for closed fracture (ICD-10) Surgical History History of revision of total knee arthroplasty ?Z96.659 - Presence of unspecified artificial knee joint (ICD-10) H/O: hysterectomy (~1994) ?Z90.710 - Acquired absence of both cervix and uterus (ICD-10) History of total right knee replacement (~11/2001) ?Z96.651 - Presence of right artificial knee joint (ICD-10) History of total left knee replacement (~01/2003) ?Z96.652 - Presence of left artificial knee joint (ICD-10) Avulsion of toenail ?S91.209A - Unspecified open wound of unspecified toe(s) with damage to nail, initial encounter (ICD-10) Social History Smoking Status: Never smoker Do you use any of these nicotine containing products: None Second hand tobacco smoke exposure: No How often do you have a drink containing alcohol: never How often do you have six or more drinks on one occasion: Never AUDIT-C Alcohol total score: 0 Non-prescribed substance use: denies use service: No Exam Narrative: Exam Narrative: Dorys is alert and oriented. She is a very pleasant well-spoken woman in no acute distress. Speech and mentation normal. Heart with regular rate and rhythm and lungs are clear bilaterally. Abdomen soft nontender. Lower extremity shows right ankle edema extending on to the lower 2/3 of the lower leg. She has tenderness noted over the lateral aspect of the ankle. She does have a superficial scrape in that area. Hemostatic. No drainage. She also has an area of erythema across the base of her toes on to the dorsum of the foot. It is warm to the touch. One can see where her sandal strap was and this is consistent with the left foot although the left foot does not have the erythema. She is able to move her ankle and foot without difficulty. She does note when she moves her ankle up and down it does hurt. Const: Vital Signs, click to edit/add: Vital Signs - 24 hr 09/28/24 17:56 09/28/24 20:05 Temperature 98 F Pulse Rate [Pulse Oximeter] 95 74 Respiratory Rate 20 16 Blood Pressure [Ri ght Upper Arm] 168/77 H 150/74 H Pulse Oximetry 96 95 Oxygen Delivery Me thod Room Air Room Air Documenting provider has reviewed patient's vital signs: yes Course Course ED Course: Differential diagnosis includes but is not limited to osteomyelitis, cellulitis, DVT. Will obtain CBC, basic panel, CRP as well as x-ray of the right ankle and ultrasound of the right lower extremity. Reevaluation(s) Reevaluation #1: At this time patient has negative lower extremity Doppler, x-ray of the right ankle that has an age indeterminate talar fracture. Will obtain CT of the right ankle as well as give 1 dose Ancef 1 g IV while awaiting results. Reevaluation #2: White count normal and CRP has a slight elevation of 1.3 Vital Signs Vital signs: Initial Vital Signs Temperature 98 F 09/28/24 17:56 Temperature Source Temporal Artery Scan 09/28/24 17:56 Pulse Rate 95 09/28/24 17:56 Respiratory Rate 20 09/28/24 17:56 Blood Pressure 168/77 H 09/28/24 17:56 Blood Pressure Mean 107 H 09/28/24 17:56 Pulse Oximetry 96 09/28/24 17:56 Oxygen Delivery Method Room Air 09/28/24 17:56 Vital Signs Temperature 98 F 09/28/24 17:56 Pulse Rate 95 09/28/24 17:56 Respiratory Rate 20 09/28/24 17:56 Blood Pressure 168/77 H 09/28/24 17:56 Pulse Oximetry 96 09/28/24 17:56 Oxygen Delivery Method Room Air 09/28/24 17:56 Temperature 98 F 09/28/24 17:56 Pulse Rate 74 09/28/24 20:05 Respiratory Rate 16 09/28/24 20:05 Blood Pressure 150/74 H 09/28/24 20:05 Pulse Oximetry 95 09/28/24 20:05 Oxygen Delivery Method Room Air 09/28/24 20:05 Medications Administered Medications: Discontinued Medications Generic Name Dose Route Start Last Admin Trade Name Freq PRN Reason Stop Dose Admin Cefazolin Sodium 1 gm/ Sodium 100 mls @ 200 mls/hr 09/28/24 19:40 09/28/24 20:02 Chloride IVPB 09/28/24 19:41 200 mls/hr ONCE ONE Administration MDM - Extremity Injury (Lower) MDM Narrative Medical decision making narrative: 1. Cellulitis-1 g Ancef given in the ED. Will continue with Keflex 500 mg p.o. q.i.d. x7 days. This was given via our [employer] machine. Count reassuring with slight elevation of CRP. Advised patient to look for gradual reduction in redness at the antibiotic is taking effect. She will need to return for worsening symptoms such as fever, increasing redness, increased swelling. 2. Ankle and lower leg swelling-likely from cellulitis but underlying CT/x-ray is significant for severe arthritic change. Recommend elevation and follow-up with primary MD. no indication of DVT on ultrasound 3. Disposition-home at this time. Antibiotics as directed. Return to the ER for worsening symptoms. Medical Records Attestation: I reviewed the patient's medical records. Lab Data Attestation: I reviewed the patient's lab results. Labs: Lab Results 09/28/24 Range/Units 18:18 WBC 6.54 (4.50-11.00) K/uL RBC 4.31 (4.00-5.20) m/uL Hgb 13.2 (12.0-16.0) gm/dL Hct 39.9 (33.0-51.0) % MCV 93 (80-100) fL MCH 31 (26-34) pg MCHC 33 (32-36) gm/dL RDW Coeff of [place] 13.6 (11.5-15.5) % Plt Count 214 (140-440) K/uL Neut % (Auto) 63.8 (42.0-72.0) % Lymph % (Auto) 20.5 (20-44) % [place] % (Auto) 9.8 (0.0-11.0) % Eos % (Auto) 4.4 (0.0-7.0) % Baso % (Auto) 0.6 (0.0-3.0) % Neut # (Auto) 4.17 (1.7-7.0) K/uL Lymph # (Auto) 1.34 (0.90-2.90) K/uL [place] # (Auto) 0.60 (0.00-0.90) K/UL Eos # (Auto) 0.29 (0.00-0.50) K/uL Baso # (Auto) 0.04 (0.00-0.30) K/uL Abs Immat Gran (auto) 0.06 (0.00-0.30) K/uL Imm/Tot Granulo (auto) 0.9 % Sodium 145 (135-149) mmol/L Potassium 3.5 L (3.6-5.1) mmol/L Chloride 108 (96-114) mmol/L Carbon Dioxide 28 (20-32) mmol/L Anion Gap 9 (7-15) mEq/L BUN 29 (7-30) mg/dL Creatinine 0.8 (0.5-1.5) mg/dL Estimated Creat Clear 33.71 Estimated GFR 73 ml/min Glucose 121 H (60-115) mg/dL Calcium 9.9 (8.4-10.6) mg/dL C-Reactive Protein 1.3 H (0.5-1.0) mg/dL Imaging Data Right ankle x-ray: Attestation: I have reviewed the pertinent imaging results. My impression: Significant arthritic changes. Radiologist's impression: Moderate diffuse soft tissue edema, nonspecific. There is widening of the lateral tibiotalar/ankle mortise joint space Subtle linear density involving the tibial plafond may represent an age-indeterminate nondisplaced fracture. The talar dome itself appears smooth. Small plantar calcaneal osteophytes. Mild degenerative spurring of the dorsal midfoot. Vascular calcifications. No radiopaque foreign bodies. IMPRESSION: 1. Moderate diffuse soft tissue swelling, nonspecific. 2. Widening of the lateral tibial talar joint space raises the possibility of underlying syndesmotic injury. There may be an age-indeterminate nondisplaced fracture of the tibial plafond. CT may be considered for improved characterization if clinically warranted. Venous US: Attestation: I have reviewed the pertinent imaging results. Radiologist's impression: Common femoral vein: Fully compressible. No deep vein thrombus. Normal flow and response to augmentation on color Doppler imaging. Superficial femoral vein: Fully compressible. No deep vein thrombus. Normal flow on color Doppler imaging. Deep femoral vein: No deep vein thrombus Popliteal vein: Fully compressible. No deep vein thrombus. Normal flow on color Doppler imaging. Lower calf: The visualized posterior tibial and peroneal veins are fully compressible. No deep vein thrombus. Normal flow and response to augmentation on color Doppler imaging. Superficial veins: The superficial veins, including the greater saphenous vein, remain patent and are fully compressible. Soft tissues: No popliteal fossa fluid collection identified. LEFT LOWER EXTREMITY: Common femoral vein: Fully compressible. No deep vein thrombus. Normal flow and response to augmentation on color Doppler imaging. IMPRESSION: No deep vein thrombus within the right lower extremity. CT right ankle: Attestation: I have reviewed the pertinent imaging results. Radiologist's impression: Bones: Severe degenerative changes of the ankle, hindfoot, and midfoot. Findings of probable chronic malleolar fractures. Joints: Alignment is grossly maintained. Small ankle effusion suspected. Soft tissues: Diffuse soft tissue edema. Impression: Severe degenerative changes of the hindfoot, midfoot, and ankle, with severe soft tissue swelling. No acute fracture or malalignment is appreciated. Discharge Plan Discharge Clinical Impression: Cellulitis Qualifiers: Site of cellulitis: extremity Site of cellulitis of extremity: lower extremity Laterality: right Qualified Code(s): L03.115 - Cellulitis of right lower limb Ankle swelling Qualifiers: Laterality: right Qualified Code(s): M25.471 - Effusion, right ankle Patient Disposition: Home, Self-Care Condition: Unchanged Instructions: Cellulitis (ED) Additional Instructions: Continue antibiotic Keflex for treatment of presumed cellulitis. If you have worsening symptoms, onset of fever please return to the emergency room for further evaluation and possible change in your antibiotic. Try to elevate leg as much as possible. Prescriptions: No Action losartan 100 mg tablet 100 mg PO DAILY fluticasone propionate 50 mcg/actuation spray,suspension 1 spray intranasal BID PRN Rx Instructions: administer into each nostril pregabalin 150 mg capsule 150 mg PO Q12H amlodipine 10 mg tablet 10 mg PO QDAY ropinirole 2 mg tablet 2 mg PO BID bupropion HCl 150 mg tablet extended release 24 hr 150 mg PO DAILY acetaminophen [Tylenol Extra Strength] 500 mg tablet 500 mg PO Q6H PRN furosemide 20 mg tablet 20 mg PO QAM Qty: 3 0RF hydrochlorothiazide 25 mg tablet 25 mg PO DAILY oxycodone 5 mg tablet 5 mg PO DAILY nystatin 100,000 unit/gram powder 1 applic topical TID Qty: 30 0RF pregabalin 150 mg capsule 150 mg PO BID Qty: 180 0RF amlodipine 5 mg tablet 5 mg PO triamcinolone acetonide 0.1 % cream topical BID oxycodone 10 mg tablet PO Follow Up/Referrals: Lakeshia Gee MD [Primary Care Provider] - Stand Alone Forms: [employer] Info Instructions
--- NOTE | 2024-09-28 18:18 | CRLHL7_ITS ---
For Patients: As a result of the Century Cures Act, medical imaging exams and procedure reports are released immediately into your electronic medical record. You may view this report before your referring provider. If you have questions, please contact your health care provider. INDICATION: Right ankle swelling. TECHNIQUE: Right ankle radiographs, 2 views. COMPARISON: None. FINDINGS: Moderate diffuse soft tissue edema, nonspecific. There is widening of the lateral tibiotalar/ankle mortise joint space Subtle linear density involving the tibial plafond may represent an age-indeterminate nondisplaced fracture. The talar dome itself appears smooth. Small plantar calcaneal osteophytes. Mild degenerative spurring of the dorsal midfoot. Vascular calcifications. No radiopaque foreign bodies. IMPRESSION: 1. Moderate diffuse soft tissue swelling, nonspecific. 2. Widening of the lateral tibial talar joint space raises the possibility of underlying syndesmotic injury. There may be an age-indeterminate nondisplaced fracture of the tibial plafond. CT may be considered for improved characterization if clinically warranted. Dictated by Gaurang Rothman MD @ 09/28/2024 7:31:03 PM (Electronically Signed)
--- NOTE | 2024-09-28 18:19 | CRLHL7_ITS ---
For Patients: As a result of the Century Cures Act, medical imaging exams and procedure reports are released immediately into your electronic medical record. You may view this report before your referring provider. If you have questions, please contact your health care provider. INDICATION: Right lower extremity swelling. TECHNIQUE: Right lower extremity Doppler venous ultrasound examination was performed. Grayscale and color Doppler images were obtained. Spectral analysis was performed. COMPARISON: None. FINDINGS: RIGHT LOWER EXTREMITY: Common femoral vein: Fully compressible. No deep vein thrombus. Normal flow and response to augmentation on color Doppler imaging. Superficial femoral vein: Fully compressible. No deep vein thrombus. Normal flow on color Doppler imaging. Deep femoral vein: No deep vein thrombus Popliteal vein: Fully compressible. No deep vein thrombus. Normal flow on color Doppler imaging. Lower calf: The visualized posterior tibial and peroneal veins are fully compressible. No deep vein thrombus. Normal flow and response to augmentation on color Doppler imaging. Superficial veins: The superficial veins, including the greater saphenous vein, remain patent and are fully compressible. Soft tissues: No popliteal fossa fluid collection identified. LEFT LOWER EXTREMITY: Common femoral vein: Fully compressible. No deep vein thrombus. Normal flow and response to augmentation on color Doppler imaging. IMPRESSION: No deep vein thrombus within the right lower extremity. Dictated by Gaurang Rothman MD @ 09/28/2024 7:24:26 PM (Electronically Signed)
--- OUTSIDE RECORDS SUMMARY | 2024-09-28 18:26 | XMS_ITS | Clinical Summary ---
Author Organization [facility] Address [address] [place] [address] Care Team Providers Care Efficiency Engineer Name Role Phone Unavailable Primary Care Provider Unavailabl e Source Comments Patient records contain information from all sites at [facility]. For routine questions regarding patient records, call [phone] during business hours, M-F 8:00 AM - 5:00 PM Central Time. 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
--- OUTSIDE RECORDS SUMMARY | 2024-09-28 18:26 | XMS_ITS | Clinical Summary ---
Author Organization [facility] Address [address] , [address] [place] [address] Phone Care Team Providers Care Non Clinical Advisor Name Role Phone [facility] Unavailable Unava ilable Conditions or Problems Problem Name Problem Code Onset Date Status Entry Date Provider Comment Standard Description Annotate Polyneuropathy 77397570 (SNOMED CT) 08/31 Active 08/31 Tony Stringer MD Polyneuropathy Medications Medication Instructions Start Date Stop Date Generic Name NDC Provider GABAPENTIN 600 MG TABS gabapentin [id number] Tony Stringer MD PREGABALIN 150 MG CAPS 150 mg by mouth twice a day 4 pregabalin [id number] Tony Stringer MD BUPROPION HCL ER (XL) 150 MG [id number] bupropion hcl [id number] Tony Stringer MD FERROUS GLUCONATE 324 (38 Fe) MG TABS ferrous gluconate 88718431224 Tony Stringer MD FUROSEMIDE 20 MG TABS furosemide 23094017565 Tony Stringer MD ROPINIROLE HCL 2 MG TABS ropinirole 46696122882 Tony Stringer MD LOSARTAN POTASSIUM 100 MG TABS losartan 25233193438 Tony Stringer MD AMLODIPINE BESYLATE 10 MG TABS amlodipine 85336100344 Tony Stringer MD GABAPENTIN 600 MG TABS gabapentin 72277983842 Tony Stringer MD Medications Administered No information [...] medications (procedure) SMOK STATUS never smoker 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
[2024-09-28 19:00] LABS: Chloride* 108 mmol/L (96-114)
[2024-09-28 19:01] LABS: Potassium* 3.5 mmol/L (3.6-5.1); Sodium* 145 mmol/L (135-149)
[2024-09-28 19:04] LABS: Anion Gap 9 mEq/L (7-15); Blood Urea Nitrogen* 29 mg/dL (7-30); Calcium* 9.9 mg/dL (8.4-10.6); Carbon Dioxide* 28 mmol/L (20-32); Creatinine* 0.8 mg/dL (0.5-1.5); Est. Creatinine Clearance* 33.71; Estimated Glomerular Filt Rate 73 ml/min; Glucose* 121 mg/dL (60-115)
[2024-09-28 19:07] LABS: C Reactive Protein* 1.3 mg/dL (0.5-1.0)
--- NOTE | 2024-09-28 19:34 | CRLHL7_ITS ---
For Patients: As a result of the Century Cures Act, medical imaging exams and procedure reports are released immediately into your electronic medical record. You may view this report before your referring provider. If you have questions, please contact your health care provider. Indication: Swelling Technique: CT of the right ankle without contrast Comparison: Same day radiographs Findings: Bones: Severe degenerative changes of the ankle, hindfoot, and midfoot. Findings of probable chronic malleolar fractures. Joints: Alignment is grossly maintained. Small ankle effusion suspected. Soft tissues: Diffuse soft tissue edema. Impression: Severe degenerative changes of the hindfoot, midfoot, and ankle, with severe soft tissue swelling. No acute fracture or malalignment is appreciated. Please note that all CT scans at this facility use dose modulation, iterative reconstruction, and/or weight-based dosing when appropriate to reduce radiation dose to as low as reasonably achievable. Dictated by Tyson Bowman MD @ 09/28/2024 8:36:00 PM (Electronically Signed)
[2024-09-28] MEDS: CEFAZOLIN 1 GM in 0.9 % SODIUM CHLORIDE Mini-bag 100 ML IVPB (20:02)
[2024-09-28 20:05] VITALS: BP 150/74; PULSE 74; RESP 16; O2SAT 95
[2024-09-28 20:22] LABS: Basophils Absolute Auto 0.04 K/uL (0.00-0.30); Basophils Percent Auto 0.6 % (0.0-3.0); Eosinophils Absolute Auto 0.29 K/uL (0.00-0.50); Eosinophils Percent Auto 4.4 % (0.0-7.0); Hematocrit 39.9 % (33.0-51.0); Hemoglobin* 13.2 gm/dL (12.0-16.0); Immature Granulocytes Abs Auto 0.06 K/uL (0.00-0.30); Immature Granulocytes Pct Auto 0.9 %; Lymphocytes Absolute Auto 1.34 K/uL (0.90-2.90); Lymphocytes Percent Auto 20.5 % (20-44); Mean Corpuscular HGB Conc 33 gm/dL (32-36); Mean Corpuscular Hemoglobin 31 pg (26-34); Mean Corpuscular Volume 93 fL (80-100); Monocytes Percent Auto 9.8 % (0.0-11.0); Neutrophils Absolute Auto 4.17 K/uL (1.7-7.0); Neutrophils Percent Auto 63.8 % (42.0-72.0); Platelet Count* 214 K/uL (140-440); RDW Coefficient of Variation % 13.6 % (11.5-15.5); Red Blood Count 4.31 m/uL (4.00-5.20); Slide Review Reflex No; White Blood Count* 6.54 K/uL (4.50-11.00)
== END 2024-09-28 21:12 | disposition home or self-care (01) ==
PROVIDERS: Emergency Provider Family Medicine; PCP Family Medicine
DX: L03.115 Cellulitis of right lower limb (principal); R22.41 Localized swelling, mass and lump, right lower limb
CPT/HCPCS: 36415; 73600; 73700; 80048; 85025; 86140; 87040; 93971; 96374; 99284; 99285; J0690

== ENCOUNTER 2024-11-23 11:16 | Emergency (ER) | payer MEDICARE, BC, SELFPAY ==
[2024-11-23] VITALS (8 sets, daily range): BP systolic 135–144; BP diastolic 67–73; PULSE 72–79; RESP 12–16; TEMP 36.2; O2SAT 82–97; BMI 37.5
--- OUTSIDE RECORDS SUMMARY | 2024-11-23 11:17 | XMS_ITS | Clinical Summary ---
Author Organization [facility] Address [address] , [address] [place] [address] Phone Care Team Providers Care Cab Starter Name Role Phone [facility] Unavailable Unava ilable Conditions or Problems Problem Name Problem Code Onset Date Status Entry Date Provider Comment Standard Description Annotate Polyneuropathy [id number] (SNOMED CT) 08/31 Active 08/31 Tony Stringer MD Polyneuropathy Medications Medication Instructions Start Date Stop Date Generic Name NDC Provider GABAPENTIN 600 MG TABS gabapentin [id number] Tony Stringer MD PREGABALIN 150 MG CAPS 150 mg by mouth twice a day 4 pregabalin [id number] oTny Stringer MD BUPROPION HCL ER (XL) 150 MG [id number] bupropion hcl 30179512958 Tony Stringer MD FERROUS GLUCONATE 324 (38 Fe) MG TABS ferrous gluconate 36389772487 Tony Stringer MD FUROSEMIDE 20 MG TABS furosemide 58559346340 Tony Stringer MD ROPINIROLE HCL 2 MG TABS ropinirole 68856784144 Tony Stringer MD LOSARTAN POTASSIUM 100 MG TABS losartan 28946986897 Tony Stringer MD AMLODIPINE BESYLATE 10 MG TABS amlodipine 03958069358 Tony Stringer MD GABAPENTIN 600 MG TABS gabapentin 57452415510 Tony Stringer MD Medications Administered No information [...] medications (procedure) SMOK STATUS never smoker 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
--- OUTSIDE RECORDS SUMMARY | 2024-11-23 11:18 | XMS_ITS | Clinical Summary ---
Author Organization [facility] Address [address] [place] [address] Care Team Providers Care Caddy Packer Name Role Phone Unavailable Primary Care Provider Unavailabl e Source Comments Patient records contain information from all sites at [facility]. For routine questions regarding patient records, call [phone] during business hours, M-F 8:00 AM - 5:00 PM Central Time. 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 Gender Identity Not on file Sexual Orientation [...] 03/09/2023, 02/21/2022, 09/26/2021, Additional history exists Depression Screening (Annual PHQ-2) 05/20/2024 Fall Risk Screen (Annual) 05/20/2024 Creatinine Level (Kidney Function Test) 07/08/2024 07/08/2023, 06/24/2023, 06/14/2022, Additional history exists Potassium Level 07/08/2024 07/08/2023, 02/0 09/2023, 06/14/2022, Additional history exists Sodium Level 07/08/2024 07/08/2023, 02/0 09/2023, 06/14/2022, Additional history exists Influenza Vaccine (#1) 2025 3, 01/29/2022, 02/19/2021, Additional history exists DTaP,Tdap,and Td Vaccines (2 - Td or Tdap) 04/04/2025 04/04/2015, 01/27/2009 Pneumococcal vaccine (50+ years) Completed 04/01/2014, 01/27/2009 Zoster Vaccines Completed 06/30/2018, 12/2017, 06/16/2010 IPV Vaccines Aged Out No longer eligi ble based on patient's age to complete this topic Insurance [facility] MEDICARE
--- OUTSIDE RECORDS SUMMARY | 2024-11-23 11:18 | XMS_ITS | Clinical Summary ---
Author Organization [facility] Address [address] [place] [id number] Care Team Providers Care Open Developer Operator Name Role Phone Margarito Isidro MD Unavailable GerardLakeshia vincent MD [facility] Provider [facility] Allergies Active Allergy Reactions Criticality Noted Date Comments Atenolol Shortness Of Breath 12/30/2006 Iodine *Unknown 12/05/2021 Lisinopril Cough 12/30/2006 Morphine Nausea And Vomiting 10/06/2012 Medications acetaminophen (TYLENOL EXTRA STRGTH) 500 mg tabletIndications :Restless legs syndrome (RLS) Take 2 tablets by mouth every 8 hours. Max acetaminophen dose: 4000mg in 24 hrs. 0 09/02/19 19 Active magnesium 250 mg tab Take 1 [...] months; Frequency of use: Daily 1 Each 04/27/20 24 Active rOPINIRole (REQUIP) 2 mg tabletIndications :Restless legs syndrome (RLS) Take 2 mg orally at supper time and 1 hour before bedtime 180 Tablet 07/29/19 25 Active amLODIPine (NORVASC) 5 mg tabletIndications :Essential hypertension Take 1 Tablet (5 mg) by mouth once daily. 90 Tablet 1 07/29/19 25 Active losartan (COZAAR) 100 mg tabletIndications :Essential hypertension Take 1 Tablet (100 mg) by mouth once daily. 90 Tablet 1 07/29/19 25 Active triamcinolone (ARISTOCORT; KENALOG) 0.1 % creamIndications: Stasis dermatitis of both legs Apply topically to affected area(s) two times daily. Use for up to 2 weeks at a time. 80 g 07/29/19 25 Active nystatin powder powderIndications :Yeast infection of the skin Apply 1 Strip topically to affected area(s) three times daily. 60 g 3 09/15/19 25 Active buPROPion 150 mg Extended-Release tabletIndications :Depression, recurrent Take 1 Tablet (150 mg) by mouth once daily. 90 Tablet 10/20/19 25 Active oxyCODONE 10 mg tabletIndications :Restless legs syndrome (RLS) Patient is to take 1 pill by mouth at supper time and then again before bed 60 Tablet 10/20/19 25 Active pregabalin 150 mg capsuleIndication s:Peripheral sensory-motor axonal polyneuropathy Take 1 Capsule (150 mg) by mouth three times daily. 90 Capsule 2 10/29/19 25 Active hydroCHLOROthiazi de 25 mg tabletIndications :Essential hypertension,Rex a of both legs Take 1 Tablet (25 mg) by mouth once daily. 90 Tablet 10/31/19 25 Active nystatin 100,000 unit/gram creamIndications: Yeast infection of the skin Apply topically to affected area(s) two times daily. 90 g 3 11/20/19 25 Active nystatin (MYCOSTATIN) ointmentIndicatio ns:Intertrigo Apply topically to affected area(s) 2 times daily. 15 g 1 01/17/20 21 025 Discontin ued(*Med complete/ Regimen complete/ Level of care change) hydroCHLOROthiazi de 25 mg tabletIndications :Essential hypertension,Rex a of both legs Take 1 Tablet (25 mg) by mouth once daily. 90 Tablet 1 05/25/19 25 025 Discontin ued(Reord er (E-cancel not sent)) pregabalin 150 mg capsuleIndication s:Peripheral sensory-motor axonal polyneuropathy Take 1 Capsule (150 mg) by mouth three times daily. 90 Capsule 2 08/15/19 25 025 Discontin ued(Reord er (E-cancel [...] Encounters Date Type Department Care Team Description 11/19/2024 11:20 AM CDT Office Visit [facility] [address] [place] [address] Lakeshia Gee MD Derm Problem (fungal infection in groin from July has not resolved. using Nystatin, helpful but does not clear it up.); Weight (got ozempic, wants to talk about starting medication. Already ordered and has on hand.) 11/19/2024 Travel 11/13/2024 Travel 11/04/2024 Nurse Triage [facility] [address] [place] [address] Lakeshia Gee MD Fatigue 10/30/2024 Telephone [facility] [address] [place] [address] Lakeshia Gee MD Refill Request (hydroCHLOROthiazide 25 mg tablet /) 10/28/[address] [address] Lakeshia Gee MD Refill Request (Lyrica ) 10/19/[address] [address] Margarito Isidro MD Refill Request (oxyCODONE) 10/19/[address] [place] [address] Lakeshia Gee MD Refill Request (buPROPion (WELLBUTRIN XL), hydroCHLOROthiazide) 10/07/2024 Refill [facility] [address] [place] [address] Margarito Isidro MD Refill Request; PREGABALIN 10/05/2024 2:15 PM CDT Office Visit [address] [address] Lakeshia Gee MD ER Follow up (09/28 right foot cellulitis; has been on keflex qid) 10/04/2024 Travel 10/02/[address] [address] Lakeshia Gee MD Appointment 09/28/2024 Orders Only [facility] Scanner 1 scan: (1-Ord) [facility], ANKLE RT WO CON, 09/28/2024 09/28/2024 Orders Only [facility] Scanner 1 scan: (1-Ord) [facility], XR ANKLE RT 2V, 09/28/2024 09/28/2024 Orders Only [facility] Scanner 1 scan: (1-Ord) [facility], US VENOUS LE RT, 09/28/2024 09/14/[address] [address] Lakeshia Gee MD Questions (Nystatin powder) 09/07/2024 11:00 AM CDT Office Visit [address] [address] Margarito Isidro MD Sleep Follow-up 09/07/[address] [address] Ramírez Simons MD Injection (Medication) 09/07/2024 Travel 08/29/2024 Orders Only [facility] Scanner 1 scan: (1-Ord) [facility], COMPLIANCE REPORT, 08/29/2024 from Last 3 Months Immunizations Immunization Administration Dates Next Due Amb Influenza, Inact (High-d ose) (Flu Clinic Only) 02/23/2014 COVID-19 vaccine ([employer] 30mcg/0.3mL) PFRICHELLE 09/26/2021,08/18/2020,07/28/2020 Influenza RIV4 (Age 18+ Year s) [...] or isolated from those around you? 0 10/05/2024 Financial Resource Strain Answer Date R ecorded Difficulty of Paying Living Expenses 3 10/05/2024 Difficulty of Paying Living Expenses Not on file 10/05/2024 Food Insecurity Answer Date Recorded Do you worry your food will run out before you are able to buy more? 1 10/05/2024 Transportation Needs Answer Date Record ed Does lack of transportation keep you from medica l appointments? 1 10/05/2024 Does lack of transportation keep you from work, meetings or getting things that you need? 1 10/05/2024 Housing Stability Answer Date Recorded What is your housing situation today? 1 10/05/2024 Utilities Answer Date Recorded Do you have trouble paying f or utilities (for example, heat, electricity, water, phone)? 1 10/05/2024 Comments No Sex and Gender Information Value Date Recorded Sex Assigned at Not on file Legal Sex Female 6:13 AM BRAILLE TRANSLATOR Gender Identity Not on file Sexual Orientation Not on file Obstetrics History Para Term AB IAB SAB Ectopic Multiple Livin g Live Births 5 1 1 1 1 1 Date Outcome GA Total Labor Labor/2nd/3rd Weight Sex Type Anes PTL Amairani A1 A5 Name Clin Term Living Last Filed Vital Signs Vital Sign Reading Time Taken Comments Blood Pressure 109/67 11/19/2024 11:20 AM CDT Pulse 73 11/19/2024 11:20 AM CDT Temperature 36.7 C (98 F) 08/19/2024 2:46 PM CDT Respiratory Rate 18 06/29/2019 10:2 3 AM BRAILLE TRANSLATOR Oxygen Saturation 93% 11/19/2024 11: 20 AM CDT Inhaled Oxygen Concentration - - Weight 100.6 kg (221 lb 12.8 oz) 2023 10:18 AM CDT Height 156.5 cm (5' 1.61) 09/07/2024 1 0:58 AM CDT Body Mass Index 41.08 07/03/2023 10:33 AM BRAILLE TRANSLATOR Plan of Treatment Upcoming Encounters Date Type Department Care Team (Late st Contact Info) Description 12/21/2024 11:30 AM CDT Office Visit [facility] [address] [place] [address] Margarito Isidro MD [address] [place] [address] Health Maintenance Due Date Last Done Comments RSV vaccine for adults or (1 - 1-dose 75+ series) 2016 COVID-19 vaccine series (2023- season) 2024 03/09/2023, 02/21/2022, 09/26/2021, Additional history exists Depression screening for age 12+ 06/24/2024 06/24/2023, 06/14/2022, 08/24/2020, Additional history exists Medicare Wellness for age 65+ 06/24/2024 06/24/2023, 06/14/2022, 08/22/2020, Additional history exists BMI (ht and wt on same day) for age 18+ 07/03/2024 07/03/2023, 06/24/2023, 06/14/2022, Additional history exists Influenza Vaccine (#1) 2025 , 01/29/2022, 01/28/2020, Additional history exists Tetanus booster 04/04/2025 04/04/2015, 01/18, 01/27/2009, Additional history exists Pneumococcal series for age 50+ Completed 04/01/2014, 01/27/2009 DEXA/DXA scan for age 65+ Completed 2014, 02/03/2009, 01/02/2007 Zoster (shingles) series for age 50+ Completed 06/30/2018, 03/27/2018, 06/16/2010 Hepatitis B series for 19+ Aged Out N o longer eligible based on patient's age to complete this topic Medical Devices Implanted Type Area Web Production Assistant Device Identifier Shelf Expiration Date Model / Serial / Lot Mesh Pelvic 24x3cm Restorelle Y Contour - [id number] Implanted:Qty: 1 on 06/22/2014 by Gail Richmond MD at [facility] N/A: Urinary Bladder [employer] 02/19/2017 [id number] / [id number] / [id number] Procedures Procedure Name Priority Date/Time Associated Diagnosis Comments VITAMIN B12 Routine 11/19/2024 11:57 AM CDT Memory loss TSH WITH REFLEX Routine 11/19/2024 11:57 AM CDT Memory loss CBC WITH AUTO DIFFERENTIAL Routine 11/19/2024 11:57 AM CDT Memory loss SCAN-CT INTERPRETATION 12:00 AM CDT SCAN-RADIOLOGY REPORT 09/28/2024 12:00 AM CDT SCAN-ULTRASOUND REPORT 12:00 AM CDT SCAN-DIAGNOSTIC REPORT 12:00 AM CDT XR DXA BONE DENSITY 2 SITES AXIAL Routine 04/05/2015 10:59 AM BRAILLE TRANSLATOR Asymptomatic menopausal state from Last 3 Months or Most Recently Relevant to Health Maintenance Results * TSH WITH REFLEX (11/19/2024 11:57 AM CDT) Pathologist [facility] TSH W/REFLEX TO FT4 2.04 0.40 - 4.50 mIU/L [employer] Heart Blood BLOOD SPECIMEN / Unknown 11/19/2024 11:57 AM CDT 11/19/2024 11:58 AM CDT Lakeshia Gee MD CHEMISTRY Final R esult [facility] [address] [place] [address], [place] [phone] [facility] [address] [place] [address] * CBC AND DIFFERENTIAL (11/19/2024 11:57 AM CDT) WHITE BLOOD CELL COUNT 6.9 3.8 - 10.8 Thousand/u L [facility] RED BLOOD CELL COUNT 4.34 3.80 - 5.10 Million/uL [facility] HEMOGLOBIN 13.8 11.7 - 15.5 g/dL [facility] HEMATOCRIT 40.9 35.0 - 45.0 % [facility] MCV 94.2 80.0 - 100.0 fL [facility] MCH 31.8 27.0 - 33.0 pg [facility] MCHC 33.7 32.0 - 36.0 g/dL [facility] Comment: For adults, a slight decrease in the calculated MCHC value (in the range of 30 to 32 g/dL) is most likely not clinically significant; however, it should be interpreted with caution in correlation with other red cell parameters and the patient's clinical condition. RDW 14.5 11.0 - 15.0 % [facility] PLATELET COUNT 191 140 - 400 Thousand/u L [facility] MPV 10.6 7.5 - 12.5 fL [facility] ABSOLUTE NEUTROPHILS 4,085 1,500 - 7,800 cells/uL [facility] ABSOLUTE LYMPHOCYTES 1,773 850 - 3,900 cells/uL [facility] ABSOLUTE MONOCYTES 690 200 - 950 cells/uL [facility] ABSOLUTE EOSINOPHILS 324 15 - 500 cells/uL [facility] ABSOLUTE BASOPHILS 28 0 - 200 cells/uL [facility] NEUTROPHILS 59.2 % [facility] LYMPHOCYTES 25.7 % [facility] MONOCYTES 10.0 % [facility] EOSINOPHILS 4.7 % [facility] BASOPHILS 0.4 % [facility] Blood BLOOD SPECIMEN / Unknown 11/19/2024 11:57 AM CDT 11/19/2024 11:58 AM CDT Lakeshia Gee MD HEMATOLOGY Final R esult [facility] [address] [place] [address], [facility] [address] [place] [address] * VITAMIN B12 (11/19/2024 11:57 AM CDT) VITAMIN B12 739 200 - 1,100 pg/mL [employer] [facility] Blood BLOOD SPECIMEN / Unknown 11/19/2024 11:57 AM CDT 11/19/2024 11:58 AM CDT us Lakeshia Gee MD CHEMISTRY Final R esult [facility] [address] [place] [address], [facility] [address] [place] [address] * SCAN-RADIOLOGY REPORT (09/28/2024 12:00 AM CDT) Anatomical Region Laterality Modality Other us Scanner OTHER Final Result * SCAN-ULTRASOUND REPORT (09/28/2024 12:00 AM CDT) Anatomical Region Laterality Modality Other us Scanner OTHER Final Result * SCAN-CT INTERPRETATION (09/28/2024 12:00 AM CDT) Anatomical Region Laterality Modality Other us Scanner OTHER Final Result * SCAN-DIAGNOSTIC REPORT (08/29/2024 12:00 AM CDT) us Scanner OTHER Final Result * XR DEXA BONE DENSITY 2 SITES [84548.1] (04/05/2015 10:59 AM BRAILLE TRANSLATOR) Anatomical Region Laterality Modality Spine, HIPS, HIPL, HIPR Other Narrative 04/08/2015 7:26 AM BRAILLE TRANSLATOR Please see scanned document for results of this study. 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
--- NOTE | 2024-11-23 15:01 | ED.GENADULT ---
HPI - General Adult General Chief complaint: Nausea/Vomiting Stated complaint: Can't eat/drink Time Seen by Provider: 11/23/24 14:51 Source: patient Mode of arrival: ambulatory Limitations: no limitations History of Present Illness HPI narrative: 84-year-old female coming in today complaining of decreased appetite for the last 4 days. States she has not been able to eat or drink that thing in 4 days. She denies vomiting. Feels constantly nauseated. States that she got in Ozempic shot 4 days ago and this is when this all started. She denies fevers or chills. No diarrhea or constipation. Denies urinary symptoms. Denies chest pain or shortness of breath. Denies any abdominal pain. Related Data Home Medications ?Medication ?Instructions ?Recorded ?Confirmed fluticasone propionate 50 1 spray intranasal BID PRN 12/04/21 11/23/24 mcg/actuation nasal spray,suspension losartan 100 mg tablet 100 mg PO DAILY 12/04/21 11/23/24 acetaminophen 500 mg tablet 500 mg PO Q6H PRN 12/05/21 11/23/24 (Tylenol Extra Strength) amlodipine 10 mg tablet 10 mg PO QDAY 12/05/21 11/23/24 bupropion HCl 150 mg 24 hr tablet, 150 mg PO DAILY 12/05/21 11/23/24 extended release pregabalin 150 mg capsule 150 mg PO Q12H 12/05/21 11/23/24 ropinirole 2 mg tablet 2 mg PO BID 12/05/21 11/23/24 hydrochlorothiazide 25 mg tablet 25 mg PO DAILY 08/15/23 11/23/24 oxycodone 5 mg tablet 5 mg PO DAILY 10/23/23 10/13/24 amlodipine 5 mg tablet 5 mg PO 09/28/24 10/13/24 oxycodone 10 mg tablet mg PO 09/28/24 10/13/24 triamcinolone acetonide 0.1 % applic topical BID 09/28/24 10/13/24 topical cream Previous Rx's ?Medication ?Instructions ?Recorded pregabalin 150 mg capsule 150 mg PO BID #180 caps 12/06/23 furosemide 20 mg tablet 20 mg PO QAM #3 tabs 01/24/24 nystatin 100,000 unit/gram topical 1 applic topical TID #30 grams 07/25/24 powder Allergies Allergy/AdvReac Type Severity Reaction Status Date / Time atenolol Allergy Intermediate shortness Verified 11/23/24 16:49 of breath lisinopril Allergy Mild Cough Verified 11/23/24 16:49 morphine Allergy Mild nausea/vomi Verified 11/23/24 16:49 ting Review of Systems Status of ROS: Reports: 10 or more systems reviewed and unremarkable except as noted in History and below [facility] Medical History Stage 3a chronic kidney disease ?N18.31 - Chronic kidney disease, stage 3a (ICD-10) Major depression, recurrent ?F33.9 - Major depressive disorder, recurrent, unspecified (ICD-10) Vaginal prolapse ?N81.10 - Cystocele, unspecified (ICD-10) Weakness generalized ?R53.1 - Weakness (ICD-10) Restless legs syndrome (RLS) ?G25.81 - Restless legs syndrome (ICD-10) Lymphedema ?I89.0 - Lymphedema, not elsewhere classified (ICD-10) Hiatal hernia with gastroesophageal reflux disease without esophagitis ?K44.9 - Diaphragmatic hernia without obstruction or gangrene (ICD-10) ?K21.9 - Gastro-esophageal reflux disease without esophagitis (ICD-10) Benign neoplasm of colon ?D12.6 - Benign neoplasm of colon, unspecified (ICD-10) Allergic rhinitis, cause unspecified ?J30.9 - Allergic rhinitis, unspecified (ICD-10) Morbid obesity with BMI of 40.0-44.9, adult ?E66.01 - Morbid (severe) obesity due to excess calories (ICD-10) ?Z68.41 - Body mass index [BMI] 40.0-44.9, adult (ICD-10) Skin lesion of face ?L98.9 - Disorder of the skin and subcutaneous tissue, unspecified (ICD-10) Contact dermatitis ?L25.9 - Unspecified contact dermatitis, unspecified cause (ICD-10) Neuropathy ?G62.9 - Polyneuropathy, unspecified (ICD-10) Arthritis ?M19.90 - Unspecified osteoarthritis, unspecified site (ICD-10) Sleep apnea ?G47.30 - Sleep apnea, unspecified (ICD-10) Asthma ?J45.909 - Unspecified asthma, uncomplicated (ICD-10) Hypertension ?I10 - Essential (primary) hypertension (ICD-10) Fracture of rib ?S22.39XA - Fracture of one rib, unspecified side, initial encounter for closed fracture (ICD-10) Surgical History History of arthroscopy of right knee (08/16/92) ?Z98.890 - Other specified postprocedural states (ICD-10) History of arthroscopy of left knee (01/15/95) ?Z98.890 - Other specified postprocedural states (ICD-10) History of carpal tunnel release ?Z98.890 - Other specified postprocedural states (ICD-10) History of sacrocolpopexy (06/22/14) ?Z98.890 - Other specified postprocedural states (ICD-10) History of revision of total knee arthroplasty ?Z96.659 - Presence of unspecified artificial knee joint (ICD-10) H/O: hysterectomy (~1994) ?Z90.710 - Acquired absence of both cervix and uterus (ICD-10) 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) ?Z96.651 - Presence of right artificial knee joint (ICD-10) History of total left knee replacement (02/04/03) ?Z96.652 - Presence of left artificial knee joint (ICD-10) Avulsion of toenail ?S91.209A - Unspecified open wound of unspecified toe(s) with damage to nail, initial encounter (ICD-10) Social History Smoking Status: Never smoker Do you use any of these nicotine containing products: None Second hand tobacco smoke exposure: No How often do you have a drink containing alcohol: never How often do you have six or more drinks on one occasion: Never AUDIT-C Alcohol total score: 0 Non-prescribed substance use: denies use service: No Exam Narrative: Exam Narrative: Overweight, well-developed patient in no acute distress. Alert and oriented. Answers questions appropriately. Mood and affect are appropriate. Thoughts are goal oriented and rational. No tangential or magical thinking noted. Patient speaks in full sentences without needing to catch her breath. HEENT: Normocephalic atraumatic. Pupils are equally round reactive to light. Extraocular muscles are intact. Conjunctivae are moist without any icterus noted. Slightly dry mucous membranes. Cardiovascular: Heart is regular rate and rhythm S1 and S2 are present without any murmurs. Lungs: Clear to auscultation bilaterally no wheezes rhonchi or rales are appreciated. Patient takes deep breaths without any discomfort. Abdomen: Soft and nontender nondistended with normal bowel sounds. No guarding or rebound. Extremities: Bilateral lower extremities showing pitting edema bilaterally, the right greater than the left, chronic skin changes present. Skin: Well perfused. Const: Vital Signs, click to edit/add: Vital Signs - 24 hr 11/23/24 11:49 11/23/24 15:49 11/23/24 15:50 Temperature 97.1 F L Pulse Rate 78 78 Pulse Rate [Right Pulse Oximeter] 79 Respiratory Rate 16 16 Blood Pressure 135/67 Blood Pressure [Ri ght Upper Arm] 144/73 H Pulse Oximetry 91 91 90 Oxygen Delivery Me thod Room Air Oxygen Flow Rate 11/23/24 15:51 11/23/24 16:00 11/23/24 16:15 Temperature Pulse Rate 77 73 Pulse Rate [Right Pulse Oximeter] Respiratory Rate 13 Blood Pressure Blood Pressure [Ri ght Upper Arm] Pulse Oximetry 90 82 L Oxygen Delivery Me thod Room Air Oxygen Flow Rate 11/23/24 16:15 11/23/24 16:16 11/23/24 16:30 Temperature Pulse Rate 72 79 Pulse Rate [Right Pulse Oximeter] Respiratory Rate 12 Blood Pressure Blood Pressure [Ri ght Upper Arm] Pulse Oximetry 97 92 96 Oxygen Delivery Me thod Nasal Cannula Oxygen Flow Rate 2 Course Course ED Course: IV established and patient given a L of normal saline and IV Zofran. Differential diagnosis is quite broad at this time although likely symptoms are secondary to the Ozempic. However we did put the patient on surveillance system monitor as acute coronary syndrome cannot be ruled out at this time. Patient naps frequently while she was getting her workup done. Her oxygen saturation would drop when she fell asleep down into the 80s, would pop right back up when she was awake. Because of this she was placed on 2 L nasal cannula while she was here. She does have a history of obstructive sleep apnea and uses a CPAP at night. However, she is more hypoxic at baseline than she normally is. Generally saturating around 96%, she is only around 91-92 today. EKG, read by me, shows normal sinus rhythm with a first-degree AV block which is not new. Pulse is 77. She does have left axis deviation. EKG also shows left ventricular hypertrophy with QRS widening and repolarization abnormality. CBC was normal. D-dimer minimally elevated at 0.55. Chemistries were unremarkable aside from a slightly elevated BUN at 34. Calcium was elevated today at 11.7. LFTs slightly elevated with an AST of 51 and ALT of 46. Normal troponin. Normal CRP. Urine analysis showing 2+ ketones, 1+ leukocyte esterase. Normal TSH. Because of the decrease in oxygen saturation in slight elevation in D-dimer week proceed with a chest CT PE protocol. Patient felt that this was an important test to do also. In the meantime she was concerned about her restless leg syndrome causing her discomfort. Therefore we did go ahead and get her ropinirole ordered for her. CT was unremarkable. Ferris better after treatment. Vital Signs Vital signs: Initial Vital Signs Temperature 97.1 F L 11/23/24 11:49 Temperature Source Temporal Artery Scan 11/23/24 11:49 Pulse Rate 79 11/23/24 11:49 Respiratory Rate 16 11/23/24 11:49 Blood Pressure 144/73 H 11/23/24 11:49 Blood Pressure Mean 96 11/23/24 11:49 Blood Pressure Position Sitting 11/23/24 11:49 Pulse Oximetry 91 11/23/24 11:49 Oxygen Delivery Method Room Air 11/23/24 11:49 Vital Signs Temperature 97.1 F L 11/23/24 11:49 Pulse Rate 79 11/23/24 11:49 Respiratory Rate 16 11/23/24 11:49 Blood Pressure 144/73 H 11/23/24 11:49 Pulse Oximetry 91 11/23/24 11:49 Oxygen Delivery Method Room Air 11/23/24 11:49 Temperature 97.1 F L 11/23/24 11:49 Pulse Rate 79 11/23/24 16:30 Respiratory Rate 12 11/23/24 16:15 Blood Pressure 135/67 11/23/24 15:50 Pulse Oximetry 96 11/23/24 16:30 Oxygen Delivery Method Nasal Cannula 11/23/24 16:16 Oxygen Flow Rate 2 11/23/24 16:16 Medications Administered Medications: Discontinued Medications Generic Name Dose Route Start Last Admin Trade Name Shayy PRN Reason Stop Dose Admin Sodium Chloride 1,000 mls @ 1,000 mls/hr 11/23/24 15:00 11/23/24 16:42 0.9 % Sodium Chloride 1000 Ml IV 11/23/24 15:59 Infused .Q1H EVER Infusion Ondansetron HCl 4 mg 11/23/24 14:55 11/23/24 15:44 Ondansetron 2 Mg/Ml Inj IVP 11/23/24 14:56 4 mg ONCE ONE Administration Ropinirole HCl 2 mg 11/23/24 16:37 11/23/24 17:01 Ropinirole 1 Mg Tablet PO 11/23/24 16:38 2 mg ONCE ONE Administration Medical Decision Making MDM Narrative Medical decision making narrative: 84-year-old female presenting with significantly decreased appetite after Ozempic injection. We discussed that she has to do her best to just drink fluids over the next few days until the effects of was not back starts to wear off. We discussed clear liquids and reasons to return to the ED. Lab Data Lab results reviewed: Yes I reviewed the patient's lab results Labs: Lab Results 11/23/24 11/23/24 Range/Units 14:58 15:10 WBC 7.11 (4.50-11.00) K/uL RBC 4.83 (4.00-5.20) m/uL Hgb 14.7 (12.0-16.0) gm/dL Hct 44.0 (33.0-51.0) % MCV 91 (80-100) fL MCH 30 (26-34) pg MCHC 33 (32-36) gm/dL RDW Coeff of [place] 13.5 (11.5-15.5) % Plt Count 232 (140-440) K/uL Neut % (Auto) 65.3 (42.0-72.0) % Lymph % (Auto) 20.5 (20-44) % [place] % (Auto) 10.7 (0.0-11.0) % Eos % (Auto) 3.0 (0.0-7.0) % Baso % (Auto) 0.4 (0.0-3.0) % Neut # (Auto) 4.64 (1.7-7.0) K/uL Lymph # (Auto) 1.46 (0.90-2.90) K/uL [place] # (Auto) 0.80 (0.00-0.90) K/UL Eos # (Auto) 0.21 (0.00-0.50) K/uL Baso # (Auto) 0.03 (0.00-0.30) K/uL Abs Immat Gran (auto) 0.01 (0.00-0.30) K/uL Imm/Tot Granulo (auto) 0.1 % D-Dimer Quant (PE/DVT) 0.55 H (0.00-0.50) ug/ml Sodium 139 (135-149) mmol/L Potassium 3.7 (3.6-5.1) mmol/L Chloride 97 (96-114) mmol/L Carbon Dioxide 31 (20-32) mmol/L Anion Gap 11 (7-15) mEq/L BUN 34 H (7-30) mg/dL Creatinine 1.1 (0.5-1.5) mg/dL Estimated Creat Clear 30.65 Estimated GFR 50 ml/min Glucose 84 (60-115) mg/dL Lactate 1.7 (0.5-1.9) mmol/L Calcium 11.7 H (8.4-10.6) mg/dL Total Bilirubin 0.8 (0.1-1.5) mg/dL Direct Bilirubin 0.1 (0.0-0.5) mg/dL AST 51 H (12-35) U/L ALT 46 H (4-35) U/L Alkaline Phosphatase 96 (40-150) U/L Troponin I < 0.01 (0.01-0.04) ng/mL C-Reactive Protein 0.6 (0.5-1.0) mg/dL Total Protein 7.5 (6.0-8.3) g/dL Albumin 4.5 (3.3-5.0) g/dL TSH 0.813 (0.270-4.20) uIU/mL Urine Color Yellow (Yellow) Urine Appearance Clear (Clear) Urine pH 6.0 (5.0-8.5) Ur Specific [place] 1.020 (1.000-1.030) Urine Protein Negative (Negative) Urine Glucose (UA) Negative (Negative) Urine Ketones 2+ A (Negative) Urine Blood Negative (Negative) Urine Nitrite Negative (Negative) Urine Bilirubin Negative (Negative) Urine Urobilinogen 0.2 (0.2-1.0) Ur Leukocyte Esterase 1+ A (Negative) Urine RBC 0-2 (0-2) Urine WBC 2-5 (0-5) Ur Squamous Epith Cells Few (None-Few) Urine Bacteria Few A (None) Imaging Data CT scan - chest: Attestation: I have reviewed the pertinent imaging results. Radiologist's impression: TECHNIQUE: Multiplanar CT pulmonary angiogram was performed after the administration of 95 mL of Isovue 370 intravenous contrast. COMPARISON: None. FINDINGS: Lower neck: The visualized thyroid is unremarkable. Cardiovascular: Contrast opacification of the pulmonary arterial tree is adequate. Heart size is borderline enlarged. Thoracic aorta and pulmonary artery are normal in caliber. Moderate atherosclerotic calcifications of the aortic arch. Coronary arterial calcifications. No pulmonary embolus. Mediastinum and lymph nodes: Calcified mediastinal and hilar lymph nodes, likely due to prior granulomatous disease. No pathologic mediastinal or hilar lymphadenopathy by size criteria. Lungs: No focal consolidation. Mosaic attenuation pattern of the opacification diffusely, nonspecific but can be seen with atypical infection, air trapping or edema. Dependent atelectasis. Small left lower lobe calcified granuloma. Linear bandlike opacification of the lung bases bilaterally, likely subsegmental atelectasis and/or scarring. Trachea: Patent and midline. Mild diffuse peribronchial wall thickening. Pleura: No pleural effusions or pneumothorax. Chest wall: Unremarkable. Prominent axillary lymph nodes that do not meet size criteria for lymphadenopathy. Bones: No acute osseous abnormalities. Mild degenerative changes of the thoracic spine. Upper abdomen: No acute findings in the visualized upper abdomen no reflux of contrast material into the IVC. IMPRESSION: 1. No pulmonary embolus. No CT evidence of right heart strain. ECG Data Attestation: I personally reviewed and interpreted this ECG as follows: Discharge Plan Discharge Clinical Impression: Decrease in appetite Patient Disposition: Home, Self-Care Condition: Stable Additional Instructions: Make sure you are staying well hydrated. You must drink fluids throughout the day, try to drink clear liquids such is clear broths as well, until your appetite returns. Return to the emergency department if you develop vomiting or fever. Prescriptions: No Action losartan 100 mg tablet 100 mg PO DAILY fluticasone propionate 50 mcg/actuation spray,suspension 1 spray intranasal BID PRN Rx Instructions: administer into each nostril pregabalin 150 mg capsule 150 mg PO Q12H amlodipine 10 mg tablet 10 mg PO QDAY ropinirole 2 mg tablet 2 mg PO BID bupropion HCl 150 mg tablet extended release 24 hr 150 mg PO DAILY acetaminophen [Tylenol Extra Strength] 500 mg tablet 500 mg PO Q6H PRN furosemide 20 mg tablet 20 mg PO QAM Qty: 3 0RF hydrochlorothiazide 25 mg tablet 25 mg PO DAILY oxycodone 5 mg tablet 5 mg PO DAILY nystatin 100,000 unit/gram powder 1 applic topical TID Qty: 30 0RF pregabalin 150 mg capsule 150 mg PO BID Qty: 180 0RF amlodipine 5 mg tablet 5 mg PO triamcinolone acetonide 0.1 % cream topical BID oxycodone 10 mg tablet PO Follow Up/Referrals: Lakeshia Gee MD [Primary Care Provider, Family Practice] Stand Alone Forms: [facility] Info Instructions
--- OUTSIDE RECORDS SUMMARY | 2024-11-23 15:08 | XMS_ITS | Clinical Summary ---
Author Organization [facility] Address [address] , [address] [place] [address] Phone Care Team Providers Care Bacon Slicer Name Role Phone [facility] Unavailable Unava ilable Conditions or Problems Problem Name Problem Code Onset Date Status Entry Date Provider Comment Standard Description Annotate Polyneuropathy [id number] (SNOMED CT) 08/31 Active 08/31 Tony Stringer MD Polyneuropathy Medications Medication Instructions Start Date Stop Date Generic Name NDC Provider GABAPENTIN 600 MG TABS gabapentin [id number] Tony Stringer MD PREGABALIN 150 MG CAPS 150 mg by mouth twice a day 4 pregabalin [id number] Tony Stringer MD BUPROPION HCL ER (XL) 150 MG [id number] bupropion hcl [id number] Tony Stringer MD FERROUS GLUCONATE 324 (38 Fe) MG TABS ferrous gluconate [id number] Tony Stringer MD FUROSEMIDE 20 MG TABS furosemide [id number] Tony Stringer MD ROPINIROLE HCL 2 MG TABS ropinirole [id number] Tony Stringer MD LOSARTAN POTASSIUM 100 MG TABS losartan [id number] Tony Stringer MD AMLODIPINE BESYLATE 10 MG TABS amlodipine [id number] Tony Stringer MD GABAPENTIN 600 MG TABS gabapentin [id number] oTny Stringer MD Medications Administered No information available. 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
[2024-11-23 15:21] LABS: Lactate* 1.7 mmol/L (0.5-1.9)
[2024-11-23 15:27] LABS: Hematocrit 44.0 % (33.0-51.0); Hemoglobin* 14.7 gm/dL (12.0-16.0); Immature Granulocytes Abs Auto 0.01 K/uL (0.00-0.30); Immature Granulocytes Pct Auto 0.1 %; Lymphocytes Absolute Auto 1.46 K/uL (0.90-2.90); Mean Corpuscular HGB Conc 33 gm/dL (32-36); Mean Corpuscular Hemoglobin 30 pg (26-34); Mean Corpuscular Volume 91 fL (80-100); RDW Coefficient of Variation % 13.5 % (11.5-15.5); Red Blood Count 4.83 m/uL (4.00-5.20); White Blood Count* 7.11 K/uL (4.50-11.00)
[2024-11-23 15:30] LABS: Appearance Urine Clear (Clear)
[2024-11-23 15:34] LABS: Slide Review Reflex No
[2024-11-23 15:42] LABS: Albumin* 4.5 g/dL (3.3-5.0); Chloride* 97 mmol/L (96-114); Sodium* 139 mmol/L (135-149)
[2024-11-23 15:43] LABS: Potassium* 3.7 mmol/L (3.6-5.1)
[2024-11-23] MEDS: ONDANSETRON 2 MG/ML inj 4 MG IVP (15:44)
[2024-11-23 15:45] LABS: Alanine Aminotransferase* 46 U/L (4-35); Alkaline Phosphatase* 96 U/L (40-150); Anion Gap 11 mEq/L (7-15); Aspartate Amino Transferase* 51 U/L (12-35); Bilirubin Direct* 0.1 mg/dL (0.0-0.5); Bilirubin Total* 0.8 mg/dL (0.1-1.5); Blood Urea Nitrogen* 34 mg/dL (7-30); Carbon Dioxide* 31 mmol/L (20-32); Creatinine* 1.1 mg/dL (0.5-1.5); Est. Creatinine Clearance* 30.65; Estimated Glomerular Filt Rate 50 ml/min; Total Protein* 7.5 g/dL (6.0-8.3)
[2024-11-23 15:46] LABS: Calcium* 11.7 mg/dL (8.4-10.6); Glucose* 84 mg/dL (60-115)
[2024-11-23 16:15] LABS: D Dimer Quantitative* 0.55 ug/ml (0.00-0.50)
--- NOTE | 2024-11-23 16:33 | CRLHL7_ITS ---
For Patients: As a result of the Century Cures Act, medical imaging exams and procedure reports are released immediately into your electronic medical record. You may view this report before your referring provider. If you have questions, please contact your health care provider. INDICATION: Dyspnea. Nausea. TECHNIQUE: Multiplanar CT pulmonary angiogram was performed after the administration of 95 mL of Isovue 370 intravenous contrast. COMPARISON: None. FINDINGS: Lower neck: The visualized thyroid is unremarkable. Cardiovascular: Contrast opacification of the pulmonary arterial tree is adequate. Heart size is borderline enlarged. Thoracic aorta and pulmonary artery are normal in caliber. Moderate atherosclerotic calcifications of the aortic arch. Coronary arterial calcifications. No pulmonary embolus. Mediastinum and lymph nodes: Calcified mediastinal and hilar lymph nodes, likely due to prior granulomatous disease. No pathologic mediastinal or hilar lymphadenopathy by size criteria. Lungs: No focal consolidation. Mosaic attenuation pattern of the opacification diffusely, nonspecific but can be seen with atypical infection, air trapping or edema. Dependent atelectasis. Small left lower lobe calcified granuloma. Linear bandlike opacification of the lung bases bilaterally, likely subsegmental atelectasis and/or scarring. Trachea: Patent and midline. Mild diffuse peribronchial wall thickening. Pleura: No pleural effusions or pneumothorax. Chest wall: Unremarkable. Prominent axillary lymph nodes that do not meet size criteria for lymphadenopathy. Bones: No acute osseous abnormalities. Mild degenerative changes of the thoracic spine. Upper abdomen: No acute findings in the visualized upper abdomen no reflux of contrast material into the IVC. IMPRESSION: 1. No pulmonary embolus. No CT evidence of right heart strain. 2. Coronary arterial calcifications. Please note that all CT scans at this facility use dose modulation, iterative reconstruction, and/or weight-based dosing when appropriate to reduce radiation dose to as low as reasonably achievable. Dictated by Gaurang Rothman MD @ 11/23/2024 5:33:05 PM (Electronically Signed)
== END 2024-11-23 17:59 | disposition home or self-care (01) ==
PROVIDERS: Emergency Provider Family Medicine; PCP Family Medicine
DX: R63.8 Other symptoms and signs concerning food and fluid intake (principal)
CPT/HCPCS: 36415; 71275; 80048; 80076; 81001; 83605; 84443; 84484; 85025; 85379; 86140; 87086; 87186; 93005; 94761; 96374; 99285; A9270; J2405; J7030; Q9967

== ENCOUNTER 2024-11-25 12:13 | Emergency (ER) | payer MEDICARE, BC, SELFPAY ==
--- OUTSIDE RECORDS SUMMARY | 2024-11-25 12:15 | XMS_ITS | Clinical Summary ---
Author Organization [facility] Address [address] [place] [address] Care Team Providers Care Clinical Technician Name Role Phone Margarito Isidro MD Unavailable GerardLakeshia vincent MD Primary [facility] Provider [facility] [phone] Allergies Active Allergy Reactions Criticality Noted Date [...] Encounters Date Type Department Care Team Description 11/25/2024 Nurse Triage [address] [address] Lakeshia Gee MD eating disorder 11/24/[address] [address] Margarito Isidro MD Refill Request (Pregabalin, oxycodone, requip) 11/23/2024 Orders Only [facility] Scanner 1 scan: (1-Ord) [facility], CT ANGIO CHEST PE PROTOCOL, 11/23/2024 11/19/2024 11:20 AM CDT Office Visit [address] [address] Lakeshia Gee MD Derm Problem (fungal infection in groin from July has not resolved. using Nystatin, helpful but does not clear it up.); Weight (got ozempic, wants to talk about starting medication. Already ordered and has on hand.) 11/19/2024 Travel 11/13/2024 Travel 11/04/2024 Nurse Triage [facility] [address] [place] [address] Lakeshia Gee MD Fatigue 10/30/2024 Telephone [facility] [address] [place] [address] Lakeshia Gee MD Refill Request (hydroCHLOROthiazide 25 mg tablet /) 10/28/2024 Refill [facility] [address] [place] [address] Lakeshia Gee MD Refill Request (Lyrica ) 10/19/2024 Refill [facility] [address] [place] [address] Margarito Isidro MD Refill Request (oxyCODONE) 10/19/2024 Refill [facility] [address] [place] [address] Lakeshia Gee MD Refill Request (buPROPion (WELLBUTRIN XL), hydroCHLOROthiazide) 10/07/2024 Refill [facility] [address] [place] [address] Margarito Isidro MD Refill Request; PREGABALIN 10/05/2024 2:15 PM CDT Office Visit [facility] [address] [place] [address] Lakeshia Gee MD ER Follow up (09/28 right foot cellulitis; has been on keflex qid) 10/04/2024 Travel 10/02/2024 Telephone [facility] [address] [place] [address] Lakeshia Gee MD Appointment 09/28/2024 Orders Only [facility] Scanner 1 scan: (1-Ord) [facility], ANKLE RT WO CON, 09/28/2024 09/28/2024 Orders Only [facility] Scanner 1 scan: (1-Ord) [place], XR ANKLE RT 2V, 09/28/2024 09/28/2024 Orders Only [facility] Scanner 1 scan: (1-Ord) [facility], US VENOUS LE RT, 09/28/2024 09/14/2024 Telephone [facility] [address] [place] [address] Lakeshia Gee MD Questions (Nystatin powder) 09/07/2024 11:00 AM CDT Office Visit [facility] [address] [place] [address] Margarito Isidro MD Sleep Follow-up 09/07/2024 Telephone [facility] [address] [facility] [address] Ramírez Simons MD Injection (Medication) 09/07/2024 Travel 08/29/2024 Orders Only [facility] Scanner 1 scan: (1-Ord) [facility], COMPLIANCE REPORT, 08/29/2024 from Last 3 Months Immunizations Immunization Administration Dates Next Due Amb Influenza, Inact (High-d ose) (Flu Clinic Only) 02/23/2014 COVID-19 vaccine (KongZhong 30mcg/0.3mL) RICHELLE VELAZQUEZ 09/26/2021,08/18/2020,07/28/2020 Influenza RIV4 (Age [...] on file Legal Sex Female 6:13 AM NEW BUSINESS CLERK Gender Identity Not on file Sexual Orientation [...] Respiratory Rate 18 06/29/2019 10:2 3 AM NEW BUSINESS CLERK Oxygen Saturation 93% 11/19/2024 11: 20 AM CDT Inhaled Oxygen Concentration - - Weight 100.6 kg (221 lb 12.8 oz) 2023 10:18 AM CDT Height 156.5 cm (5' 1.61) 09/07/2024 1 0:58 AM CDT Body Mass Index 41.08 07/03/2023 10:33 AM NEW BUSINESS CLERK Plan of Treatment Upcoming Encounters Date Type Department Care Team (Late st Contact Info) Description 12/21/2024 11:30 AM CDT Office Visit [facility] [address] [place] [address] Margarito Isidor MD [address] [place] [address] Health Maintenance Due Date Last Done Comments [...] this topic Medical Devices Implanted Type Area Corporate Financial Analyst Device Identifier Shelf Expiration Date Model / Serial / Lot Mesh Pelvic 24x3cm Restorelle Y Contour - [id number] Implanted:Qty: 1 on 06/22/2014 by Gail Richmond MD at [facility] N/A: Urinary Bladder [employer] 02/19/2017 [id number] / [id number] / [id number] Procedures Procedure Name Priority Date/Time Associated Diagnosis Comments SCAN-CT INTERPRETATION 5 12:00 AM CDT VITAMIN B12 Routine 11/19/2024 11:57 AM CDT Memory loss TSH WITH REFLEX Routine 11/19/2024 11:57 AM CDT Memory loss CBC WITH AUTO DIFFERENTIAL Routine 11/19/2024 11:57 AM CDT Memory loss SCAN-CT INTERPRETATION 5 12:00 AM CDT SCAN-RADIOLOGY REPORT 09/28/2024 12:00 AM CDT SCAN-ULTRASOUND REPORT 5 12:00 AM CDT SCAN-DIAGNOSTIC REPORT 5 12:00 AM CDT XR DXA BONE DENSITY 2 SITES AXIAL Routine 04/05/2015 10:59 AM NEW BUSINESS CLERK Asymptomatic menopausal state from Last 3 Months or Most Recently Relevant to Health Maintenance Results * SCAN-CT INTERPRETATION (11/23/2024 12:00 AM CDT) Only the most recent of2 resultswithin the time period is included. Anatomical Region Laterality Modality Other us Scanner OTHER Final Result * TSH WITH REFLEX (11/19/2024 11:57 AM CDT) TSH W/REFLEX TO FT4 2.04 0.40 - 4.50 mIU/L [facility] Blood BLOOD SPECIMEN / Unknown 11/19/2024 11:57 AM CDT 11/19/2024 11:58 AM CDT Lakeshia Gee MD CHEMISTRY Final R esult [facility] [address] [place] [address], [facility] [address] [place] [address] * CBC AND DIFFERENTIAL (11/19/2024 11:57 AM CDT) Pathologist [facility] WHITE BLOOD CELL COUNT 6.9 3.8 - 10.8 Thousand/u L [facility] RED BLOOD CELL COUNT 4.34 3.80 - 5.10 Million/uL [facility] HEMOGLOBIN 13.8 11.7 - 15.5 [...] [facility] BASOPHILS 0.4 % [facility] Blood BLOOD SPECIMEN / Unknown 11/19/2024 11:57 AM CDT 11/19/2024 11:58 AM CDT us Lakeshia Gee MD HEMATOLOGY Final R esult [facility] [address] [place] [address], [place] [phone] [facility] [address] [place] [address] * VITAMIN B12 (11/19/2024 11:57 AM CDT) VITAMIN B12 739 200 - 1,100 pg/mL [facility] Blood BLOOD SPECIMEN / Unknown 11/19/2024 11:57 AM CDT 11/19/2024 11:58 AM CDT us Lakeshia Gee MD CHEMISTRY Final R esult [facility] [address] [place] [address], [place] [phone] [facility] [address] [place] [address] * SCAN-RADIOLOGY REPORT (09/28/2024 12:00 AM CDT) Anatomical Region Laterality Modality Other us Scanner OTHER Final Result * SCAN-ULTRASOUND REPORT (09/28/2024 12:00 AM CDT) Anatomical Region Laterality Modality Other us Scanner OTHER Final Result * SCAN-DIAGNOSTIC REPORT (08/29/2024 12:00 AM CDT) us Scanner OTHER Final Result * XR DEXA BONE DENSITY 2 SITES [26357.1] (04/05/2015 10:59 AM NEW BUSINESS CLERK) Anatomical Region Laterality Modality Spine, HIPS, HIPL, HIPR Other Narrative 04/08/2015 7:26 AM NEW BUSINESS CLERK Please see scanned document for results of this study. us Bety Macedo MD DEXA Final Result from Last 3 Months or Most Recently Relevant to Health Maintenance Insurance MEDICARE PART B HB ONLY MEDICARE PART A HB ONLY [employer] [place] BLUE MR PB ONLY [place] [id number] MEDICARE PPS BLUE [place] [place] [id number] Advance Directives Documents on File Type Date Recorded Patient Quality Assurance Advisor Expl anation Healthcare Directive 07/03/2012 8:05 AM HE ALTH CARE DIRECTIVE, [employer], 06/17/12 * Full Code (Latest Code Status on File) Date Activated Date Inactivated Comments 06/22/2014 1:35 PM 06/24/2014 2:09 PM * Full Code Date Activated Date Inactivated Comments 06/22/2014 12:46 AM 06/22/2014 1:35 PM Care Teams Clinical Technician Relationship Specialty Start Date End Date [place] [address] PCP - General Family Practice 09/19/22 Margarito Isidro MD Sleep Medicine 04/30/12 [facility] [address] [place] [address] 04/15/24
--- OUTSIDE RECORDS SUMMARY | 2024-11-25 12:15 | XMS_ITS | Clinical Summary ---
Author Organization [facility] Address [address] [place] [address] Care Team Providers Care Starch Crab Name Role Phone Unavailable Primary Care Provider Unavailabl e Source Comments Patient records contain information from all sites at [facility]. For routine questions regarding patient records, call [phone] during business hours, M-F 8:00 AM - 5:00 PM Central Time. 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
[2024-11-25 12:16] VITALS: BP 129/73; PULSE 78; RESP 18; TEMP 36.2; O2SAT 917; BMI 39.5
--- NOTE | 2024-11-25 13:12 | ED.GENADULT ---
HPI - General Adult General Chief complaint: Nausea/Vomiting Stated complaint: possible dehydration Time Seen by Provider: 11/25/24 12:16 Source: patient Mode of arrival: ambulatory Limitations: no limitations History of Present Illness HPI narrative: 84-year-old female presenting today with continued anorexia after an injection of Ozempic. States that she still is not able to eat or drink anything. She says that she does not feel terrible, but her friends thought she should be evaluated again. She is not vomiting. Denies fever. Has not lost any weight. No presyncope or syncopal episodes. She denies feeling dizzy or lightheaded. She denies chest pain or shortness of breath. She denies fevers, chills or abdominal pain. Patient had a urine cultures on Saturday with results coming back this morning positive for gram-negative rods. Patient also concerned about a vaginal rash has been present for several months. She wants to make sure that is healing appropriately. Sometimes it is itchy a, denies pain. Related Data Home Medications ?Medication ?Instructions ?Recorded ?Confirmed fluticasone propionate 50 1 spray intranasal BID PRN 12/04/21 11/25/24 mcg/actuation nasal spray,suspension losartan 100 mg tablet 100 mg PO DAILY 12/04/21 11/25/24 acetaminophen 500 mg tablet 500 mg PO Q6H PRN 12/05/21 11/25/24 (Tylenol Extra Strength) amlodipine 10 mg tablet 10 mg PO QDAY 12/05/21 11/23/24 bupropion HCl 150 mg 24 hr tablet, 150 mg PO DAILY 12/05/21 11/25/24 extended release pregabalin 150 mg capsule 150 mg PO Q12H 12/05/21 11/25/24 ropinirole 2 mg tablet 2 mg PO BID 12/05/21 11/25/24 hydrochlorothiazide 25 mg tablet 25 mg PO DAILY 08/15/23 11/25/24 oxycodone 5 mg tablet 5 mg PO DAILY 10/23/23 11/25/24 amlodipine 5 mg tablet 5 mg PO DAILY 09/28/24 11/25/24 oxycodone 10 mg tablet mg PO 09/28/24 10/13/24 triamcinolone acetonide 0.1 % 1 applic topical BID 09/28/24 11/25/24 topical cream Previous Rx's ?Medication ?Instructions ?Recorded pregabalin 150 mg capsule 150 mg PO BID #180 caps 12/06/23 furosemide 20 mg tablet 20 mg PO QAM #3 tabs 01/24/24 nystatin 100,000 unit/gram topical 1 applic topical TID #30 grams 07/25/24 powder nitrofurantoin 100 mg PO Q12H 5 days #9 caps 11/25/24 monohydrate/macrocrystals 100 mg capsule (Macrobid) Allergies Allergy/AdvReac Type Severity Reaction Status Date / Time atenolol Allergy Intermediate shortness Verified 11/25/24 12:28 of breath lisinopril Allergy Mild Cough Verified 11/25/24 12:28 morphine Allergy Mild nausea/vomi Verified 11/25/24 12:28 ting Review of Systems Status of ROS: Reports: 10 or more systems reviewed and unremarkable except as noted in History and below [facility] Medical History Stage 3a chronic kidney disease ?N18.31 - Chronic kidney disease, stage 3a (ICD-10) Major depression, recurrent ?F33.9 - Major depressive disorder, recurrent, unspecified (ICD-10) Vaginal prolapse ?N81.10 - Cystocele, unspecified (ICD-10) Weakness generalized ?R53.1 - Weakness (ICD-10) Restless legs syndrome (RLS) ?G25.81 - Restless legs syndrome (ICD-10) Lymphedema ?I89.0 - Lymphedema, not elsewhere classified (ICD-10) Hiatal hernia with gastroesophageal reflux disease without esophagitis ?K44.9 - Diaphragmatic hernia without obstruction or gangrene (ICD-10) ?K21.9 - Gastro-esophageal reflux disease without esophagitis (ICD-10) Benign neoplasm of colon ?D12.6 - Benign neoplasm of colon, unspecified (ICD-10) Allergic rhinitis, cause unspecified ?J30.9 - Allergic rhinitis, unspecified (ICD-10) Morbid obesity with BMI of 40.0-44.9, adult ?E66.01 - Morbid (severe) obesity due to excess calories (ICD-10) ?Z68.41 - Body mass index [BMI] 40.0-44.9, adult (ICD-10) Skin lesion of face ?L98.9 - Disorder of the skin and subcutaneous tissue, unspecified (ICD-10) Contact dermatitis ?L25.9 - Unspecified contact dermatitis, unspecified cause (ICD-10) Neuropathy ?G62.9 - Polyneuropathy, unspecified (ICD-10) Arthritis ?M19.90 - Unspecified osteoarthritis, unspecified site (ICD-10) Sleep apnea ?G47.30 - Sleep apnea, unspecified (ICD-10) Asthma ?J45.909 - Unspecified asthma, uncomplicated (ICD-10) Hypertension ?I10 - Essential (primary) hypertension (ICD-10) Fracture of rib ?S22.39XA - Fracture of one rib, unspecified side, initial encounter for closed fracture (ICD-10) Surgical History History of arthroscopy of right knee (08/16/92) ?Z98.890 - Other specified postprocedural states (ICD-10) History of arthroscopy of left knee (01/15/95) ?Z98.890 - Other specified postprocedural states (ICD-10) History of carpal tunnel release ?Z98.890 - Other specified postprocedural states (ICD-10) History of sacrocolpopexy (06/22/14) ?Z98.890 - Other specified postprocedural states (ICD-10) History of revision of total knee arthroplasty ?Z96.659 - Presence of unspecified artificial knee joint (ICD-10) H/O: hysterectomy (~1994) ?Z90.710 - Acquired absence of both cervix and uterus (ICD-10) 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) ?Z96.651 - Presence of right artificial knee joint (ICD-10) History of total left knee replacement (02/04/03) ?Z96.652 - Presence of left artificial knee joint (ICD-10) Avulsion of toenail ?S91.209A - Unspecified open wound of unspecified toe(s) with damage to nail, initial encounter (ICD-10) Social History Smoking Status: Never smoker Do you use any of these nicotine containing products: None Second hand tobacco smoke exposure: No How often do you have a drink containing alcohol: never How often do you have six or more drinks on one occasion: Never AUDIT-C Alcohol total score: 0 Non-prescribed substance use: denies use service: No Exam Narrative: Exam Narrative: Well-nourished well-developed patient in no acute distress. Alert and oriented. Answers questions appropriately. Mood and affect are appropriate. Thoughts are goal oriented and rational. No tangential or magical thinking noted. Patient speaks in full sentences without needing to catch her breath. Patient is not appear ill or toxic. Sitting up in bed chatting with her friend. HEENT: Normocephalic atraumatic. Pupils are equally round reactive to light. Extraocular muscles are intact. Conjunctivae are moist without any icterus noted. Slightly dry mucous membranes. Cardiovascular: Heart is regular rate and rhythm S1 and S2 are present without any murmurs. Lungs: Clear to auscultation bilaterally no wheezes rhonchi or rales are appreciated. Abdomen: Soft and nontender nondistended with normal bowel sounds. Extremities: Bilateral lower extremities show pitting edema, right greater than the left with chronic skin changes present. Skin: Well perfused. : Normal external female genitalia. Patient has mildly irritated skin over the labia majora and minora. No skin induration or broken skin. Const: Vital Signs, click to edit/add: Vital Signs - 24 hr 11/25/24 12:16 Temperature 97.1 F L Pulse Rate [Right Pulse Oximeter] 78 Respiratory Rate 18 Blood Pressure [Ri ght Upper Arm] 129/73 Pulse Oximetry 917 H Oxygen Delivery Me thod Room Air Course Course ED Course: IV established and patient received another L of normal saline over 2 hours along with IV Zofran. She also received an oral dose of Macrobid. Repeated blood work to make sure that her UTI was not spreading or that her blood work was not changing in any way. Her blood work was unremarkable. Patient had a head CT 1 year ago, I do not think repeating that would yield any useful results today. Vital Signs Vital signs: Initial Vital Signs Temperature 97.1 F L 11/25/24 12:16 Temperature Source Temporal Artery Scan 11/25/24 12:16 Pulse Rate 78 11/25/24 12:16 Respiratory Rate 18 11/25/24 12:16 Blood Pressure 129/73 11/25/24 12:16 Blood Pressure Mean 91 11/25/24 12:16 Blood Pressure Position Sitting 11/25/24 12:16 Pulse Oximetry 917 H 11/25/24 12:16 Oxygen Delivery Method Room Air 11/25/24 12:16 Vital Signs Temperature 97.1 F L 11/25/24 12:16 Pulse Rate 78 11/25/24 12:16 Respiratory Rate 18 11/25/24 12:16 Blood Pressure 129/73 11/25/24 12:16 Pulse Oximetry 917 H 11/25/24 12:16 Oxygen Delivery Method Room Air 11/25/24 12:16 Temperature 97.1 F L 11/25/24 12:16 Pulse Rate 78 11/25/24 12:16 Respiratory Rate 18 11/25/24 12:16 Blood Pressure 129/73 11/25/24 12:16 Pulse Oximetry 917 H 11/25/24 12:16 Oxygen Delivery Method Room Air 11/25/24 12:16 Medications Administered Medications: Generic Name Dose Route Start Last Admin Trade Name Freq PRN Reason Stop Dose Admin Sodium Chloride 1,000 mls @ 500 mls/hr 11/25/24 12:41 11/25/24 13:34 0.9 % Sodium Chloride 1000 Ml IV 11/25/24 14:40 500 mls/hr .Q2H EVER Administration Discontinued Medications Generic Name Dose Route Start Last Admin Trade Name Freq PRN Reason Stop Dose Admin Nitrofurantoin Macrocrystals 100 mg 11/25/24 13:29 11/25/24 13:45 Nitrofurantoin Monohyd Macro 100 Mg Capsule PO 11/25/24 13:30 100 mg ONCE ONE Administration Ondansetron HCl 4 mg 11/25/24 12:41 11/25/24 13:34 Ondansetron 2 Mg/Ml Inj IVP 11/25/24 12:42 4 mg ONCE ONE Administration Medical Decision Making MDM Narrative Medical decision making narrative: Anorexia and UTI in 84-year-old female will treat with Macrobid. Lab Data Lab results reviewed: Yes I reviewed the patient's lab results Labs: Lab Results 11/25/24 Range/Units 13:15 WBC 6.52 (4.50-11.00) K/uL RBC 4.43 (4.00-5.20) m/uL Hgb 13.5 (12.0-16.0) gm/dL Hct 40.8 (33.0-51.0) % MCV 92 (80-100) fL MCH 31 (26-34) pg MCHC 33 (32-36) gm/dL RDW Coeff of [place] 13.7 (11.5-15.5) % Plt Count 212 (140-440) K/uL Neut % (Auto) 67.1 (42.0-72.0) % Lymph % (Auto) 19.5 L (20-44) % [place] % (Auto) 10.0 (0.0-11.0) % Eos % (Auto) 2.8 (0.0-7.0) % Baso % (Auto) 0.6 (0.0-3.0) % Neut # (Auto) 4.38 (1.7-7.0) K/uL Lymph # (Auto) 1.30 (0.90-2.90) K/uL [place] # (Auto) 0.70 (0.00-0.90) K/UL Eos # (Auto) 0.18 (0.00-0.50) K/uL Baso # (Auto) 0.04 (0.00-0.30) K/uL Abs Immat Gran (auto) 0.00 (0.00-0.30) K/uL Imm/Tot Granulo (auto) 0.0 % Sodium 138 (135-149) mmol/L Potassium 3.8 (3.6-5.1) mmol/L Chloride 101 (96-114) mmol/L Carbon Dioxide 31 (20-32) mmol/L Anion Gap 6 L (7-15) mEq/L BUN 35 H (7-30) mg/dL Creatinine 1.1 (0.5-1.5) mg/dL Estimated Creat Clear 30.65 Estimated GFR 50 ml/min Glucose 85 (60-115) mg/dL Lactate 1.3 (0.5-1.9) mmol/L Calcium 11.1 H (8.4-10.6) mg/dL Total Bilirubin 0.7 (0.1-1.5) mg/dL Direct Bilirubin 0.2 (0.0-0.5) mg/dL AST 58 H (12-35) U/L ALT 43 H (4-35) U/L Alkaline Phosphatase 88 (40-150) U/L C-Reactive Protein 0.6 (0.5-1.0) mg/dL Total Protein 6.9 (6.0-8.3) g/dL Albumin 4.2 (3.3-5.0) g/dL Discharge Plan Discharge Clinical Impression: Decrease in appetite, Acute UTI Patient Disposition: Home, Self-Care Condition: Stable Additional Instructions: Your blood work was unremarkable today. Again, your urine did grow out bacteria so we will treat you for urinary tract infection which can certainly alter your appetite along with your Ozempic injection. You had your 1st dose of antibiotic while your in the ER, take your 2nd dose this evening. I do want you to follow-up with your primary care provider in the next 24-48 hours. Prescriptions: New nitrofurantoin monohyd/m-cryst [Macrobid] 100 mg capsule 100 mg PO Q12H 5 Days Qty: 9 0RF Rx Instructions: must administer with a meal/food No Action losartan 100 mg tablet 100 mg PO DAILY fluticasone propionate 50 mcg/actuation spray,suspension 1 spray intranasal BID PRN Rx Instructions: administer into each nostril pregabalin 150 mg capsule 150 mg PO Q12H amlodipine 10 mg tablet 10 mg PO QDAY ropinirole 2 mg tablet 2 mg PO BID bupropion HCl 150 mg tablet extended release 24 hr 150 mg PO DAILY acetaminophen [Tylenol Extra Strength] 500 mg tablet 500 mg PO Q6H PRN furosemide 20 mg tablet 20 mg PO QAM Qty: 3 0RF hydrochlorothiazide 25 mg tablet 25 mg PO DAILY oxycodone 5 mg tablet 5 mg PO DAILY nystatin 100,000 unit/gram powder 1 applic topical TID Qty: 30 0RF pregabalin 150 mg capsule 150 mg PO BID Qty: 180 0RF amlodipine 5 mg tablet 5 mg PO DAILY triamcinolone acetonide 0.1 % cream 1 applic topical BID oxycodone 10 mg tablet PO Follow Up/Referrals: Lakeshia Gee MD [Primary Care Provider, Family Practice] [facility]: [facility]
--- OUTSIDE RECORDS SUMMARY | 2024-11-25 13:18 | XMS_ITS | Clinical Summary ---
Author Organization [facility] Address [address] , [address] [place] [address] Phone Care Team Providers Care Food Technologist Name Role Phone [facility] Unavailable Unava ilable Conditions or Problems Problem Name Problem Code Onset Date Status Entry Date Provider Comment Standard Description Annotate Polyneuropathy [id number] (SNOMED CT) 08/31 Active 08/31 Tony Stringer MD Polyneuropathy Medications Medication Instructions Start Date Stop Date Generic Name NDC Provider GABAPENTIN 600 MG TABS gabapentin [id number] Tony Stringer MD PREGABALIN 150 MG CAPS 150 mg by mouth twice a day 4 pregabalin [id number] Tony Stringer MD BUPROPION HCL ER (XL) 150 MG [id number] bupropion hcl [id number] Tony Stringer MD FERROUS GLUCONATE 324 (38 Fe) MG TABS ferrous gluconate 02335658033 Tony Stringer MD FUROSEMIDE 20 MG TABS furosemide 48244705076 Tony Stringer MD ROPINIROLE HCL 2 MG TABS ropinirole [id number] Tony Stringer MD LOSARTAN POTASSIUM 100 MG TABS losartan 59531364575 Tony Stringer MD AMLODIPINE BESYLATE 10 MG TABS amlodipine 50333929128 Tony Stringer MD GABAPENTIN 600 MG TABS gabapentin 17760846453 Tony Stringer MD Medications Administered No information [...] medications (procedure) SMOK STATUS never smoker 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
[2024-11-25 13:23] LABS: Lactate* 1.3 mmol/L (0.5-1.9)
[2024-11-25 13:32] LABS: Hematocrit 40.8 % (33.0-51.0); Hemoglobin* 13.5 gm/dL (12.0-16.0); Immature Granulocytes Abs Auto 0.00 K/uL (0.00-0.30); Immature Granulocytes Pct Auto 0.0 %; Mean Corpuscular HGB Conc 33 gm/dL (32-36); Mean Corpuscular Hemoglobin 31 pg (26-34); Mean Corpuscular Volume 92 fL (80-100); RDW Coefficient of Variation % 13.7 % (11.5-15.5); Red Blood Count 4.43 m/uL (4.00-5.20); White Blood Count* 6.52 K/uL (4.50-11.00)
[2024-11-25] MEDS: ONDANSETRON 2 MG/ML inj 4 MG IVP (13:34)
[2024-11-25 13:35] LABS: Lymphocytes Absolute Auto 1.30 K/uL (0.90-2.90); Slide Review Reflex No
[2024-11-25 13:39] LABS: Albumin* 4.2 g/dL (3.3-5.0); Chloride* 101 mmol/L (96-114)
[2024-11-25 13:40] LABS: Potassium* 3.8 mmol/L (3.6-5.1); Sodium* 138 mmol/L (135-149)
[2024-11-25 13:42] LABS: Blood Urea Nitrogen* 35 mg/dL (7-30); Creatinine* 1.1 mg/dL (0.5-1.5); Est. Creatinine Clearance* 30.65; Estimated Glomerular Filt Rate 50 ml/min
[2024-11-25 13:43] LABS: Alanine Aminotransferase* 43 U/L (4-35); Alkaline Phosphatase* 88 U/L (40-150); Anion Gap 6 mEq/L (7-15); Aspartate Amino Transferase* 58 U/L (12-35); Bilirubin Direct* 0.2 mg/dL (0.0-0.5); Bilirubin Total* 0.7 mg/dL (0.1-1.5); Calcium* 11.1 mg/dL (8.4-10.6); Carbon Dioxide* 31 mmol/L (20-32); Glucose* 85 mg/dL (60-115); Total Protein* 6.9 g/dL (6.0-8.3)
[2024-11-25] MEDS: NITROFURANTOIN MONOHYD MACRO 100 MG CAPSULE PO (13:45)
--- NOTE | 2024-11-26 13:01 | ED.GENADULT ---
HPI - General Adult General Chief complaint: Nausea/Vomiting Stated complaint: possible dehydration Time Seen by Provider: 11/25/24 12:16 Source: patient Mode of arrival: ambulatory Limitations: no limitations History of Present Illness HPI narrative: This is an addendum to ER visit from 11/25/2024 Urine culture today came back growing Enterococcus and Pseudomonas. Patient is already on nitrofurantoin but these isolates would likely not be sensitive to nitrofurantoin. , in particular Pseudomonas may not be sensitive. Will switch from nitrofurantoin to Cipro which would cover both Enterococcus and the Pseudomonas. I called the patient on her phone. She will be able to swing by [facility] that afternoon and get the new antibiotic. Cipro 500 b.i.d. for 7 days. Related Data Home Medications ?Medication ?Instructions ?Recorded ?Confirmed fluticasone propionate 50 1 spray intranasal BID PRN 12/04/21 11/25/24 mcg/actuation nasal spray,suspension losartan 100 mg tablet 100 mg PO DAILY 12/04/21 11/25/24 acetaminophen 500 mg tablet 500 mg PO Q6H PRN 12/05/21 11/25/24 (Tylenol Extra Strength) amlodipine 10 mg tablet 10 mg PO QDAY 12/05/21 11/23/24 bupropion HCl 150 mg 24 hr tablet, 150 mg PO DAILY 12/05/21 11/25/24 extended release pregabalin 150 mg capsule 150 mg PO Q12H 12/05/21 11/25/24 ropinirole 2 mg tablet 2 mg PO BID 12/05/21 11/25/24 hydrochlorothiazide 25 mg tablet 25 mg PO DAILY 08/15/23 11/25/24 oxycodone 5 mg tablet 5 mg PO DAILY 10/23/23 11/25/24 amlodipine 5 mg tablet 5 mg PO DAILY 09/28/24 11/25/24 oxycodone 10 mg tablet mg PO 09/28/24 10/13/24 triamcinolone acetonide 0.1 % 1 applic topical BID 09/28/24 11/25/24 topical cream Previous Rx's ?Medication ?Instructions ?Recorded pregabalin 150 mg capsule 150 mg PO BID #180 caps 12/06/23 furosemide 20 mg tablet 20 mg PO QAM #3 tabs 01/24/24 nystatin 100,000 unit/gram topical 1 applic topical TID #30 grams 07/25/24 powder nitrofurantoin 100 mg PO Q12H 5 days #9 caps 11/25/24 monohydrate/macrocrystals 100 mg capsule (Macrobid) ciprofloxacin HCl 500 mg tablet 500 mg PO BID #14 tabs 11/26/24 (Cipro) Allergies Allergy/AdvReac Type Severity Reaction Status Date / Time atenolol Allergy Intermediate shortness Verified 11/25/24 12:28 of breath lisinopril Allergy Mild Cough Verified 11/25/24 12:28 morphine Allergy Mild nausea/vomi Verified 11/25/24 12:28 [facility] Medical History Stage 3a chronic kidney disease ?N18.31 - Chronic kidney disease, stage 3a (ICD-10) Major depression, recurrent ?F33.9 - Major depressive disorder, recurrent, unspecified (ICD-10) Vaginal prolapse ?N81.10 - Cystocele, unspecified (ICD-10) Weakness generalized ?R53.1 - Weakness (ICD-10) Restless legs syndrome (RLS) ?G25.81 - Restless legs syndrome (ICD-10) Lymphedema ?I89.0 - Lymphedema, not elsewhere classified (ICD-10) Hiatal hernia with gastroesophageal reflux disease without esophagitis ?K44.9 - Diaphragmatic hernia without obstruction or gangrene (ICD-10) ?K21.9 - Gastro-esophageal reflux disease without esophagitis (ICD-10) Benign neoplasm of colon ?D12.6 - Benign neoplasm of colon, unspecified (ICD-10) Allergic rhinitis, cause unspecified ?J30.9 - Allergic rhinitis, unspecified (ICD-10) Morbid obesity with BMI of 40.0-44.9, adult ?E66.01 - Morbid (severe) obesity due to excess calories (ICD-10) ?Z68.41 - Body mass index [BMI] 40.0-44.9, adult (ICD-10) Skin lesion of face ?L98.9 - Disorder of the skin and subcutaneous tissue, unspecified (ICD-10) Contact dermatitis ?L25.9 - Unspecified contact dermatitis, unspecified cause (ICD-10) Neuropathy ?G62.9 - Polyneuropathy, unspecified (ICD-10) Arthritis ?M19.90 - Unspecified osteoarthritis, unspecified site (ICD-10) Sleep apnea ?G47.30 - Sleep apnea, unspecified (ICD-10) Asthma ?J45.909 - Unspecified asthma, uncomplicated (ICD-10) Hypertension ?I10 - Essential (primary) hypertension (ICD-10) Fracture of rib ?S22.39XA - Fracture of one rib, unspecified side, initial encounter for closed fracture (ICD-10) Surgical History History of arthroscopy of right knee (08/16/92) ?Z98.890 - Other specified postprocedural states (ICD-10) History of arthroscopy of left knee (01/15/95) ?Z98.890 - Other specified postprocedural states (ICD-10) History of carpal tunnel release ?Z98.890 - Other specified postprocedural states (ICD-10) History of sacrocolpopexy (06/22/14) ?Z98.890 - Other specified postprocedural states (ICD-10) History of revision of total knee arthroplasty ?Z96.659 - Presence of unspecified artificial knee joint (ICD-10) H/O: hysterectomy (~1994) ?Z90.710 - Acquired absence of both cervix and uterus (ICD-10) 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) ?Z96.651 - Presence of right artificial knee joint (ICD-10) History of total left knee replacement (02/04/03) ?Z96.652 - Presence of left artificial knee joint (ICD-10) Avulsion of toenail ?S91.209A - Unspecified open wound of unspecified toe(s) with damage to nail, initial encounter (ICD-10) Social History Smoking Status: Never smoker Do you use any of these nicotine containing products: None Second hand tobacco smoke exposure: No How often do you have a drink containing alcohol: never How often do you have six or more drinks on one occasion: Never AUDIT-C Alcohol total score: 0 Non-prescribed substance use: denies use service: No Course Vital Signs Vital signs: Initial Vital Signs Temperature 97.1 F L 11/25/24 12:16 Temperature Source Temporal Artery Scan 11/25/24 12:16 Pulse Rate 78 11/25/24 12:16 Respiratory Rate 18 11/25/24 12:16 Blood Pressure 129/73 11/25/24 12:16 Blood Pressure Mean 91 11/25/24 12:16 Blood Pressure Position Sitting 11/25/24 12:16 Pulse Oximetry 917 H 11/25/24 12:16 Oxygen Delivery Method Room Air 11/25/24 12:16 Vital Signs Temperature 97.1 F L 11/25/24 12:16 Pulse Rate 78 11/25/24 12:16 Respiratory Rate 18 11/25/24 12:16 Blood Pressure 129/73 11/25/24 12:16 Pulse Oximetry 917 H 11/25/24 12:16 Oxygen Delivery Method Room Air 11/25/24 12:16 Temperature 97.1 F L 11/25/24 12:16 Pulse Rate 78 11/25/24 12:16 Respiratory Rate 18 11/25/24 12:16 Blood Pressure 129/73 11/25/24 12:16 Pulse Oximetry 917 H 11/25/24 12:16 Oxygen Delivery Method Room Air 11/25/24 12:16 Medications Administered Medications: Discontinued Medications Generic Name Dose Route Start Last Admin Trade Name Freq PRN Reason Stop Dose Admin Sodium Chloride 1,000 mls @ 500 mls/hr 11/25/24 12:41 11/25/24 14:49 0.9 % Sodium Chloride 1000 Ml IV 11/25/24 14:40 0 mls/hr .Q2H EVER Infusion Nitrofurantoin Macrocrystals 100 mg 11/25/24 13:29 11/25/24 13:45 Nitrofurantoin Monohyd Macro 100 Mg Capsule PO 11/25/24 13:30 100 mg ONCE ONE Administration Ondansetron HCl 4 mg 11/25/24 12:41 11/25/24 13:34 Ondansetron 2 Mg/Ml Inj IVP 11/25/24 12:42 4 mg ONCE ONE Administration Medical Decision Making Lab Data Labs: Lab Results 11/25/24 Range/Units 13:15 WBC 6.52 (4.50-11.00) K/uL RBC 4.43 (4.00-5.20) m/uL Hgb 13.5 (12.0-16.0) gm/dL Hct 40.8 (33.0-51.0) % MCV 92 (80-100) fL MCH 31 (26-34) pg MCHC 33 (32-36) gm/dL RDW Coeff of [place] 13.7 (11.5-15.5) % Plt Count 212 (140-440) K/uL Neut % (Auto) 67.1 (42.0-72.0) % Lymph % (Auto) 19.5 L (20-44) % [place] % (Auto) 10.0 (0.0-11.0) % Eos % (Auto) 2.8 (0.0-7.0) % Baso % (Auto) 0.6 (0.0-3.0) % Neut # (Auto) 4.38 (1.7-7.0) K/uL Lymph # (Auto) 1.30 (0.90-2.90) K/uL [place] # (Auto) 0.70 (0.00-0.90) K/UL Eos # (Auto) 0.18 (0.00-0.50) K/uL Baso # (Auto) 0.04 (0.00-0.30) K/uL Abs Immat Gran (auto) 0.00 (0.00-0.30) K/uL Imm/Tot Granulo (auto) 0.0 % Sodium 138 (135-149) mmol/L Potassium 3.8 (3.6-5.1) mmol/L Chloride 101 (96-114) mmol/L Carbon Dioxide 31 (20-32) mmol/L Anion Gap 6 L (7-15) mEq/L BUN 35 H (7-30) mg/dL Creatinine 1.1 (0.5-1.5) mg/dL Estimated Creat Clear 30.65 Estimated GFR 50 ml/min Glucose 85 (60-115) mg/dL Lactate 1.3 (0.5-1.9) mmol/L Calcium 11.1 H (8.4-10.6) mg/dL Total Bilirubin 0.7 (0.1-1.5) mg/dL Direct Bilirubin 0.2 (0.0-0.5) mg/dL AST 58 H (12-35) U/L ALT 43 H (4-35) U/L Alkaline Phosphatase 88 (40-150) U/L C-Reactive Protein 0.6 (0.5-1.0) mg/dL Total Protein 6.9 (6.0-8.3) g/dL Albumin 4.2 (3.3-5.0) g/dL Discharge Plan Discharge Clinical Impression: Decrease in appetite, Acute UTI Patient Disposition: Home, Self-Care Condition: Stable Additional Instructions: Your blood work was unremarkable today. Again, your urine did grow out bacteria so we will treat you for urinary tract infection which can certainly alter your appetite along with your Ozempic injection. You had your 1st dose of antibiotic while your in the ER, take your 2nd dose this evening. I do want you to follow-up with your primary care provider in the next 24-48 hours. Prescriptions: New nitrofurantoin monohyd/m-cryst [Macrobid] 100 mg capsule 100 mg PO Q12H 5 Days Qty: 9 0RF Rx Instructions: must administer with a meal/food ciprofloxacin HCl [Cipro] 500 mg tablet 500 mg PO BID Qty: 14 0RF No Action losartan 100 mg tablet 100 mg PO DAILY fluticasone propionate 50 mcg/actuation spray,suspension 1 spray intranasal BID PRN Rx Instructions: administer into each nostril pregabalin 150 mg capsule 150 mg PO Q12H amlodipine 10 mg tablet 10 mg PO QDAY ropinirole 2 mg tablet 2 mg PO BID bupropion HCl 150 mg tablet extended release 24 hr 150 mg PO DAILY acetaminophen [Tylenol Extra Strength] 500 mg tablet 500 mg PO Q6H PRN furosemide 20 mg tablet 20 mg PO QAM Qty: 3 0RF hydrochlorothiazide 25 mg tablet 25 mg PO DAILY oxycodone 5 mg tablet 5 mg PO DAILY nystatin 100,000 unit/gram powder 1 applic topical TID Qty: 30 0RF pregabalin 150 mg capsule 150 mg PO BID Qty: 180 0RF amlodipine 5 mg tablet 5 mg PO DAILY triamcinolone acetonide 0.1 % cream 1 applic topical BID oxycodone 10 mg tablet PO Follow Up/Referrals: Lakeshia Gee MD [Primary Care Provider, Family Practice] Stand Alone [facility]: [facility] [employer] Info Instructions
== END 2024-11-25 14:48 | disposition home or self-care (01) ==
PROVIDERS: Emergency Provider Family Medicine; PCP Family Medicine
DX: R63.0 Anorexia (principal); N39.0 Urinary tract infection, site not specified
CPT/HCPCS: 36415; 80048; 80076; 83605; 85025; 86140; 96374; 99281; 99284; A9270; J2405; J7030

== ENCOUNTER 2025-02-05 18:04 | Emergency (ER) | payer MEDICARE, BC, SELFPAY ==
--- OUTSIDE RECORDS SUMMARY | 2025-02-05 18:05 | XMS_ITS | Clinical Summary ---
Author Organization [facility] Address [address] [place] [address] Care Team Providers Care Clinical Cytogenetics Director Name Role Phone Unavailable Primary Care Provider Unavailabl e Source Comments Patient records contain information from all sites at [facility]. For routine questions regarding patient records, call [phone] during business hours, M-F 8:00 AM - 5:00 PM Central Time. Record requests for emergency care only can be directed to [phone] at any time.[facility] Allergies Active Allergy Reactions Criticality Noted [...] on file Legal Sex Female 10:09 PM [employer] Gender Identity Not on file Sexual Orientation [...] 75+ series) 2016 Depression Screening (Annual PHQ-2) 05/20/2024 Fall Risk Screen (Annual) 05/20/2024 Creatinine Level (Kidney Function Test) 07/08/2024 07/08/2023, 06/24/2023, 06/14/2022, Additional history exists Potassium Level 07/08/2024 07/08/2023, 02/0 09/2023, 06/14/2022, Additional history exists Sodium Level 07/08/2024 07/08/2023, 02/0 09/2023, 06/14/2022, Additional history exists COVID-19 Vaccine ( season) 2025 03/09/2023, 02/21/2022, 09/26/2021, Additional history exists Influenza Vaccine (#1) 2025 3, 01/29/2022, 02/19/2021, Additional history exists DTaP,Tdap,and Td Vaccines (2 - Td or Tdap) 04/04/2025 04/04/2015, 01/27/2009 Pneumococcal vaccine (50+ years) Completed 04/01/2014, 01/27/2009 Zoster Vaccines Completed 06/30/2018, 12/2017, 06/16/2010 IPV Vaccines Aged Out No longer eligi ble based on patient's age to complete this topic Insurance [facility] MEDIC[facility]
--- OUTSIDE RECORDS SUMMARY | 2025-02-05 18:05 | XMS_ITS | Clinical Summary ---
Author Organization [facility] Address [address] , [address] [place] [address] Phone Care Team Providers Care Alteration Specialist Name Role Phone [facility] Unavailable Unava ilable Conditions or Problems Problem Name Problem Code Onset Date Status Entry Date Provider Comment Standard Description Annotate Polyneuropathy [id number] (SNOMED CT) 08/31 Active 08/31 Toyn Stringer MD Polyneuropathy Medications Medication Instructions Start Date Stop Date Generic Name NDC Provider GABAPENTIN 600 MG TABS gabapentin [id number] Tony Stringer MD PREGABALIN 150 MG CAPS 150 mg by mouth twice a day 4 pregabalin [id number] Tony Stringer MD BUPROPION HCL ER (XL) 150 MG [id number] bupropion hcl [id number] Tony Stringer MD FERROUS GLUCONATE 324 (38 Fe) MG TABS ferrous gluconate [id number] Tony Stringer MD FUROSEMIDE 20 MG TABS furosemide [id number] Tony Stringer MD ROPINIROLE HCL 2 MG TABS ropinirole [id number] Tony Stringer MD LOSARTAN POTASSIUM 100 MG TABS losartan [id number] Tony Stringer MD AMLODIPINE BESYLATE 10 MG TABS amlodipine [id number] Tony Stringer MD GABAPENTIN 600 MG TABS gabapentin [id number] Tony Stringer MD Medications Administered No information [...] SMOK STATUS 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
--- OUTSIDE RECORDS SUMMARY | 2025-02-05 18:06 | XMS_ITS | Clinical Summary ---
Author Organization [facility] Address [address] [place] [address] Care Team Providers Care Pipe Stem Sawyer Name Role Phone Margarito Isidro MD Unavailable [facility] [place] Unavailable [phone] Lakeshia Gee MD Primary Care Provider Allergies Active Allergy Reactions Criticality Noted Date Comments Atenolol Shortness Of Breath 12/30/2006 Iodine *Unknown 12/05/2021 Lisinopril Cough 12/30/2006 Morphine Nausea And Vomiting 10/06/2012 Medications acetaminophen (TYLENOL EXTRA STRGTH) 500 mg tabletIndications :Restless legs syndrome (RLS) Take 2 tablets by mouth every 8 hours. Max acetaminophen dose: 4000mg in 24 hrs. 0 019 Active magnesium 250 mg tab Take 1 [...] needed for Vertigo. 10 Tablet 024 Active amLODIPine (NORVASC) 5 mg tabletIndications :Essential hypertension Take 1 Tablet (5 mg) by mouth once daily. 90 Tablet 1 025 Active losartan (COZAAR) 100 mg tabletIndications :Essential hypertension Take 1 Tablet (100 mg) by mouth once daily. 90 Tablet 1 025 Active triamcinolone (ARISTOCORT; KENALOG) 0.1 % creamIndications: Stasis dermatitis of both legs Apply topically to affected area(s) two times daily. Use for up to 2 weeks at a time. 80 g 025 Active pregabalin (LYRICA) 150 mg capsuleIndication s:Peripheral sensory-motor axonal polyneuropathy Take 1 Capsule (150 mg) by mouth three times daily. 90 Capsule 2 025 Active rOPINIRole (REQUIP) 2 mg tabletIndications :Restless legs syndrome (RLS) Take 2 mg orally at supper time and 1 hour before bedtime 180 Tablet 025 Active CPAPIndications:O SA (obstructive sleep apnea) CPAP (E0601) machine for home use at pressure: 5-15cmw, Choice of mask (A7030 or A7034) w/full face cushion (A7031) x1/mo, nasal cushion (A7032) x2/mo, or nasal pillows (A7033) x 2/mo; Length of Need: 99 months; Frequency of use: Daily 1 Each 025 Active nystatin 100,000 unit/gram creamIndications: Yeast infection of the skin Apply topically to affected area(s) two times daily. 90 g 1 025 Active oxyCODONE (ROXICODONE) 5 mg immediate release tabletIndications :Restless legs syndrome (RLS) Take 1 Tablet (5 mg) by mouth every 4 hours if needed for Pain. 30 Tablet 025 Active oxyCODONE 10 mg tabletIndications :Restless legs syndrome (RLS) Patient is to take 1 pill by mouth at supper time and then again before bed 60 Tablet 025 Active buPROPion (WELLBUTRIN XL) 150 mg Extended-Release tabletIndications :Depression, recurrent TAKE ONE TABLET BY MOUTH ONE TIME DAILY 90 Tablet 1 025 Active hydroCHLOROthiazi de 25 mg tabletIndications :Essential hypertension,Rex a of both legs TAKE ONE TABLET BY MOUTH ONE TIME DAILY 90 Tablet 025 Active buPROPion 150 mg Extended-Release tabletIndications :Depression, recurrent Take 1 Tablet (150 mg) by mouth once daily. 90 Tablet 025 2024 Discontinued hydroCHLOROthiazi de 25 mg tabletIndications :Essential hypertension,Rex a of both legs Take 1 Tablet (25 mg) by mouth once daily. 90 Tablet 025 2024 Discontinued nystatin 100,000 unit/gram creamIndications: Yeast infection of the skin Apply topically to affected area(s) two times daily. 90 g 3 025 2024 Discontinued(* Availability/F ormulary change/Cost of medication) oxyCODONE 10 mg tabletIndications :Restless legs syndrome (RLS) Patient is to take 1 pill by mouth at supper time and then again before bed 60 Tablet 025 2024 Discontinued(R eorder (E-cancel not sent)) oxyCODONE (ROXICODONE) 5 mg immediate release tabletIndications :Restless legs syndrome (RLS) Take 1 Tablet (5 mg) by mouth every 4 hours if needed for Pain. 30 Tablet 025 2024 Discontinued(R eorder (E-cancel not sent)) ciprofloxacin (CIPRO) 500 mg tabletIndications :Lower urinary tract symptoms (LUTS) Take 1 Tablet (500 mg) by mouth two times daily before meals for 7 days. 14 Tablet 025 2024 Active Problems Problem Noted Date Diagnosed Date [...] Encounters Date Type Department Care Team Description 02/02/2025 Telephone [facility] [address] [place] [address] Cora Bean PA Results 02/01/2025 11:00 AM CDT Ancillary Procedure [facility] [address] [place] [id number] 02/01/2025 Travel 01/22/2025 Refill [facility] [address] [place] [address] Lakeshia Gee MD Refill Request (Hydrochlorothiazid e) 01/22/[address] [address] Ramírez Simons MD Questions (Back imaging ) 01/20/[address] [address] Lakeshia Gee MD Refill Request (Bupropion) 01/19/2025 1:30 PM CDT Office Visit [address] [address] Julio César Hills DPM Follow Up (Right foot, callus pain) 01/19/2025 Travel 01/15/2025 Travel 01/11/[address] [address] Margarito Isidro MD Refill Request (Oxy scripts) 01/06/2025 Nurse Triage [facility] Centralized Nurse Triage Lakeshia Gee MD Foot Pain/problem 01/06/[address] [address] Lakeshia Gee MD Refill Request (nystatin 100,000 unit/gram cream/) 01/05/[address] [address] Margarito Isidro MD Refill Request (Ropinirole HCL 2mg) 12/31/2024 2:05 PM CDT Office Visit [address] [address] Cora Bean PA UTI 12/31/[address] [address] Cora Bean PA Questions (today office visit) 12/31/2024 Travel 12/30/[address] [address] Lakeshia Gee MD UTI (POSITIVE ) 12/22/2024 [address] [place] [address] Margarito Isidro MD 12/21/2024 11:30 AM CDT Office Visit [facility] [address] [place] [address] Margarito Isidro MD Sleep Follow-up 12/21/2024 Travel 12/20/2024 Orders Only [facility] Scanner 1 scan: (1-Ord) PIETER, COMPLIANCE REPORT , 12/20/2024 12/02/2024 4:05 PM CDT Office Visit [address] [address] Lakeshia Gee MD Follow Up (UTI patient was seen at ED 11/25/24 finished antibiotic); Medication Management (patient tried ozempic and has concerns regarding that ); Concerns (would like to discuss and follow up fungal infection in vaginal area) 12/02/2024 Travel 11/30/[address] [address] Lakeshia Gee MD Questions 11/25/2024 Nurse Triage [address] [address] Lakeshia Gee MD eating disorder 11/24/[address] [address] Margarito Isidro MD Refill Request (Pregabalin, oxycodone, requip) 11/23/2024 Orders Only [facility] Scanner 1 scan: (1-Ord) [facility], CT ANGIO CHEST PE PROTOCOL, 11/23/2024 11/19/2024 11:20 AM CDT Office Visit [facility] [address] [place] [address] Lakeshia Gee MD Derm Problem (fungal infection in groin from July has not resolved. using Nystatin, helpful but does not clear it up.); Weight (got ozempic, wants to talk about starting medication. Already ordered and has on hand.) 11/19/2024 Travel 11/13/2024 Travel from Last 3 Months Immunizations Immunization Administration Dates Next Due Amb Influenza, Inact (High-d ose) (Flu Clinic Only) 02/23/2014 COVID-19 vaccine ([employer] 30mcg/0.3mL) PF, MDV 09/26/2021,08/18/2020,07/28/2020 Influenza RIV4 (Age [...] Answer Date Recorded PHQ-2 TOTAL SCORE 0 12/02/2024 [employer] Answer Date Recorded Do you [...] on file Legal Sex Female 6:13 AM HEATING EQUIPMENT INSTALLER Gender Identity Not on file Sexual Orientation Not on file Obstetrics History Para Term AB IAB SAB Ectopic Multiple Livin g Live Births 5 1 1 1 1 1 Date Outcome GA Total Labor Labor/2nd/3rd Weight Sex Type Anes PTL Amairani A1 A5 Name Clin Term Living Last Filed Vital Signs Vital Sign Reading Time Taken Comments Blood Pressure 145/74 01/19/2025 1:19 PM CDT Pulse 76 01/19/2025 1:19 PM CDT Temperature 36.7 C (98 F) 08/19/2024 2:46 PM CDT Respiratory Rate 18 06/29/2019 10:23 AM HEATING EQUIPMENT INSTALLER Oxygen Saturation 96% 01/19/2025 1:19 PM CDT Inhaled Oxygen Concentration - - Weight 100.2 kg (221 lb) 12/21/2024 11:25 AM CDT Height 156.5 cm (5' 1.61) 12/21/2024 11:25 AM C DT Body Mass Index 40.93 12/21/2024 11:25 AM CDT Plan of Treatment Upcoming Encounters Date Type Department Care Team (Late st Contact Info) Description 02/23/2025 2:30 PM CDT Office Visit [facility] [address] [facility] [address] Julio César Hills DPM [address] [place] [address] 02/24/2025 1:10 PM CDT Office Visit [facility] [address] [place] [address] Lakeshia Gee MD [address] [place] [address] 03/25/2025 10:40 AM HEATING EQUIPMENT INSTALLER Office Visit [facility] [address] [place] [address] Ramírez Simons MD [address] [place] [address] 04/26/2025 11:30 AM HEATING EQUIPMENT INSTALLER Office Visit [facility] [address] [place] [address] Margarito Isidro MD [address] [place] [address] Health Maintenance Due Date Last Done Comments RSV vaccine for adults or (1 - 1-dose 75+ series) 2016 Medicare Wellness for age 65+ 06/24/2024 06/24/2023, 06/14/2022, 08/22/2020, Additional history exists COVID-19 vaccine series (2024- season) 2025 03/09/2023, 02/21/2022, 09/26/2021, Additional history exists Influenza Vaccine (#1) 2025 , 01/29/2022, 01/28/2020, Additional history exists Tetanus booster 04/04/2025 04/04/2015, 01/18, 01/27/2009, Additional history exists Depression screening for age 12+ 12/02/2025 12/02/2024, 06/24/2023, 06/14/2022, Additional history exists BMI (ht and wt on same day) for age 18+ 12/21/2025 12/21/2024, 07/03/2023, 06/24/2023, Additional history exists Pneumococcal series for age 50+ Completed 04/01/2014, 01/27/2009 DEXA/DXA scan for age 65+ Completed 2014, 02/03/2009, 01/02/2007 Zoster (shingles) series for age 50+ Completed 06/30/2018, 03/27/2018, 06/16/2010 Hepatitis B series for 19+ Aged Out N o longer eligible based on patient's age to complete this topic Medical Devices Implanted Type Area Sand Analyst Device Identifier Shelf Expiration Date Model / Serial / Lot Mesh Pelvic 24x3cm Restorelle Y Contour - [id number] Implanted:Qty: 1 on 06/22/2014 by Gail Richmond MD at [facility] N/A: Urinary Bladder [employer] Love 02/19/2017 [id number] / [id number] / [id number] Procedures Procedure Name Priority Date/Time Associated Diagnosis Comments ECHO TTE COMPLETE WO CONTRAST Routine 02/01/2025 11:20 AM CDT Systolic murmur URINALYSIS MACROSCOPIC - [facility] ONLY POC DIP ([facility]) Routine 12/31/2024 2:00 PM CDT Lower urinary tract symptoms (LUTS) URINE CULTURE Routine 12/31/2024 1:52 PM CDT Lower urinary tract symptoms (LUTS) URINALYSIS MICROSCOPIC Routine 1:52 PM CDT Lower urinary tract symptoms (LUTS) SCAN-DIAGNOSTIC REPORT 12:00 AM CDT SCAN-CT INTERPRETATION 12:00 AM CDT VITAMIN B12 Routine 11/19/2024 11:57 AM CDT Memory loss TSH WITH REFLEX Routine 11/19/2024 11:57 AM CDT Memory loss CBC WITH AUTO DIFFERENTIAL Routine 11/19/2024 11:57 AM CDT Memory loss XR DXA BONE DENSITY 2 SITES AXIAL Routine 04/05/2015 10:59 AM HEATING EQUIPMENT INSTALLER Asymptomatic menopausal state from Last 3 Months or Most Recently Relevant to Health Maintenance Results * ECHO TTE COMPLETE WO CONTRAST (02/01/2025 11:20 AM CDT) AORTIC VALVE MEAN PG 8 mmHg EJECTION FRACTION 67 % LVEDD 3.5 cm EJECTION FRACTION 60 - 65% Anatomical Region Laterality Modality Ultrasound 02/01/2025 10:5 4 AM CDT Narrative 02/01/2025 11:51 AM CDT ECHOCARDIOGRAM KIKE MCGEE : 1940 84 years Study Date: 02/01/2025 10:54:07 AM Gender: F BP: 145/74 mmHg Height: 155.00 cm BSA: 1.97 m Weight: 100.00 kg Tech: [facility] MD: CORA BEAN Site: [facility] Reading Location: MOBILE OP Patient Location: Outpatient. Procedure: 2D, Color Doppler and Spectral Doppler. Indication for study: Systolic murmur Cardiac Rhythm: Normal sinus.Study quality: Good. Imaging limitations: This study was subject to imaging limitations due to body habitus. Final Impressions: 1. Normal LV size, normal wall thickness, normal function with an estimated EF of 60 - 65%. 2. Right ventricular cavity size is normal, global systolic RV function is normal. 3. The aortic valve is sclerotic, no stenosis and no regurgitation. Likely source of murmur. Comparison There are no prior studies on this patient for comparison purposes. Chamber Sizes and Function Normal left ventricular size, normal wall thickness, normal global systolic function with an estimated EF of 60 - 65%. No resting regional wall motion abnormality visualized. Left atrial size is normal. Left atrial pressure is normal. Right ventricular cavity size is normal, global systolic RV function is normal. RV wall thickness is normal. The right atrium is normal. Right atrial volume index is 19 ml/m . Right atrial area is 14 cm . The pulmonary artery is of normal size and origin. The sinus of Valsalva is normal sized. The ascending aorta is normal sized. Valves, RV Pressures and Diastolic Function The aortic valve is sclerotic, no stenosis and no regurgitation. The mitral valve is normal in structure, trace mitral regurgitation. Mitral annular calcification is present. Normal diastolic function. The tricuspid valve is normal in structure, trace tricuspid regurgitation. The pulmonic valve is normal. Trace pulmonary regurgitation. Masses, Effusion, Shunts There is no pericardial effusion. The inferior vena cava is normal sized, respiratory size variation greater than 50%. No left to right shunting was detected by limited color flow Doppler interrogation of the interatrial septum. MEASUREMENTS AND CALCULATIONS 2-D Measurements and LV Function: LVID (d) 3.5 cm LV FS% (2D) 40 % LVID (s) 2.1 cm LVOT diameter 2.0 cm IVS (d) 1.2 cm HR 76 bpm LVPW (d) 1.2 cm LA Vol index 28 ml/m2 Ao Sinus 3.0 cm RA Vol index 19 ml/m2 Ao Sinus ULN 3.8 cm * RA area 14 cm Asc Ao 3.0 cm RV Basal Diam 3.7 cm Asc Ao ULN 4.1 cm * RV Mid Diam 2.2 cm * Input BSA and age are outside of ranges, reported values correspond to BSA = 1.9 and Age = 81 Diastology: Mitral Tissue Doppler E Peak 0.9 m/s e', Septum 0.06 m/s A Peak 1.0 m/s e', Lateral 0.08 m/s E/A 0.9 E/e' Average 12.96 DT 192 msec Aortic Valve: Vmax 2.0 m/s MARIELLA (V) 2.03 cm VTI 0.45 m MARIELLA (I) 2.08 cm LVOT V max 1.3 m/s Max PG 16 mmHg LVOT VTI 0.29 m Mean PG 8 mmHg SV 93 ml Dim Index 0.65 SV index 47 ml/m CO 7.1 l/min CI 3.6 l/min/m Mitral Valve: MVA 4.0 cm MV P 1/2 56 msec MV Mean G 3 mmHg MV VTI 0.25 m Tricuspid Valve and estimated PA pressures: TAPSE 2.8 cm Pulmonic Valve: PV Vmax 1.1 m/s PV AT 121 msec . This study was interpreted by an [facility] accredited facility. Final Procedure Note Clifton Byrne MD - 02/01/2025 ECHOCARDIOGRAM KIKE MCGEE : 1940 84 years Study Date: 02/01/2025 10:54:07 AM Gender: F BP: 145/74 mmHg Height: 155.00 cm BSA: 1.97 m Weight: 100.00 kg Tech: [facility] Referring MD: CORA BEAN Site: [facility] Reading Location: MOBILE OP Patient Location: Outpatient. Procedure: 2D, Color Doppler and Spectral Doppler. Indication for study: Systolic murmur Cardiac Rhythm: Normal sinus.Study quality: Good. Imaging limitations: This study was subject to imaging limitations due tobody habitus. Final Impressions: 1. Normal LV size, normal wall thickness, normal function with anestimated EF of 60 - 65%. 2. Right ventricular cavity size is normal, global systolic RV functionis normal. 3. The aortic valve is sclerotic, no stenosis and no regurgitation.Likely source of murmur. Comparison There are no prior studies on this patient for comparison purposes. Chamber Sizes and Function Normal left ventricular size, normal wall thickness, normal globalsystolic function with an estimated EF of 60 - 65%. No resting regionalwall motion abnormality visualized. Left atrial size is normal. Leftatrial pressure is normal. Right ventricular cavity size is normal, globalsystolic RV function is normal. RV wall thickness is normal. The rightatrium is normal. Right atrial volume index is 19 ml/m . Right atrialarea is 14 cm . The pulmonary artery is of normal size and origin. Thesinus of Valsalva is normal sized. The ascending aorta is normal sized. Valves, RV Pressures and Diastolic Function The aortic valve is sclerotic, no stenosis and no regurgitation. Themitral valve is normal in structure, trace mitral regurgitation. Mitralannular calcification is present. Normal diastolic function. The tricuspidvalve is normal in structure, trace tricuspid regurgitation. The pulmonicvalve is normal. Trace pulmonary regurgitation. Masses, Effusion, Shunts There is no pericardial effusion. The inferior vena cava is normal sized,respiratory size variation greater than 50%. No left to right shunting wasdetected by limited color flow Doppler interrogation of the interatrialseptum. MEASUREMENTS AND CALCULATIONS 2-D Measurements and LV Function: LVID (d) 3.5 cm LV FS% (2D) 40% LVID (s) 2.1 cm LVOT diameter2.0 cm IVS (d) 1.2 cm HR 76bpm LVPW (d) 1.2 cm LA Vol index 28ml/m2 Ao Sinus 3.0 cm RA Vol index 19ml/m2 Ao Sinus ULN 3.8 cm * RA area 14cm Asc Ao 3.0 cm RV Basal Diam3.7 cm Asc Ao ULN 4.1 cm * RV Mid Diam2.2 cm * Input BSA and age are outside of ranges, reported values correspond to BSA = 1.9 and Age = 81 Diastology: Mitral Tissue Doppler E Peak 0.9 m/s e', Septum 0.06 m/s A Peak 1.0 m/s e', Lateral 0.08 m/s E/A 0.9 E/e' Average 12.96 DT 192 msec Aortic Valve: Vmax 2.0 m/s MARIELLA (V) 2.03 cm VTI 0.45 m MARIELLA (I) 2.08 cm LVOT V max 1.3 m/s Max PG 16 mmHg LVOT VTI 0.29 m Mean PG 8 mmHg SV 93 ml Dim Index 0.65 SV index 47 ml/m CO 7.1 l/min CI 3.6 l/min/m Mitral Valve: MVA 4.0 cm MV P 1/2 56 msec MV Mean G 3 mmHg MV VTI 0.25 m Tricuspid Valve and estimated PA pressures: TAPSE 2.8 cm Pulmonic Valve: PV Vmax 1.1 m/s PV AT 121 msec . This study was interpreted by an [facility] accredited facility. Final Cora PABON ECHO ORD Final Result * (ABNORMAL) POCT Urinalysis Dipstick Only [[id number]] (12/31/2024 2:00 PM CDT) PH 6.0 5.0 - 8.0 [facility] SPECIFIC GRAVITY 1.010 1.001 - 1.035 [facility] GLUCOSE NEGATIVE NEGATIVE [facility] BILIRUBIN NEGATIVE NEGATIVE [facility] KETONES NEGATIVE NEGATIVE [facility] OCCULT BLOOD NEGATIVE NEGATIVE [facility] PROTEIN NEGATIVE NEGATIVE [facility] NITRITE NEGATIVE NEGATIVE [facility] LEUKOCYTE ESTERASE 1+(A) NEGATIVE [facility] Urine URINE SPECIMEN / Unknown 12/31/2024 2:00 PM CDT 12/31/2024 2:00 PM CDT Cora PABON URINE Final Result [facility] [address] [place] [address], [facility] [address] [place] [address] * (ABNORMAL) URINALYSIS MICROSCOPIC [14565.1] - routine (12/31/2024 1:52 PM CDT) RBC 0-2 0-2, None Seen /HPF 01/01/2025 12:52 AM CDT [facility] WBC 3-5 0-2, 3-5, None Seen /HPF 01/01/2025 12:52 AM CDT [facility] BACTERIA Few None Seen, Rare, Few Bacteria/ HPF 01/01/2025 12:52 AM CDT [facility] EPITHELIAL CELLS Few None Seen, Few Epi/HPF 01/01/2025 12:52 AM CDT [facility] WHITE CELL CLUMPS Present(A) (none) 01/01/2025 12:52 AM CDT [facility] HYALINE CASTS 0-2 0-2, 3-5 /LPF 01/01/2025 12:52 AM CDT [facility] Urine URINE SPECIMEN / Unknown Non-Blood / Unknown 12/31/2024 1:52 PM CDT 12/31/2024 1:59 PM CDT us Cora PABON URINE Final Result Performing Organization Address [facility] Co de Phone Number [facility] [address] [place] [address], [place] * URINE CULTURE [34311.2] (12/31/2024 1:52 PM CDT) CULTURE No growth (<1,000 CFU/mL) 01/02/2025 2:54 PM CDT [facility] Urine URINE SPECIMEN / Unknown Non-Blood / Unknown 12/31/2024 1:52 PM CDT 12/31/2024 1:59 PM CDT us Cora PABON MICROBIOLOGY Final Result Performing Organization Address [facility] de Phone Number [facility] [address] [place] [address], [place] * SCAN-DIAGNOSTIC REPORT (12/20/2024 12:00 AM CDT) us Scanner OTHER Final Result * SCAN-CT INTERPRETATION (11/23/2024 12:00 AM CDT) Anatomical Region Laterality Modality Other us Scanner OTHER Final Result * TSH WITH REFLEX (11/19/2024 11:57 AM CDT) TSH W/REFLEX TO FT4 2.04 0.40 - 4.50 mIU/L [facility] Blood BLOOD SPECIMEN / Unknown 11/19/2024 11:57 AM CDT 11/19/2024 11:58 AM CDT us Lakeshia Gee MD CHEMISTRY Final R esult Performing Organization Address [facility] Co de Phone Number [facility] [address] [place] [address], [facility] [address] [place] [address] * CBC AND DIFFERENTIAL (11/19/2024 11:57 AM CDT) [facility] WHITE BLOOD CELL COUNT 6.9 3.8 - 10.8 Thousand/u L [facility] RED BLOOD CELL COUNT 4.34 3.80 - 5.10 Million/uL [facility] HEMOGLOBIN 13.8 11.7 - 15.5 g/dL [facility] HEMATOCRIT 40.9 35.0 - 45.0 % [facility] MCV 94.2 80.0 - 100.0 fL [facility] MCH 31.8 27.0 - [...] condition. RDW 14.5 11.0 - 15.0 % [facility] PLATELET COUNT 191 140 - 400 Thousand/u L [facility] MPV 10.6 7.5 - 12.5 fL [facility] ABSOLUTE NEUTROPHILS 4,085 1,500 [...] [facility] BASOPHILS 0.4 % [facility] Blood BLOOD SPECIMEN / Unknown 11/19/2024 11:57 AM CDT 11/19/2024 11:58 AM CDT Lakeshia Gee MD HEMATOLOGY Final R esult [facility] [address] [place] [address], [place] [phone] [facility] [address] [place] [address] * VITAMIN B12 (11/19/2024 11:57 AM CDT) VITAMIN B12 739 200 - 1,100 pg/mL [facility] Blood BLOOD SPECIMEN / Unknown 11/19/2024 11:57 AM CDT 11/19/2024 11:58 AM CDT Lakeshia Gee MD CHEMISTRY Final R esult Performing Organization Address City/[facility]/ZIP Co de Phone Number [facility] [address] [place] [address], [place] [phone] [facility] [address] [place] [address] * XR DEXA BONE DENSITY 2 SITES [77714.1] (04/05/2015 10:59 AM HEATING EQUIPMENT INSTALLER) Anatomical Region Laterality Modality Spine, HIPS, HIPL, HIPR Other Narrative 04/08/2015 7:26 AM HEATING EQUIPMENT INSTALLER Please see scanned document for results of this study. 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
[2025-02-05 18:23] VITALS: BP 159/81; PULSE 79; RESP 16; TEMP 36.1; O2SAT 97
--- NOTE | 2025-02-05 18:42 | ED.LOWEXIN ---
HPI - Extremity Injury (Lower) General Time Seen by Provider: 18:42 Date Seen: 02/05/25 Chief Complaint: Extremity Pain/Injury, Lower Stated Complaint: Left Toenail removed Time Seen by Provider: 02/05/25 18:15 Source: patient and RN notes reviewed Mode of arrival: ambulatory Limitations: no limitations History of Present Illness HPI Narrative: Dorys is an 84-year-old female coming in with complaint of left toenail injury. Her left great toenail was loose but when she went to put her sandal on, she pulled this toenail completely up. She thinks it is just attached at the base, consider pulling it off but she was not sure if she should. It did bleed. She does not know her last tetanus. She did bring up if I would look at her right foot. She has a callus on the outside of the foot, it is tender, Dr. Hills did shave it down about a week ago. She was at physical therapy yesterday and she does state the physical therapist was concerned about the redness. She cannot get back in to clinic for 2 weeks. She did try to call for an appointment. She has not had any fevers but states she has not had a fever since she was a child. She does have underlying peripheral neuropathy, her toe does not hurt but she is feeling pain somewhat along this callus of the right foot. Related Data Home Medications ?Medication ?Instructions ?Recorded ?Confirmed fluticasone propionate 50 1 spray intranasal BID PRN 12/04/21 02/05/25 mcg/actuation nasal spray,suspension losartan 100 mg tablet 100 mg PO DAILY 12/04/21 02/05/25 acetaminophen 500 mg tablet 500 mg PO Q6H PRN 12/05/21 02/05/25 (Tylenol Extra Strength) amlodipine 10 mg tablet 10 mg PO QDAY 12/05/21 02/05/25 bupropion HCl 150 mg 24 hr tablet, 150 mg PO DAILY 12/05/21 02/05/25 extended release pregabalin 150 mg capsule 150 mg PO Q12H 12/05/21 02/05/25 ropinirole 2 mg tablet 2 mg PO BID 12/05/21 02/05/25 hydrochlorothiazide 25 mg tablet 25 mg PO DAILY 08/15/23 02/05/25 oxycodone 5 mg tablet 5 mg PO DAILY 10/23/23 02/05/25 amlodipine 5 mg tablet 5 mg PO DAILY 09/28/24 02/05/25 oxycodone 10 mg tablet mg PO 09/28/24 10/13/24 triamcinolone acetonide 0.1 % 1 applic topical BID 09/28/24 02/05/25 topical cream Previous Rx's ?Medication ?Instructions ?Recorded pregabalin 150 mg capsule 150 mg PO BID #180 caps 12/06/23 furosemide 20 mg tablet 20 mg PO QAM #3 tabs 01/24/24 nystatin 100,000 unit/gram topical 1 applic topical TID #30 grams 07/25/24 powder nitrofurantoin 100 mg PO Q12H 5 days #9 caps 11/25/24 monohydrate/macrocrystals 100 mg capsule (Macrobid) ciprofloxacin HCl 500 mg tablet 500 mg PO BID #14 tabs 11/26/24 (Cipro) cephalexin 500 mg tablet 500 mg PO BID #19 tabs 02/05/25 Allergies Allergy/AdvReac Type Severity Reaction Status Date / Time atenolol Allergy Intermediate shortness Verified 02/05/25 18:16 of breath lisinopril Allergy Mild Cough Verified 02/05/25 18:16 morphine Allergy Mild nausea/vomi Verified 02/05/25 18:16 ting Review of Systems Narrative: As per HPI. [facility] Medical History Stage 3a chronic kidney disease ?N18.31 - Chronic kidney disease, stage 3a (ICD-10) Major depression, recurrent ?F33.9 - Major depressive disorder, recurrent, unspecified (ICD-10) Vaginal prolapse ?N81.10 - Cystocele, unspecified (ICD-10) Weakness generalized ?R53.1 - Weakness (ICD-10) Restless legs syndrome (RLS) ?G25.81 - Restless legs syndrome (ICD-10) Lymphedema ?I89.0 - Lymphedema, not elsewhere classified (ICD-10) Hiatal hernia with gastroesophageal reflux disease without esophagitis ?K44.9 - Diaphragmatic hernia without obstruction or gangrene (ICD-10) ?K21.9 - Gastro-esophageal reflux disease without esophagitis (ICD-10) Benign neoplasm of colon ?D12.6 - Benign neoplasm of colon, unspecified (ICD-10) Allergic rhinitis, cause unspecified ?J30.9 - Allergic rhinitis, unspecified (ICD-10) Morbid obesity with BMI of 40.0-44.9, adult ?E66.01 - Morbid (severe) obesity due to excess calories (ICD-10) ?Z68.41 - Body mass index [BMI] 40.0-44.9, adult (ICD-10) Skin lesion of face ?L98.9 - Disorder of the skin and subcutaneous tissue, unspecified (ICD-10) Contact dermatitis ?L25.9 - Unspecified contact dermatitis, unspecified cause (ICD-10) Neuropathy ?G62.9 - Polyneuropathy, unspecified (ICD-10) Arthritis ?M19.90 - Unspecified osteoarthritis, unspecified site (ICD-10) Sleep apnea ?G47.30 - Sleep apnea, unspecified (ICD-10) Asthma ?J45.909 - Unspecified asthma, uncomplicated (ICD-10) Hypertension ?I10 - Essential (primary) hypertension (ICD-10) Fracture of rib ?S22.39XA - Fracture of one rib, unspecified side, initial encounter for closed fracture (ICD-10) Surgical History History of arthroscopy of right knee (08/16/92) ?Z98.890 - Other specified postprocedural states (ICD-10) History of arthroscopy of left knee (01/15/95) ?Z98.890 - Other specified postprocedural states (ICD-10) History of carpal tunnel release ?Z98.890 - Other specified postprocedural states (ICD-10) History of sacrocolpopexy (06/22/14) ?Z98.890 - Other specified postprocedural states (ICD-10) History of revision of total knee arthroplasty ?Z96.659 - Presence of unspecified artificial knee joint (ICD-10) H/O: hysterectomy (~1994) ?Z90.710 - Acquired absence of both cervix and uterus (ICD-10) 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) ?Z96.651 - Presence of right artificial knee joint (ICD-10) History of total left knee replacement (02/04/03) ?Z96.652 - Presence of left artificial knee joint (ICD-10) Avulsion of toenail ?S91.209A - Unspecified open wound of unspecified toe(s) with damage to nail, initial encounter (ICD-10) Social History Smoking Status: Never smoker Do you use any of these nicotine containing products: None Second hand tobacco smoke exposure: No How often do you have a drink containing alcohol: never How often do you have six or more drinks on one occasion: Never AUDIT-C Alcohol total score: 0 Non-prescribed substance use: denies use service: No Exam Const: Vital Signs, click to edit/add: Vital Signs - 24 hr 02/05/25 18:23 Temperature 97.0 F L Pulse Rate [Pulse Oximeter] 79 Respiratory Rate 16 Blood Pressure [Ri ght Upper Arm] 159/81 H Pulse Oximetry 97 Oxygen Delivery Me thod Room Air This 84-year-old female is seen in exam room 4. She is a very pleasant patient, alert, interactive, no apparent distress. Lungs are clear, good air entry, wheezing or crackles, no tachypnea, no accessory muscle use. CV regular rate and rhythm, 1 to 2/6 systolic murmur heard, normal S1-S2. On her right lateral foot about midway along the metatarsal, she has a callus with some tenderness, callus itself is white, other maybe some slight fluctuance in this area but there seems to be a slight area of opening without any drainage. There is some erythema along the lateral side of the foot and onto the dorsum. Definitely looks different than her other foot. Her toenail is sticking up on the 1st toe of the left foot. I was able to simply just pulled this off. There is no active bleeding. The nail base is intact, no ripping of the tissues around the sides of the nail base. We had discussed leaving the toenail in place 1st taking it off. Her toenail is thickened, I think leaving the toenail on in this scenario was not going to benefit her, think she would continue to flip it back up. Documenting provider has reviewed patient's vital signs: yes Course Course ED Course: Will have sprinkler repair technician clean patient's left great toe, apply some bacitracin the nail base and use a gauze wrap. We will x-ray her right foot, get some baseline blood work. I am worried that this callus may actually have infection underneath. With her peripheral neuropathy, I am not sure if I should debris this further. Reevaluation(s) Time of Reevaluation #1: 20:27 Reevaluation #1: Have reviewed x-ray report with patient, gave her a copy to bring to her chief solution architect. Reviewed her labs are reassuring. There is no noted history of MRSA. Will have her try Keflex, will give her 500 mg here. Based on a estimated creatinine clearance is summer, 500 mg twice a day should be sufficient. Vital Signs Vital signs: Initial Vital Signs Temperature 97.0 F L 02/05/25 18:23 Temperature Source Temporal Artery Scan 02/05/25 18:23 Pulse Rate 79 02/05/25 18:23 Respiratory Rate 16 02/05/25 18:23 Blood Pressure 159/81 H 02/05/25 18:23 Blood Pressure Mean 107 H 02/05/25 18:23 Pulse Oximetry 97 02/05/25 18:23 Oxygen Delivery Method Room Air 02/05/25 18:23 Vital Signs Temperature 97.0 F L 02/05/25 18:23 Pulse Rate 79 02/05/25 18:23 Respiratory Rate 16 02/05/25 18:23 Blood Pressure 159/81 H 02/05/25 18:23 Pulse Oximetry 97 02/05/25 18:23 Oxygen Delivery Method Room Air 02/05/25 18:23 Temperature 97.0 F L 02/05/25 18:23 Pulse Rate 79 02/05/25 18:23 Respiratory Rate 16 02/05/25 18:23 Blood Pressure 159/81 H 02/05/25 18:23 Pulse Oximetry 97 02/05/25 18:23 Oxygen Delivery Method Room Air 02/05/25 18:23 MDM - Extremity Injury (Lower) Lab Data Attestation: I reviewed the patient's lab results. Labs: Lab Results 02/05/25 Range/Units 18:50 WBC 6.96 (4.50-11.00) K/uL RBC 4.30 (4.00-5.20) m/uL Hgb 13.1 (12.0-16.0) gm/dL Hct 39.2 (33.0-51.0) % MCV 91 (80-100) fL MCH 31 (26-34) pg MCHC 33 (32-36) gm/dL RDW Coeff of [place] 14.2 (11.5-15.5) % Plt Count 197 (140-440) K/uL Neut % (Auto) 66.5 (42.0-72.0) % Lymph % (Auto) 19.8 L (20-44) % Hern[place] % (Auto) 10.3 (0.0-11.0) % Eos % (Auto) 3.0 (0.0-7.0) % Baso % (Auto) 0.3 (0.0-3.0) % Neut # (Auto) 4.62 (1.7-7.0) K/uL Lymph # (Auto) 1.40 (0.90-2.90) K/uL Hernando # (Auto) 0.70 (0.00-0.90) K/UL Eos # (Auto) 0.21 (0.00-0.50) K/uL Baso # (Auto) 0.02 (0.00-0.30) K/uL Abs Immat Gran (auto) 0.01 (0.00-0.30) K/uL Imm/Tot Granulo (auto) 0.1 % Sodium 140 (135-149) mmol/L Potassium 4.3 (3.6-5.1) mmol/L Chloride 106 (96-114) mmol/L Carbon Dioxide 29 (20-32) mmol/L Anion Gap 5 L (7-15) mEq/L BUN 19 (7-30) mg/dL Creatinine 0.9 (0.5-1.5) mg/dL Estimated GFR 63 ml/min Glucose 92 (60-115) mg/dL Calcium 9.7 (8.4-10.6) mg/dL C-Reactive Protein 0.6 (0.5-1.0) mg/dL Imaging Data XR right foot: Attestation: I have reviewed the pertinent imaging results. My impression: Do not appreciate any evidence of osteomyelitis on my preliminary review. Radiologist's impression: Patient: DORYS MCGEE Facility:?[facility] Patient ID:?[id number] Site Patient ID:?[id number]. Site :?[id number] Study:?XRay-Extremity Right FOOT 3V-02/05/2025 7:22:23 PM Ordering Physician:Veronica Rahman Final Report: INDICATION: Possible infected callus outside of foot TECHNIQUE: Three views of the right foot COMPARISON: CT right ankle 09/28/2024 FINDINGS: Moderate soft tissue swelling lateral to the 5th metatarsal base with a small soft tissue defect. Underlying bone does not demonstrate erosion. No acute fracture or dislocation. Severe joint space narrowing throughout the midfoot and subtalar joints with subchondral sclerosis and small osteophytes overall suggestive of neuropathic arthropathy. IMPRESSION: 1. Right lateral midfoot soft tissue swelling with a small open wound and no radiographic evidence of underlying osteomyelitis. 2. Severe chronic midfoot degeneration. Dictated by Tomy Lange MD @ 02/05/2025 7:49:44 PM (Electronic Signature) Discharge Plan Discharge Clinical Impression: Avulsion of toenail of left foot, Foot callus Patient Disposition: Home, Self-Care Condition: Stable Instructions: Cellulitis (ED), Nail Avulsion (ED) Additional Instructions: Continue with Keflex twice a day, next dose due tomorrow morning. Do try to elevate your right foot, this will help decrease infection. Need to follow-up with podiatry as scheduled, call them to see if they might be able to work you in quicker than 2 weeks. If this area is becoming more swollen, painful, red, develops purulent discharge, have a fever with these symptoms, need to return to the ER for further evaluation. Activity Level: Activity as Tolerated Prescriptions: New cephalexin 500 mg tablet 500 mg PO BID Qty: 19 0RF No Action losartan 100 mg tablet 100 mg PO DAILY fluticasone propionate 50 mcg/actuation spray,suspension 1 spray intranasal BID PRN Rx Instructions: administer into each nostril pregabalin 150 mg capsule 150 mg PO Q12H amlodipine 10 mg tablet 10 mg PO QDAY ropinirole 2 mg tablet 2 mg PO BID bupropion HCl 150 mg tablet extended release 24 hr 150 mg PO DAILY acetaminophen [Tylenol Extra Strength] 500 mg tablet 500 mg PO Q6H PRN furosemide 20 mg tablet 20 mg PO QAM Qty: 3 0RF hydrochlorothiazide 25 mg tablet 25 mg PO DAILY oxycodone 5 mg tablet 5 mg PO DAILY nystatin 100,000 unit/gram powder 1 applic topical TID Qty: 30 0RF pregabalin 150 mg capsule 150 mg PO BID Qty: 180 0RF amlodipine 5 mg tablet 5 mg PO DAILY triamcinolone acetonide 0.1 % cream 1 applic topical BID oxycodone 10 mg tablet PO nitrofurantoin monohyd/m-cryst [Macrobid] 100 mg capsule 100 mg PO Q12H 5 Days Qty: 9 0RF Rx Instructions: must administer with a meal/food ciprofloxacin HCl [Cipro] 500 mg tablet 500 mg PO BID Qty: 14 0RF Follow Up/Referrals: Lakeshia Gee MD [Primary Care Provider, Family Practice] Stand Alone Forms: [facility] Info Instructions
--- NOTE | 2025-02-05 18:49 | CRLHL7_ITS ---
For Patients: As a result of the Century Cures Act, medical imaging exams and procedure reports are released immediately into your electronic medical record. You may view this report before your referring provider. If you have questions, please contact your health care provider. INDICATION: Possible infected callus outside of foot TECHNIQUE: Three views of the right foot COMPARISON: CT right ankle 09/28/2024 FINDINGS: Moderate soft tissue swelling lateral to the 5th metatarsal base with a small soft tissue defect. Underlying bone does not demonstrate erosion. No acute fracture or dislocation. Severe joint space narrowing throughout the midfoot and subtalar joints with subchondral sclerosis and small osteophytes overall suggestive of neuropathic arthropathy. IMPRESSION: 1. Right lateral midfoot soft tissue swelling with a small open wound and no radiographic evidence of underlying osteomyelitis. 2. Severe chronic midfoot degeneration. Dictated by Tomy Lange MD @ 02/05/2025 7:49:44 PM (Electronically Signed)
--- OUTSIDE RECORDS SUMMARY | 2025-02-05 18:54 | XMS_ITS | Clinical Summary ---
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 Name Role Phone [facility] Unavailable Unava ilable Conditions or Problems Problem Name Problem Code Onset Date Status Entry Date Provider Comment Standard Description Annotate Polyneuropathy [id number] (SNOMED CT) 08/31 Active 08/31 Tony Stringer MD Polyneuropathy Medications Medication Instructions Start Date Stop Date Generic Name NDC Provider GABAPENTIN 600 MG TABS gabapentin [id number] Tony Stringer MD PREGABALIN 150 MG CAPS 150 mg by mouth twice a day 4 pregabalin [id number] Tony Stringer MD BUPROPION HCL ER (XL) 150 MG [id number] bupropion hcl [id number] Tony Stringer MD FERROUS GLUCONATE 324 (38 Fe) MG TABS ferrous gluconate [id number] Tony Stringer MD FUROSEMIDE 20 MG TABS furosemide [id number] Tony Stringer MD ROPINIROLE HCL 2 MG TABS ropinirole [id number] Tony Stringer MD LOSARTAN POTASSIUM 100 MG TABS losartan [id number] Tony Stringer MD AMLODIPINE BESYLATE 10 MG TABS amlodipine 58223234788 Tony Stringer MD GABAPENTIN 600 MG TABS gabapentin 57982534834 Tony Stringer MD Medications Administered No information [...] medications (procedure) SMOK STATUS never smoker 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
[2025-02-05 19:54] LABS: Hematocrit* 39.2 % (33.0-51.0); Hemoglobin* 13.1 gm/dL (12.0-16.0); Immature Granulocytes Abs Auto 0.01 K/uL (0.00-0.30); Immature Granulocytes Pct Auto 0.1 %; Mean Corpuscular HGB Conc 33 gm/dL (32-36); Mean Corpuscular Hemoglobin 31 pg (26-34); Mean Corpuscular Volume 91 fL (80-100); RDW Coefficient of Variation % 14.2 % (11.5-15.5); Red Blood Count* 4.30 m/uL (4.00-5.20); White Blood Count* 6.96 K/uL (4.50-11.00)
[2025-02-05 19:59] LABS: Lymphocytes Absolute Auto 1.40 K/uL (0.90-2.90); Slide Review Reflex No
[2025-02-05 20:06] LABS: Chloride* 106 mmol/L (96-114); Potassium* 4.3 mmol/L (3.6-5.1); Sodium* 140 mmol/L (135-149)
[2025-02-05 20:09] LABS: Anion Gap 5 mEq/L (7-15); Blood Urea Nitrogen* 19 mg/dL (7-30); Carbon Dioxide* 29 mmol/L (20-32); Creatinine* 0.9 mg/dL (0.5-1.5); Estimated Glomerular Filt Rate 63 ml/min
[2025-02-05 20:10] LABS: Calcium* 9.7 mg/dL (8.4-10.6); Glucose* 92 mg/dL (60-115)
[2025-02-05 20:45] VITALS: PULSE 82; RESP 18
== END 2025-02-05 20:46 | disposition home or self-care (01) ==
PROVIDERS: Emergency Provider Family Medicine; PCP Family Medicine
DX: S91.202A Unspecified open wound of left great toe with damage to nail, initial encounter (principal); L84 Corns and callosities
CPT/HCPCS: 36415; 73630; 80048; 85025; 86140; 99284; A9270

== ENCOUNTER 2025-02-25 14:45 | Outpatient (RCR) | payer MEDICARE, BC, SELFPAY | END 2025-05-17 15:21 | disposition home or self-care (01) | PROVIDERS: PCP Family Medicine; Visit Provider Orthopaedic Surgery | DX: M21.171 Varus deformity, not elsewhere classified, right ankle (principal); M54.16 Radiculopathy, lumbar region; G62.9 Polyneuropathy, unspecified; M25.579 Pain in unspecified ankle and joints of unspecified foot; M19.90 Unspecified osteoarthritis, unspecified site; Z51.89 Encounter for other specified aftercare | CPT/HCPCS: 97110; 97162 ==

== ENCOUNTER 2025-03-11 07:52 | Outpatient (CLI) | payer MEDICARE, BC, SELFPAY ==
--- NOTE | 2025-03-11 09:45 | CRLHL7_ITS ---
For Patients: As a result of the Cures Act, medical imaging exams and procedure reports are released immediately into your electronic medical record. You may view this report before your referring provider. If you have questions, please contact your health care provider. Indication: Right foot wound Technique: Right foot 3 views Comparison: 02/05/2025 Findings: Severe midfoot degenerative changes. No fracture. Calcaneal spurs. Vascular calcifications. Hammertoes. No acute cortical destruction or periostitis. Impression: No evidence of osteomyelitis. Dictated by Shashi Hobbs MD @ 03/11/2025 10:07:03 AM (Electronically Signed)
== END 2025-03-11 07:53 | disposition home or self-care (01) ==
PROVIDERS: Family Provider Family Medicine; PCP Family Medicine; Referring Provider Podiatrist; Visit Provider Nurse Practitioner Family
DX: I89.0 Lymphedema, not elsewhere classified (principal); L89.893 Pressure ulcer of other site, stage 3; G62.9 Polyneuropathy, unspecified; I12.9 Hypertensive chronic kidney disease with stage 1 through stage 4 chronic kidney disease, or unspecified chronic kidney disease; N18.30 Chronic kidney disease, stage 3 unspecified
CPT/HCPCS: 11042; 73630; 87070; 87186; G0463

== ENCOUNTER 2025-03-19 14:01 | Outpatient (CLI) | payer MEDICARE, BC, SELFPAY | END 2025-03-19 14:02 | disposition home or self-care (01) | LOC: WOUND 14:01 | PROVIDERS: PCP Family Medicine; Visit Provider Nurse Practitioner Family | DX: I89.0 Lymphedema, not elsewhere classified (principal); L89.893 Pressure ulcer of other site, stage 3; G62.9 Polyneuropathy, unspecified; I12.9 Hypertensive chronic kidney disease with stage 1 through stage 4 chronic kidney disease, or unspecified chronic kidney disease; N18.30 Chronic kidney disease, stage 3 unspecified | CPT/HCPCS: 11042 ==

== ENCOUNTER 2025-03-23 08:57 | Outpatient (CLI) | payer MEDICARE, BC, SELFPAY | END 2025-03-23 08:58 | disposition home or self-care (01) | LOC: WOUND 08:57 | PROVIDERS: PCP Family Medicine; Visit Provider Family Medicine | DX: I89.0 Lymphedema, not elsewhere classified (principal); L89.893 Pressure ulcer of other site, stage 3; G62.9 Polyneuropathy, unspecified; I12.9 Hypertensive chronic kidney disease with stage 1 through stage 4 chronic kidney disease, or unspecified chronic kidney disease; N18.30 Chronic kidney disease, stage 3 unspecified | CPT/HCPCS: 29445 ==

== ENCOUNTER 2025-03-25 09:01 | Outpatient (CLI) | payer MEDICARE, BC, SELFPAY | END 2025-03-25 09:02 | disposition home or self-care (01) | LOC: WOUND 09:01 | PROVIDERS: PCP Family Medicine; Visit Provider Nurse Practitioner Family | DX: I89.0 Lymphedema, not elsewhere classified (principal); L89.893 Pressure ulcer of other site, stage 3; G62.9 Polyneuropathy, unspecified; I12.9 Hypertensive chronic kidney disease with stage 1 through stage 4 chronic kidney disease, or unspecified chronic kidney disease; N18.30 Chronic kidney disease, stage 3 unspecified | CPT/HCPCS: 97597 ==

== ENCOUNTER 2025-03-30 09:00 | Outpatient (CLI) | payer MEDICARE, BC, SELFPAY | END 2025-03-30 09:01 | disposition home or self-care (01) | LOC: WOUND 09:00 | PROVIDERS: PCP Family Medicine; Visit Provider Nurse Practitioner Family | DX: I89.0 Lymphedema, not elsewhere classified (principal); L89.893 Pressure ulcer of other site, stage 3; G62.9 Polyneuropathy, unspecified; I12.9 Hypertensive chronic kidney disease with stage 1 through stage 4 chronic kidney disease, or unspecified chronic kidney disease; N18.30 Chronic kidney disease, stage 3 unspecified | CPT/HCPCS: 29445 ==

== ENCOUNTER 2025-04-02 10:47 | Outpatient (CLI) | payer MEDICARE, BC, SELFPAY | END 2025-04-02 10:48 | disposition home or self-care (01) | LOC: WOUND 10:48 | PROVIDERS: PCP Family Medicine; Visit Provider Nurse Practitioner Family | DX: L89.512 Pressure ulcer of right ankle, stage 2 (principal); G62.9 Polyneuropathy, unspecified; I89.0 Lymphedema, not elsewhere classified; I10 Essential (primary) hypertension | CPT/HCPCS: 29445 ==

== ENCOUNTER 2025-04-06 08:04 | Outpatient (CLI) | payer MEDICARE, BC, SELFPAY | END 2025-04-06 08:05 | disposition home or self-care (01) | LOC: WOUND 08:04 | PROVIDERS: PCP Family Medicine; Visit Provider Nurse Practitioner Family | DX: L89.512 Pressure ulcer of right ankle, stage 2 (principal); G62.9 Polyneuropathy, unspecified; I89.0 Lymphedema, not elsewhere classified; I10 Essential (primary) hypertension | CPT/HCPCS: 29445 ==

== ENCOUNTER 2025-04-09 14:02 | Outpatient (CLI) | payer MEDICARE, BC, SELFPAY | END 2025-04-09 14:03 | disposition home or self-care (01) | LOC: WOUND 14:02 | PROVIDERS: PCP Family Medicine; Visit Provider Nurse Practitioner Family | DX: I89.0 Lymphedema, not elsewhere classified (principal); G62.9 Polyneuropathy, unspecified; I10 Essential (primary) hypertension | CPT/HCPCS: 29445 ==

== ENCOUNTER 2025-04-13 14:48 | Outpatient (CLI) | payer MEDICARE, BC, SELFPAY | END 2025-04-13 14:49 | disposition home or self-care (01) | LOC: WOUND 14:48 | PROVIDERS: PCP Family Medicine; Visit Provider Nurse Practitioner Family | DX: I89.0 Lymphedema, not elsewhere classified (principal); G62.9 Polyneuropathy, unspecified; I10 Essential (primary) hypertension | CPT/HCPCS: 29445 ==

== ENCOUNTER 2025-04-21 10:15 | Day surgery (SDC) | payer MEDICARE, BC, SELFPAY ==
[2025-04-21] MEDS: LACTATED RINGERS 1000 ML 1,000 ML 100 ML IV (10:30)
[2025-04-21 10:52] VITALS: BMI 40.0
[2025-04-21 10:58] VITALS: BP 141/72; PULSE 73; RESP 16; TEMP 36.7; O2SAT 98
[2025-04-21] MEDS: SODIUM CHLORIDE 0.9 % (FLUSH) 10 ML SYRINGE IVF (11:10)
[2025-04-21] MEDS: BUPIVACAINE 0.25% 30 ML INJECTION (12:32)
--- NOTE | 2025-04-21 13:02 | P.ANES_ITS ---
Anesthesia Charges Start Date/Time Anesthesia Start Date: 04/21/25 Anesthesia Start Time: 12:27 Stop Date/Time Anesthesia Stop Date: 04/21/25 Anesthesia Stop Time: 13:43 Summary Extremes of Age - Over 70 or under 1: MDA Coding CPT Codes CPT Codes: ANESTH LOWER LEG BONE SURG - 11069 ([id number]) P3 - PATIENT W/SEVERE SYS DISEASE, QK - TELESERVICES REPRESENTATIVE 2-4 CNCRNT ANES PROC, QX - CHILD CARE NURSE SVC W/ MD MED DIRECTION Additional Codes: Summary - Extremes of Age - Over 70 or under 1: MDA ([id number])
--- NOTE | 2025-04-21 13:02 | W.ANESCHARGE ---
Anesthesia Charges Start Date/Time Anesthesia Start Date: 04/21/25 Anesthesia Start Time: 12:27 Stop Date/Time Anesthesia Stop Date: 04/21/25 Anesthesia Stop Time: 13:43 Summary Extremes of Age - Over 70 or under 1: MDA Coding CPT Codes CPT Codes: ANESTH LOWER LEG BONE SURG - 54645 ([id number]) P3 - PATIENT W/SEVERE SYS DISEASE, QK - TELEVISION PROGRAM DIRECTOR 2-4 CNCRNT ANES PROC, QX - SENIOR TABLEAU DEVELOPER SVC W/ MD MED DIRECTION Additional Codes: Summary - Extremes of Age - Over 70 or under 1: MDA ([id number])
[2025-04-21 13:40] VITALS: BP 129/68; PULSE 75; RESP 16; TEMP 36.7
[2025-04-21 13:45] VITALS: BP 134/74; PULSE 75; RESP 16; O2SAT 97
--- NOTE | 2025-04-21 13:47 | P.ANES_ITS ---
Anesthesia Charges Start Date/Time Anesthesia Start Date: 04/21/25 Anesthesia Start Time: 12:27 Stop Date/Time Anesthesia Stop Date: 04/21/25 Anesthesia Stop Time: 13:43 Summary Extremes of Age - Over 70 or under 1: LICENSING SERVICES CLERK Coding CPT Codes CPT Codes: ANESTH LOWER LEG BONE SURG - 03276 ([id number]) P3 - PATIENT W/SEVERE SYS DISEASE, QK - CODING ANALYST 2-4 CNCRNT ANES PROC, QX - LICENSING SERVICES CLERK SVC W/ MD MED DIRECTION Additional Codes: Summary - Extremes of Age - Over 70 or under 1: LICENSING SERVICES CLERK ([id number])
--- NOTE | 2025-04-21 13:47 | W.ANESCHARGE ---
Anesthesia Charges Start Date/Time Anesthesia Start Date: 04/21/25 Anesthesia Start Time: 12:27 Stop Date/Time Anesthesia Stop Date: 04/21/25 Anesthesia Stop Time: 13:43 Summary Extremes of Age - Over 70 or under 1: BEEF SKINNER Coding CPT Codes CPT Codes: ANESTH LOWER LEG BONE SURG - 15464 ([id number]) P3 - PATIENT W/SEVERE SYS DISEASE, QK - PANEL WIRER 2-4 CNCRNT ANES PROC, QX - BEEF SKINNER SVC W/ MD MED DIRECTION Additional Codes: Summary - Extremes of Age - Over 70 or under 1: BEEF SKINNER ([id number])
[2025-04-21 14:00] VITALS: BP 136/74; PULSE 70; RESP 16; O2SAT 97
[2025-04-21] MEDS: OxyCODONE/APAP 5-325 TABLET PO (14:03)
[2025-04-21 14:15] VITALS: BP 139/74; PULSE 74; RESP 16; O2SAT 97
--- NOTE | 2025-04-21 17:23 | W.PODPROC_ITS ---
Date of Procedure: 04/21/25 Surgeon: Julio César Hills DPM Pre-op Diagnosis: 1. 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 Partial resection of 5th metatarsal base right Indications: Dorys has a recurrent ulceration over the 5th metatarsal base that has finally healed with total contact casting. to prevent recurrence she needs the pr ominent bone removed. I reviewed the procedure, recovery and potential complications with her and her son. These include but are not limited to: poor wound healing, infection, recurrence, possible need for future surgery, DVT, PE and . All questions answered and consent signed. site maked. Procedure Description: Patient was brought into the OR and placed on OR table. IV sedation initiated and 30mL of 0.25% bupivacaine injected into the right foot. She was prepped and draped in sterile fashion. standard timeout protocol followed. the left foot exsanguinated and tourniquet inflated to 250mmHg. Linear incision made over the dorsal lateral 5th metatarsal base. Incision carried down through skin and subcutaneous tissue. Blunt dissection taken down to the periosteum which was then stripped away from the 5th metataral base. The peroneal tendon was partially detached. using sagittal saw the Styloid process and portion of the lateral base of the 5th metatarsal resected. the bone was remodelled with power bur. Mini c-arm images showed excellent level of resection. wound irrigated with NS. Arthrex fibertak anchor placed into the cuboid. The peroneus brevis tendon advanced onto the bone. Periosteum and deep fascia closed with 3-0 vicryl. subcutaneous tissue closed with 4-0 monocryl and skin closed with 3-0 nylon. sterile dressing applied. Tourniquet released and all digits had normal CFT. She was placed in short cam boot but could also use surgical shoe if not comfortable. she was transferred from OR to same day with VSS and vascular status intact. Written and verbal instructions given. f/u next week. She is WBAT. Anesthesia: MAC and local Hemostasis: ankle Estimated blood loss (mL): 20 Provider Operated C-arm: Fluoroscopy was run by Julio César Hills DPM for 5th metatarsal base resection. Total images was 2. Total fluoro time was 00:00:02. Implants: Arthrex fibertak anchor x1. Specimens: none sent Disposition: same day
== END 2025-04-21 14:25 | disposition home or self-care (01) ==
LOC: OR 10:17
PROVIDERS: PCP Family Medicine; Visit Provider Podiatrist
PROC: (CPT 28122; principal; 2025-04-21 12:00)
DX: M89.8X7 Other specified disorders of bone, ankle and foot (principal); L97.512 Non-pressure chronic ulcer of other part of right foot with fat layer exposed
CPT/HCPCS: 28122; 01480; 73620; 76000; 99100; A9270; C1713; J0665; J0690; J2704; J7120